=== PATIENT | male | born 1980 | race Caucasian/White ===

== ENCOUNTER 2017-02-10 10:48 | Outpatient (CLI) | payer OTHER ==
[~2017-02-10] VITALS: Ht 188 cm; Wt 107.2 kg
[~2017-02-10 10:48] MED LIST: ACHD5005 PO; ALPR1T PO; ALPR1TAB2 PO; AMIT100T2 PO; AMT50T PO; ATEN-158 PO; ATEN25TA PO; ATEN50TA PO; BP MED; CEPH500C PO; CRS350T PO; CYCL10TA9 PO; DIVA500T PO; HSCO125 PO; HYDR-1231 PO; HYDR-2890 PO; HYDR50CA3; KCL20TCR PO; LITH150C PO; LNS30CCR PO; LTH300TCR PO; LTH450TCR PO; METO-272 PO; METO-354 PO; METO50TA2 PO; NAPR-243 PO; NF-ESOM40C PO; OMEP20CA12 PO; ONDA-43 PO; ONDA4TAB8 SL; ONDA8TAB2 PO; ONDA8TAB9 PO; ONDN4T PO; OXC10TCR PO; PNT40TEC PO; POTA-51 PO; PREVACID; PRM25T PO; PROM25SU43 RC; PROM25SU44 RC; RANI75TA30 PO; RIZA10TA23 PO; SCR1T1 PO; SERT25TA PO; SMV20T PO; SULF1TAB38 PO; TRAM-21 PO; XANAX PO
[2017-02-10] MEDS ORDERED: FAMO20TA45 PO (11:01)
[2017-02-10 11:05] VITALS: BP 127/87
== END 2017-02-10 11:10 | disposition home or self-care (01) ==
LOC: PREOP 10:48
PROVIDERS: ATTEND Surgery
DX: Z01.818 Encounter for other preprocedural examination (principal); Z11.2 Encounter for screening for other bacterial diseases; K40.90 Unilateral inguinal hernia, without obstruction or gangrene, not specified as recurrent
CPT/HCPCS: 87081

== ENCOUNTER 2017-02-17 09:35 | Day surgery (SDC) | payer OTHER ==
[~2017-02-17] VITALS: Ht 188 cm; Wt 107.2 kg
[~2017-02-17 09:35] MED LIST changes: +FAMO20TA45 PO
[2017-02-17] MEDS ORDERED: ceFAZolin 2 GM/50 ML NS 50 ML ONE (09:54)
[2017-02-17] MEDS ORDERED: FAMOTIDINE 20MG/2ML IV (PEPCID) IV ONE (10:15)
[2017-02-17] MEDS ORDERED: MIDAZOLAM 2 MG/2 ML (VERSED) VIAL IV ONE (10:15)
[2017-02-17] MEDS ORDERED: ceFAZolin 2 GM/NS 50 ML IV ONE (10:15)
[2017-02-17] MEDS: LACTATED RINGERS 1,000 ML IV PRN ×3 (10:24→13:59)
[2017-02-17 11:07] VITALS: BP 139/95
[2017-02-17] MEDS ORDERED: DEXAMETHASONE PF 10 MG/ML (DECADRON) VIAL ONE (11:07)
[2017-02-17] MEDS ORDERED: ROCURONIUM 50 MG/5 ML (ZEMURON) VIAL IV ONE (11:07)
[2017-02-17] MEDS ORDERED: ONDANSETRON 4 MG/2 ML (SDV) Z0FRAN ONE (11:07)
[2017-02-17] MEDS ORDERED: LACTATED RINGERS 1,000 ML IV ONE ×3 (11:07→13:56)
[2017-02-17] MEDS ORDERED: MIDAZOLAM 2 MG/2 ML (VERSED) VIAL ONE (11:07)
[2017-02-17] MEDS ORDERED: proPOfol 200 MG/20 ML (DIPRIVAN) VIAL IV ONE (11:07)
[2017-02-17] MEDS ORDERED: SEVOFLURANE (ULTANE) 15 ML INHAL SOLN ONE ×3 (11:07→12:44)
[2017-02-17] MEDS ORDERED: LIDOCAINE PF 2% 10 ML (XYLOCAINE) AMP ONE (11:07)
[2017-02-17] MEDS ORDERED: fentaNYL INJECTION 250 MCG/5 ML AMP ONE (11:08)
[2017-02-17] MEDS ORDERED: LIDOCAINE 1% INJ 20 ML (XYLOCAINE) VIAL ONE (11:09)
[2017-02-17] MEDS ORDERED: BUPIVACAINE 0.5% 30 ML (SENSORCAINE) VIAL ONE (11:09)
--- NOTE | 2017-02-17 11:12 | Progress Note-Pre Operative ---
Pre-Operative Progress Note H&P Reviewed The H&P was reviewed, patient examined and no changes noted. Date H&P Reviewed: Feb 17, 2017 Time H&P Reviewed: 11:11 Pre-Operative Diagnosis: right inguinal hernia, incisional umbilical hernia JR ENRIQUE DO Feb 17, 2017 11:11 am
[2017-02-17] MEDS ORDERED: DOCU-143 PO (11:40)
[2017-02-17] MEDS ORDERED: HYDR-3812 PO (11:40)
--- NOTE | 2017-02-17 11:41 | Discharge Inst-Simple/Standard ---
Discharge Inst-Standard Patient Instructions/Follow Up Plan of Care/Instructions/FU: Follow up with Dr. Tripp in 2 weeks Activity as Tolerated: No Discharge Diet: No Restrictions Other Inst to Patient Follow up Appt: Make appointment for 2 weeks. Instructions: No lifting greater than 10 pounds. No strenuous activity. May shower in 24 hours, no tub bath or soaking. Use incentive spirometer at home as directed. No Smoking Skin/Wound Care: May remove bandages. You need to leave the white strips over incision on they will fall off on their own. Symptoms to Report: Appetite Changes, Extremity Discoloration, Numbness/Tingling, Swelling Increased , Bleeding Excessive, Eyesight Changes, Pain Increased, Urine Color Change, Constipation(Persistent), Fever over 101 degree F, Pain/Pressure in chest, Urinating Difficulty, Cough Up/Vomit Blood, Heart Beat Irreg/Pounding, Pain/ Pressure in jaw, Vaginal Bleeding Increase, Cramps in feet or legs, Lightheadedness, Pain/Pressure in shoulder, Diarrhea(Persistent), Memory Changes Suddenly, Questions/Concerns, Weight gain consecutive days, Dizziness/ Fainting, Nausea/Vomiting, Shortness of Breath, Weight gain over 2 pounds If questions or concerns contact your physician Or seek help at emergency department. VINNY WILL APRN Feb 17, 2017 11:41
[2017-02-17] MEDS ORDERED: NEOSTIGMINE (BLOXIVERZ ) 1 MG/1ML 10 ML VIAL ONE (12:42)
[2017-02-17] MEDS ORDERED: GLYCOPYRROLATE 0.2 MG/ML (ROBINUL) 2 ML VIAL ONE (12:42)
--- NOTE | 2017-02-17 12:42 | Progress Note-Post Operative ---
Post-Operative Progess Note Surgeon (s)/Correspondent (s) Surgeon JR ENRIQUE DO Correspondent: Dr. Hall Pre-Operative Diagnosis Right Inguinal Hernia, Incisional Umbilical Hernia Post-Operative Diagnosis same Post-Op Procedure Note Date of Procedure: Feb 17, 2017 Name of Procedure Performed: right inguinal hernia and incisional umbilical hernia repair Description of the Procedure: repair of hernias Findings of the Procedure direct defect rih, incisional hernia at umbilicus Anesthesia Type general Estimated blood loss (mL): minimal Specimen(s) collected/removed none JR ENRIQUE DO Feb 17, 2017 12:42 pm
[2017-02-17] MEDS: morphine INJ 10 MG/ML 1ML (SYR OR VIAL) IVP PRN ×2 (13:12→13:18)
[2017-02-17] MEDS ORDERED: ONDANSETRON 4 MG/2 ML (SDV) Z0FRAN IVP PRN (13:15)
[2017-02-17] MEDS ORDERED: MEPERIDINE (DEMEROL) INJ 50 MG/ML IVP PRN (13:15)
[2017-02-17] MEDS ORDERED: HYDROmorphone (DILAUDID) 2 MG/ML VIAL ONE (13:16)
[2017-02-17] MEDS: HYDROmorphone (DILAUDID) 2 MG/ML VIAL IVP PRN ×4 (13:20→13:40)
[2017-02-17] MEDS ORDERED: MEPERIDINE (DEMEROL) INJ 50 MG/ML ONE (13:51)
[2017-02-17 14:10] VITALS: BP 139/85
[2017-02-17 14:40] VITALS: BP 140/84
[2017-02-17] MEDS ORDERED: HYDROcodone/APAP 5 MG/325 MG (LORTAB) TAB PO ONE (14:45)
[2017-02-17 15:10] VITALS: BP 148/88
--- NOTE | 2017-02-18 04:32 | OPERATIVE REPORT ---
DATE OF SERVICE: 02/17/2017 PREOPERATIVE DIAGNOSES: 1. Right inguinal hernia. 2. Incisional umbilical hernia. POSTOPERATIVE DIAGNOSES: 1. Right direct inguinal hernia. 2. Umbilical incisional hernia. PROCEDURES: 1. Right inguinal hernia repair, direct defect. 2. Umbilical incisional hernia repair. SURGEON: Jr Tripp DO SHOP TAILOR: Vinicius Hall DO, to assist in retraction, dissection and closure. ANESTHESIA: General. ESTIMATED BLOOD LOSS: Minimal. COMPLICATIONS: None. INDICATIONS: The patient is a 36-year-old male with a right inguinal hernia and incisional umbilical hernia. These are getting larger and causing discomfort. He understands the risks and benefits of procedure and wished to proceed with the procedure. Consent was signed and in the chart. PROCEDURE: The patient was taken to the operating suite. He was prepped and draped in a sterile fashion. Surgical pause was performed. A right lower quadrant incision was made. Dissection was taken down to the external oblique. The external ring was identified and opened. A large direct defect was present. The hernia contents were able to be reduced. The spermatic cord was dissected around and a Rebeca drain was placed around it. The direct defect was reduced and the floor defect was closed using 2-0 Vicryl sutures in a [id number] fashion recreating the floor. The spermatic cord was then isolated. There was no indirect defect present. At this time a ProGrip mesh was cut to size and then secured at Blake's ligament and then placed in the usual fashion incorporating the fascia around the cord. The external oblique was then closed in a running fashion using 3-0 Vicryl. The wound was irrigated with copious amounts of irrigation before closing the external oblique. The subcutaneous tissues were then reapproximated using 2-0 Vicryl suture and then the skin was then closed using 4-0 Vicryl in a running subcuticular fashion. Local anesthetic was infiltrated into the right inguinal area prior to incision. Local anesthetic was infiltrated into the umbilical region. A #15 blade scalpel was used to make an incision just superior to the umbilicus incorporating the previous scar. Cautery dissection was used to dissect down to the fascia. There was a larger defect which was present which was superior to the umbilicus. There is a very tiny defect just superior to this and also a very small one just inferior to it. The fascia was elevated after the hernia constant had been reduced. Preperitoneal dissection was made to where a Ventralex 6.4 cm mesh was able to be placed within this area with adequate coverage of all the defects. The fascia was then closed using 0 Vicryl sutures and also securing in the mesh with this as well. The subcutaneous tissues were then reapproximated using 3-0 Vicryl. The skin was then closed using 4-0 Vicryl in a running subcuticular fashion. The incisions were then washed and dried and Mastisol and Steri-Strips were placed. Sterile bandages were applied. The patient tolerated the procedure well without any complications. He was taken to the recovery room in stable condition. Job ID: [id number] DocumentID: [id number] Dictated Date: 02/17/2017 14:50:57 Grocery Checker Date: 02/18/2017 04:32:01 Dictated By: JR TRIPP DO
== END 2017-02-17 15:35 | disposition home or self-care (01) ==
LOC: SDC 09:35
PROVIDERS: ATTEND Surgery
DX: K40.90 Unilateral inguinal hernia, without obstruction or gangrene, not specified as recurrent (principal); K43.2 Incisional hernia without obstruction or gangrene
CPT/HCPCS: 88302

== ENCOUNTER 2019-03-26 12:00 | Emergency (ER) | payer SELFPAY ==
[~2019-03-26] VITALS: Ht 185.4 cm; Wt 108.9 kg
[~2019-03-26 12:00] MED LIST changes: +DOCU-143 PO
--- OUTSIDE RECORDS SUMMARY | 2019-03-26 12:10 | XMS REPORT | Clinical Summary ---
Author Author [facility] Organization [facility] Address Unknown Phone Unavailable Care Team Providers Care Logistics Operations Manager Name Role Phone Sheree Wolfe MD Unavailable Unavailable Debra Keene Unavailable Unavailable Source Comments Some departments are not documenting in the electronic medical record. If you d o not see the information that you expected, contact Release of Information in [facility] Information Management department at [phone] for further assistan ce in locating additional records.[facility] Allergies No Known Allergies Medications End Date Status Medication Sig Dispensed Refills Start Date Active esomeprazole DR(+) Take 40 mg by 0 (NEXIUM) 40 mg capsule mouth every morning. Active atenolol (TENORMIN) 50 mg Take 50 mg by 0 tablet mouth daily. Active amitriptyline (ELAVIL) 50 Take 50 mg by 0 mg tablet mouth at bedtime daily. Active ALPRAZolam (XANAX) 1 mg Take 1 mg by 0 tablet mouth three times daily as needed. Active scopolamine Apply 1 Patch 10 Patch 1 (TRANSDERM-SCOP) 1.5 mg to top of 4 patch skin as directed every 72 hours. Active promethazine (PHENERGAN) Insert or 30 Each 2 25 mg rectal suppository Apply 1 4 Suppository to rectal area as directed every 6 hours as needed for Nausea. Active Problems Problem Noted Date History of traumatic injury of head 06/25/2014 Hepatitis B infection 06/25/2014 Abdominal pain, other specified site 06/25/2014 Nausea and vomiting 06/25/2014 Family History Medical History Relation Name Comments GI Problem Father Hernia Father GI Problem Other sibling Hernia Other sibling Relation Name Status Comments Father Other sibling Alive Social History Date Tobacco Use Types Packs/Day Years Used Never Smoker Alcohol Use Drinks/Week oz/Week Comments No Sex Assigned at Date Recorded Not on file Industry Job Start Date Occupation Not on file Not on file Not on file Travel End Travel History Travel Start No recent travel history available. Last Filed Vital Signs Time Taken Vital Sign Reading 06/25/2014 9:25 AM CDT Blood Pressure 147/93 06/25/2014 9:25 AM CDT Pulse 80 06/25/2014 9:25 AM CDT Temperature 37.1 C (98.7 F) 06/25/2014 9:25 AM CDT Respiratory Rate 16 - Oxygen Saturation - - Inhaled Oxygen - Concentration 06/25/2014 9:25 AM CDT Weight 111.2 kg (245 lb 3.2 oz) 06/25/2014 9:25 AM CDT Height 185.4 cm (6' 1") 06/25/2014 9:25 AM CDT Body Mass Index 32.35 Plan of Treatment Health Maintenance Due Date Last Done Comments PHYSICAL (COMPREHENSIVE) 1988 EXAM HIV SCREENING 1996 DTAP/TDAP VACCINES (1 - 1999 Tdap) INFLUENZA VACCINE 07/24/2019 Results Not on filefrom Last 3 Months Advance Directives Patient has advance care planning documents on file. For more information, willard baltazar contact: [facility] [address] [facility] [place] [address]
--- OUTSIDE RECORDS SUMMARY | 2019-03-26 12:11 | XMS REPORT ---
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 Role Phone Migration, Doctor Unavailable Unavailable PROBLEMS Type Condition ICD9-CM Code FMF68-LR Code Onset Dates Condition Status SNOMED Code Problem Generalized anxiety disorder F41.1 Active 85716516 Problem Essential hypertension I10 Active 89350533 Problem Gastroesophageal reflux disease without esophagitis K21.9 Active 990422326 Problem Cyclical vomiting with nausea, intractability of vomiting not specified G43.A0 Active 92367878 Problem Bipolar affective disorder F31.9 Active 04396847 Problem Posttraumatic stress disorder F43.10 Active 65511306 ALLERGIES No Information ENCOUNTERS Encounter Location Date Diagnosis [facility] [address] [address] Jan, Gastroesophageal reflux disease without esophagitis K21.9 ; Bipolar affective disorder F31.9 and Essential hypertension I10 [facility] [id number] [place] [address] Nov, [facility] [address] [address] Oct, [facility] [id number] [place] [address] Jul, [facility] [id number] [place] [address] May, Dental abscess K04.7 [facility] [address] [address] May, Toothache K08.89 [facility] [address] [address] February, Essential hypertension I10 [facility] [address] [address] Jan, Cyclical vomiting with nausea, intractability of vomiting not specified G43.A0 ; Gastroesophageal reflux disease without esophagitis K21.9 and Essential hypertension I10 [facility] [id number] [place] [address] Dec, [facility] [address] [id number] [id number] Jul, Dental caries on smooth surface penetrating into pulp K02.63 [facility] [address] [id number] [id number] Jul, Dental examination Z01.20 [facility] [address] [place] [address] A[address] [id number] [id number] Jul, [facility] [id number] [place] [id number] May, Dental examination Z01.20 and Periapical abscess K04.7 [facility] [id number] [place] [address] May, [facility] [id number] [place] [address] Dec, Essential hypertension I10 ; Cyclical vomiting with nausea, intractability of vomiting not specified G43.A0 ; Gastroesophageal reflux disease without esophagitis K21.9 and Right inguinal hernia K40.90 [facility] [id number] [place] [address] Nov, [facility] [id number] [place] [address] Nov, [facility] [id number] [place] [address] Aug, [facility] [id number] [place] [address] May, [facility] [id number] [place] [address] May, Generalized anxiety disorder F41.1 and Bipolar affective disorder F31.9 [facility] [id number] [place] [address] May, Generalized anxiety disorder F41.1 [facility] [id number] [place] [address] May, [facility] [id number] [place] [address] Apr, [facility] [id number] [place] [address] Apr, Bipolar affective disorder F31.9 ; Generalized anxiety disorder F41.1 ; Posttraumatic stress disorder F43.10 ; Benzodiazepine abuse F13.10 and Essential hypertension I10 [facility] [id number] [place] [address] Apr, [facility] [id number] [place] [address] Mar, [facility] [id number] [place] [address] February, [facility] [id number] [place] [address] Jan, [facility] [id number] [place] [address] Jan, [facility] [id number] [place] [address] Jan, Dental examination Z01.20 [facility] [id number] [place] [address] Jan, [facility] [id number] [place] [address] Dec, Bipolar affective disorder F31.9 ; Posttraumatic stress disorder F43.10 ; Generalized anxiety disorder F41.1 and Cannabis use disorder, mild, abuse F12.10 [facility] [id number] [place] [address] Dec, [facility] [address] [address] Nov, [facility] [id number] [place] [address] Nov, [facility] [id number] [place] [address] Nov, [facility] [id number] [place] [address] Nov, Dental examination Z01.20 [facility] [id number] [place] [id number] Nov, 2015 Dental examination Z01.20 [facility] [id number] [place] [address] Oct, [facility] [id number] [place] [address] Sep, [facility] [id number] [place] [address] Aug, [facility] [id number] [place] [address] Aug, Essential hypertension I10 ; Dyspepsia K30 and Cyclic vomiting syndrome G43.A0 [facility] [id number] [place] [address] Jul, [facility] [id number] [place] [address] Jul, [facility] [id number] [place] [address] Jul, Bipolar affective disorder F31.9 ; Generalized anxiety disorder F41.1 and Posttraumatic stress disorder F43.10 [facility] [id number] [place] [address] Jun, [facility] [id number] [place] [address] Jun, [facility] [address] [id number] [address] Jun, [facility] [address] [address] May, [facility] [address] [address] Apr, [facility] [id number] [place] [address] Apr, [facility] [address] [address] Apr, [facility] [id number] [place] [address] Apr, Bipolar mood disorder 296.80 ; Generalized anxiety disorder 300.02 and PTSD (post-traumatic stress disorder) 309.81 [facility] [address] [address] February, [facility] [address] [id number] February, Dental examination V72.2 [facility] [address] [address] Jan, [facility] [address], [place] [address] Jan, [facility] [address], [place] [address] Dec, [facility] [address], [place] [address] Dec, [facility] [address], [place] [address] Dec, [facility] [address], [place] [address] Dec, [facility] [id number] [place] [address] Dec, [facility] [place] [facility] [address] [id number] [place] [address] Dec, [facility] [place] [facility] [address] [id number] [place] [address] Dec, [facility] [place] [facility] [address] [id number] [place] [address] Dec, 2014 [facility] [place] [facility] [address] [id number] [place] [address] Dec, [facility] [place] [facility] [address] [id number] [place] [address] Dec, [facility] [place] [facility] [address] [facility] [id number] [place] [address] Nov, [facility] [place] [facility] [address] [facility] [id number] [place] [address] Nov, [facility] [place] [facility] [address] [facility] [id number] [place] [address] Nov, [facility] [place] [facility] [address] [facility] [id number] [place] [address] Nov, [facility] [place] [facility] [address] [facility] [id number] [place] [address] Nov, [facility] [place] [facility] [address] [facility] [id number] [place] [address] Nov, [facility] [place] [facility] [address] [id number] [address] Oct, [facility] [place] [facility] [address] [id number] [place] [address] Oct, [facility] [place] [facility] [address] [facility] [id number] [place] [address] Oct, [facility] [place] [facility] [address] [facility] [id number] [address] Oct, [facility] [address] [id number] [place] [address] Oct, [facility] [place] [facility] [address] [id number] [place] [address] Oct, [facility] [place] [facility] [address] [id number] [place] [address] Sep, [facility] [place] [facility] [address] [id number] [place] [address] Sep, [facility] [place] [facility] [address] [id number] [place] [address] Sep, [facility] [place] [facility] [address] [id number] [place] [address] Sep, [facility] [place] [facility] [address] [id number] [place] [address] Sep, [facility] [place] [facility] [address] [id number] [place] [address] Sep, [facility] [place] [facility] [address] [id number] [place] [address] Sep, [facility] [place] [facility] [address] [id number] [place] [address] Sep, [facility] [place] [facility] [address] [id number] [place] [address] Sep, [facility] [place] [facility] [address] [id number], [place] [address] Sep, [facility] [place] [facility] [address] [id number] [place] [address] Sep, [facility] [place] [facility] [address] [id number] [place] [address] Sep, [facility] [place] [facility] [address] [id number] [place] [address] Sep, [facility] [place] [facility] [address] [id number] [place] [address] 09 Sep, 2014 [facility] [place] [facility] [address] [id number] [place] [address] Sep, [facility] [place] [facility] [address] [id number] [place] [address] Sep, [facility] [place] [facility] [address] [id number] [place] [address] Sep, [facility] [place] [facility] [address] [id number] [place] [address] Sep, [facility] [place] [facility] [address] [id number] [place] [address] 05 Sep, 2014 [facility] [place] [facility] [address] [id number] [place] [address] Sep, [facility] [place] [facility] [address] [id number] [place] [address] Sep, [facility] [place] [facility] [address] [id number] [place] [address] Sep, [facility] [place] [facility] [address] [id number] [place] [address] Sep, [facility] [place] [facility] [address] [facility] [id number] [place] [address] Sep, [facility] [place] [facility] [address] [id number] [place] [address] Sep, [facility] [place] [facility] [address] [id number] [place] [address] Sep, [facility] [place] [facility] [address] [id number] [place] [address] Aug, [facility] [place] [facility] [address] [id number] [place] [address] Aug, [facility] [place] [facility] [address] [facility] [id number] [place] [address] Aug, [facility] [place] [facility] [address] [id number] [place] [address] 03 Aug, 2014 [facility] [place] [facility] [address] [id number] [place] [address] 30 Jul, 2013 [facility] [place] [facility] [address] [id number] [place] [address] 30 Jul, 2014 [facility] [place] [facility] [address] [id number] [place] [address] 24 Jul, 2014 [facility] [place] [facility] [address] [id number] [place] [address] 24 Jul, 2014 [facility] [place] [facility] [address] [id number] [place] [address] 18 Jul, 2014 [facility] [place] [facility] [address] [id number] [place] [address] 18 Jul, 2014 [facility] [place] [facility] [address] [id number] [place] [address] 17 Jul, 2014 [facility] [place] [facility] [address] [id number] [place] [address] 17 Jul, 2014 [facility] [place] [facility] [address] [id number] [place] [address] 14 Jul, 2014 [facility] [place] [facility] [address] [id number] [place] [address] 14 Jul, 2014 [facility] [place] [facility] [address] [id number] [place] [address] 14 Jul, 2014 [facility] [place] [facility] [address] [id number] [place] [address] 14 Jul, 2014 [facility] [place] [facility] [address] [id number] [place] [address] 10 Jul, 2014 [facility] [place] [facility] [address] [id number] [place] [address] 10 Jul, 2014 [facility] [place] [facility] [address] [id number] [place] [address] Jun, [facility] [place] [facility] [address] [id number] [place] [address] 11 Jun, 2014 [facility] [place] [facility] [address] [id number] [place] [address] Jun, [facility] [place] [facility] [address] [id number] [place] [address] Jun, [facility] [place] [facility] [address] [id number] [place] [address] Jun, [facility] [place] [facility] [address] [id number] [place] [address] Jun, [facility] [place] [facility] [address] [id number] [place] [address] May, [facility] [place] [facility] [address] [id number] [place] [address] May, [facility] [place] [facility] [address] [id number] [place] [address] May, [facility] [place] [facility] [address] [id number] [place] [address] May, [facility] [place] [facility] [address] [id number] [place] [address] May, [facility] [place] [facility] [address] [id number] [place] [address] May, [facility] [place] [facility] [address] [id number] [place] [address] Apr, [facility] [place] [facility] [address] [id number] [place] [address] Apr, [facility] [place] [facility] [address] [id number] [place] [address] Apr, [facility] [place] [facility] [address] [id number] [place] [address] Apr, [facility] [place] [facility] [address] [id number] [place] [address] Apr, [facility] [place] [facility] [address] [id number] [place] [address] Apr, [facility] [place] [facility] [address] [id number] [place] [address] Mar, [facility] [place] [facility] [address] [id number] [place] [address] Mar, [facility] [place] [facility] [address] [id number] [place] [address] Mar, [facility] [place] [facility] [address] [id number] [place] [address] Mar, [facility] [place] [facility] [address] [id number] [place] [address] Mar, [facility] [place] [facility] [address] [id number] [place] [address] Mar, [facility] [place] [facility] [address] [id number] [place] [address] Mar, [facility] [place] [facility] [address] [id number] [place] [address] Mar, [facility] [place] [facility] [address] [id number] [place] [address] Mar, [facility] [place] [facility] [address] [id number] [place] [address] Mar, [facility] [place] [facility] [address] [id number] [place] [address] Mar, [facility] [place] [facility] [address] [id number] [place] [address] Mar, [facility] [place] [facility] [address] [id number] [place] [address] February, [facility] [place] [facility] [address] [id number] [place] [address] February, [facility] [place] [facility] [address] [id number] [place] [address] February, [facility] [place] [facility] [address] [id number] [place] [address] Dec, [facility] [place] [facility] [address] [id number] [place] [address] Dec, [facility] [place] [facility] [address] [id number] [place] [address] Nov, [facility] [place] [facility] [address] [id number] [place] [address] Nov, [facility] [place] [facility] [address] [id number] [place] [address] Nov, [facility] [place] [facility] [address] [id number] [place] [address] Nov, [facility] [place] [facility] [address] [id number] [place] [address] Nov, [facility] [place] [facility] [address] [id number] [place] [address] Nov, [facility] [place] [facility] [address] [id number] [place] [address] Nov, [facility] [place] [facility] [address] [id number] [place] [address] Nov, [facility] [place] [facility] [address] [id number] [place] [address] Nov, [facility] [place] [facility] [address] [id number] [place] [address] Nov, [facility] [place] [facility] [address] [id number] [place] [address] Oct, [facility] [place] [facility] [address] [id number] [place] [address] Oct, [facility] [place] [facility] [address] [id number] [place] [address] Sep, [facility] [address] [id number] [place] [address] Sep, [facility] [address] [id number] [place] [address] 24 Jun, 2013 [facility] [address] [id number] [place] [address] Jun, [facility] [address] [id number] [place] [address] May, [facility] [address] [id number] [place] [address] May, [facility] [address] [id number] [place] [address] Mar, [facility] [address] [id number] [place] [address] Mar, [facility] [address] [id number] [place] [address] Mar, [facility] [address] [id number] [place] [address] Mar, [facility] [address] [id number] [place] [address] Mar, [facility] [address] [id number] [place] [address] Mar, [facility] [address] [id number] [place] [address] February, [facility] [address] [id number] [place] [address] February, [facility] [address] [id number] [place] [address] Jan, [facility] [address] [id number] [place] [address] Dec, [facility] [address] [id number] [place] [address] 13 Nov, 2012 [facility] [place] [facility] [address] [id number] [place] [address] 07 Nov, 2012 [facility] [address] [id number] [place] [address] 04 Nov, 2012 [facility] [place] [facility] [address] [id number] [place] [address] 17 Oct, 2012 [facility] [address] [id number] [place] [address] 15 Oct, 2012 [facility] [address] [id number] [place] [address] Oct, [facility] [address] [facility] [id number] [place] [address] Sep, [facility] [place] [facility] [address] [id number], [place] [address] Sep, [facility] [address] [id number] [place] [address] Sep, [facility] [address] [facility] [id number], [place] [address] Sep, [facility] [place] [facility] [address] [facility] [id number], [place] [address] Sep, [facility] [place] [facility] [address] [id number], [place] [address] Sep, [facility] [place] [facility] [address] [facility] [id number] [place] [address] Jul, [facility] [place] [facility] [address] [id number], [place] [address] 18 Jul, 2012 [facility] [place] [facility] [address] [facility] [id number] [place] [address] 28 Jun, 2012 [facility] [place] [facility] [address] [id number] [place] [address] 13 May, 2012 [facility] [place] [facility] [address] [id number] [place] [address] Apr, [facility] [place] [facility] [address] [id number] [place] [address] 17 Apr, 2012 [facility] [place] [facility] [address] [id number] [place] [address] Apr, [facility] [place] [facility] [address] [id number] [place] [address] Apr, [facility] [place] [facility] [address] [id number] [place] [address] Apr, [facility] [place] [facility] [address] [id number] [place] [address] Apr, [facility] [place] [facility] [address] [id number] [place] [address] Mar, [facility] [place] [facility] [address] [id number] [place] [address] Mar, [facility] [place] [facility] [address] [id number] [place] [address] Mar, [facility] [place] [facility] [address] [id number] [place] [address] February, [facility] [place] [facility] [address] [id number] [place] [address] 18 Jan, 2012 [facility] [place] [facility] [address] [id number] [place] [address] Jan, [facility] [place] [facility] [address] [id number] [place] [address] Jan, [facility] [place] [facility] [address] [id number] [place] [address] Jan, [facility] [place] [facility] [address] [id number] [place] [address] Dec, [facility] [id number] [address] 20 Dec, 2011 [facility] [id number], [place] [address] 16 Dec, 2011 [facility] [id number], [place] [address] 14 Dec, 2011 [facility] [id number] [place] [address] 16 Nov, 2011 [facility] [id number] [address] 07 Nov, 2011 [facility] [id number] [place] [address] 06 Nov, 2011 [facility] [id number] [address] Sep, [facility] [id number] [place] [address] [id number] Sep, [facility] [id number] [address] Aug, [facility] [id number] [address] Aug, [facility] [address] [id number] [address] Jul, IMMUNIZATIONS No Known Immunizations SOCIAL HISTORY Never Assessed REASON FOR VISIT [facility] PLAN OF CARE VITAL SIGNS MEDICATIONS No Known Medications RESULTS No Results PROCEDURES No Known procedures INSTRUCTIONS MEDICATIONS ADMINISTERED No Known Medications MEDICAL (GENERAL) HISTORY Type Description Date Medical History Hypertension Medical History PTSD Medical History Anxiety Medical History Esophageal reflux Medical History Hx Narc Alert for Illicit Drug Use Surgical History cholecystectomy Surgical History surgery for head trauma Hospitalization History Cyclic vomitting Hospitalization History [facility]- Gastritis 01/2018
--- OUTSIDE RECORDS SUMMARY | 2019-03-26 12:11 | XMS REPORT ---
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 Name Role Phone Migration, Doctor Unavailable Unavailable PROBLEMS Type Condition ICD9-CM Code EQS23-VB Code Onset Dates Condition Status SNOMED Code Problem Generalized anxiety disorder F41.1 Active 20201515 Problem Essential hypertension I10 Active 49450089 Problem Gastroesophageal reflux disease without esophagitis K21.9 Active 650201386 Problem Cyclical vomiting with nausea, intractability of vomiting not specified G43.A0 Active 48702725 Problem Bipolar affective disorder F31.9 Active 15410690 Problem Posttraumatic stress disorder F43.10 Active 45896532 ALLERGIES No Information ENCOUNTERS Encounter Location Date Diagnosis [facility] [address] [address] Jan, Gastroesophageal reflux disease without esophagitis K21.9 ; Bipolar affective disorder F31.9 and Essential hypertension I10 [facility] [id number] [place] [address] Nov, [facility] [address] [address] Oct, [facility] [id number] [place] [address] Jul, [facility] [id number] [place] [address] May, Dental abscess K04.7 [facility] [address] [address] May, Toothache K08.89 [facility] [address] [address] February, Essential hypertension I10 [facility] [address] [address] Jan, Cyclical vomiting with nausea, intractability of vomiting not specified G43.A0 ; Gastroesophageal reflux disease without esophagitis K21.9 and Essential hypertension I10 [facility] [id number] [place] [address] Dec, [facility] [address] [id number] [id number] Jul, Dental caries on smooth surface penetrating into pulp K02.63 [facility] [address] [id number] [id number] Jul, Dental examination Z01.20 [facility] [address] [place] [address] A[id number] [id number] Jul, [facility] [id number] [place] [id number] May, Dental examination Z01.20 and Periapical abscess K04.7 [facility] [id number] [place] [address] May, [facility] [id number] [place] [address] Dec, Essential hypertension I10 ; Cyclical vomiting with nausea, intractability of vomiting not specified G43.A0 ; Gastroesophageal reflux disease without esophagitis K21.9 and Right inguinal hernia K40.90 [facility] [id number] [place] [address] Nov, [facility] [id number] [place] [address] Nov, [facility] [id number] [place] [address] Aug, [facility] [id number] [place] [address] May, [facility] [id number] [place] [address] May, Generalized anxiety disorder F41.1 and Bipolar affective disorder F31.9 [facility] [id number] [place] [address] May, Generalized anxiety disorder F41.1 [facility] [id number] [place] [address] May, [facility] [id number] [place] [address] Apr, [facility] [id number] [place] [address] Apr, Bipolar affective disorder F31.9 ; Generalized anxiety disorder F41.1 ; Posttraumatic stress disorder F43.10 ; Benzodiazepine abuse F13.10 and Essential hypertension I10 [facility] [id number] [place] [address] Apr, [facility] [id number] [place] [address] Mar, [facility] [id number] [place] [address] February, [facility] [id number] [place] [address] Jan, [facility] [id number] [place] [address] Jan, [facility] [id number] [place] [address] Jan, Dental examination Z01.20 [facility] [id number] [place] [address] Jan, [facility] [id number] [place] [address] Dec, Bipolar affective disorder F31.9 ; Posttraumatic stress disorder F43.10 ; Generalized anxiety disorder F41.1 and Cannabis use disorder, mild, abuse F12.10 [facility] [id number] [place] [address] Dec, [facility] [address] [address] Nov, [facility] [id number] [place] [address] Nov, [facility] [id number] [place] [address] Nov, [facility] [id number] [place] [address] Nov, Dental examination Z01.20 [facility] [id number] [place] [id number] Nov, 2015 Dental examination Z01.20 [facility] [id number] [place] [address] Oct, [facility] [id number] [place] [address] Sep, [facility] [id number] [place] [address] Aug, [facility] [id number] [place] [address] Aug, Essential hypertension I10 ; Dyspepsia K30 and Cyclic vomiting syndrome G43.A0 [facility] [id number] [place] [address] Jul, [facility] [id number] [place] [address] Jul, [facility] [id number] [place] [address] Jul, Bipolar affective disorder F31.9 ; Generalized anxiety disorder F41.1 and Posttraumatic stress disorder F43.10 [facility] [id number] [place] [address] Jun, [facility] [id number] [place] [address] Jun, [facility] [address] [id number] [address] Jun, [facility] [address] [address] May, [facility] [address] [address] Apr, [facility] [id number] [place] [address] Apr, [facility] [address] [address] Apr, [facility] [id number] [place] [address] Apr, Bipolar mood disorder 296.80 ; Generalized anxiety disorder 300.02 and PTSD (post-traumatic stress disorder) 309.81 [facility] [address] [address] February, [facility] [address] [id number] February, Dental examination V72.2 [facility] [address] [address] Jan, [facility] [address] [address] Jan, [facility] [address], [place] [address] Dec, [facility] [address], [place] [address] Dec, [facility] [address], [place] [address] Dec, [facility] [address], [place] [address] Dec, [facility] [id number] [place] [address] Dec, [facility] [place] [facility] [address] [id number] [place] [address] Dec, [facility] [place] [facility] [address] [id number] [place] [address] Dec, [facility] [place] [facility] [address] [id number] [place] [address] Dec, 2014 [facility] [place] [facility] [address] [id number] [place] [address] Dec, [facility] [place] [facility] [address] [id number] [place] [address] Dec, [facility] [place] [facility] [address] [facility] [id number] [place] [address] Nov, [facility] [place] [facility] [address] [facility] [id number] [place] [address] Nov, [facility] [place] [facility] [address] [facility] [id number] [place] [address] Nov, [facility] [place] [facility] [address] [facility] [id number] [place] [address] Nov, [facility] [place] [facility] [address] [facility] [id number] [place] [address] Nov, [facility] [place] [facility] [address] [facility] [id number] [place] [address] Nov, [facility] [place] [facility] [address] [id number], [place] [address] Oct, [facility] [place] [facility] [address] [id number] [place] [address] Oct, [facility] [place] [facility] [address] [facility] [id number] [place] [address] Oct, [facility] [place] [facility] [address] [facility] [id number], [place] [address] Oct, [facility] [address] [id number] [place] [address] Oct, [facility] [place] [facility] [address] [id number] [place] [address] Oct, [facility] [place] [facility] [address] [id number] [place] [address] Sep, [facility] [place] [facility] [address] [id number] [place] [address] Sep, [facility] [place] [facility] [address] [id number] [place] [address] Sep, [facility] [place] [facility] [address] [id number] [place] [address] Sep, [facility] [place] [facility] [address] [id number] [place] [address] Sep, [facility] [place] [facility] [address] [id number] [place] [address] Sep, [facility] [place] [facility] [address] [id number] [place] [address] Sep, [facility] [place] [facility] [address] [id number] [place] [address] Sep, [facility] [place] [facility] [address] [id number] [place] [address] Sep, [facility] [place] [facility] [address] [id number] [address] Sep, [facility] [place] [facility] [address] [id number] [place] [address] Sep, [facility] [place] [facility] [address] [id number] [place] [address] Sep, [facility] [place] [facility] [address] [id number] [place] [address] Sep, [facility] [place] [facility] [address] [id number] [place] [address] 09 Sep, 2014 [facility] [place] [facility] [address] [id number] [place] [address] Sep, [facility] [place] [facility] [address] [id number] [place] [address] Sep, [facility] [place] [facility] [address] [id number] [place] [address] Sep, [facility] [place] [facility] [address] [id number] [place] [address] Sep, [facility] [place] [facility] [address] [id number] [place] [address] 05 Sep, 2014 [facility] [place] [facility] [address] [id number] [place] [address] Sep, [facility] [place] [facility] [address] [id number] [place] [address] Sep, [facility] [place] [facility] [address] [id number] [place] [address] Sep, [facility] [place] [facility] [address] [id number] [place] [address] Sep, [facility] [place] [facility] [address] [facility] [id number] [place] [address] Sep, [facility] [place] [facility] [address] [id number] [place] [address] Sep, [facility] [place] [facility] [address] [id number] [place] [address] Sep, [facility] [place] [facility] [address] [id number] [place] [address] Aug, [facility] [place] [facility] [address] [id number] [place] [address] Aug, [facility] [place] [facility] [address] [facility] [id number] [place] [address] Aug, [facility] [place] [facility] [address] [id number] [place] [address] 03 Aug, 2014 [facility] [place] [facility] [address] [id number] [place] [address] 30 Jul, 2013 [facility] [place] [facility] [address] [id number] [place] [address] 30 Jul, 2014 [facility] [place] [facility] [address] [id number] [place] [address] 24 Jul, 2014 [facility] [place] [facility] [address] [id number] [place] [address] 24 Jul, 2014 [facility] [place] [facility] [address] [id number] [place] [address] 18 Jul, 2014 [facility] [place] [facility] [address] [id number] [place] [address] 18 Jul, 2014 [facility] [place] [facility] [address] [id number] [place] [address] 17 Jul, 2014 [facility] [place] [facility] [address] [id number] [place] [address] 17 Jul, 2014 [facility] [place] [facility] [address] [id number] [place] [address] 14 Jul, 2014 [facility] [place] [facility] [address] [id number] [place] [address] 14 Jul, 2014 [facility] [place] [facility] [address] [id number] [place] [address] 14 Jul, 2014 [facility] [place] [facility] [address] [id number] [place] [address] 14 Jul, 2014 [facility] [place] [facility] [address] [id number] [place] [address] 10 Jul, 2014 [facility] [place] [facility] [address] [id number] [place] [address] 10 Jul, 2014 [facility] [place] [facility] [address] [id number] [place] [address] Jun, [facility] [place] [facility] [address] [id number] [place] [address] 11 Jun, 2014 [facility] [place] [facility] [address] [id number] [place] [address] Jun, [facility] [place] [facility] [address] [id number] [place] [address] Jun, [facility] [place] [facility] [address] [id number] [place] [address] Jun, [facility] [place] [facility] [address] [id number] [place] [address] Jun, [facility] [place] [facility] [address] [id number] [place] [address] May, [facility] [place] [facility] [address] [id number] [place] [address] May, [facility] [place] [facility] [address] [id number] [place] [address] May, [facility] [place] [facility] [address] [id number] [place] [address] May, [facility] [place] [facility] [address] [id number] [place] [address] May, [facility] [place] [facility] [address] [id number] [place] [address] May, [facility] [place] [facility] [address] [id number] [place] [address] Apr, [facility] [place] [facility] [address] [id number] [place] [address] Apr, [facility] [place] [facility] [address] [id number] [place] [address] Apr, [facility] [place] [facility] [address] [id number] [place] [address] Apr, [facility] [place] [facility] [address] [id number] [place] [address] Apr, [facility] [place] [facility] [address] [id number] [place] [address] Apr, [facility] [place] [facility] [address] [id number] [place] [address] Mar, [facility] [place] [facility] [address] [id number] [place] [address] Mar, [facility] [place] [facility] [address] [id number] [place] [address] Mar, [facility] [place] [facility] [address] [id number] [place] [address] Mar, [facility] [place] [facility] [address] [id number] [place] [address] Mar, [facility] [place] [facility] [address] [id number] [place] [address] Mar, [facility] [place] [facility] [address] [id number] [place] [address] Mar, [facility] [place] [facility] [address] [id number] [place] [address] Mar, [facility] [place] [facility] [address] [id number] [place] [address] Mar, [facility] [place] [facility] [address] [id number] [place] [address] Mar, [facility] [place] [facility] [address] [id number] [place] [address] Mar, [facility] [place] [facility] [address] [id number] [place] [address] Mar, [facility] [place] [facility] [address] [id number] [place] [address] February, [facility] [place] [facility] [address] [id number] [place] [address] February, [facility] [place] [facility] [address] [id number] [place] [address] February, [facility] [place] [facility] [address] [id number] [place] [address] Dec, [facility] [place] [facility] [address] [id number] [place] [address] Dec, [facility] [place] [facility] [address] [id number] [place] [address] Nov, [facility] [place] [facility] [address] [id number] [place] [address] Nov, [facility] [place] [facility] [address] [id number] [place] [address] Nov, [facility] [place] [facility] [address] [id number] [place] [address] Nov, [facility] [place] [facility] [address] [id number] [place] [address] Nov, [facility] [place] [facility] [address] [id number] [place] [address] Nov, [facility] [place] [facility] [address] [id number] [place] [address] Nov, [facility] [place] [facility] [address] [id number] [place] [address] Nov, [facility] [place] [facility] [address] [id number] [place] [address] Nov, [facility] [place] [facility] [address] [id number] [place] [address] Nov, [facility] [place] [facility] [address] [id number] [place] [address] Oct, [facility] [place] [facility] [address] [id number] [place] [address] Oct, [facility] [place] [facility] [address] [id number] [place] [address] Sep, [facility] [address] [id number] [place] [address] Sep, [facility] [address] [id number] [place] [address] 24 Jun, 2013 [facility] [address] [id number] [place] [address] Jun, [facility] [address] [id number] [place] [address] May, [facility] [address] [id number] [place] [address] May, [facility] [address] [id number] [place] [address] Mar, [facility] [address] [id number] [place] [address] Mar, [facility] [address] [id number] [place] [address] Mar, [facility] [address] [id number] [place] [address] Mar, [facility] [address] [id number] [place] [address] Mar, [facility] [address] [id number] [place] [address] Mar, [facility] [address] [id number] [place] [address] February, [facility] [address] [id number] [place] [address] February, [facility] [address] [id number] [place] [address] Jan, [facility] [address] [id number] [place] [address] Dec, [facility] [address] [id number] [place] [address] 13 Nov, 2012 [facility] [place] [facility] [address] [id number] [place] [address] 07 Nov, 2012 [facility] [address] [id number] [place] [address] 04 Nov, 2012 [facility] [place] [facility] [address] [id number] [place] [address] 17 Oct, 2012 [facility] [address] [id number] [place] [address] 15 Oct, 2012 [facility] [address] [id number] [place] [address] Oct, [facility] [address] [facility] [id number] [place] [address] Sep, [facility] [place] [facility] [address] [id number], [place] [address] Sep, [facility] [address] [id number] [place] [address] Sep, [facility] [address] [facility] [id number], [place] [address] Sep, [facility] [place] [facility] [address] [facility] [id number], [place] [address] Sep, [facility] [place] [facility] [address] [id number], [place] [address] Sep, [facility] [place] [facility] [address] [facility] [id number] [place] [address] Jul, [facility] [place] [facility] [address] [id number], [place] [address] 18 Jul, 2012 [facility] [place] [facility] [address] [facility] [id number] [place] [address] 28 Jun, 2012 [facility] [place] [facility] [address] [id number] [place] [address] 13 May, 2012 [facility] [place] [facility] [address] [id number] [place] [address] Apr, [facility] [place] [facility] [address] [id number] [place] [address] 17 Apr, 2012 [facility] [place] [facility] [address] [id number] [place] [address] Apr, [facility] [place] [facility] [address] [id number] [place] [address] Apr, [facility] [place] [facility] [address] [id number] [place] [address] Apr, [facility] [place] [facility] [address] [id number] [place] [address] Apr, [facility] [place] [facility] [address] [id number] [place] [address] Mar, [facility] [place] [facility] [address] [id number] [place] [address] Mar, [facility] [place] [facility] [address] [id number] [place] [address] Mar, [facility] [place] [facility] [address] [id number] [place] [address] February, [facility] [place] [facility] [address] [id number] [place] [address] 18 Jan, 2012 [facility] [place] [facility] [address] [id number] [place] [address] Jan, [facility] [place] [facility] [address] [id number] [place] [address] Jan, [facility] [place] [facility] [address] [id number] [place] [address] Jan, [facility] [place] [facility] [address] [id number] [place] [address] Dec, [facility] [id number], [place] [address] 20 Dec, 2011 [facility] [id number], [place] [address] 16 Dec, 2011 [facility] [id number], [place] [address] 14 Dec, 2011 [facility] [id number] [place] [address] 16 Nov, 2011 [facility] [id number], [place] [address] 07 Nov, 2011 [facility] [id number] [place] [address] 06 Nov, 2011 [facility] [id number], [place] [address] Sep, [facility] [id number] [place] [address] Sep, [facility] [id number], [place] [address] Aug, [facility] [id number] [id number] Aug, [facility] [address] [id number] [id number] Jul, IMMUNIZATIONS No Known Immunizations SOCIAL HISTORY Never Assessed REASON FOR VISIT [facility] PLAN OF CARE VITAL SIGNS MEDICATIONS No [...] trauma Hospitalization History Cyclic vomitting Hospitalization History [facility]- Gastritis 01/2018
--- OUTSIDE RECORDS SUMMARY | 2019-03-26 12:12 | XMS REPORT ---
Author Author Migration, Doctor Organization [facility] Address Unknown Phone Unavailable Care Team Providers Care Supervisor Safety Deposit Name Role Phone Migration, Doctor Unavailable Unavailable PROBLEMS Type Condition ICD9-CM Code QSX77-CD Code Onset Dates Condition Status SNOMED Code Problem Generalized anxiety disorder F41.1 Active 27619645 Problem Essential hypertension I10 Active 04730427 Problem Gastroesophageal reflux disease without esophagitis K21.9 Active 831728895 Problem Cyclical vomiting with nausea, intractability of vomiting not specified G43.A0 Active 41183898 Problem Bipolar affective disorder F31.9 Active 02617462 Problem Posttraumatic stress disorder F43.10 Active 75253070 ALLERGIES No Information ENCOUNTERS Encounter Location Date Diagnosis [facility] [address] [address] Jan, Gastroesophageal reflux disease without esophagitis K21.9 ; Bipolar affective disorder F31.9 and Essential hypertension I10 [facility] [id number] [place] [id number] Nov, [facility] [address] [address] Oct, [facility] [id number] [place] [id number] Jul, [facility] [id number] [place] [address] May, Dental abscess K04.7 [facility] [address] [address] May, Toothache K08.89 [facility] [address] [address] February, Essential hypertension I10 [facility] [address] [address] Jan, Cyclical vomiting with nausea, intractability of vomiting not specified G43.A0 ; Gastroesophageal reflux disease without esophagitis K21.9 and Essential hypertension I10 [facility] [id number] [place] [address] Dec, [facility] [place] [address] [id number] [id number] Jul, Dental caries on smooth surface penetrating into pulp K02.[address] [facility] [address] [id number] [id number] Jul, Dental examination Z01.[address] [facility] [address] [place] [address] [place] [id number] [id number] Jul, [facility] [id number] [place] [id number] May, Dental examination Z01.20 and Periapical abscess K04.7 [facility] [id number] [place] [address] May, [facility] [id number] [place] [address] Dec, Essential hypertension I10 ; Cyclical vomiting with nausea, intractability of vomiting not specified G43.A0 ; Gastroesophageal reflux disease without esophagitis K21.9 and Right inguinal hernia K40.90 [facility] [id number] [place] [address] Nov, [facility] [id number] [place] [address] Nov, [facility] [id number] [place] [id number] Aug, [facility] [id number] [place] [address] May, [facility] [id number] [place] [address] May, Generalized anxiety disorder F41.1 and Bipolar affective disorder F31.9 [facility] [id number] [place] [address] May, Generalized anxiety disorder F41.1 [facility] [id number] [place] [address] May, [facility] [id number] [place] [address] Apr, [facility] [id number] [place] [address] Apr, Bipolar affective disorder F31.9 ; Generalized anxiety disorder F41.1 ; Posttraumatic stress disorder F43.10 ; Benzodiazepine abuse F13.10 and Essential hypertension I10 [facility] [id number] [place] [address] Apr, [facility] [id number] [place] [address] Mar, [facility] [id number] [place] [address] February, [facility] [id number] [place] [address] Jan, [facility] [id number] [place] [address] Jan, [facility] [id number] [place] [address] Jan, Dental examination Z01.20 [facility] [id number] [place] [address] Jan, [facility] [id number] [place] [address] Dec, Bipolar affective disorder F31.9 ; Posttraumatic stress disorder F43.10 ; Generalized anxiety disorder F41.1 and Cannabis use disorder, mild, abuse F12.10 [facility] [id number] [place] [address] Dec, [facility] [address] [address] Nov, [facility] [id number] [place] [id number] Nov, [facility] [id number] [place] [id number] Nov, [facility] [id number] [place] [address] Nov, Dental examination Z01.20 [facility] [id number] [place] [id number] Nov, 2015 Dental examination Z01.20 [facility] [id number] [place] [id number] Oct, [facility] [id number] [place] [address] Sep, [facility] [id number] [place] [address] Aug, [facility] [id number] [place] [address] Aug, Essential hypertension I10 ; Dyspepsia K30 and Cyclic vomiting syndrome G43.A0 [facility] [id number] [place] [address] Jul, [facility] [id number] [place] [address] Jul, [facility] [id number] [place] [address] Jul, Bipolar affective disorder F31.9 ; Generalized anxiety disorder F41.1 and Posttraumatic stress disorder F43.10 [facility] [id number] [place] [id number] Jun, [facility] [id number] [place] [address] Jun, [facility] [address] [id number] [address] Jun, [facility] [address], [place] [address] May, [facility] [address], [place] [address] Apr, [facility] [id number] [place] [address] Apr, [facility] [address], [place] [address] Apr, [facility] [id number] [place] [address] Apr, Bipolar mood disorder 296.80 ; Generalized anxiety disorder 300.02 and PTSD (post-traumatic stress disorder) 309.81 [facility] [address] [address] February, [facility] [address] [id number] February, Dental examination V72.2 [facility] [address], [place] [address] Jan, [facility] [address] [address] Jan, [facility] [address], [place] [address] Dec, [facility] [address], [place] [address] Dec, [facility] [address], [place] [address] Dec, [facility] [address], [place] [address] Dec, [facility] [id number] [place] [address] Dec, [facility] [place] [facility] [address] [id number] [place] [address] Dec, [facility] [place] [facility] [address] [id number] [place] [address] Dec, [facility] [place] [facility] [address] [id number] [place] [address] Dec, 2014 [facility] [place] [facility] [address] [id number] [place] [address] Dec, [facility] [place] [facility] [address] [id number] [place] [address] Dec, [facility] [place] [facility] [address] [facility] [id number] [place] [address] Nov, [facility] [place] [facility] [address] [facility] [id number] [place] [address] Nov, [facility] [place] [facility] [address] [facility] [id number] [place] [address] Nov, [facility] [place] [facility] [address] [facility] [id number] [place] [address] Nov, [facility] [place] [facility] [address] [facility] [id number] [place] [address] Nov, [facility] [place] [facility] [address] [facility] [id number] [place] [address] Nov, [facility] [place] [facility] [address] [id number], [place] [address] Oct, [facility] [place] [facility] [address] [id number] [place] [address] Oct, [facility] [place] [facility] [address] [facility] [id number] [place] [address] Oct, [facility] [place] [facility] [address] [facility] [id number], [place] [address] Oct, [facility] [address] [id number] [place] [address] Oct, [facility] [place] [facility] [address] [id number] [place] [address] Oct, [facility] [place] [facility] [address] [id number] [place] [address] Sep, [facility] [place] [facility] [address] [id number] [place] [address] Sep, [facility] [place] [facility] [address] [id number] [place] [address] Sep, [facility] [place] [facility] [address] [id number] [place] [address] Sep, [facility] [place] [facility] [address] [id number] [place] [address] Sep, [facility] [place] [facility] [address] [id number] [place] [address] Sep, [facility] [place] [facility] [address] [id number] [place] [address] Sep, [facility] [place] [facility] [address] [id number] [place] [address] Sep, [facility] [place] [facility] [address] [id number] [place] [address] Sep, [facility] [place] [facility] [address] [id number], [place] [address] Sep, [facility] [place] [facility] [address] [id number] [place] [address] Sep, [facility] [place] [facility] [address] [id number] [place] [address] Sep, [facility] [place] [facility] [address] [id number] [place] [address] Sep, [facility] [place] [facility] [address] [id number] [place] [address] 09 Sep, 2014 [facility] [place] [facility] [address] [id number] [place] [address] Sep, [facility] [place] [facility] [address] [id number] [place] [address] Sep, [facility] [place] [facility] [address] [id number] [place] [address] Sep, [facility] [place] [facility] [address] [id number] [place] [address] Sep, [facility] [place] [facility] [address] [id number] [place] [address] 05 Sep, 2014 [facility] [place] [facility] [address] [id number] [place] [address] Sep, [facility] [place] [facility] [address] [id number] [place] [address] Sep, [facility] [place] [facility] [address] [id number] [place] [address] Sep, [facility] [place] [facility] [address] [id number] [place] [address] Sep, [facility] [place] [facility] [address] [facility] [id number] [place] [address] Sep, [facility] [place] [facility] [address] [id number] [place] [address] Sep, [facility] [place] [facility] [address] [id number] [place] [address] Sep, [facility] [place] [facility] [address] [id number] [place] [address] Aug, [facility] [place] [facility] [address] [id number] [place] [address] Aug, [facility] [place] [facility] [address] [facility] [id number] [place] [address] Aug, [facility] [place] [facility] [address] [id number] [place] [address] 03 Aug, 2014 [facility] [place] [facility] [address] [id number] [place] [address] 30 Jul, 2013 [facility] [place] [facility] [address] [id number] [place] [address] 30 Jul, 2014 [facility] [place] [facility] [address] [id number] [place] [address] 24 Jul, 2014 [facility] [place] [facility] [address] [id number] [place] [address] 24 Jul, 2014 [facility] [place] [facility] [address] [id number] [place] [address] 18 Jul, 2014 [facility] [place] [facility] [address] [id number] [place] [address] 18 Jul, 2014 [facility] [place] [facility] [address] [id number] [place] [address] 17 Jul, 2014 [facility] [place] [facility] [address] [id number] [place] [address] 17 Jul, 2014 [facility] [place] [facility] [address] [id number] [place] [address] 14 Jul, 2014 [facility] [place] [facility] [address] [id number] [place] [address] 14 Jul, 2014 [facility] [place] [facility] [address] [id number] [place] [address] 14 Jul, 2014 [facility] [place] [facility] [address] [id number] [place] [address] 14 Jul, 2014 [facility] [place] [facility] [address] [id number] [place] [address] 10 Jul, 2014 [facility] [place] [facility] [address] [id number] [place] [address] 10 Jul, 2014 [facility] [place] [facility] [address] [id number] [place] [address] Jun, [facility] [place] [facility] [address] [id number] [place] [address] 11 Jun, 2014 [facility] [place] [facility] [address] [id number] [place] [address] Jun, [facility] [place] [facility] [address] [id number] [place] [address] Jun, [facility] [place] [facility] [address] [id number] [place] [address] Jun, [facility] [place] [facility] [address] [id number] [place] [address] Jun, [facility] [place] [facility] [address] [id number] [place] [address] May, [facility] [place] [facility] [address] [id number] [place] [address] May, [facility] [place] [facility] [address] [id number] [place] [address] May, [facility] [place] [facility] [address] [id number] [place] [address] May, [facility] [place] [facility] [address] [id number] [place] [address] May, [facility] [place] [facility] [address] [id number] [place] [address] May, [facility] [place] [facility] [address] [id number] [place] [address] Apr, [facility] [place] [facility] [address] [id number] [place] [address] Apr, [facility] [place] [facility] [address] [id number] [place] [address] Apr, [facility] [place] [facility] [address] [id number] [place] [address] Apr, [facility] [place] [facility] [address] [id number] [place] [address] Apr, [facility] [place] [facility] [address] [id number] [place] [address] Apr, [facility] [place] [facility] [address] [id number] [place] [address] Mar, [facility] [place] [facility] [address] [id number] [place] [address] Mar, [facility] [place] [facility] [address] [id number] [place] [address] Mar, [facility] [place] [facility] [address] [id number] [place] [address] Mar, [facility] [place] [facility] [address] [id number] [place] [address] Mar, [facility] [place] [facility] [address] [id number] [place] [address] Mar, [facility] [place] [facility] [address] [id number] [place] [address] Mar, [facility] [place] [facility] [address] [id number] [place] [address] Mar, [facility] [place] [facility] [address] [id number] [place] [address] Mar, [facility] [place] [facility] [address] [id number] [place] [address] Mar, [facility] [place] [facility] [address] [id number] [place] [address] Mar, [facility] [place] [facility] [address] [id number] [place] [address] Mar, [facility] [place] [facility] [address] [id number] [place] [address] February, [facility] [place] [facility] [address] [id number] [place] [address] February, [facility] [place] [facility] [address] [id number] [place] [address] February, [facility] [place] [facility] [address] [id number] [place] [address] Dec, [facility] [place] [facility] [address] [id number] [place] [address] Dec, [facility] [place] [facility] [address] [id number] [place] [address] Nov, [facility] [place] [facility] [address] [id number] [place] [address] Nov, [facility] [place] [facility] [address] [id number] [place] [address] Nov, [facility] [place] [facility] [address] [id number] [place] [address] Nov, [facility] [place] [facility] [address] [id number] [place] [address] Nov, [facility] [place] [facility] [address] [id number] [place] [address] Nov, [facility] [place] [facility] [address] [id number] [place] [address] Nov, [facility] [place] [facility] [address] [id number] [place] [address] Nov, [facility] [place] [facility] [address] [id number] [place] [address] Nov, [facility] [place] [facility] [address] [id number] [place] [address] Nov, [facility] [place] [facility] [address] [id number] [place] [address] Oct, [facility] [place] [facility] [address] [id number] [place] [address] Oct, [facility] [place] [facility] [address] [id number] [place] [address] Sep, [facility] [address] [id number] [place] [address] Sep, [facility] [address] [id number] [place] [address] 24 Jun, 2013 [facility] [address] [id number] [place] [address] Jun, [facility] [address] [id number] [place] [address] May, [facility] [address] [id number] [place] [address] May, [facility] [address] [id number] [place] [address] Mar, [facility] [address] [id number] [place] [address] Mar, [facility] [address] [id number] [place] [address] Mar, [facility] [address] [id number] [place] [address] Mar, [facility] [address] [id number] [place] [address] Mar, [facility] [address] [id number] [place] [address] Mar, [facility] [address] [id number] [place] [address] February, [facility] [address] [id number] [place] [address] February, [facility] [address] [id number] [place] [address] Jan, [facility] [address] [id number] [place] [address] Dec, [facility] [address] [id number] [place] [address] 13 Nov, 2012 [facility] [place] [facility] [address] [id number] [place] [address] 07 Nov, 2012 [facility] [address] [id number] [place] [address] 04 Nov, 2012 [facility] [place] [facility] [address] [id number] [place] [address] 17 Oct, 2012 [facility] [address] [id number] [place] [address] 15 Oct, 2012 [facility] [address] [id number] [place] [address] Oct, [facility] [address] [facility] [id number] [place] [address] Sep, [facility] [place] [facility] [address] [id number], [place] [address] Sep, [facility] [address] [id number] [place] [address] Sep, [facility] [address] [facility] [id number], [place] [address] Sep, [facility] [place] [facility] [address] [facility] [id number], [place] [address] Sep, [facility] [place] [facility] [address] [id number], [place] [address] Sep, [facility] [place] [facility] [address] [facility] [id number] [place] [address] Jul, [facility] [place] [facility] [address] [id number], [place] [address] 18 Jul, 2012 [facility] [place] [facility] [address] [facility] [id number] [place] [address] 28 Jun, 2012 [facility] [place] [facility] [address] [id number] [place] [address] 13 May, 2012 [facility] [place] [facility] [address] [id number] [place] [address] Apr, [facility] [place] [facility] [address] [id number] [place] [address] 17 Apr, 2012 [facility] [place] [facility] [address] [id number] [place] [address] Apr, [facility] [place] [facility] [address] [id number] [place] [address] Apr, [facility] [place] [facility] [address] [id number] [place] [address] Apr, [facility] [place] [facility] [address] [id number] [place] [address] Apr, [facility] [place] [facility] [address] [id number] [place] [address] Mar, [facility] [place] [facility] [address] [id number] [place] [address] Mar, [facility] [place] [facility] [address] [id number] [place] [address] Mar, [facility] [place] [facility] [address] [id number] [place] [address] February, [facility] [place] [facility] [address] [id number] [place] [address] 18 Jan, 2012 [facility] [place] [facility] [address] [id number] [place] [address] Jan, [facility] [place] [facility] [address] [id number] [place] [address] Jan, [facility] [place] [facility] [address] [id number] [place] [address] Jan, [facility] [place] [facility] [address] [id number] [place] [address] Dec, [facility] [id number], [place] [address] 20 Dec, 2011 [facility] [id number], [place] [address] 16 Dec, 2011 [facility] [id number], [place] [address] 14 Dec, 2011 [facility] [facility] [id number] [place] [id number] 16 Nov, 2011 [facility] [address] [address] 07 Nov, 2011 [facility] [id number] [place] [id number] 06 Nov, 2011 [facility] [id number] [address] Sep, [facility] [id number] [place] [id number] Sep, [facility] [id number] [address] Aug, [facility] [address] [place] [address] Aug, [facility] [id number] [address] Jul, IMMUNIZATIONS No Known Immunizations SOCIAL HISTORY Never Assessed REASON FOR VISIT [facility] PLAN OF CARE VITAL SIGNS MEDICATIONS [...] trauma Hospitalization History Cyclic vomitting Hospitalization History [facility]- Gastritis 01/2018
--- OUTSIDE RECORDS SUMMARY | 2019-03-26 12:12 | XMS REPORT ---
Author Author Migration, Doctor Organization [facility] Address Unknown Phone Unavailable Care Team Providers Care Conditioner Tender Name Role Phone Migration, Doctor Unavailable Unavailable PROBLEMS Type Condition ICD9-CM Code OBI33-UT Code Onset Dates Condition Status SNOMED Code Problem Generalized anxiety disorder F41.1 Active 95608612 Problem Essential hypertension I10 Active 90398289 Problem Gastroesophageal reflux disease without esophagitis K21.9 Active 174665281 Problem Cyclical vomiting with nausea, intractability of vomiting not specified G43.A0 Active 35319021 Problem Bipolar affective disorder F31.9 Active 63786097 Problem Posttraumatic stress disorder F43.10 Active [id number] ALLERGIES No Information ENCOUNTERS Encounter Location Date Diagnosis [facility] [address] [address] Jan, Gastroesophageal reflux disease without esophagitis K21.9 ; Bipolar affective disorder F31.9 and Essential hypertension I10 [facility] [id number] [place] [address] Nov, [facility] [address] [address] Oct, [facility] [id number] [place] [address] Jul, [facility] [id number] [place] [address] May, Dental abscess K04.7 [facility] [address] [address] May, Toothache K08.89 [facility] [address] [address] February, Essential hypertension I10 [facility] [address] [address] Jan, Cyclical vomiting with nausea, intractability of vomiting not specified G43.A0 ; Gastroesophageal reflux disease without esophagitis K21.9 and Essential hypertension I10 [facility] [id number] [place] [address] Dec, [facility] [address] [id number] [id number] Jul, Dental caries on smooth surface penetrating into pulp K02.63 [facility] [address] [id number] [id number] Jul, Dental examination Z01.20 [facility] [address] [place] [address] A[id number] [id number] Jul, [facility] [id number] [place] [id number] May, Dental examination Z01.20 and Periapical abscess K04.7 [facility] [id number] [place] [address] May, [facility] [id number] [place] [address] Dec, Essential hypertension I10 ; Cyclical vomiting with nausea, intractability of vomiting not specified G43.A0 ; Gastroesophageal reflux disease without esophagitis K21.9 and Right inguinal hernia K40.90 [facility] [id number] [place] [address] Nov, [facility] [id number] [place] [address] Nov, [facility] [id number] [place] [address] Aug, [facility] [id number] [place] [address] May, [facility] [id number] [place] [address] May, Generalized anxiety disorder F41.1 and Bipolar affective disorder F31.9 [facility] [id number] [place] [address] May, Generalized anxiety disorder F41.1 [facility] [id number] [place] [address] May, [facility] [id number] [place] [address] Apr, [facility] [id number] [place] [address] Apr, Bipolar affective disorder F31.9 ; Generalized anxiety disorder F41.1 ; Posttraumatic stress disorder F43.10 ; Benzodiazepine abuse F13.10 and Essential hypertension I10 [facility] [id number] [place] [address] Apr, [facility] [id number] [place] [address] Mar, [facility] [id number] [place] [address] February, [facility] [id number] [place] [address] Jan, [facility] [id number] [place] [address] Jan, [facility] [id number] [place] [address] Jan, Dental examination Z01.20 [facility] [id number] [place] [address] Jan, [facility] [id number] [place] [address] Dec, Bipolar affective disorder F31.9 ; Posttraumatic stress disorder F43.10 ; Generalized anxiety disorder F41.1 and Cannabis use disorder, mild, abuse F12.10 [facility] [id number] [place] [address] Dec, [facility] [id number] [address] Nov, [facility] [id number] [place] [address] Nov, [facility] [id number] [place] [address] Nov, [facility] [id number] [place] [address] Nov, Dental examination Z01.20 [facility] [id number] [place] [id number] Nov, 2015 Dental examination Z01.20 [facility] [id number] [place] [address] Oct, [facility] [id number] [place] [address] Sep, [facility] [id number] [place] [address] Aug, [facility] [id number] [place] [address] Aug, Essential hypertension I10 ; Dyspepsia K30 and Cyclic vomiting syndrome G43.A0 [facility] [id number] [place] [address] Jul, [facility] [id number] [place] [address] Jul, [facility] [id number] [place] [address] Jul, Bipolar affective disorder F31.9 ; Generalized anxiety disorder F41.1 and Posttraumatic stress disorder F43.10 [facility] [id number] [place] [address] Jun, [facility] [id number] [place] [address] Jun, [facility] [id number] [address] Jun, [facility] [id number] [address] May, [facility] [id number] [address] Apr, [facility] [id number] [place] [address] Apr, [facility] [id number] [address] Apr, [facility] [id number] [place] [address] Apr, Bipolar mood disorder 296.80 ; Generalized anxiety disorder 300.02 and PTSD (post-traumatic stress disorder) 309.81 [facility] [id number] [address] February, [facility] [id number] [id number] February, Dental examination V72.2 [facility] [id number], [place] [address] Jan, [facility] [id number], [place] [address] Jan, [facility] [id number], [place] [address] Dec, [facility] [id number], [place] [address] Dec, [facility] [id number], [place] [address] Dec, [facility] [id number], [place] [address] Dec, [facility] [id number] [place] [address] Dec, [facility] [place] [facility] [address] [id number] [place] [address] Dec, [facility] [place] [facility] [address] [id number] [place] [address] Dec, [facility] [place] [facility] [address] [id number] [place] [address] Dec, 2014 [facility] [place] [facility] [address] [id number] [place] [address] Dec, [facility] [place] [facility] [address] [id number] [place] [address] Dec, [facility] [place] [facility] [address] [facility] [id number] [place] [address] Nov, [facility] [place] [facility] [address] [facility] [id number] [place] [address] Nov, [facility] [place] [facility] [address] [facility] [id number] [place] [address] Nov, [facility] [place] [facility] [address] [facility] [id number] [place] [address] Nov, [facility] [place] [facility] [address] [facility] [id number] [place] [address] Nov, [facility] [place] [facility] [address] [facility] [id number] [place] [address] Nov, [facility] [place] [facility] [address] [id number], [place] [address] Oct, [facility] [place] [facility] [address] [id number] [place] [address] Oct, [facility] [place] [facility] [address] [facility] [id number] [place] [address] Oct, [facility] [place] [facility] [address] [facility] [id number], [place] [address] Oct, [facility] [address] [id number] [place] [address] Oct, [facility] [place] [facility] [address] [id number] [place] [address] Oct, [facility] [place] [facility] [address] [id number] [place] [address] Sep, [facility] [place] [facility] [address] [id number] [place] [address] Sep, [facility] [place] [facility] [address] [id number] [place] [address] Sep, [facility] [place] [facility] [address] [id number] [place] [address] Sep, [facility] [place] [facility] [address] [id number] [place] [address] Sep, [facility] [place] [facility] [address] [id number] [place] [address] Sep, [facility] [place] [facility] [address] [id number] [place] [address] Sep, [facility] [place] [facility] [address] [id number] [place] [address] Sep, [facility] [place] [facility] [address] [id number] [place] [address] Sep, [facility] [place] [facility] [address] [id number], [place] [address] Sep, [facility] [place] [facility] [address] [id number] [place] [address] Sep, [facility] [place] [facility] [address] [id number] [place] [address] Sep, [facility] [place] [facility] [address] [id number] [place] [address] Sep, [facility] [place] [facility] [address] [id number] [place] [address] 09 Sep, 2014 [facility] [place] [facility] [address] [id number] [place] [address] Sep, [facility] [place] [facility] [address] [id number] [place] [address] Sep, [facility] [place] [facility] [address] [id number] [place] [address] Sep, [facility] [place] [facility] [address] [id number] [place] [address] Sep, [facility] [place] [facility] [address] [id number] [place] [address] 05 Sep, 2014 [facility] [place] [facility] [address] [id number] [place] [address] Sep, [facility] [place] [facility] [address] [id number] [place] [address] Sep, [facility] [place] [facility] [address] [id number] [place] [address] Sep, [facility] [place] [facility] [address] [id number] [place] [address] Sep, [facility] [place] [facility] [address] [facility] [id number] [place] [address] Sep, [facility] [place] [facility] [address] [id number] [place] [address] Sep, [facility] [place] [facility] [address] [id number] [place] [address] Sep, [facility] [place] [facility] [address] [id number] [place] [address] Aug, [facility] [place] [facility] [address] [id number] [place] [address] Aug, [facility] [place] [facility] [address] [facility] [id number] [place] [address] Aug, [facility] [place] [facility] [address] [id number] [place] [address] 03 Aug, 2014 [facility] [place] [facility] [address] [id number] [place] [address] 30 Jul, 2013 [facility] [place] [facility] [address] [id number] [place] [address] 30 Jul, 2014 [facility] [place] [facility] [address] [id number] [place] [address] 24 Jul, 2014 [facility] [place] [facility] [address] [id number] [place] [address] 24 Jul, 2014 [facility] [place] [facility] [address] [id number] [place] [address] 18 Jul, 2014 [facility] [place] [facility] [address] [id number] [place] [address] 18 Jul, 2014 [facility] [place] [facility] [address] [id number] [place] [address] 17 Jul, 2014 [facility] [place] [facility] [address] [id number] [place] [address] 17 Jul, 2014 [facility] [place] [facility] [address] [id number] [place] [address] 14 Jul, 2014 [facility] [place] [facility] [address] [id number] [place] [address] 14 Jul, 2014 [facility] [place] [facility] [address] [id number] [place] [address] 14 Jul, 2014 [facility] [place] [facility] [address] [id number] [place] [address] 14 Jul, 2014 [facility] [place] [facility] [address] [id number] [place] [address] 10 Jul, 2014 [facility] [place] [facility] [address] [id number] [place] [address] 10 Jul, 2014 [facility] [place] [facility] [address] [id number] [place] [address] Jun, [facility] [place] [facility] [address] [id number] [place] [address] 11 Jun, 2014 [facility] [place] [facility] [address] [id number] [place] [address] Jun, [facility] [place] [facility] [address] [id number] [place] [address] Jun, [facility] [place] [facility] [address] [id number] [place] [address] Jun, [facility] [place] [facility] [address] [id number] [place] [address] Jun, [facility] [place] [facility] [address] [id number] [place] [address] May, [facility] [place] [facility] [address] [id number] [place] [address] May, [facility] [place] [facility] [address] [id number] [place] [address] May, [facility] [place] [facility] [address] [id number] [place] [address] May, [facility] [place] [facility] [address] [id number] [place] [address] May, [facility] [place] [facility] [address] [id number] [place] [address] May, [facility] [place] [facility] [address] [id number] [place] [address] Apr, [facility] [place] [facility] [address] [id number] [place] [address] Apr, [facility] [place] [facility] [address] [id number] [place] [address] Apr, [facility] [place] [facility] [address] [id number] [place] [address] Apr, [facility] [place] [facility] [address] [id number] [place] [address] Apr, [facility] [place] [facility] [address] [id number] [place] [address] Apr, [facility] [place] [facility] [address] [id number] [place] [address] Mar, [facility] [place] [facility] [address] [id number] [place] [address] Mar, [facility] [place] [facility] [address] [id number] [place] [address] Mar, [facility] [place] [facility] [address] [id number] [place] [address] Mar, [facility] [place] [facility] [address] [id number] [place] [address] Mar, [facility] [place] [facility] [address] [id number] [place] [address] Mar, [facility] [place] [facility] [address] [id number] [place] [address] Mar, [facility] [place] [facility] [address] [id number] [place] [address] Mar, [facility] [place] [facility] [address] [id number] [place] [address] Mar, [facility] [place] [facility] [address] [id number] [place] [address] Mar, [facility] [place] [facility] [address] [id number] [place] [address] Mar, [facility] [place] [facility] [address] [id number] [place] [address] Mar, [facility] [place] [facility] [address] [id number] [place] [address] February, [facility] [place] [facility] [address] [id number] [place] [address] February, [facility] [place] [facility] [address] [id number] [place] [address] February, [facility] [place] [facility] [address] [id number] [place] [address] Dec, [facility] [place] [facility] [address] [id number] [place] [address] Dec, [facility] [place] [facility] [address] [id number] [place] [address] Nov, [facility] [place] [facility] [address] [id number] [place] [address] Nov, [facility] [place] [facility] [address] [id number] [place] [address] Nov, [facility] [place] [facility] [address] [id number] [place] [address] Nov, [facility] [place] [facility] [address] [id number] [place] [address] Nov, [facility] [place] [facility] [address] [id number] [place] [address] Nov, [facility] [place] [facility] [address] [id number] [place] [address] Nov, [facility] [place] [facility] [address] [id number] [place] [address] Nov, [facility] [place] [facility] [address] [id number] [place] [address] Nov, [facility] [place] [facility] [address] [id number] [place] [address] Nov, [facility] [place] [facility] [address] [id number] [place] [address] Oct, [facility] [place] [facility] [address] [id number] [place] [address] Oct, [facility] [place] [facility] [address] [id number] [place] [address] Sep, [facility] [address] [id number] [place] [address] Sep, [facility] [address] [id number] [place] [address] 24 Jun, 2013 [facility] [address] [id number] [place] [address] Jun, [facility] [address] [id number] [place] [address] May, [facility] [address] [id number] [place] [address] May, [facility] [address] [id number] [place] [address] Mar, [facility] [address] [id number] [place] [address] Mar, [facility] [address] [id number] [place] [address] Mar, [facility] [address] [id number] [place] [address] Mar, [facility] [address] [id number] [place] [address] Mar, [facility] [address] [id number] [place] [address] Mar, [facility] [address] [id number] [place] [address] February, [facility] [address] [id number] [place] [address] February, [facility] [address] [id number] [place] [address] Jan, [facility] [address] [id number] [place] [address] Dec, [facility] [address] [id number] [place] [address] 13 Nov, 2012 [facility] [place] [facility] [address] [id number] [place] [address] 07 Nov, 2012 [facility] [address] [id number] [place] [address] 04 Nov, 2012 [facility] [place] [facility] [address] [id number] [place] [address] 17 Oct, 2012 [facility] [address] [id number] [place] [address] 15 Oct, 2012 [facility] [address] [id number] [place] [address] Oct, [facility] [address] [facility] [id number] [place] [address] Sep, [facility] [place] [facility] [address] [id number], [place] [address] Sep, [facility] [address] [id number] [place] [address] Sep, [facility] [address] [facility] [id number], [place] [address] Sep, [facility] [place] [facility] [address] [facility] [id number], [place] [address] Sep, [facility] [place] [facility] [address] [id number], [place] [address] Sep, [facility] [place] [facility] [address] [facility] [id number] [place] [address] Jul, [facility] [place] [facility] [address] [id number], [place] [address] 18 Jul, 2012 [facility] [place] [facility] [address] [facility] [id number] [place] [address] 28 Jun, 2012 [facility] [place] [facility] [address] [id number] [place] [address] 13 May, 2012 [facility] [place] [facility] [address] [id number] [place] [address] Apr, [facility] [place] [facility] [address] [id number] [place] [address] 17 Apr, 2012 [facility] [place] [facility] [address] [id number] [place] [address] Apr, [facility] [place] [facility] [address] [id number] [place] [address] Apr, [facility] [place] [facility] [address] [id number] [place] [address] Apr, [facility] [place] [facility] [address] [id number] [place] [address] Apr, [facility] [place] [facility] [address] [id number] [place] [address] Mar, [facility] [place] [facility] [address] [id number] [place] [address] Mar, [facility] [place] [facility] [address] [id number] [place] [address] Mar, [facility] [place] [facility] [address] [id number] [place] [address] February, [facility] [place] [facility] [address] [id number] [place] [address] 18 Jan, 2012 [facility] [place] [facility] [address] [id number] [place] [address] Jan, [facility] [place] [facility] [address] [id number] [place] [address] Jan, [facility] [place] [facility] [address] [id number] [place] [address] Jan, [facility] [place] [facility] [address] [id number] [place] [address] Dec, [facility] [id number] [address] 20 Dec, 2011 [facility] [id number], [place] [address] 16 Dec, 2011 [facility] [id number], [place] [address] 14 Dec, 2011 [facility] [id number] [place] [address] 16 Nov, 2011 [facility] [id number], [place] [address] 07 Nov, 2011 [facility] [id number] [place] [address] 06 Nov, 2011 [facility] [id number], [place] [address] Sep, [facility] [id number] [place] [address] Sep, [facility] [id number], [place] [address] Aug, [facility] [id number] [place] [address] Aug, [facility] [id number] [address] Jul, IMMUNIZATIONS No Known Immunizations SOCIAL HISTORY Never Assessed REASON FOR VISIT [facility] PLAN OF CARE VITAL SIGNS MEDICATIONS [...] trauma Hospitalization History Cyclic vomitting Hospitalization History [facility]- Gastritis 01/2018
--- OUTSIDE RECORDS SUMMARY | 2019-03-26 12:13 | XMS REPORT ---
Author Author Migration, Doctor Organization [facility] Address Unknown Phone Unavailable Care Team Providers Care Cost Controller Name Role Phone Migration, Doctor Unavailable Unavailable PROBLEMS Type Condition ICD9-CM Code [id number] Code Onset Dates Condition Status SNOMED Code Problem Generalized anxiety disorder F41.1 Active 52153760 Problem Essential hypertension I10 Active 61427292 Problem Gastroesophageal reflux disease without esophagitis K21.9 Active 469750355 Problem Cyclical vomiting with nausea, intractability of vomiting not specified G43.A0 Active 87301133 Problem Bipolar affective disorder F31.9 Active 08364254 Problem Posttraumatic stress disorder F43.10 Active [id number] ALLERGIES No Information ENCOUNTERS Encounter Location Date Diagnosis [facility] [address] [address] Jan, Gastroesophageal reflux disease without esophagitis K21.9 ; Bipolar affective disorder F31.9 and Essential hypertension I10 [facility] [id number] [place] [address] Nov, [facility] [address] [address] Oct, [facility] [id number] [place] [address] Jul, [facility] [id number] [place] [address] May, Dental abscess K04.7 [facility] [address] [address] May, Toothache K08.89 [facility] [address] [address] February, Essential hypertension I10 [facility] [address] [address] Jan, Cyclical vomiting with nausea, intractability of vomiting not specified G43.A0 ; Gastroesophageal reflux disease without esophagitis K21.9 and Essential hypertension I10 [facility] [id number] [place] [address] Dec, [facility] [address] [id number] [id number] Jul, Dental caries on smooth surface penetrating into pulp K02.63 [facility] [address] [id number] [id number] Jul, Dental examination Z01.20 [facility] [address] [place] [address] A[id number] [id number] Jul, [facility] [id number] [place] [id number] May, Dental examination Z01.20 and Periapical abscess K04.7 [facility] [id number] [place] [address] May, [facility] [id number] [place] [address] Dec, Essential hypertension I10 ; Cyclical vomiting with nausea, intractability of vomiting not specified G43.A0 ; Gastroesophageal reflux disease without esophagitis K21.9 and Right inguinal hernia K40.90 [facility] [id number] [place] [address] Nov, [facility] [id number] [place] [address] Nov, [facility] [id number] [place] [address] Aug, [facility] [id number] [place] [address] May, [facility] [id number] [place] [address] May, Generalized anxiety disorder F41.1 and Bipolar affective disorder F31.9 [facility] [id number] [place] [address] May, Generalized anxiety disorder F41.1 [facility] [id number] [place] [address] May, [facility] [id number] [place] [address] Apr, [facility] [id number] [place] [address] Apr, Bipolar affective disorder F31.9 ; Generalized anxiety disorder F41.1 ; Posttraumatic stress disorder F43.10 ; Benzodiazepine abuse F13.10 and Essential hypertension I10 [facility] [id number] [place] [address] Apr, [facility] [id number] [place] [address] Mar, [facility] [id number] [place] [address] February, [facility] [id number] [place] [address] Jan, [facility] [id number] [place] [address] Jan, [facility] [id number] [place] [address] Jan, Dental examination Z01.20 [facility] [id number] [place] [address] Jan, [facility] [id number] [place] [address] Dec, Bipolar affective disorder F31.9 ; Posttraumatic stress disorder F43.10 ; Generalized anxiety disorder F41.1 and Cannabis use disorder, mild, abuse F12.10 [facility] [id number] [place] [address] Dec, [facility] [address] [address] Nov, [facility] [id number] [place] [address] Nov, [facility] [id number] [place] [address] Nov, [facility] [id number] [place] [address] Nov, Dental examination Z01.20 [facility] [id number] [place] [id number] 09 Nov, 2015 Dental examination Z01.20 [facility] [id number] [place] [address] Oct, [facility] [id number] [place] [address] Sep, [facility] [id number] [place] [address] Aug, [facility] [id number] [place] [address] Aug, Essential hypertension I10 ; Dyspepsia K30 and Cyclic vomiting syndrome G43.A0 [facility] [id number] [place] [address] Jul, [facility] [id number] [place] [address] Jul, [facility] [id number] [place] [address] Jul, Bipolar affective disorder F31.9 ; Generalized anxiety disorder F41.1 and Posttraumatic stress disorder F43.10 [facility] [id number] [place] [address] Jun, [facility] [id number] [place] [address] Jun, [facility] [id number] [address] Jun, [facility] [address] [address] May, [facility] [address] [address] Apr, [facility] [id number] [place] [address] Apr, [facility] [address] [address] Apr, [facility] [id number] [place] [address] Apr, Bipolar mood disorder 296.80 ; Generalized anxiety disorder 300.02 and PTSD (post-traumatic stress disorder) 309.81 [facility] [address] [address] February, [facility] [address] [id number] February, Dental examination V72.2 [facility] [address] [address] Jan, [facility] [address] [address] Jan, [facility] [address] [address] Dec, [facility] [address] [address] Dec, [facility] [address] [address] Dec, [facility] [address] [address] Dec, [facility] [id number] [place] [address] Dec, [facility] [place] [facility] [address] [id number] [place] [address] Dec, [facility] [place] [facility] [address] [id number] [place] [address] Dec, [facility] [place] [facility] [address] [id number] [place] [address] Dec, 2014 [facility] [place] [facility] [address] [id number] [place] [address] Dec, [facility] [place] [facility] [address] [id number] [place] [address] Dec, [facility] [place] [facility] [address] [facility] [id number] [place] [address] Nov, [facility] [place] [facility] [address] [facility] [id number] [place] [address] Nov, [facility] [place] [facility] [address] [facility] [id number] [place] [address] Nov, [facility] [place] [facility] [address] [facility] [id number] [place] [address] Nov, [facility] [place] [facility] [address] [facility] [id number] [place] [address] Nov, [facility] [place] [facility] [address] [facility] [id number] [place] [address] Nov, [facility] [place] [facility] [address] [id number] [address] Oct, [facility] [place] [facility] [address] [id number] [place] [address] Oct, [facility] [place] [facility] [address] [facility] [id number] [place] [address] Oct, [facility] [place] [facility] [address] [facility] [id number] [address] Oct, [facility] [address] [id number] [place] [address] Oct, [facility] [place] [facility] [address] [id number] [place] [address] Oct, [facility] [place] [facility] [address] [id number] [place] [address] Sep, [facility] [place] [facility] [address] [id number] [place] [address] Sep, [facility] [place] [facility] [address] [id number] [place] [address] Sep, [facility] [place] [facility] [address] [id number] [place] [address] Sep, [facility] [place] [facility] [address] [id number] [place] [address] Sep, [facility] [place] [facility] [address] [id number] [place] [address] Sep, [facility] [place] [facility] [address] [id number] [place] [address] Sep, [facility] [place] [facility] [address] [id number] [place] [address] Sep, [facility] [place] [facility] [address] [id number] [place] [address] Sep, [facility] [place] [facility] [address] [id number] [place] [address] Sep, [facility] [place] [facility] [address] [id number] [place] [address] Sep, [facility] [place] [facility] [address] [id number] [place] [address] Sep, [facility] [place] [facility] [address] [id number] [place] [address] Sep, [facility] [place] [facility] [address] [id number] [place] [address] 09 Sep, 2014 [facility] [place] [facility] [address] [id number] [place] [address] Sep, [facility] [place] [facility] [address] [id number] [place] [address] Sep, [facility] [place] [facility] [address] [id number] [place] [address] Sep, [facility] [place] [facility] [address] [id number] [place] [address] Sep, [facility] [place] [facility] [address] [id number] [place] [address] 05 Sep, 2014 [facility] [place] [facility] [address] [id number] [place] [address] Sep, [facility] [place] [facility] [address] [id number] [place] [address] Sep, [facility] [place] [facility] [address] [id number] [place] [address] Sep, [facility] [place] [facility] [address] [id number] [place] [address] Sep, [facility] [place] [facility] [address] [facility] [id number] [place] [address] Sep, [facility] [place] [facility] [address] [id number] [place] [address] Sep, [facility] [place] [facility] [address] [id number] [place] [address] Sep, [facility] [place] [facility] [address] [id number] [place] [address] Aug, [facility] [place] [facility] [address] [id number] [place] [address] Aug, [facility] [place] [facility] [address] [facility] [id number] [place] [address] Aug, [facility] [place] [facility] [address] [id number] [place] [address] 03 Aug, 2014 [facility] [place] [facility] [address] [id number] [place] [address] 30 Jul, 2013 [facility] [place] [facility] [address] [id number] [place] [address] 30 Jul, 2014 [facility] [place] [facility] [address] [id number] [place] [address] 24 Jul, 2014 [facility] [place] [facility] [address] [id number] [place] [address] 24 Jul, 2014 [facility] [place] [facility] [address] [id number] [place] [address] 18 Jul, 2014 [facility] [place] [facility] [address] [id number] [place] [address] 18 Jul, 2014 [facility] [place] [facility] [address] [id number] [place] [address] 17 Jul, 2014 [facility] [place] [facility] [address] [id number] [place] [address] 17 Jul, 2014 [facility] [place] [facility] [address] [id number] [place] [address] 14 Jul, 2014 [facility] [place] [facility] [address] [id number] [place] [address] 14 Jul, 2014 [facility] [place] [facility] [address] [id number] [place] [address] 14 Jul, 2014 [facility] [place] [facility] [address] [id number] [place] [address] 14 Jul, 2014 [facility] [place] [facility] [address] [id number] [place] [address] 10 Jul, 2014 [facility] [place] [facility] [address] [id number] [place] [address] 10 Jul, 2014 [facility] [place] [facility] [address] [id number] [place] [address] Jun, [facility] [place] [facility] [address] [id number] [place] [address] 11 Jun, 2014 [facility] [place] [facility] [address] [id number] [place] [address] Jun, [facility] [place] [facility] [address] [id number] [place] [address] Jun, [facility] [place] [facility] [address] [id number] [place] [address] Jun, [facility] [place] [facility] [address] [id number] [place] [address] Jun, [facility] [place] [facility] [address] [id number] [place] [address] May, [facility] [place] [facility] [address] [id number] [place] [address] May, [facility] [place] [facility] [address] [id number] [place] [address] May, [facility] [place] [facility] [address] [id number] [place] [address] May, [facility] [place] [facility] [address] [id number] [place] [address] May, [facility] [place] [facility] [address] [id number] [place] [address] May, [facility] [place] [facility] [address] [id number] [place] [address] Apr, [facility] [place] [facility] [address] [id number] [place] [address] Apr, [facility] [place] [facility] [address] [id number] [place] [address] Apr, [facility] [place] [facility] [address] [id number] [place] [address] Apr, [facility] [place] [facility] [address] [id number] [place] [address] Apr, [facility] [place] [facility] [address] [id number] [place] [address] Apr, [facility] [place] [facility] [address] [id number] [place] [address] Mar, [facility] [place] [facility] [address] [id number] [place] [address] Mar, [facility] [place] [facility] [address] [id number] [place] [address] Mar, [facility] [place] [facility] [address] [id number] [place] [address] Mar, [facility] [place] [facility] [address] [id number] [place] [address] Mar, [facility] [place] [facility] [address] [id number] [place] [address] Mar, [facility] [place] [facility] [address] [id number] [place] [address] Mar, [facility] [place] [facility] [address] [id number] [place] [address] Mar, [facility] [place] [facility] [address] [id number] [place] [address] Mar, [facility] [place] [facility] [address] [id number] [place] [address] Mar, [facility] [place] [facility] [address] [id number] [place] [address] Mar, [facility] [place] [facility] [address] [id number] [place] [address] Mar, [facility] [place] [facility] [address] [id number] [place] [address] February, [facility] [place] [facility] [address] [id number] [place] [address] February, [facility] [place] [facility] [address] [id number] [place] [address] February, [facility] [place] [facility] [address] [id number] [place] [address] Dec, [facility] [place] [facility] [address] [id number] [place] [address] Dec, [facility] [place] [facility] [address] [id number] [place] [address] Nov, [facility] [place] [facility] [address] [id number] [place] [address] Nov, [facility] [place] [facility] [address] [id number] [place] [address] Nov, [facility] [place] [facility] [address] [id number] [place] [address] Nov, [facility] [place] [facility] [address] [id number] [place] [address] Nov, [facility] [place] [facility] [address] [id number] [place] [address] Nov, [facility] [place] [facility] [address] [id number] [place] [address] Nov, [facility] [place] [facility] [address] [id number] [place] [address] Nov, [facility] [place] [facility] [address] [id number] [place] [address] Nov, [facility] [place] [facility] [address] [id number] [place] [address] Nov, [facility] [place] [facility] [address] [id number] [place] [address] Oct, [facility] [place] [facility] [address] [id number] [place] [address] Oct, [facility] [place] [facility] [address] [id number] [place] [address] Sep, [facility] [address] [id number] [place] [address] Sep, [facility] [address] [id number] [place] [address] 24 Jun, 2013 [facility] [address] [id number] [place] [address] Jun, [facility] [address] [id number] [place] [address] May, [facility] [address] [id number] [place] [address] May, [facility] [address] [id number] [place] [address] Mar, [facility] [address] [id number] [place] [address] Mar, [facility] [address] [id number] [place] [address] Mar, [facility] [address] [id number] [place] [address] Mar, [facility] [address] [id number] [place] [address] Mar, [facility] [address] [id number] [place] [address] Mar, [facility] [address] [id number] [place] [address] February, [facility] [address] [id number] [place] [address] February, [facility] [address] [id number] [place] [address] Jan, [facility] [address] [id number] [place] [address] Dec, [facility] [address] [id number] [place] [address] 13 Nov, 2012 [facility] [place] [facility] [address] [id number] [place] [address] 07 Nov, 2012 [facility] [address] [id number] [place] [address] 04 Nov, 2012 [facility] [place] [facility] [address] [id number] [place] [address] 17 Oct, 2012 [facility] [address] [id number] [place] [address] 15 Oct, 2012 [facility] [address] [id number] [place] [address] Oct, [facility] [address] [facility] [id number] [place] [address] Sep, [facility] [place] [facility] [address] [id number] [place] [address] Sep, [facility] [address] [id number] [place] [address] Sep, [facility] [address] [facility] [id number] [place] [address] Sep, [facility] [place] [facility] [address] [facility] [id number] [place] [address] Sep, [facility] [place] [facility] [address] [id number] [place] [address] Sep, [facility] [place] [facility] [address] [facility] [id number] [place] [address] Jul, [facility] [place] [facility] [address] [id number] [place] [address] 18 Jul, 2012 [facility] [place] [facility] [address] [facility] [id number] [place] [address] 28 Jun, 2012 [facility] [place] [facility] [address] [id number] [place] [address] 13 May, 2012 [facility] [place] [facility] [address] [id number] [place] [address] Apr, [facility] [place] [facility] [address] [id number] [place] [address] 17 Apr, 2012 [facility] [place] [facility] [address] [id number] [place] [address] Apr, [facility] [place] [facility] [address] [id number] [place] [address] Apr, [facility] [place] [facility] [address] [id number] [place] [address] Apr, [facility] [place] [facility] [address] [id number] [place] [address] Apr, [facility] [place] [facility] [address] [id number] [place] [address] Mar, [facility] [place] [facility] [address] [id number] [place] [address] Mar, [facility] [place] [facility] [address] [id number] [place] [address] Mar, [facility] [place] [facility] [address] [id number] [place] [address] February, [facility] [place] [facility] [address] [id number] [place] [address] 18 Jan, 2012 [facility] [place] [facility] [address] [id number] [place] [address] Jan, [facility] [place] [facility] [address] [id number] [place] [address] Jan, [facility] [place] [facility] [address] [id number] [place] [address] Jan, [facility] [place] [facility] [address] [id number] [place] [address] Dec, [facility] [id number] [place] [address] 20 Dec, 2011 [facility] [id number] [place] [address] 16 Dec, 2011 [facility] [id number] [place] [address] 14 Dec, 2011 [facility] [id number] [place] [address] 16 Nov, 2011 [facility] [id number] [place] [address] 07 Nov, 2011 [facility] [id number] [place] [address] 06 Nov, 2011 [facility] [id number] [place] [address] Sep, [facility] [id number] [place] [address] Sep, [facility] [id number] [place] [address] Aug, [facility] [id number] [place] [address] Aug, [facility] [id number] [address] Jul, IMMUNIZATIONS No Known Immunizations SOCIAL HISTORY Never Assessed REASON FOR VISIT [facility] PLAN OF CARE VITAL [id number] [id number] [...]
--- OUTSIDE RECORDS SUMMARY | 2019-03-26 12:13 | XMS REPORT ---
Author Author Migration, Doctor Organization [facility] Address Unknown Phone Unavailable Care Team Providers Care Examination Supervisor Name Role Phone Migration, Doctor Unavailable Unavailable PROBLEMS Type Condition ICD9-CM Code AHG26-JP Code Onset Dates Condition Status SNOMED Code Problem Generalized anxiety disorder F41.1 Active 00000453 Problem Essential hypertension I10 Active 68894142 Problem Gastroesophageal reflux disease without esophagitis K21.9 Active 523074592 Problem Cyclical vomiting with nausea, intractability of vomiting not specified G43.A0 Active 91400437 Problem Bipolar affective disorder F31.9 Active 57454810 Problem Posttraumatic stress disorder F43.10 Active 44917937 ALLERGIES No Information ENCOUNTERS Encounter Location Date Diagnosis [facility] [address] [address] Jan, Gastroesophageal reflux disease without esophagitis K21.9 ; Bipolar affective disorder F31.9 and Essential hypertension I10 [facility] [id number] [place] [address] Nov, [facility] [address] [address] Oct, [facility] [id number] [place] [address] Jul, [facility] [id number] [place] [address] May, Dental abscess K04.7 [facility] [id number] [place] [address] May, Toothache K08.89 [facility] [address] [address] February, Essential hypertension I10 [facility] [address] [address] Jan, Cyclical vomiting with nausea, intractability of vomiting not specified G43.A0 ; Gastroesophageal reflux disease without esophagitis K21.9 and Essential hypertension I10 [facility] [id number] [place] [address] Dec, [facility] [address] [id number] [id number] Jul, Dental caries on smooth surface penetrating into pulp K02.63 [facility] [address] [id number] [id number] Jul, Dental examination Z01.20 [facility] [address] [place] [address] AVE [id number] [id number] Jul, [facility] [id number] [place] [id number] May, Dental examination Z01.20 and Periapical abscess K04.7 [facility] [id number] [place] [address] May, [facility] [id number] [place] [address] Dec, Essential hypertension I10 ; Cyclical vomiting with nausea, intractability of vomiting not specified G43.A0 ; Gastroesophageal reflux disease without esophagitis K21.9 and Right inguinal hernia K40.90 [facility] [id number] [place] [address] Nov, [facility] [id number] [place] [address] Nov, [facility] [id number] [place] [address] Aug, [facility] [id number] [place] [address] May, [facility] [id number] [place] [address] May, Generalized anxiety disorder F41.1 and Bipolar affective disorder F31.9 [facility] [id number] [place] [address] May, Generalized anxiety disorder F41.1 [facility] [id number] [place] [address] May, [facility] [id number] [place] [address] Apr, [facility] [id number] [place] [address] Apr, Bipolar affective disorder F31.9 ; Generalized anxiety disorder F41.1 ; Posttraumatic stress disorder F43.10 ; Benzodiazepine abuse F13.10 and Essential hypertension I10 [facility] [id number] [place] [address] Apr, [facility] [id number] [place] [address] Mar, [facility] [id number] [place] [address] February, [facility] [id number] [place] [address] Jan, [facility] [id number] [place] [address] Jan, [facility] [id number] [place] [address] Jan, Dental examination Z01.20 [facility] [id number] [place] [address] Jan, [facility] [id number] [place] [address] Dec, Bipolar affective disorder F31.9 ; Posttraumatic stress disorder F43.10 ; Generalized anxiety disorder F41.1 and Cannabis use disorder, mild, abuse F12.10 [facility] [id number] [place] [address] Dec, [facility] [address] [address] Nov, [facility] [id number] [place] [address] Nov, [facility] [id number] [place] [address] Nov, [facility] [id number] [place] [address] Nov, Dental examination Z01.20 [facility] [id number] [place] [id number] Nov, 2015 Dental examination Z01.20 [facility] [id number] [place] [address] Oct, [facility] [id number] [place] [address] Sep, [facility] [id number] [place] [address] Aug, [facility] [id number] [place] [address] Aug, Essential hypertension I10 ; Dyspepsia K30 and Cyclic vomiting syndrome G43.A0 [facility] [id number] [place] [address] Jul, [facility] [id number] [place] [address] Jul, [facility] [id number] [place] [address] Jul, Bipolar affective disorder F31.9 ; Generalized anxiety disorder F41.1 and Posttraumatic stress disorder F43.10 [facility] [id number] [place] [address] Jun, [facility] [id number] [place] [address] Jun, [facility] [address] [id number] [address] Jun, [facility] [address] [address] May, [facility] [address], [place] [address] Apr, [facility] [place] [id number] [place] [address] Apr, [facility] [address], [place] [address] Apr, [facility] [id number] [place] [address] Apr, Bipolar mood disorder 296.80 ; Generalized anxiety disorder 300.02 and PTSD (post-traumatic stress disorder) 309.81 [facility] [address] [address] February, [facility] [address] [id number] February, Dental examination V72.2 [facility] [address], [place] [address] Jan, [facility] [address], [place] [address] Jan, [facility] [address], [place] [address] Dec, [facility] [address], [place] [address] Dec, [facility] [address], [place] [address] Dec, [facility] [address], [place] [address] Dec, [facility] [id number] [place] [address] Dec, [facility] [place] [facility] [address] [id number] [place] [address] Dec, [facility] [place] [facility] [address] [id number] [place] [address] Dec, [facility] [place] [facility] [address] [id number] [place] [address] Dec, 2014 [facility] [place] [facility] [address] [id number] [place] [address] Dec, [facility] [place] [facility] [address] [id number] [place] [address] Dec, [facility] [place] [facility] [address] [facility] [id number] [place] [address] Nov, [facility] [place] [facility] [address] [facility] [id number] [place] [address] Nov, [facility] [place] [facility] [address] [facility] [id number] [place] [address] Nov, [facility] [place] [facility] [address] [facility] [id number] [place] [address] Nov, [facility] [place] [facility] [address] [facility] [id number] [place] [address] Nov, [facility] [place] [facility] [address] [facility] [id number] [place] [address] Nov, [facility] [place] [facility] [address] [id number], [place] [address] Oct, [facility] [place] [facility] [address] [id number] [place] [address] Oct, [facility] [place] [facility] [address] [facility] [id number] [place] [address] Oct, [facility] [place] [facility] [address] [facility] [id number] [address] Oct, [facility] [address] [id number] [place] [address] Oct, [facility] [place] [facility] [address] [id number] [place] [address] Oct, [facility] [place] [facility] [address] [id number] [place] [address] Sep, [facility] [place] [facility] [address] [id number] [place] [address] Sep, [facility] [place] [facility] [address] [id number] [place] [address] Sep, [facility] [place] [facility] [address] [id number] [place] [address] Sep, [facility] [place] [facility] [address] [id number] [place] [address] Sep, [facility] [place] [facility] [address] [id number] [place] [address] Sep, [facility] [place] [facility] [address] [id number] [place] [address] Sep, [facility] [place] [facility] [address] [id number] [place] [address] Sep, [facility] [place] [facility] [address] [id number] [place] [address] Sep, [facility] [place] [facility] [address] [id number], [place] [address] Sep, [facility] [place] [facility] [address] [id number] [place] [address] Sep, [facility] [place] [facility] [address] [id number] [place] [address] Sep, [facility] [place] [facility] [address] [id number] [place] [address] Sep, [facility] [place] [facility] [address] [id number] [place] [address] 09 Sep, 2014 [facility] [place] [facility] [address] [id number] [place] [address] Sep, [facility] [place] [facility] [address] [id number] [place] [address] Sep, [facility] [place] [facility] [address] [id number] [place] [address] Sep, [facility] [place] [facility] [address] [id number] [place] [address] Sep, [facility] [place] [facility] [address] [id number] [place] [address] 05 Sep, 2014 [facility] [place] [facility] [address] [id number] [place] [address] Sep, [facility] [place] [facility] [address] [id number] [place] [address] Sep, [facility] [place] [facility] [address] [id number] [place] [address] Sep, [facility] [place] [facility] [address] [id number] [place] [address] Sep, [facility] [place] [facility] [address] [facility] [id number] [place] [address] Sep, [facility] [place] [facility] [address] [id number] [place] [address] Sep, [facility] [place] [facility] [address] [id number] [place] [address] Sep, [facility] [place] [facility] [address] [id number] [place] [address] Aug, [facility] [place] [facility] [address] [id number] [place] [address] Aug, [facility] [place] [facility] [address] [facility] [id number] [place] [address] Aug, [facility] [place] [facility] [address] [id number] [place] [address] 03 Aug, 2014 [facility] [place] [facility] [address] [id number] [place] [address] 30 Jul, 2013 [facility] [place] [facility] [address] [id number] [place] [address] 30 Jul, 2014 [facility] [place] [facility] [address] [id number] [place] [address] 24 Jul, 2014 [facility] [place] [facility] [address] [id number] [place] [address] 24 Jul, 2014 [facility] [place] [facility] [address] [id number] [place] [address] 18 Jul, 2014 [facility] [place] [facility] [address] [id number] [place] [address] 18 Jul, 2014 [facility] [place] [facility] [address] [id number] [place] [address] 17 Jul, 2014 [facility] [place] [facility] [address] [id number] [place] [address] 17 Jul, 2014 [facility] [place] [facility] [address] [id number] [place] [address] 14 Jul, 2014 [facility] [place] [facility] [address] [id number] [place] [address] 14 Jul, 2014 [facility] [place] [facility] [address] [id number] [place] [address] 14 Jul, 2014 [facility] [place] [facility] [address] [id number] [place] [address] 14 Jul, 2014 [facility] [place] [facility] [address] [id number] [place] [address] 10 Jul, 2014 [facility] [place] [facility] [address] [id number] [place] [address] 10 Jul, 2014 [facility] [place] [facility] [address] [id number] [place] [address] Jun, [facility] [place] [facility] [address] [id number] [place] [address] 11 Jun, 2014 [facility] [place] [facility] [address] [id number] [place] [address] Jun, [facility] [place] [facility] [address] [id number] [place] [address] Jun, [facility] [place] [facility] [address] [id number] [place] [address] Jun, [facility] [place] [facility] [address] [id number] [place] [address] Jun, [facility] [place] [facility] [address] [id number] [place] [address] May, [facility] [place] [facility] [address] [id number] [place] [address] May, [facility] [place] [facility] [address] [id number] [place] [address] May, [facility] [place] [facility] [address] [id number] [place] [address] May, [facility] [place] [facility] [address] [id number] [place] [address] May, [facility] [place] [facility] [address] [id number] [place] [address] May, [facility] [place] [facility] [address] [id number] [place] [address] Apr, [facility] [place] [facility] [address] [id number] [place] [address] Apr, [facility] [place] [facility] [address] [id number] [place] [address] Apr, [facility] [place] [facility] [address] [id number] [place] [address] Apr, [facility] [place] [facility] [address] [id number] [place] [address] Apr, [facility] [place] [facility] [address] [id number] [place] [address] Apr, [facility] [place] [facility] [address] [id number] [place] [address] Mar, [facility] [place] [facility] [address] [id number] [place] [address] Mar, [facility] [place] [facility] [address] [id number] [place] [address] Mar, [facility] [place] [facility] [address] [id number] [place] [address] Mar, [facility] [place] [facility] [address] [id number] [place] [address] Mar, [facility] [place] [facility] [address] [id number] [place] [address] Mar, [facility] [place] [facility] [address] [id number] [place] [address] Mar, [facility] [place] [facility] [address] [id number] [place] [address] Mar, [facility] [place] [facility] [address] [id number] [place] [address] Mar, [facility] [place] [facility] [address] [id number] [place] [address] Mar, [facility] [place] [facility] [address] [id number] [place] [address] Mar, [facility] [place] [facility] [address] [id number] [place] [address] Mar, [facility] [place] [facility] [address] [id number] [place] [address] February, [facility] [place] [facility] [address] [id number] [place] [address] February, [facility] [place] [facility] [address] [id number] [place] [address] February, [facility] [place] [facility] [address] [id number] [place] [address] Dec, [facility] [place] [facility] [address] [id number] [place] [address] Dec, [facility] [place] [facility] [address] [id number] [place] [address] Nov, [facility] [place] [facility] [address] [id number] [place] [address] Nov, [facility] [place] [facility] [address] [id number] [place] [address] Nov, [facility] [place] [facility] [address] [id number] [place] [address] Nov, [facility] [place] [facility] [address] [id number] [place] [address] Nov, [facility] [place] [facility] [address] [id number] [place] [address] Nov, [facility] [place] [facility] [address] [id number] [place] [address] Nov, [facility] [place] [facility] [address] [id number] [place] [address] Nov, [facility] [place] [facility] [address] [id number] [place] [address] Nov, [facility] [place] [facility] [address] [id number] [place] [address] Nov, [facility] [place] [facility] [address] [id number] [place] [address] Oct, [facility] [place] [facility] [address] [id number] [place] [address] Oct, [facility] [place] [facility] [address] [id number] [place] [address] Sep, [facility] [address] [id number] [place] [address] Sep, [facility] [address] [id number] [place] [address] 24 Jun, 2013 [facility] [address] [id number] [place] [address] Jun, [facility] [address] [id number] [place] [address] May, [facility] [address] [id number] [place] [address] May, [facility] [address] [id number] [place] [address] Mar, [facility] [address] [id number] [place] [address] Mar, [facility] [address] [id number] [place] [address] Mar, [facility] [address] [id number] [place] [address] Mar, [facility] [address] [id number] [place] [address] Mar, [facility] [address] [id number] [place] [address] Mar, [facility] [address] [id number] [place] [address] February, [facility] [address] [id number] [place] [address] February, [facility] [address] [id number] [place] [address] Jan, [facility] [address] [id number] [place] [address] Dec, [facility] [address] [id number] [place] [address] 13 Nov, 2012 [facility] [place] [facility] [address] [id number] [place] [address] 07 Nov, 2012 [facility] [address] [id number] [place] [address] 04 Nov, 2012 [facility] [place] [facility] [address] [id number] [place] [address] 17 Oct, 2012 [facility] [address] [id number] [place] [address] 15 Oct, 2012 [facility] [address] [id number] [place] [address] Oct, [facility] [address] [facility] [id number] [place] [address] Sep, [facility] [place] [facility] [address] [id number], [place] [address] Sep, [facility] [address] [id number] [place] [address] Sep, [facility] [address] [facility] [id number], [place] [address] Sep, [facility] [place] [facility] [address] [facility] [id number], [place] [address] Sep, [facility] [place] [facility] [address] [id number], [place] [address] Sep, [facility] [place] [facility] [address] [facility] [id number] [place] [address] Jul, [facility] [place] [facility] [address] [id number], [place] [address] 18 Jul, 2012 [facility] [place] [facility] [address] [facility] [id number] [place] [address] 28 Jun, 2012 [facility] [place] [facility] [address] [id number] [place] [address] 13 May, 2012 [facility] [place] [facility] [address] [id number] [place] [address] Apr, [facility] [place] [facility] [address] [id number] [place] [address] 17 Apr, 2012 [facility] [place] [facility] [address] [id number] [place] [address] Apr, [facility] [place] [facility] [address] [id number] [place] [address] Apr, [facility] [place] [facility] [address] [id number] [place] [address] Apr, [facility] [place] [facility] [address] [id number] [place] [address] Apr, [facility] [place] [facility] [address] [id number] [place] [address] Mar, [facility] [place] [facility] [address] [id number] [place] [address] Mar, [facility] [place] [facility] [address] [id number] [place] [address] Mar, [facility] [place] [facility] [address] [id number] [place] [address] February, [facility] [place] [facility] [address] [id number] [place] [address] 18 Jan, 2012 [facility] [place] [facility] [address] [id number] [place] [address] Jan, [facility] [place] [facility] [address] [id number] [place] [address] Jan, [facility] [place] [facility] [address] [id number] [place] [address] Jan, [facility] [place] [facility] [address] [id number] [place] [address] Dec, [facility] [id number], [place] [address] 20 Dec, 2011 [facility] [id number], [place] [address] 16 Dec, 2011 [facility] [id number], [place] [address] 14 Dec, 2011 [facility] [id number] [place] [address] 16 Nov, 2011 [facility] [id number], [place] [address] 07 Nov, 2011 [facility] [id number] [place] [address] 06 Nov, 2011 [facility] [id number], [place] [address] Sep, [facility] [id number] [place] [address] Sep, [facility] [id number], [place] [address] Aug, [facility] [id number], [place] [address] Aug, [facility] [address] [id number], [place] [address] Jul, IMMUNIZATIONS No Known Immunizations SOCIAL HISTORY [...]
--- OUTSIDE RECORDS SUMMARY | 2019-03-26 12:14 | XMS REPORT ---
Author Author Migration, Doctor Organization [facility] Address Unknown Phone Unavailable Care Team Providers Care Home Assessment Nurse Name Role Phone Migration, Doctor Unavailable Unavailable PROBLEMS Type Condition ICD9-CM Code JNB17-LA Code Onset Dates Condition Status SNOMED Code Problem Generalized anxiety disorder F41.1 Active 49658042 Problem Essential hypertension I10 Active 53422420 Problem Gastroesophageal reflux disease without esophagitis K21.9 Active 103556238 Problem Cyclical vomiting with nausea, intractability of vomiting not specified G43.A0 Active 56431943 Problem Bipolar affective disorder F31.9 Active 12346062 Problem Posttraumatic stress disorder F43.10 Active [id number] ALLERGIES No Information ENCOUNTERS Encounter Location Date Diagnosis [facility] [address] [address] Jan, Gastroesophageal reflux disease without esophagitis K21.9 ; Bipolar affective disorder F31.9 and Essential hypertension I10 [facility] [id number] [place] [address] Nov, [facility] [address] [address] Oct, [facility] [id number] [place] [address] Jul, [facility] [id number] [place] [address] May, Dental abscess K04.7 [facility] [address] [address] May, Toothache K08.89 [facility] [address] [address] February, Essential hypertension I10 [facility] [address] [address] Jan, Cyclical vomiting with nausea, intractability of vomiting not specified G43.A0 ; Gastroesophageal reflux disease without esophagitis K21.9 and Essential hypertension I10 [facility] [id number] [place] [address] Dec, [facility] [address] [facility] [address] [id number] [id number] Jul, Dental caries on smooth surface penetrating into pulp K02.63 [facility] [address] [facility] [facility] [facility] [address] [id number] [id number] Jul, Dental examination Z01.20 [facility] [address] [place] [address] A[id number] [id number] Jul, [facility] [id number] [place] [id number] May, Dental examination Z01.20 and Periapical abscess K04.7 [facility] [id number] [place] [address] May, [facility] [id number] [place] [address] Dec, Essential hypertension I10 ; Cyclical vomiting with nausea, intractability of vomiting not specified G43.A0 ; Gastroesophageal reflux disease without esophagitis K21.9 and Right inguinal hernia K40.90 [facility] [id number] [place] [address] Nov, [facility] [id number] [place] [address] Nov, [facility] [id number] [place] [address] Aug, [facility] [id number] [place] [address] May, [facility] [id number] [place] [address] May, Generalized anxiety disorder F41.1 and Bipolar affective disorder F31.9 [facility] [id number] [place] [address] May, Generalized anxiety disorder F41.1 [facility] [id number] [place] [address] May, [facility] [id number] [place] [address] Apr, [facility] [id number] [place] [address] Apr, Bipolar affective disorder F31.9 ; Generalized anxiety disorder F41.1 ; Posttraumatic stress disorder F43.10 ; Benzodiazepine abuse F13.10 and Essential hypertension I10 [facility] [id number] [place] [address] Apr, [facility] [id number] [place] [address] Mar, [facility] [id number] [place] [address] February, [facility] [id number] [place] [address] Jan, [facility] [id number] [place] [address] Jan, [facility] [id number] [place] [address] Jan, Dental examination Z01.20 [facility] [id number] [place] [address] Jan, [facility] [id number] [place] [address] Dec, Bipolar affective disorder F31.9 ; Posttraumatic stress disorder F43.10 ; Generalized anxiety disorder F41.1 and Cannabis use disorder, mild, abuse F12.10 [facility] [id number] [place] [address] Dec, [facility] [address] [address] Nov, [facility] [id number] [place] [address] Nov, [facility] [id number] [place] [address] Nov, [facility] [id number] [place] [address] Nov, Dental examination Z01.20 [facility] [id number] [place] [id number] Nov, 2015 Dental examination Z01.20 [facility] [id number] [place] [address] Oct, [facility] [id number] [place] [address] Sep, [facility] [id number] [place] [address] Aug, [facility] [id number] [place] [address] Aug, Essential hypertension I10 ; Dyspepsia K30 and Cyclic vomiting syndrome G43.A0 [facility] [id number] [place] [address] Jul, [facility] [id number] [place] [address] Jul, [facility] [id number] [place] [address] Jul, Bipolar affective disorder F31.9 ; Generalized anxiety disorder F41.1 and Posttraumatic stress disorder F43.10 [facility] [id number] [place] [address] Jun, [facility] [id number] [place] [address] Jun, [facility] [id number] [address] Jun, [facility] [address] [address] May, [facility] [address] [address] Apr, [facility] [id number] [place] [address] Apr, [facility] [address] [address] Apr, [facility] [id number] [place] [address] Apr, Bipolar mood disorder 296.80 ; Generalized anxiety disorder 300.02 and PTSD (post-traumatic stress disorder) 309.81 [facility] [address] [address] February, [facility] [address] [id number] February, Dental examination V72.2 [facility] [address] [address] Jan, [facility] [address] [address] Jan, [facility] [address] [address] Dec, [facility] [address] [address] Dec, [facility] [id number] [address] Dec, [facility] [id number] [address] Dec, [facility] [id number] [place] [address] Dec, [facility] [place] [facility] [address] [id number] [place] [address] Dec, [facility] [place] [facility] [address] [id number] [place] [address] Dec, [facility] [place] [facility] [address] [id number] [place] [address] Dec, 2014 [facility] [place] [facility] [address] [id number] [place] [address] Dec, [facility] [place] [facility] [address] [id number] [place] [address] Dec, [facility] [place] [facility] [address] [facility] [id number] [place] [address] Nov, [facility] [place] [facility] [address] [facility] [id number] [place] [address] Nov, [facility] [place] [facility] [address] [facility] [id number] [place] [address] Nov, [facility] [place] [facility] [address] [facility] [id number] [place] [address] Nov, [facility] [place] [facility] [address] [facility] [id number] [place] [address] Nov, [facility] [place] [facility] [address] [facility] [id number] [place] [address] Nov, [facility] [place] [facility] [address] [id number] [address] Oct, [facility] [place] [facility] [address] [id number] [place] [address] Oct, [facility] [place] [facility] [address] [facility] [id number] [place] [address] Oct, [facility] [place] [facility] [address] [facility] [id number] [address] Oct, [facility] [address] [id number] [place] [address] Oct, [facility] [place] [facility] [address] [id number] [place] [address] Oct, [facility] [place] [facility] [address] [id number] [place] [address] Sep, [facility] [place] [facility] [address] [id number] [place] [address] Sep, [facility] [place] [facility] [address] [id number] [place] [address] Sep, [facility] [place] [facility] [address] [id number] [place] [address] Sep, [facility] [place] [facility] [address] [id number] [place] [address] Sep, [facility] [place] [facility] [address] [id number] [place] [address] Sep, [facility] [place] [facility] [address] [id number] [place] [address] Sep, [facility] [place] [facility] [address] [id number] [place] [address] Sep, [facility] [place] [facility] [address] [id number] [place] [address] Sep, [facility] [place] [facility] [address] [id number] [address] Sep, [facility] [place] [facility] [address] [id number] [place] [address] Sep, [facility] [place] [facility] [address] [id number] [place] [address] Sep, [facility] [place] [facility] [address] [id number] [place] [address] Sep, [facility] [place] [facility] [address] [id number] [place] [address] 09 Sep, 2014 [facility] [place] [facility] [address] [id number] [place] [address] Sep, [facility] [place] [facility] [address] [id number] [place] [address] Sep, [facility] [place] [facility] [address] [id number] [place] [address] Sep, [facility] [place] [facility] [address] [id number] [place] [address] Sep, [facility] [place] [facility] [address] [id number] [place] [address] 05 Sep, 2014 [facility] [place] [facility] [address] [id number] [place] [address] Sep, [facility] [place] [facility] [address] [id number] [place] [address] Sep, [facility] [place] [facility] [address] [id number] [place] [address] Sep, [facility] [place] [facility] [address] [id number] [place] [address] Sep, [facility] [place] [facility] [address] [facility] [id number] [place] [address] Sep, [facility] [place] [facility] [address] [id number] [place] [address] Sep, [facility] [place] [facility] [address] [id number] [place] [address] Sep, [facility] [place] [facility] [address] [id number] [place] [address] Aug, [facility] [place] [facility] [address] [id number] [place] [address] Aug, [facility] [place] [facility] [address] [facility] [id number] [place] [address] Aug, [facility] [place] [facility] [address] [id number] [place] [address] 03 Aug, 2014 [facility] [place] [facility] [address] [id number] [place] [address] 30 Jul, 2013 [facility] [place] [facility] [address] [id number] [place] [address] 30 Jul, 2014 [facility] [place] [facility] [address] [id number] [place] [address] 24 Jul, 2014 [facility] [place] [facility] [address] [id number] [place] [address] 24 Jul, 2014 [facility] [place] [facility] [address] [id number] [place] [address] 18 Jul, 2014 [facility] [place] [facility] [address] [id number] [place] [address] 18 Jul, 2014 [facility] [place] [facility] [address] [id number] [place] [address] 17 Jul, 2014 [facility] [place] [facility] [address] [id number] [place] [address] 17 Jul, 2014 [facility] [place] [facility] [address] [id number] [place] [address] 14 Jul, 2014 [facility] [place] [facility] [address] [id number] [place] [address] 14 Jul, 2014 [facility] [place] [facility] [address] [id number] [place] [address] 14 Jul, 2014 [facility] [place] [facility] [address] [id number] [place] [address] 14 Jul, 2014 [facility] [place] [facility] [address] [id number] [place] [address] 10 Jul, 2014 [facility] [place] [facility] [address] [id number] [place] [address] 10 Jul, 2014 [facility] [place] [facility] [address] [id number] [place] [address] Jun, [facility] [place] [facility] [address] [id number] [place] [address] 11 Jun, 2014 [facility] [place] [facility] [address] [id number] [place] [address] Jun, [facility] [place] [facility] [address] [id number] [place] [address] Jun, [facility] [place] [facility] [address] [id number] [place] [address] Jun, [facility] [place] [facility] [address] [id number] [place] [address] Jun, [facility] [place] [facility] [address] [id number] [place] [address] May, [facility] [place] [facility] [address] [id number] [place] [address] May, [facility] [place] [facility] [address] [id number] [place] [address] May, [facility] [place] [facility] [address] [id number] [place] [address] May, [facility] [place] [facility] [address] [id number] [place] [address] May, [facility] [place] [facility] [address] [id number] [place] [address] May, [facility] [place] [facility] [address] [id number] [place] [address] Apr, [facility] [place] [facility] [address] [id number] [place] [address] Apr, [facility] [place] [facility] [address] [id number] [place] [address] Apr, [facility] [place] [facility] [address] [id number] [place] [address] Apr, [facility] [place] [facility] [address] [id number] [place] [address] Apr, [facility] [place] [facility] [address] [id number] [place] [address] Apr, [facility] [place] [facility] [address] [id number] [place] [address] Mar, [facility] [place] [facility] [address] [id number] [place] [address] Mar, [facility] [place] [facility] [address] [id number] [place] [address] Mar, [facility] [place] [facility] [address] [id number] [place] [address] Mar, [facility] [place] [facility] [address] [id number] [place] [address] Mar, [facility] [place] [facility] [address] [id number] [place] [address] Mar, [facility] [place] [facility] [address] [id number] [place] [address] Mar, [facility] [place] [facility] [address] [id number] [place] [address] Mar, [facility] [place] [facility] [address] [id number] [place] [address] Mar, [facility] [place] [facility] [address] [id number] [place] [address] Mar, [facility] [place] [facility] [address] [id number] [place] [address] Mar, [facility] [place] [facility] [address] [id number] [place] [address] Mar, [facility] [place] [facility] [address] [id number] [place] [address] February, [facility] [place] [facility] [address] [id number] [place] [address] February, [facility] [place] [facility] [address] [id number] [place] [address] February, [facility] [place] [facility] [address] [id number] [place] [address] Dec, [facility] [place] [facility] [address] [id number] [place] [address] Dec, [facility] [place] [facility] [address] [id number] [place] [address] Nov, [facility] [place] [facility] [address] [id number] [place] [address] Nov, [facility] [place] [facility] [address] [id number] [place] [address] Nov, [facility] [place] [facility] [address] [id number] [place] [address] Nov, [facility] [place] [facility] [address] [id number] [place] [address] Nov, [facility] [place] [facility] [address] [id number] [place] [address] Nov, [facility] [place] [facility] [address] [id number] [place] [address] Nov, [facility] [place] [facility] [address] [id number] [place] [address] Nov, [facility] [place] [facility] [address] [id number] [place] [address] Nov, [facility] [place] [facility] [address] [id number] [place] [address] Nov, [facility] [place] [facility] [address] [id number] [place] [address] Oct, [facility] [place] [facility] [address] [id number] [place] [address] Oct, [facility] [place] [facility] [address] [id number] [place] [address] Sep, [facility] [address] [id number] [place] [address] Sep, [facility] [address] [id number] [place] [address] 24 Jun, 2013 [facility] [address] [id number] [place] [address] Jun, [facility] [address] [id number] [place] [address] May, [facility] [address] [id number] [place] [address] May, [facility] [address] [id number] [place] [address] Mar, [facility] [address] [id number] [place] [address] Mar, [facility] [address] [id number] [place] [address] Mar, [facility] [address] [id number] [place] [address] Mar, [facility] [address] [id number] [place] [address] Mar, [facility] [address] [id number] [place] [address] Mar, [facility] [address] [id number] [place] [address] February, [facility] [address] [id number] [place] [address] February, [facility] [address] [id number] [place] [address] Jan, [facility] [address] [id number] [place] [address] Dec, [facility] [address] [id number] [place] [address] 13 Nov, 2012 [facility] [place] [facility] [address] [id number] [place] [address] 07 Nov, 2012 [facility] [address] [id number] [place] [address] 04 Nov, 2012 [facility] [place] [facility] [address] [id number] [place] [address] 17 Oct, 2012 [facility] [address] [id number] [place] [address] 15 Oct, 2012 [facility] [address] [id number] [place] [address] Oct, [facility] [address] [facility] [id number] [place] [address] Sep, [facility] [place] [facility] [address] [id number] [address] Sep, [facility] [address] [id number] [place] [address] Sep, [facility] [address] [facility] [id number] [place] [address] Sep, [facility] [place] [facility] [address] [facility] [id number] [place] [address] Sep, [facility] [place] [facility] [address] [id number] [place] [address] Sep, [facility] [place] [facility] [address] [facility] [id number] [place] [address] Jul, [facility] [place] [facility] [address] [id number] [place] [address] 18 Jul, 2012 [facility] [place] [facility] [address] [facility] [id number] [place] [address] 28 Jun, 2012 [facility] [place] [facility] [address] [id number] [place] [address] 13 May, 2012 [facility] [place] [facility] [address] [id number] [place] [address] Apr, [facility] [place] [facility] [address] [id number] [place] [address] 17 Apr, 2012 [facility] [place] [facility] [address] [id number] [place] [address] Apr, [facility] [place] [facility] [address] [id number] [place] [address] Apr, [facility] [place] [facility] [address] [id number] [place] [address] Apr, [facility] [place] [facility] [address] [id number] [place] [address] Apr, [facility] [place] [facility] [address] [id number] [place] [address] Mar, [facility] [place] [facility] [address] [id number] [place] [address] Mar, [facility] [place] [facility] [address] [id number] [place] [address] Mar, [facility] [place] [facility] [address] [id number] [place] [address] February, [facility] [place] [facility] [address] [id number] [place] [address] 18 Jan, 2012 [facility] [place] [facility] [address] [id number] [place] [address] Jan, [facility] [place] [facility] [address] [id number] [place] [address] Jan, [facility] [place] [facility] [address] [id number] [place] [address] Jan, [facility] [place] [facility] [address] [id number] [place] [address] Dec, [facility] [id number] [address] 20 Dec, 2011 [facility] [id number] [address] 16 Dec, 2011 [facility] [id number] [address] 14 Dec, 2011 [facility] [id number] [place] [address] 16 Nov, 2011 [facility] [id number] [address] 07 Nov, 2011 [facility] [id number] [place] [address] 06 Nov, 2011 [facility] [id number] [address] Sep, [facility] [id number] [place] [id number] Sep, [facility] [id number] [address] Aug, [facility] [id number] [address] Aug, [facility] [id number] [address] Jul, IMMUNIZATIONS No Known Immunizations SOCIAL HISTORY Never Assessed REASON FOR VISIT [facility] PLAN OF CARE VITAL SIGNS MEDICATIONS [...]
--- OUTSIDE RECORDS SUMMARY | 2019-03-26 12:14 | XMS REPORT ---
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 Name Role Phone Migration, Doctor Unavailable Unavailable PROBLEMS Type Condition ICD9-CM Code [id number] Code Onset Dates Condition Status SNOMED Code Problem Generalized anxiety disorder F41.1 Active 12110311 Problem Essential hypertension I10 Active 38141683 Problem Gastroesophageal reflux disease without esophagitis K21.9 Active 791942369 Problem Cyclical vomiting with nausea, intractability of vomiting not specified G43.A0 Active 10740197 Problem Bipolar affective disorder F31.9 Active 80375116 Problem Posttraumatic stress disorder F43.10 Active [id number] ALLERGIES No Information ENCOUNTERS Encounter Location Date Diagnosis [facility] [address] [address] Jan, Gastroesophageal reflux disease without esophagitis K21.9 ; Bipolar affective disorder F31.9 and Essential hypertension I10 [facility] [id number] [place] [address] Nov, [facility] [address] [address] Oct, [facility] [id number] [place] [address] Jul, [facility] [id number] [place] [address] May, Dental abscess K04.7 [facility] [address] [address] May, Toothache K08.89 [facility] [address] [address] February, Essential hypertension I10 [facility] [address] [address] Jan, Cyclical vomiting with nausea, intractability of vomiting not specified G43.A0 ; Gastroesophageal reflux disease without esophagitis K21.9 and Essential hypertension I10 [facility] [id number] [place] [address] Dec, [facility] [address] [id number] [id number] Jul, Dental caries on smooth surface penetrating into pulp K02.63 [facility] [address] [id number] [id number] Jul, Dental examination Z01.20 [facility] [address] [place] [address] AVE [id number] [id number] Jul, [facility] [address] [place] [id number] May, Dental examination Z01.20 and Periapical abscess K04.7 [facility] [id number] [place] [address] May, [facility] [id number] [place] [address] Dec, Essential hypertension I10 ; Cyclical vomiting with nausea, intractability of vomiting not specified G43.A0 ; Gastroesophageal reflux disease without esophagitis K21.9 and Right inguinal hernia K40.90 [facility] [address] [place] [address] Nov, [facility] [id number] [place] [address] Nov, [facility] [id number] [place] [address] Aug, [facility] [id number] [place] [address] May, [facility] [id number] [place] [address] May, Generalized anxiety disorder F41.1 and Bipolar affective disorder F31.9 [facility] [id number] [place] [address] May, Generalized anxiety disorder F41.1 [facility] [id number] [place] [address] May, [facility] [id number] [place] [address] Apr, [facility] [id number] [place] [address] Apr, Bipolar affective disorder F31.9 ; Generalized anxiety disorder F41.1 ; Posttraumatic stress disorder F43.10 ; Benzodiazepine abuse F13.10 and Essential hypertension I10 [facility] [id number] [place] [address] Apr, [facility] [id number] [place] [address] Mar, [facility] [id number] [place] [address] February, [facility] [id number] [place] [address] Jan, [facility] [id number] [place] [address] Jan, [facility] [id number] [place] [address] Jan, Dental examination Z01.20 [facility] [id number] [place] [address] Jan, [facility] [id number] [place] [address] Dec, Bipolar affective disorder F31.9 ; Posttraumatic stress disorder F43.10 ; Generalized anxiety disorder F41.1 and Cannabis use disorder, mild, abuse F12.10 [facility] [id number] [place] [address] Dec, [facility] [address] [address] Nov, [facility] [id number] [place] [address] Nov, [facility] [id number] [place] [address] Nov, [facility] [id number] [place] [address] Nov, Dental examination Z01.20 [facility] [id number] [place] [id number] 09 Nov, 2015 Dental examination Z01.20 [facility] [id number] [place] [address] Oct, [facility] [id number] [place] [address] Sep, [facility] [id number] [place] [address] Aug, [facility] [id number] [place] [address] Aug, Essential hypertension I10 ; Dyspepsia K30 and Cyclic vomiting syndrome G43.A0 [facility] [address] [place] [address] Jul, [facility] [id number] [place] [address] Jul, [facility] [id number] [place] [address] Jul, Bipolar affective disorder F31.9 ; Generalized anxiety disorder F41.1 and Posttraumatic stress disorder F43.10 [facility] [address] [place] [address] Jun, [facility] [id number] [place] [address] Jun, [facility] [address] [id number] [address] Jun, [facility] [address], [place] [address] May, [facility] [address], [place] [address] Apr, [facility] [id number] [place] [address] Apr, [facility] [address], [place] [address] Apr, [facility] [id number] [place] [address] Apr, Bipolar mood disorder 296.80 ; Generalized anxiety disorder 300.02 and PTSD (post-traumatic stress disorder) 309.81 [facility] [address] [address] February, [facility] [address] [id number] February, Dental examination V72.2 [facility] [address], [place] [address] Jan, [facility] [address], [place] [address] Jan, [facility] [address], [place] [address] Dec, [facility] [address], [place] [address] Dec, [facility] [address], [place] [address] Dec, [facility] [address], [place] [address] Dec, [facility] [id number] [place] [address] Dec, [facility] [place] [facility] [address] [id number] [place] [address] Dec, [facility] [place] [facility] [address] [id number] [place] [address] Dec, [facility] [place] [facility] [address] [id number] [place] [address] Dec, 2014 [facility] [place] [facility] [address] [id number] [place] [address] Dec, [facility] [place] [facility] [address] [id number] [place] [address] Dec, [facility] [place] [facility] [address] [facility] [id number] [place] [address] Nov, [facility] [place] [facility] [address] [facility] [id number] [place] [address] Nov, [facility] [place] [facility] [address] [facility] [id number] [place] [address] Nov, [facility] [place] [facility] [address] [facility] [id number] [place] [address] Nov, [facility] [place] [facility] [address] [facility] [id number] [place] [address] Nov, [facility] [place] [facility] [address] [facility] [id number] [place] [address] Nov, [facility] [place] [facility] [address] [id number], [place] [address] Oct, [facility] [place] [facility] [address] [id number] [place] [address] Oct, [facility] [place] [facility] [address] [facility] [id number] [place] [address] Oct, [facility] [place] [facility] [address] [facility] [id number], [place] [address] Oct, [facility] [address] [id number] [place] [address] Oct, [facility] [place] [facility] [address] [id number] [place] [address] Oct, [facility] [place] [facility] [address] [id number] [place] [address] Sep, [facility] [place] [facility] [address] [id number] [place] [address] Sep, [facility] [place] [facility] [address] [id number] [place] [address] Sep, [facility] [place] [facility] [address] [id number] [place] [address] Sep, [facility] [place] [facility] [address] [id number] [place] [address] Sep, [facility] [place] [facility] [address] [id number] [place] [address] Sep, [facility] [place] [facility] [address] [id number] [place] [address] Sep, [facility] [place] [facility] [address] [id number] [place] [address] Sep, [facility] [place] [facility] [address] [id number] [place] [address] Sep, [facility] [place] [facility] [address] [id number], [place] [address] Sep, [facility] [place] [facility] [address] [id number] [place] [address] Sep, [facility] [place] [facility] [address] [id number] [place] [address] Sep, [facility] [place] [facility] [address] [id number] [place] [address] Sep, [facility] [place] [facility] [address] [id number] [place] [address] 09 Sep, 2014 [facility] [place] [facility] [address] [id number] [place] [address] Sep, [facility] [place] [facility] [address] [id number] [place] [address] Sep, [facility] [place] [facility] [address] [id number] [place] [address] Sep, [facility] [place] [facility] [address] [id number] [place] [address] Sep, [facility] [place] [facility] [address] [id number] [place] [address] 05 Sep, 2014 [facility] [place] [facility] [address] [id number] [place] [address] Sep, [facility] [place] [facility] [address] [id number] [place] [address] Sep, [facility] [place] [facility] [address] [id number] [place] [address] Sep, [facility] [place] [facility] [address] [id number] [place] [address] Sep, [facility] [place] [facility] [address] [facility] [id number] [place] [address] Sep, [facility] [place] [facility] [address] [id number] [place] [address] Sep, [facility] [place] [facility] [address] [id number] [place] [address] Sep, [facility] [place] [facility] [address] [id number] [place] [address] Aug, [facility] [place] [facility] [address] [id number] [place] [address] Aug, [facility] [place] [facility] [address] [facility] [id number] [place] [address] Aug, [facility] [place] [facility] [address] [id number] [place] [address] 03 Aug, 2014 [facility] [place] [facility] [address] [id number] [place] [address] 30 Jul, 2013 [facility] [place] [facility] [address] [id number] [place] [address] 30 Jul, 2014 [facility] [place] [facility] [address] [id number] [place] [address] 24 Jul, 2014 [facility] [place] [facility] [address] [id number] [place] [address] 24 Jul, 2014 [facility] [place] [facility] [address] [id number] [place] [address] 18 Jul, 2014 [facility] [place] [facility] [address] [id number] [place] [address] 18 Jul, 2014 [facility] [place] [facility] [address] [id number] [place] [address] 17 Jul, 2014 [facility] [place] [facility] [address] [id number] [place] [address] 17 Jul, 2014 [facility] [place] [facility] [address] [id number] [place] [address] 14 Jul, 2014 [facility] [place] [facility] [address] [id number] [place] [address] 14 Jul, 2014 [facility] [place] [facility] [address] [id number] [place] [address] 14 Jul, 2014 [facility] [place] [facility] [address] [id number] [place] [address] 14 Jul, 2014 [facility] [place] [facility] [address] [id number] [place] [address] 10 Jul, 2014 [facility] [place] [facility] [address] [id number] [place] [address] 10 Jul, 2014 [facility] [place] [facility] [address] [id number] [place] [address] Jun, [facility] [place] [facility] [address] [id number] [place] [address] 11 Jun, 2014 [facility] [place] [facility] [address] [id number] [place] [address] Jun, [facility] [place] [facility] [address] [id number] [place] [address] Jun, [facility] [place] [facility] [address] [id number] [place] [address] Jun, [facility] [place] [facility] [address] [id number] [place] [address] Jun, [facility] [place] [facility] [address] [id number] [place] [address] May, [facility] [place] [facility] [address] [id number] [place] [address] May, [facility] [place] [facility] [address] [id number] [place] [address] May, [facility] [place] [facility] [address] [id number] [place] [address] May, [facility] [place] [facility] [address] [id number] [place] [address] May, [facility] [place] [facility] [address] [id number] [place] [address] May, [facility] [place] [facility] [address] [id number] [place] [address] Apr, [facility] [place] [facility] [address] [id number] [place] [address] Apr, [facility] [place] [facility] [address] [id number] [place] [address] Apr, [facility] [place] [facility] [address] [id number] [place] [address] Apr, [facility] [place] [facility] [address] [id number] [place] [address] Apr, [facility] [place] [facility] [address] [id number] [place] [address] Apr, [facility] [place] [facility] [address] [id number] [place] [address] Mar, [facility] [place] [facility] [address] [id number] [place] [address] Mar, [facility] [place] [facility] [address] [id number] [place] [address] Mar, [facility] [place] [facility] [address] [id number] [place] [address] Mar, [facility] [place] [facility] [address] [id number] [place] [address] Mar, [facility] [place] [facility] [address] [id number] [place] [address] Mar, [facility] [place] [facility] [address] [id number] [place] [address] Mar, [facility] [place] [facility] [address] [id number] [place] [address] Mar, [facility] [place] [facility] [address] [id number] [place] [address] Mar, [facility] [place] [facility] [address] [id number] [place] [address] Mar, [facility] [place] [facility] [address] [id number] [place] [address] Mar, [facility] [place] [facility] [address] [id number] [place] [address] Mar, [facility] [place] [facility] [address] [id number] [place] [address] February, [facility] [place] [facility] [address] [id number] [place] [address] February, [facility] [place] [facility] [address] [id number] [place] [address] February, [facility] [place] [facility] [address] [id number] [place] [address] Dec, [facility] [place] [facility] [address] [id number] [place] [address] Dec, [facility] [place] [facility] [address] [id number] [place] [address] Nov, [facility] [place] [facility] [address] [id number] [place] [address] Nov, [facility] [place] [facility] [address] [id number] [place] [address] Nov, [facility] [place] [facility] [address] [id number] [place] [address] Nov, [facility] [place] [facility] [address] [id number] [place] [address] Nov, [facility] [place] [facility] [address] [id number] [place] [address] Nov, [facility] [place] [facility] [address] [id number] [place] [address] Nov, [facility] [place] [facility] [address] [id number] [place] [address] Nov, [facility] [place] [facility] [address] [id number] [place] [address] Nov, [facility] [place] [facility] [address] [id number] [place] [address] Nov, [facility] [place] [facility] [address] [id number] [place] [address] Oct, [facility] [place] [facility] [address] [id number] [place] [address] Oct, [facility] [place] [facility] [address] [id number] [place] [address] Sep, [facility] [address] [id number] [place] [address] Sep, [facility] [address] [id number] [place] [address] 24 Jun, 2013 [facility] [address] [id number] [place] [address] Jun, [facility] [address] [id number] [place] [address] May, [facility] [address] [id number] [place] [address] May, [facility] [address] [id number] [place] [address] Mar, [facility] [address] [id number] [place] [address] Mar, [facility] [address] [id number] [place] [address] Mar, [facility] [address] [id number] [place] [address] Mar, [facility] [address] [id number] [place] [address] Mar, [facility] [address] [id number] [place] [address] Mar, [facility] [address] [id number] [place] [address] February, [facility] [address] [id number] [place] [address] February, [facility] [address] [id number] [place] [address] Jan, [facility] [address] [id number] [place] [address] Dec, [facility] [address] [id number] [place] [address] 13 Nov, 2012 [facility] [place] [facility] [address] [id number] [place] [address] 07 Nov, 2012 [facility] [address] [id number] [place] [address] 04 Nov, 2012 [facility] [place] [facility] [address] [id number] [place] [address] 17 Oct, 2012 [facility] [address] [id number] [place] [address] 15 Oct, 2012 [facility] [address] [id number] [place] [address] Oct, [facility] [address] [facility] [id number] [place] [address] Sep, [facility] [place] [facility] [address] [id number], [place] [address] Sep, [facility] [address] [id number] [place] [address] Sep, [facility] [address] [facility] [id number], [place] [address] Sep, [facility] [place] [facility] [address] [facility] [id number], [place] [address] Sep, [facility] [place] [facility] [address] [id number], [place] [address] Sep, [facility] [place] [facility] [address] [facility] [id number] [place] [address] Jul, [facility] [place] [facility] [address] [id number], [place] [address] 18 Jul, 2012 [facility] [place] [facility] [address] [facility] [id number] [place] [address] 28 Jun, 2012 [facility] [place] [facility] [address] [id number] [place] [address] 13 May, 2012 [facility] [place] [facility] [address] [id number] [place] [address] Apr, [facility] [place] [facility] [address] [id number] [place] [address] 17 Apr, 2012 [facility] [place] [facility] [address] [id number] [place] [address] Apr, [facility] [place] [facility] [address] [id number] [place] [address] Apr, [facility] [place] [facility] [address] [id number] [place] [address] Apr, [facility] [place] [facility] [address] [id number] [place] [address] Apr, [facility] [place] [facility] [address] [id number] [place] [address] Mar, [facility] [place] [facility] [address] [id number] [place] [address] Mar, [facility] [place] [facility] [address] [id number] [place] [address] Mar, [facility] [place] [facility] [address] [id number] [place] [address] February, [facility] [place] [facility] [address] [id number] [place] [address] 18 Jan, 2012 [facility] [place] [facility] [address] [id number] [place] [address] Jan, [facility] [place] [facility] [address] [id number] [place] [address] Jan, [facility] [place] [facility] [address] [id number] [place] [address] Jan, [facility] [place] [facility] [address] [id number] [place] [address] Dec, [facility] [id number], [place] [address] 20 Dec, 2011 [facility] [id number], [place] [address] 16 Dec, 2011 [facility] [id number], [place] [address] 14 Dec, 2011 [facility] [id number] [place] [address] 16 Nov, 2011 [facility] [id number], [place] [address] 07 Nov, 2011 [facility] [id number] [place] [id number] 06 Nov, 2011 [facility] [id number], [place] [address] Sep, [facility] [id number] [place] [id number] Sep, [facility] [id number] [address] Aug, [facility] [id number] [address] Aug, [facility] [address] [id number], [place] [address] Jul, IMMUNIZATIONS No Known Immunizations SOCIAL HISTORY Never Assessed REASON FOR VISIT [facility] PLAN OF CARE VITAL SIGNS MEDICATIONS [...] trauma Hospitalization History Cyclic vomitting Hospitalization History [facility]- Gastritis 01/2018
--- OUTSIDE RECORDS SUMMARY | 2019-03-26 12:15 | XMS REPORT ---
Author Author Migration, Doctor Organization [facility] Address Unknown Phone Unavailable Care Team Providers Care Dental Technician Apprentice Name Role Phone Migration, Doctor Unavailable Unavailable PROBLEMS Type Condition ICD9-CM Code [id number] Code Onset Dates Condition Status SNOMED Code Problem Generalized anxiety disorder F41.1 Active 30542131 Problem Essential hypertension I10 Active 05335007 Problem Gastroesophageal reflux disease without esophagitis K21.9 Active 639023656 Problem Cyclical vomiting with nausea, intractability of vomiting not specified G43.A0 Active 16902294 Problem Bipolar affective disorder F31.9 Active 26774722 Problem Posttraumatic stress disorder F43.10 Active [id number] ALLERGIES No Information ENCOUNTERS Encounter Location Date Diagnosis [facility] [address] [address] Nov, [facility] [id number] [place] [address] Oct, [facility] [address] [address] Jul, [facility] [id number] [place] [address] May, Dental abscess K04.7 [facility] [id number] [place] [address] May, Toothache K08.89 [facility] [id number] [place] [address] February, Essential hypertension I10 [facility] [address] [address] Jan, Cyclical vomiting with nausea, intractability of vomiting not specified G43.A0 ; Gastroesophageal reflux disease without esophagitis K21.9 and Essential hypertension I10 [facility] [id number] [place] [address] Dec, [facility] [address] [id number] [id number] Jul, Dental caries on smooth surface penetrating into pulp K02.63 [facility] [place] [address] [facility] [address] [id number] [id number] Jul, Dental examination Z01.20 [facility] [place] [address] [facility] [address] [id number] [id number] Jul, [facility] [id number] [place] [id number] May, Dental examination Z01.20 and Periapical abscess K04.7 [facility] [id number] [place] [address] May, [facility] [id number] [place] [address] Dec, Essential hypertension I10 ; Cyclical vomiting with nausea, intractability of vomiting not specified G43.A0 ; Gastroesophageal reflux disease without esophagitis K21.9 and Right inguinal hernia K40.90 [facility] [id number] [place] [address] Nov, [facility] [id number] [place] [address] Nov, [facility] [id number] [place] [address] Aug, [facility] [id number] [place] [address] May, [facility] [address] [address] May, Generalized anxiety disorder F41.1 and Bipolar affective disorder F31.9 [facility] [id number] [place] [address] May, Generalized anxiety disorder F41.1 [facility] [id number] [place] [address] May, [facility] [id number] [place] [address] Apr, [facility] [id number] [place] [address] Apr, Bipolar affective disorder F31.9 ; Generalized anxiety disorder F41.1 ; Posttraumatic stress disorder F43.10 ; Benzodiazepine abuse F13.10 and Essential hypertension I10 [facility] [id number] [place] [address] Apr, [facility] [id number] [place] [address] Mar, [facility] [id number] [place] [address] February, [facility] [id number] [place] [address] Jan, [facility] [id number] [place] [address] Jan, [facility] [id number] [place] [address] Jan, Dental examination Z01.20 [facility] [id number] [place] [address] Jan, [facility] [id number] [place] [address] Dec, Bipolar affective disorder F31.9 ; Posttraumatic stress disorder F43.10 ; Generalized anxiety disorder F41.1 and Cannabis use disorder, mild, abuse F12.10 [facility] [id number] [place] [address] Dec, [facility] [id number] [place] [address] Nov, [facility] [id number] [place] [address] Nov, [facility] [id number] [place] [address] Nov, [facility] [id number] [place] [address] 16 Nov, 2015 Dental examination Z01.20 [facility] [id number] [place] [id number] Nov, 2015 Dental examination Z01.20 [facility] [id number] [place] [address] Oct, [facility] [id number] [place] [address] Sep, [facility] [id number] [place] [address] Aug, [facility] [id number] [place] [address] Aug, Essential hypertension I10 ; Dyspepsia K30 and Cyclic vomiting syndrome G43.A0 [facility] [id number] [place] [address] Jul, [facility] [id number] [place] [address] Jul, [facility] [id number] [place] [address] Jul, Bipolar affective disorder F31.9 ; Generalized anxiety disorder F41.1 and Posttraumatic stress disorder F43.10 [facility] [id number] [place] [address] Jun, [facility] [id number] [place] [address] 14 Jun, 2015 [facility] [id number] [place] [address] Jun, [facility] [address] [place] [address] May, [facility] [address] [address] Apr, [facility] [address] [address] Apr, [facility] [address] [address] Apr, [facility] [address] [address] Apr, Bipolar mood disorder 296.80 ; Generalized anxiety disorder 300.02 and PTSD (post-traumatic stress disorder) 309.81 [facility] [address] [address] February, [facility] [address] [id number] February, Dental examination V72.2 [facility] [address] [address] Jan, [facility] [address] [address] Jan, [facility] [address] [address] Dec, [facility] [address] [address] Dec, [facility] [address] [address] Dec, [facility] [address] [address] Dec, [facility] [address] [address] Dec, [facility] [address] [address] Dec, [facility] [place] [facility] [address] [id number] [place] [address] Dec, [facility] [place] [facility] [address] [id number] [place] [address] Dec, [facility] [place] [facility] [address] [id number] [place] [address] Dec, [facility] [place] [facility] [address] [id number] [place] [address] Dec, [facility] [place] [facility] [address] [id number] [place] [address] Nov, [facility] [place] [facility] [address] [id number] [place] [address] Nov, [facility] [place] [facility] [address] [facility] [id number] [place] [address] Nov, [facility] [place] [facility] [address] [facility] [address] [id number] [place] [address] Nov, [facility] [place] [facility] [address] [facility] [address] [id number] [place] [address] Nov, [facility] [place] [facility] [address] [facility] [address] [id number] [place] [address] Nov, [facility] [place] [facility] [address] [facility] [address] [id number] [address] Oct, [facility] [place] [facility] [address] [id number] [place] [address] Oct, [facility] [place] [facility] [address] [id number] [place] [address] Oct, [facility] [place] [facility] [address] [id number] [place] [address] Oct, [facility] [place] [facility] [address] [facility] [address] [id number] [address] Oct, [facility] [place] [facility] [address] [id number] [place] [address] Oct, [facility] [address] [id number] [place] [address] Sep, [facility] [place] [facility] [address] [id number] [place] [address] Sep, [facility] [place] [facility] [address] [facility] [address] [id number] [place] [address] Sep, [facility] [place] [facility] [address] [id number] [place] [address] Sep, [facility] [place] [facility] [address] [id number] [place] [address] Sep, [facility] [place] [facility] [address] [id number] [place] [address] Sep, [facility] [place] [facility] [address] [facility] [id number] [place] [address] Sep, [facility] [place] [facility] [address] [id number] [place] [address] Sep, [facility] [place] [facility] [address] [id number] [place] [address] Sep, [facility] [place] [facility] [address] [facility] [address] [id number] [place] [address] Sep, [facility] [place] [facility] [address] [id number] [place] [address] Sep, [facility] [place] [facility] [address] [id number] [address] Sep, [facility] [place] [facility] [address] [id number] [place] [address] Sep, [facility] [place] [facility] [address] [id number] [place] [address] Sep, [facility] [place] [facility] [address] [facility] [id number] [place] [address] Sep, [facility] [place] [facility] [address] [id number] [place] [address] 08 Sep, 2014 [facility] [place] [facility] [address] [id number] [place] [address] Sep, [facility] [place] [facility] [address] [id number] [place] [address] Sep, [facility] [place] [facility] [address] [id number] [place] [address] 05 Sep, 2014 [facility] [place] [facility] [address] [id number] [place] [address] Sep, [facility] [place] [facility] [address] [id number] [place] [address] Sep, [facility] [place] [facility] [address] [id number] [place] [address] Sep, [facility] [place] [facility] [address] [id number] [place] [address] Sep, [facility] [place] [facility] [address] [id number] [place] [address] Sep, [facility] [place] [facility] [address] [id number] [place] [address] Sep, [facility] [place] [facility] [address] [id number] [place] [address] Sep, [facility] [place] [facility] [address] [id number] [place] [address] Aug, [facility] [place] [facility] [address] [id number] [place] [address] Aug, [facility] [place] [facility] [address] [id number] [place] [address] Aug, [facility] [place] [facility] [address] [id number] [place] [address] Aug, [facility] [place] [facility] [address] [id number] [place] [address] Jul, 2013 [facility] [place] [facility] [address] [id number] [place] [address] 30 Jul, 2013 [facility] [place] [facility] [address] [id number] [place] [address] 24 Jul, 2014 [facility] [place] [facility] [address] [id number] [place] [address] 24 Jul, 2014 [facility] [place] [facility] [address] [id number] [place] [address] 18 Jul, 2014 [facility] [place] [facility] [address] [id number] [place] [address] 18 Jul, 2014 [facility] [place] [facility] [address] [id number] [place] [address] 17 Jul, 2014 [facility] [place] [facility] [address] [id number] [place] [address] 17 Jul, 2014 [facility] [place] [facility] [address] [id number] [place] [address] 14 Jul, 2014 [facility] [place] [facility] [address] [id number] [place] [address] 14 Jul, 2014 [facility] [place] [facility] [address] [id number] [place] [address] 14 Jul, 2014 [facility] [place] [facility] [address] [id number] [place] [address] 14 Jul, 2014 [facility] [place] [facility] [address] [id number] [place] [address] 10 Jul, 2014 [facility] [place] [facility] [address] [id number] [place] [address] 10 Jul, 2014 [facility] [place] [facility] [address] [id number] [place] [address] 11 Jun, 2014 [facility] [place] [facility] [address] [id number] [place] [address] 11 Jun, 2014 [facility] [place] [facility] [address] [id number] [place] [address] 10 Jun, 2014 [facility] [place] [facility] [address] [id number] [place] [address] 10 Jun, 2014 [facility] [place] [facility] [address] [id number] [place] [address] Jun, [facility] [place] [facility] [address] [id number] [place] [address] Jun, [facility] [place] [facility] [address] [id number] [place] [address] May, [facility] [place] [facility] [address] [id number] [place] [address] May, [facility] [place] [facility] [address] [id number] [place] [address] May, [facility] [place] [facility] [address] [id number] [place] [address] May, [facility] [place] [facility] [address] [id number] [place] [address] May, [facility] [place] [facility] [address] [id number] [place] [address] May, [facility] [place] [facility] [address] [id number] [place] [address] Apr, [facility] [place] [facility] [address] [id number] [place] [address] Apr, [facility] [place] [facility] [address] [id number] [place] [address] Apr, [facility] [place] [facility] [address] [id number] [place] [address] Apr, [facility] [place] [facility] [address] [id number] [place] [address] Apr, [facility] [place] [facility] [address] [id number] [place] [address] Apr, [facility] [place] [facility] [address] [id number] [place] [address] Mar, [facility] [place] [facility] [address] [id number] [place] [address] Mar, [facility] [place] [facility] [address] [id number] [place] [address] Mar, [facility] [place] [facility] [address] [id number] [place] [address] Mar, [facility] [place] [facility] [address] [id number] [place] [address] Mar, [facility] [place] [facility] [address] [id number] [place] [address] Mar, [facility] [place] [facility] [address] [id number] [place] [address] Mar, [facility] [place] [facility] [address] [id number] [place] [address] Mar, [facility] [place] [facility] [address] [id number] [place] [address] Mar, [facility] [place] [facility] [address] [id number] [place] [address] Mar, [facility] [place] [facility] [address] [id number] [place] [address] Mar, [facility] [place] [facility] [address] [id number] [place] [address] Mar, [facility] [place] [facility] [address] [id number] [place] [address] February, [facility] [place] [facility] [address] [id number] [place] [address] February, [facility] [place] [facility] [address] [id number] [place] [address] February, [facility] [place] [facility] [address] [id number] [place] [address] Dec, [facility] [place] [facility] [address] [id number] [place] [address] Dec, [facility] [place] [facility] [address] [id number] [place] [address] Nov, [facility] [place] [facility] [address] [facility] [id number] [place] [address] Nov, [facility] [place] [facility] [address] [id number] [place] [address] Nov, [facility] [place] [facility] [address] [id number] [place] [address] Nov, [facility] [place] [facility] [address] [id number] [place] [address] Nov, [facility] [place] [facility] [address] [facility] [address] [id number] [place] [address] Nov, [facility] [place] [facility] [address] [id number] [place] [address] Nov, [facility] [place] [facility] [address] [id number] [place] [address] Nov, [facility] [place] [facility] [address] [facility] [address] [id number] [place] [address] Nov, [facility] [place] [facility] [address] [facility] [address] [id number] [place] [address] Nov, [facility] [place] [facility] [address] [facility] [address] [id number] [place] [address] Oct, [facility] [place] [facility] [address] [id number] [place] [address] Oct, [facility] [place] [facility] [address] [facility] [address] [id number] [place] [address] Sep, [facility] [place] [facility] [address] [facility] [address] [id number] [place] [address] Sep, [facility] [place] [facility] [address] [id number] [place] [address] 24 Jun, 2013 [facility] [address] [id number] [place] [address] Jun, [facility] [address] [id number] [place] [address] May, [facility] [address] [id number] [place] [address] May, [facility] [address] [id number] [place] [address] Mar, [facility] [address] [id number] [place] [address] Mar, [facility] [address] [id number] [place] [address] Mar, [facility] [address] [id number] [place] [address] Mar, [facility] [address] [id number] [place] [address] Mar, [facility] [address] [id number] [place] [address] Mar, [facility] [address] [id number] [place] [address] February, [facility] [address] [id number] [place] [address] February, [facility] [place] [facility] [address] [id number] [place] [address] Jan, [facility] [place] [facility] [address] [id number] [place] [address] Dec, [facility] [place] [facility] [address] [id number] [place] [address] Nov, [facility] [place] [facility] [address] [id number] [place] [address] 07 Nov, 2012 [facility] [address] [id number] [place] [address] 04 Nov, 2012 [facility] [place] [facility] [address] [id number] [place] [address] 17 Oct, 2012 [facility] [address] [facility] [id number] [place] [address] 15 Oct, 2012 [facility] [place] [facility] [address] [id number] [place] [address] Oct, [facility] [address] [id number] [place] [address], [place] [address] Sep, [facility] [place] [facility] [address] [id number] [place] [address] Sep, [facility] [id number] [place] [address] Sep, [facility] [place] [facility] [address] [facility] [id number] [place] [address] Sep, [facility] [address] [id number] [place] [address] Sep, [facility] [place] [facility] [address] [facility] [id number] [place] [address] Sep, [facility] [address] [facility] [id number] [place] [address] Jul, [facility] [place] [facility] [address] [id number] [place] [address] Jul, [facility] [place] [facility] [address] [id number] [place] [address] Jun, [facility] [place] [facility] [address] [facility] [address] [id number] [place] [address] May, [facility] [place] [facility] [address] [facility] [id number] [place] [address] Apr, [facility] [place] [facility] [address] [id number] [place] [address] 17 Apr, 2012 [facility] [place] [facility] [address] [id number] [place] [address] 12 Apr, 2012 [facility] [place] [facility] [address] [id number] [place] [address] Apr, [facility] [place] [facility] [address] [id number] [place] [address] 10 Apr, 2012 [facility] [place] [facility] [address] [id number] [place] [address] 09 Apr, 2012 [facility] [place] [facility] [address] [id number] [place] [address] 18 Mar, 2012 [facility] [place] [facility] [address] [id number] [place] [address] 14 Mar, 2012 [facility] [place] [facility] [address] [id number] [place] [address] Mar, [facility] [place] [facility] [address] [id number] [place] [address] February, [facility] [place] [facility] [address] [id number] [place] [address] 18 Jan, 2012 [facility] [place] [facility] [address] [id number] [place] [address] Jan, [facility] [place] [facility] [address] [id number] [place] [address] Jan, [facility] [place] [facility] [address] [id number] [place] [address] Jan, [facility] [place] [facility] [address] [id number] [place] [address] 20 Dec, 2011 [facility] [place] [facility] [address] [id number] [place] [address] 20 Dec, 2011 [facility] [place] [facility] [address] [id number] [place] [address] Dec, [facility] [address] [id number] [address] Dec, [facility] [id number] [address] 16 Nov, 2011 [facility] [id number] [address] Nov, [facility] [id number] [place] [address] Nov, [facility] [id number] [place] [address] Sep, [facility] [id number] [place] [address] Sep, [facility] [address] [id number] [place] [id number] Aug, [facility] [id number] [address] Aug, [facility] [id number] [address] Jul, IMMUNIZATIONS No Known Immunizations SOCIAL HISTORY Never Assessed REASON FOR VISIT [facility] PLAN OF CARE VITAL SIGNS MEDICATIONS Unknown Medications RESULTS No Results PROCEDURES No Known procedures INSTRUCTIONS MEDICATIONS ADMINISTERED No Known Medications MEDICAL (GENERAL) HISTORY Type Description Date Medical History Hypertension Medical History PTSD Medical History Anxiety Medical History Esophageal reflux Medical History Hx Narc Alert for Illicit Drug Use Surgical History cholecystectomy Surgical History surgery for head trauma Hospitalization History Cyclic vomitting Hospitalization History [facility] [place] 01/2018
--- OUTSIDE RECORDS SUMMARY | 2019-03-26 12:15 | XMS REPORT ---
Author Author Migration, Doctor Organization [facility] Address Unknown Phone Unavailable Care Team Providers Care Human Resources Team Member Name Role Phone Migration, Doctor Unavailable Unavailable PROBLEMS Type Condition ICD9-CM Code RES94-JY Code Onset Dates Condition Status SNOMED Code Problem Generalized anxiety disorder F41.1 Active 78489830 Problem Essential hypertension I10 Active 69033132 Problem Gastroesophageal reflux disease without esophagitis K21.9 Active 481276009 Problem Cyclical vomiting with nausea, intractability of vomiting not specified G43.A0 Active 38024196 Problem Bipolar affective disorder F31.9 Active 66417506 Problem Posttraumatic stress disorder F43.10 Active [id number] ALLERGIES No Information ENCOUNTERS Encounter Location Date Diagnosis [facility] [address] [address] Nov, [facility] [id number] [place] [address] Oct, [facility] [address] [address] Jul, [facility] [id number] [place] [address] May, Dental abscess K04.7 [facility] [id number] [place] [address] May, Toothache K08.89 [facility] [id number] [place] [address] February, Essential hypertension I10 [facility] [address] [address] Jan, Cyclical vomiting with nausea, intractability of vomiting not specified G43.A0 ; Gastroesophageal reflux disease without esophagitis K21.9 and Essential hypertension I10 [facility] [id number] [place] [address] Dec, [facility] [address] [id number] [id number] Jul, Dental caries on smooth surface penetrating into pulp K02.63 [facility] [place] [address] [id number] [id number] Jul, Dental examination Z01.20 [facility] [place] [address] [facility] [id number] [id number] Jul, [facility] [id number] [place] [id number] May, Dental examination Z01.20 and Periapical abscess K04.7 [facility] [id number] [place] [address] May, [facility] [id number] [place] [address] Dec, Essential hypertension I10 ; Cyclical vomiting with nausea, intractability of vomiting not specified G43.A0 ; Gastroesophageal reflux disease without esophagitis K21.9 and Right inguinal hernia K40.90 [facility] [id number] [place] [address] Nov, [facility] [id number] [place] [address] Nov, [facility] [id number] [place] [address] Aug, [facility] [id number] [place] [address] May, [facility] [address] [address] May, Generalized anxiety disorder F41.1 and Bipolar affective disorder F31.9 [facility] [id number] [place] [address] May, Generalized anxiety disorder F41.1 [facility] [id number] [place] [address] May, [facility] [id number] [place] [address] Apr, [facility] [id number] [place] [address] Apr, Bipolar affective disorder F31.9 ; Generalized anxiety disorder F41.1 ; Posttraumatic stress disorder F43.10 ; Benzodiazepine abuse F13.10 and Essential hypertension I10 [facility] [id number] [place] [address] Apr, [facility] [id number] [place] [address] Mar, [facility] [id number] [place] [address] February, [facility] [id number] [place] [address] Jan, [facility] [id number] [place] [address] Jan, [facility] [id number] [place] [address] Jan, Dental examination Z01.20 [facility] [id number] [place] [address] Jan, [facility] [id number] [place] [address] Dec, Bipolar affective disorder F31.9 ; Posttraumatic stress disorder F43.10 ; Generalized anxiety disorder F41.1 and Cannabis use disorder, mild, abuse F12.10 [facility] [id number] [place] [address] Dec, [facility] [id number] [place] [address] Nov, [facility] [id number] [place] [address] Nov, [facility] [id number] [place] [address] Nov, [facility] [id number] [place] [address] 16 Nov, 2015 Dental examination Z01.20 [facility] [id number] [place] [id number] Nov, 2015 Dental examination Z01.20 [facility] [id number] [place] [address] Oct, [facility] [id number] [place] [address] Sep, [facility] [id number] [place] [address] Aug, [facility] [id number] [place] [address] Aug, Essential hypertension I10 ; Dyspepsia K30 and Cyclic vomiting syndrome G43.A0 [facility] [id number] [place] [address] Jul, [facility] [id number] [place] [address] Jul, [facility] [id number] [place] [address] Jul, Bipolar affective disorder F31.9 ; Generalized anxiety disorder F41.1 and Posttraumatic stress disorder F43.10 [facility] [id number] [place] [address] Jun, [facility] [id number] [place] [address] 14 Jun, 2015 [facility] [id number] [place] [address] Jun, [facility] [address] [place] [address] May, [facility] [address] [address] Apr, [facility] [address] [address] Apr, [facility] [address], [place] [address] Apr, [facility] [address] [address] Apr, Bipolar mood disorder 296.80 ; Generalized anxiety disorder 300.02 and PTSD (post-traumatic stress disorder) 309.81 [facility] [address] [address] February, [facility] [address] [id number] February, Dental examination V72.2 [facility] [address], [place] [address] Jan, [facility] [address], [place] [address] Jan, [facility] [address], [place] [address] Dec, [facility] [address], [place] [address] Dec, [facility] [address], [place] [address] Dec, [facility] [address], [place] [address] Dec, [facility] [address], [place] [address] Dec, [facility] [address], [place] [address] Dec, [facility] [place] [facility] [address] [id number] [place] [address] Dec, [facility] [place] [facility] [address] [id number] [place] [address] Dec, [facility] [place] [facility] [address] [id number] [place] [address] Dec, [facility] [place] [facility] [address] [id number] [place] [address] Dec, [facility] [place] [facility] [address] [id number] [place] [address] Nov, [facility] [place] [facility] [address] [id number] [place] [address] Nov, [facility] [place] [facility] [address] [facility] [id number] [place] [address] Nov, [facility] [place] [facility] [address] [facility] [id number] [place] [address] Nov, [facility] [place] [facility] [address] [facility] [id number] [place] [address] Nov, [facility] [place] [facility] [address] [facility] [id number] [place] [address] Nov, [facility] [place] [facility] [address] [facility] [id number], [place] [address] Oct, [facility] [place] [facility] [address] [id number], [place] [address] Oct, [facility] [place] [facility] [address] [id number], [place] [address] Oct, [facility] [place] [facility] [address] [id number], [place] [address] Oct, [facility] [place] [facility] [address] [facility] [id number], [place] [address] Oct, [facility] [place] [facility] [address] [id number], [place] [address] Oct, [facility] [address] [id number] [place] [address] Sep, [facility] [place] [facility] [address] [id number] [place] [address] Sep, [facility] [place] [facility] [address] [facility] [id number] [place] [address] Sep, [facility] [place] [facility] [address] [id number] [place] [address] Sep, [facility] [place] [facility] [address] [id number] [place] [address] Sep, [facility] [place] [facility] [address] [id number] [place] [address] Sep, [facility] [place] [facility] [address] [facility] [id number] [place] [address] Sep, [facility] [place] [facility] [address] [id number] [place] [address] Sep, [facility] [place] [facility] [address] [id number] [place] [address] Sep, [facility] [place] [facility] [address] [facility] [id number] [place] [address] Sep, [facility] [place] [facility] [address] [id number] [place] [address] Sep, [facility] [place] [facility] [address] [id number], [place] [address] Sep, [facility] [place] [facility] [address] [id number] [place] [address] Sep, [facility] [place] [facility] [address] [id number] [place] [address] Sep, [facility] [place] [facility] [address] [facility] [id number] [place] [address] Sep, [facility] [place] [facility] [address] [id number] [place] [address] 08 Sep, 2014 [facility] [place] [facility] [address] [id number] [place] [address] Sep, [facility] [place] [facility] [address] [id number] [place] [address] Sep, [facility] [place] [facility] [address] [id number] [place] [address] 05 Sep, 2014 [facility] [place] [facility] [address] [id number] [place] [address] Sep, [facility] [place] [facility] [address] [id number] [place] [address] Sep, [facility] [place] [facility] [address] [id number] [place] [address] Sep, [facility] [place] [facility] [address] [id number] [place] [address] Sep, [facility] [place] [facility] [address] [id number] [place] [address] Sep, [facility] [place] [facility] [address] [id number] [place] [address] Sep, [facility] [place] [facility] [address] [id number] [place] [address] Sep, [facility] [place] [facility] [address] [id number] [place] [address] Aug, [facility] [place] [facility] [address] [id number] [place] [address] Aug, [facility] [place] [facility] [address] [id number] [place] [address] Aug, [facility] [place] [facility] [address] [id number] [place] [address] Aug, [facility] [place] [facility] [address] [id number] [place] [address] Jul, 2013 [facility] [place] [facility] [address] [id number] [place] [address] 30 Jul, 2013 [facility] [place] [facility] [address] [id number] [place] [address] 24 Jul, 2014 [facility] [place] [facility] [address] [id number] [place] [address] 24 Jul, 2014 [facility] [place] [facility] [address] [id number] [place] [address] 18 Jul, 2014 [facility] [place] [facility] [address] [id number] [place] [address] 18 Jul, 2014 [facility] [place] [facility] [address] [id number] [place] [address] 17 Jul, 2014 [facility] [place] [facility] [address] [id number] [place] [address] 17 Jul, 2014 [facility] [place] [facility] [address] [id number] [place] [address] 14 Jul, 2014 [facility] [place] [facility] [address] [id number] [place] [address] 14 Jul, 2014 [facility] [place] [facility] [address] [id number] [place] [address] 14 Jul, 2014 [facility] [place] [facility] [address] [id number], [place] [address] 14 Jul, 2014 [facility] [place] [facility] [address] [id number], [place] [address] 10 Jul, 2014 [facility] [place] [facility] [address] [id number] [place] [address] 10 Jul, 2014 [facility] [place] [facility] [address] [id number], [place] [address] 11 Jun, 2014 [facility] [place] [facility] [address] [id number] [place] [address] 11 Jun, 2014 [facility] [place] [facility] [address] [id number] [place] [address] 10 Jun, 2014 [facility] [place] [facility] [address] [id number] [place] [address] 10 Jun, 2014 [facility] [place] [facility] [address] [id number] [place] [address] Jun, [facility] [place] [facility] [address] [id number] [place] [address] Jun, [facility] [place] [facility] [address] [id number] [place] [address] May, [facility] [place] [facility] [address] [id number] [place] [address] May, [facility] [place] [facility] [address] [id number] [place] [address] May, [facility] [place] [facility] [address] [id number] [place] [address] May, [facility] [place] [facility] [address] [id number] [place] [address] May, [facility] [place] [facility] [address] [id number] [place] [address] May, [facility] [place] [facility] [address] [id number] [place] [address] Apr, [facility] [place] [facility] [address] [id number] [place] [address] Apr, [facility] [place] [facility] [address] [id number] [place] [address] Apr, [facility] [place] [facility] [address] [id number] [place] [address] Apr, [facility] [place] [facility] [address] [id number] [place] [address] Apr, [facility] [place] [facility] [address] [id number] [place] [address] Apr, [facility] [place] [facility] [address] [id number] [place] [address] Mar, [facility] [place] [facility] [address] [id number] [place] [address] Mar, [facility] [place] [facility] [address] [id number] [place] [address] Mar, [facility] [place] [facility] [address] [id number] [place] [address] Mar, [facility] [place] [facility] [address] [id number] [place] [address] Mar, [facility] [place] [facility] [address] [id number] [place] [address] Mar, [facility] [place] [facility] [address] [id number] [place] [address] Mar, [facility] [place] [facility] [address] [id number] [place] [address] Mar, [facility] [place] [facility] [address] [id number] [place] [address] Mar, [facility] [place] [facility] [address] [id number] [place] [address] Mar, [facility] [place] [facility] [address] [id number] [place] [address] Mar, [facility] [place] [facility] [address] [id number] [place] [address] Mar, [facility] [place] [facility] [address] [id number] [place] [address] February, [facility] [place] [facility] [address] [id number] [place] [address] February, [facility] [place] [facility] [address] [id number] [place] [address] February, [facility] [place] [facility] [address] [id number] [place] [address] Dec, [facility] [place] [facility] [address] [id number] [place] [address] Dec, [facility] [place] [facility] [address] [id number] [place] [address] Nov, [facility] [place] [facility] [address] [facility] [id number] [place] [address] Nov, [facility] [place] [facility] [address] [id number] [place] [address] Nov, [facility] [place] [facility] [address] [id number] [place] [address] Nov, [facility] [place] [facility] [address] [id number] [place] [address] Nov, [facility] [place] [facility] [address] [facility] [id number] [place] [address] Nov, [facility] [place] [facility] [address] [id number] [place] [address] Nov, [facility] [place] [facility] [address] [id number] [place] [address] Nov, [facility] [place] [facility] [address] [facility] [id number] [place] [address] Nov, [facility] [place] [facility] [address] [facility] [id number] [place] [address] Nov, [facility] [place] [facility] [address] [facility] [id number] [place] [address] Oct, [facility] [place] [facility] [address] [id number] [place] [address] Oct, [facility] [place] [facility] [address] [facility] [id number] [place] [address] Sep, [facility] [place] [facility] [address] [facility] [id number] [place] [address] Sep, [facility] [place] [facility] [address] [id number] [place] [address] 24 Jun, 2013 [facility] [address] [id number] [place] [address] Jun, [facility] [address] [id number] [place] [address] May, [facility] [address] [id number] [place] [address] May, [facility] [address] [id number] [place] [address] Mar, [facility] [address] [id number] [place] [address] Mar, [facility] [address] [id number] [place] [address] Mar, [facility] [address] [id number] [place] [address] Mar, [facility] [address] [id number] [place] [address] Mar, [facility] [address] [id number] [place] [address] Mar, [facility] [address] [id number] [place] [address] February, [facility] [address] [id number], [place] [address] February, [facility] [place] [facility] [address] [id number] [place] [address] Jan, [facility] [place] [facility] [address] [id number] [place] [address] Dec, [facility] [place] [facility] [address] [id number] [place] [address] Nov, [facility] [place] [facility] [address] [id number], [place] [address] 07 Nov, 2012 [facility] [address] [id number] [place] [address] 04 Nov, 2012 [facility] [place] [facility] [address] [id number] [place] [address] 17 Oct, 2012 [facility] [address] [facility] [id number] [place] [address] 15 Oct, 2012 [facility] [place] [facility] [address] [id number] [place] [address] Oct, [facility] [address] [id number] [place] [address], [place] [address] Sep, [facility] [place] [facility] [address] [id number] [place] [address] Sep, [facility] [id number] [place] [address] Sep, [facility] [place] [facility] [address] [facility] [id number] [place] [address] Sep, [facility] [address] [id number] [place] [address] Sep, [facility] [place] [facility] [address] [facility] [id number] [place] [address] Sep, [facility] [address] [facility] [id number] [place] [address] Jul, [facility] [place] [facility] [address] [id number], [place] [address] Jul, [facility] [place] [facility] [address] [id number] [place] [address] Jun, [facility] [place] [facility] [address] [facility] [id number], [place] [address] May, [facility] [place] [facility] [address] [facility] [id number] [place] [address] Apr, [facility] [place] [facility] [address] [id number] [place] [address] 17 Apr, 2012 [facility] [place] [facility] [address] [id number] [place] [address] 12 Apr, 2012 [facility] [place] [facility] [address] [id number] [place] [address] Apr, [facility] [place] [facility] [address] [id number] [place] [address] 10 Apr, 2012 [facility] [place] [facility] [address] [id number] [place] [address] 09 Apr, 2012 [facility] [place] [facility] [address] [id number] [place] [address] 18 Mar, 2012 [facility] [place] [facility] [address] [id number] [place] [address] 14 Mar, 2012 [facility] [place] [facility] [address] [id number] [place] [address] Mar, [facility] [place] [facility] [address] [id number] [place] [address] February, [facility] [place] [facility] [address] [id number] [place] [address] 18 Jan, 2012 [facility] [place] [facility] [address] [id number] [place] [address] Jan, [facility] [place] [facility] [address] [id number] [place] [address] Jan, [facility] [place] [facility] [address] [id number] [place] [address] Jan, [facility] [place] [facility] [address] [id number] [place] [address] 20 Dec, 2011 [facility] [place] [facility] [address] [id number] [place] [address] 20 Dec, 2011 [facility] [place] [facility] [address] [id number] [place] [address] Dec, [facility] [address] [id number] [address] Dec, [facility] [id number] [address] 16 Nov, 2011 [facility] [id number] [address] Nov, [facility] [id number] [place] [address] Nov, [facility] [id number] [place] [address] Sep, [facility] [id number] [place] [address] Sep, [facility] [id number] [place] [address] Aug, [facility] [address] [id number] [place] [address] Aug, [facility] [id number] [place] [address] Jul, IMMUNIZATIONS No Known Immunizations SOCIAL HISTORY Never Assessed REASON FOR VISIT [facility] [place] PLAN OF CARE VITAL SIGNS MEDICATIONS Unknown [...] trauma Hospitalization History Cyclic vomitting Hospitalization History [facility] [place] 01/2018
--- OUTSIDE RECORDS SUMMARY | 2019-03-26 12:16 | XMS REPORT ---
Author Author MEGHAN REBOLLEDO [facility] Address [address] [place] [address] Care Team Providers Care Ccna Name Role Phone REBOLLEDONELSONA Unavailable PROBLEMS Type Condition ICD9-CM Code [id number] Code Onset Dates Condition Status SNOMED Code Problem Essential hypertension I10 Active 44371925 Problem Generalized anxiety disorder F41.1 Active 50711230 Problem Cyclical vomiting with nausea, intractability of vomiting not specified G43.A0 Active 45689513 Problem Gastroesophageal reflux disease without esophagitis K21.9 Active 665087660 Problem Posttraumatic stress disorder F43.10 Active 49018940 Problem Bipolar affective disorder F31.9 Active 46239905 ALLERGIES No Information ENCOUNTERS Encounter Location Date Diagnosis [facility] [id number] [place] [address] May, Dental abscess K04.7 [facility] [id number] [place] [address] May, Toothache K08.89 [facility] [id number] [place] [address] February, Essential hypertension I10 [facility] [id number] [place] [address] Jan, Cyclical vomiting with nausea, intractability of vomiting not specified G43.A0 ; Gastroesophageal reflux disease without esophagitis K21.9 and Essential hypertension I10 [facility] [id number] [place] [address] Dec, [facility] [address] [id number] [id number] Jul, Dental caries on smooth surface penetrating into pulp K02.63 [facility] [address] [id number] [id number] Jul, Dental examination Z01.20 [facility] [address] [id number] [id number] Jul, [facility] [address] [id number] May, Dental examination Z01.20 and Periapical abscess K04.7 [facility] [id number] [place] [address] May, [facility] [id number] [place] [address] Dec, Essential hypertension I10 ; Cyclical vomiting with nausea, intractability of vomiting not specified G43.A0 ; Gastroesophageal reflux disease without esophagitis K21.9 and Right inguinal hernia K40.90 [facility] [id number] [place] [address] Nov, [facility] [id number] [place] [address] Nov, [facility] [id number] [place] [address] Aug, [facility] [id number] [place] [address] May, [facility] [id number] [place] [address] May, Generalized anxiety disorder F41.1 and Bipolar affective disorder F31.9 [facility] [id number] [place] [address] May, Generalized anxiety disorder F41.1 [facility] [id number] [place] [address] May, [facility] [id number] [place] [address] Apr, [facility] [id number] [place] [address] Apr, Bipolar affective disorder F31.9 ; Generalized anxiety disorder F41.1 ; Posttraumatic stress disorder F43.10 ; Benzodiazepine abuse F13.10 and Essential hypertension I10 [facility] [id number] [place] [address] Apr, [facility] [id number] [place] [address] Mar, [facility] [id number] [place] [address] February, [facility] [id number] [place] [address] Jan, [facility] [id number] [place] [address] Jan, [facility] [id number] [place] [address] Jan, Dental examination Z01.20 [facility] [id number] [place] [address] Jan, [facility] [id number] [place] [address] Dec, Bipolar affective disorder F31.9 ; Posttraumatic stress disorder F43.10 ; Generalized anxiety disorder F41.1 and Cannabis use disorder, mild, abuse F12.10 [facility] [id number] [place] [address] Dec, [facility] [id number] [place] [address] Nov, [facility] [id number] [place] [address] Nov, [facility] [id number] [place] [address] Nov, [facility] [id number] [place] [address] 16 Nov, 2015 Dental examination Z01.20 [facility] [id number] [place] [id number] Nov, 2015 Dental examination Z01.20 [facility] [id number] [place] [address] Oct, [facility] [id number] [place] [address] Sep, [facility] [id number] [place] [address] Aug, [facility] [address] [address] Aug, Essential hypertension I10 ; Dyspepsia K30 and Cyclic vomiting syndrome G43.A0 [facility] [id number] [place] [address] Jul, [facility] [id number] [place] [address] Jul, [facility] [id number] [place] [address] Jul, Bipolar affective disorder F31.9 ; Generalized anxiety disorder F41.1 and Posttraumatic stress disorder F43.10 [facility] [id number] [place] [address] Jun, [facility] [id number] [place] [address] 14 Jun, 2015 [facility] [id number] [place] [address] Jun, [facility] [id number] [place] [address] May, [facility] [id number] [place] [address] Apr, [facility] [address] [address] Apr, [facility] [id number] [address] Apr, [facility] [id number] [address] Apr, Bipolar mood disorder 296.80 ; Generalized anxiety disorder 300.02 and PTSD (post-traumatic stress disorder) 309.81 [facility] [address] [address] February, [facility] [address] [id number] February, Dental examination V72.2 [facility] [id number] [place] [address] Jan, [facility] [id number] [address] Jan, [facility] [address], [place] [address] Dec, [facility] [address], [place] [address] Dec, [facility] [address], [place] [address] Dec, [facility] [address], [place] [address] Dec, [facility] [id number], [place] [address] Dec, [facility] [id number] [address] Dec, [facility] [address], [place] [address] Dec, [facility] [address], [place] [address] Dec, [facility] [id number] [place] [address] Dec, [facility] [place] [facility] [address] [id number] [place] [address] Dec, [facility] [place] [facility] [address] [id number] [place] [address] Nov, 2014 [facility] [place] [facility] [address] [id number] [place] [address] Nov, 2014 [facility] [place] [facility] [address] [id number] [place] [address] Nov, 2014 [facility] [place] [facility] [address] [id number] [place] [address] Nov, 2014 [facility] [place] [facility] [address] [facility] [id number] [place] [address] Nov, 2014 [facility] [place] [facility] [address] [facility] [id number] [place] [address] Nov, [facility] [place] [facility] [address] [id number] [place] [address] Oct, [facility] [place] [facility] [address] [facility] [id number] [place] [address] Oct, [facility] [place] [facility] [address] [facility] [id number] [place] [address] Oct, [facility] [place] [facility] [address] [facility] [id number] [place] [address] Oct, [facility] [place] [facility] [address] [id number] [place] [address] Oct, [facility] [place] [facility] [address] [id number] [place] [address] Oct, [facility] [place] [facility] [address] [facility] [id number] [place] [address] Sep, [facility] [place] [facility] [address] [facility] [id number] [place] [address] Sep, [facility] [place] [facility] [address] [id number] [place] [address] Sep, [facility] [place] [facility] [address] [id number] [place] [address] Sep, [facility] [place] [facility] [address] [id number] [place] [address] Sep, [facility] [place] [facility] [address] [id number] [place] [address] Sep, [facility] [place] [facility] [address] [id number] [place] [address] Sep, [facility] [place] [facility] [address] [id number] [place] [address] Sep, [facility] [place] [facility] [address] [id number] [place] [address] Sep, [facility] [place] [facility] [address] [id number] [place] [address] Sep, [facility] [place] [facility] [address] [id number] [place] [address] Sep, [facility] [place] [facility] [address] [id number] [place] [address] Sep, [facility] [place] [facility] [address] [id number] [place] [address] Sep, [facility] [place] [facility] [address] [id number], [place] [address] Sep, [facility] [place] [facility] [address] [id number] [place] [address] Sep, [facility] [place] [facility] [address] [id number] [place] [address] Sep, [facility] [place] [facility] [address] [id number] [place] [address] Sep, [facility] [place] [facility] [address] [id number] [place] [address] 05 Sep, 2014 [facility] [place] [facility] [address] [id number] [place] [address] 05 Sep, 2014 [facility] [place] [facility] [address] [id number] [place] [address] Sep, [facility] [place] [facility] [address] [id number] [place] [address] Sep, [facility] [place] [facility] [address] [id number] [place] [address] Sep, [facility] [place] [facility] [address] [id number] [place] [address] Sep, [facility] [place] [facility] [address] [id number] [place] [address] Sep, [facility] [place] [facility] [address] [id number] [place] [address] Sep, [facility] [place] [facility] [address] [id number] [place] [address] Sep, [facility] [place] [facility] [address] [id number] [place] [address] Aug, [facility] [place] [facility] [address] [facility] [id number] [place] [address] Aug, [facility] [place] [facility] [address] [id number] [place] [address] Aug, [facility] [place] [facility] [address] [id number] [place] [address] Aug, [facility] [place] [facility] [address] [id number] [place] [address] Jul, [facility] [place] [facility] [address] [id number] [place] [address] Jul, [facility] [place] [facility] [address] [facility] [id number] [place] [address] Jul, [facility] [place] [facility] [address] [id number] [place] [address] 24 Jul, 2013 [facility] [place] [facility] [address] [id number] [place] [address] 18 Jul, 2014 [facility] [place] [facility] [address] [id number] [place] [address] 18 Jul, 2014 [facility] [place] [facility] [address] [id number] [place] [address] 17 Jul, 2014 [facility] [place] [facility] [address] [id number] [place] [address] 17 Jul, 2014 [facility] [place] [facility] [address] [id number] [place] [address] 14 Jul, 2014 [facility] [place] [facility] [address] [id number] [place] [address] 14 Jul, 2014 [facility] [place] [facility] [address] [id number] [place] [address] 14 Jul, 2014 [facility] [place] [facility] [address] [id number] [place] [address] 14 Jul, 2014 [facility] [place] [facility] [address] [id number] [place] [address] 10 Jul, 2014 [facility] [place] [facility] [address] [id number] [place] [address] 10 Jul, 2014 [facility] [place] [facility] [address] [id number] [place] [address] 11 Jun, 2014 [facility] [place] [facility] [address] [id number] [place] [address] 11 Jun, 2014 [facility] [place] [facility] [address] [id number] [place] [address] 10 Jun, 2013 [facility] [place] [facility] [address] [id number] [place] [address] 10 Jun, 2013 [facility] [place] [facility] [address] [id number] [place] [address] Jun, [facility] [place] [facility] [address] [id number] [place] [address] Jun, [facility] [place] [facility] [address] [id number] [place] [address] May, [facility] [place] [facility] [address] [id number] [place] [address] May, [facility] [place] [facility] [address] [id number] [place] [address] May, [facility] [place] [facility] [address] [id number] [place] [address] May, [facility] [place] [facility] [address] [id number] [place] [address] May, [facility] [place] [facility] [address] [id number] [place] [address] May, [facility] [place] [facility] [address] [id number] [place] [address] Apr, [facility] [place] [facility] [address] [id number] [place] [address] Apr, [facility] [place] [facility] [address] [id number] [place] [address] Apr, [facility] [place] [facility] [address] [id number] [place] [address] Apr, [facility] [place] [facility] [address] [id number] [place] [address] Apr, [facility] [place] [facility] [address] [id number] [place] [address] Apr, [facility] [place] [facility] [address] [id number] [place] [address] Mar, [facility] [place] [facility] [address] [id number] [place] [address] Mar, [facility] [place] [facility] [address] [id number] [place] [address] Mar, [facility] [place] [facility] [address] [id number] [place] [address] Mar, [facility] [place] [facility] [address] [id number] [place] [address] Mar, [facility] [place] [facility] [address] [id number] [place] [address] Mar, [facility] [place] [facility] [address] [id number] [place] [address] Mar, [facility] [place] [facility] [address] [id number] [place] [address] Mar, [facility] [place] [facility] [address] [id number] [place] [address] Mar, [facility] [place] [facility] [address] [id number] [place] [address] Mar, [facility] [place] [facility] [address] [id number] [place] [address] Mar, [facility] [place] [facility] [address] [id number] [place] [address] Mar, [facility] [place] [facility] [address] [id number] [place] [address] February, [facility] [place] [facility] [address] [id number] [place] [address] February, [facility] [place] [facility] [address] [id number] [place] [address] February, [facility] [place] [facility] [address] [id number] [place] [address] Dec, [facility] [place] [facility] [address] [id number] [place] [address] Dec, [facility] [place] [facility] [address] [id number] [place] [address] Nov, [facility] [place] [facility] [address] [id number] [place] [address] Nov, [facility] [place] [facility] [address] [id number] [place] [address] Nov, [facility] [place] [facility] [address] [id number] [place] [address] Nov, [facility] [place] [facility] [address] [id number] [place] [address] Nov, [facility] [place] [facility] [address] [id number] [place] [address] Nov, [facility] [place] [facility] [address] [id number] [place] [address] Nov, [facility] [place] [facility] [address] [id number] [place] [address] Nov, [facility] [place] [facility] [address] [id number] [place] [address] Nov, [facility] [place] [facility] [address] [id number] [place] [address] Nov, [facility] [place] [facility] [address] [id number] [place] [address] Oct, [facility] [place] [facility] [address] [id number] [place] [address] Oct, [facility] [place] [facility] [address] [id number] [place] [address] Sep, [facility] [place] [facility] [address] [id number] [place] [address] Sep, [facility] [place] [facility] [address] [id number] [place] [address] 24 Jun, 2013 [facility] [place] [facility] [address] [id number] [place] [address] 17 Jun, 2013 [facility] [place] [facility] [address] [id number] [place] [address] May, [facility] [address] [id number] [place] [address] May, [facility] [address] [id number] [place] [address] Mar, [facility] [address] [id number] [place] [address] Mar, [facility] [address] [id number] [place] [address] Mar, [facility] [address] [id number] [place] [address] Mar, [facility] [address] [id number] [place] [address] Mar, [facility] [address] [id number] [place] [address] Mar, [facility] [address] [id number] [place] [address] February, [facility] [address] [id number] [place] [address] February, [facility] [address] [id number] [place] [address] Jan, [facility] [address] [id number] [place] [address] Dec, [facility] [address] [id number] [place] [address] Nov, [facility] [place] [facility] [address] [id number] [place] [address] Nov, [facility] [place] [facility] [address] [id number] [place] [address] Nov, [facility] [place] [facility] [address] [id number] [place] [address] Oct, [facility] [place] [facility] [address] [id number] [place] [address] 15 Oct, 2012 [facility] [place] [facility] [address] [id number] [place] [address] Oct, [facility] [place] [facility] [address] [id number] [place] [address] Sep, [facility] [place] [facility] [address] [id number] [place] [address] Sep, [facility] [place] [facility] [address] [id number] [place] [address] Sep, [facility] [place] [facility] [address] [id number] [place] [address] Sep, [facility] [place] [facility] [address] [id number] [place] [address] Sep, [facility] [place] [facility] [address] [id number] [place] [address] Sep, [facility] [place] [facility] [address] [id number] [place] [address] Jul, [facility] [place] [facility] [address] [id number] [place] [address] Jul, [facility] [place] [facility] [address] [id number] [place] [address] Jun, [facility] [place] [facility] [address] [id number], [place] [address] May, [facility] [place] [facility] [address] [id number] [place] [address] Apr, [facility] [place] [facility] [address] [id number] [place] [address] Apr, [facility] [place] [facility] [address] [id number] [place] [address] Apr, [facility] [place] [facility] [address] [id number] [place] [address] 11 Apr, 2012 [facility] [place] [facility] [address] [id number] [place] [address] 10 Apr, 2012 [facility] [place] [facility] [address] [id number] [place] [address] 09 Apr, 2012 [facility] [place] [facility] [address] [id number] [place] [address] 18 Mar, 2012 [facility] [place] [facility] [address] [id number] [place] [address] 14 Mar, 2012 [facility] [place] [facility] [address] [id number] [place] [address] Mar, [facility] [place] [facility] [address] [id number] [place] [address] February, [facility] [place] [facility] [address] [id number] [place] [address] 18 Jan, 2012 [facility] [place] [facility] [address] [id number] [place] [address] 12 Jan, 2012 [facility] [place] [facility] [address] [id number] [place] [address] Jan, [facility] [place] [facility] [address] [id number] [place] [address] Jan, [facility] [place] [facility] [address] [id number] [place] [address] 20 Dec, 2011 [facility] [place] [facility] [address] [id number] [place] [address] 20 Dec, 2011 [facility] [place] [facility] [address] [id number] [place] [address] 16 Dec, 2011 [facility] [place] [facility] [address] [id number] [place] [address] 14 Dec, 2011 [facility] [place] [facility] [address] [id number] [place] [address] 16 Nov, 2011 [facility] [id number] [address] Nov, [facility] [id number], [place] [address] Nov, [facility] [id number], [place] [address] Sep, [facility] [id number], [place] [address] Sep, [facility] [id number], [place] [address] Aug, [facility] [id number], [place] [address] Aug, [facility] [address], [place] [address] Jul, IMMUNIZATIONS No Known Immunizations SOCIAL HISTORY Never Assessed REASON FOR VISIT Dental Assessment PLAN OF CARE Activity Details Follow Up dashawn Reason:dental exam/tx VITAL SIGNS MEDICATIONS Unknown Medications RESULTS No Results PROCEDURES Procedure Date Ordered Result Body Site SCREENING OF A PATIENT Jun 19, 2018 Billing Notes on claim Jun 19, 2018 INSTRUCTIONS MEDICATIONS ADMINISTERED No Known Medications MEDICAL (GENERAL) HISTORY Type Description Date Medical History Hypertension Medical History PTSD Medical History Anxiety Medical History Esophageal reflux Medical History Hx Narc Alert for Illicit Drug Use Surgical History cholecystectomy Surgical History surgery for head trauma Hospitalization History Cyclic vomitting Hospitalization History [facility] 01/2018
--- OUTSIDE RECORDS SUMMARY | 2019-03-26 12:16 | XMS REPORT ---
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 Role Phone VINNY WILL Unavailable Unavailable PROBLEMS Type Condition ICD9-CM Code ADP72-SW Code Onset Dates Condition Status SNOMED Code Problem Essential hypertension I10 Active 39247242 Problem Generalized anxiety disorder F41.1 Active 62297747 Problem Cyclical vomiting with nausea, intractability of vomiting not specified G43.A0 Active 77067964 Problem Gastroesophageal reflux disease without esophagitis K21.9 Active 091867549 Problem Posttraumatic stress disorder F43.10 Active 27892854 Problem Bipolar affective disorder F31.9 Active 98751980 ALLERGIES Substance Reaction Event Type Date Status Lamictal hives Drug Allergy May, Active ENCOUNTERS Encounter Location Date Diagnosis [facility] [id number] [place] [address] Jun, [facility] [id number] [place] [address] May, Dental abscess K04.7 [facility] [id number] [place] [address] May, Toothache K08.89 [facility] [id number] [place] [address] February, Essential hypertension I10 [facility] [id number] [place] [address] Jan, Cyclical vomiting with nausea, intractability of vomiting not specified G43.A0 ; Gastroesophageal reflux disease without esophagitis K21.9 and Essential hypertension I10 [facility] [address] [address] Dec, [facility] [address] [id number] [id number] Jul, Dental caries on smooth surface penetrating into pulp K02.63 [facility] [address] [id number] [id number] Jul, [facility] examination Z01.20 [facility] [address] [id number] [id number] Jul, [facility] [id number] [place] [id number] May, Dental examination Z01.20 and Periapical abscess K04.7 [facility] [id number] [place] [address] May, [facility] [id number] [place] [address] Dec, Essential hypertension I10 ; Cyclical vomiting with nausea, intractability of vomiting not specified G43.A0 ; Gastroesophageal reflux disease without esophagitis K21.9 and Right inguinal hernia K40.90 [facility] [id number] [place] [address] Nov, [facility] [id number] [place] [address] Nov, [facility] [id number] [place] [address] Aug, [facility] [id number] [place] [address] May, [facility] [id number] [place] [address] May, Generalized anxiety disorder F41.1 and Bipolar affective disorder F31.9 [facility] [id number] [place] [address] May, Generalized anxiety disorder F41.1 [facility] [id number] [place] [address] May, [facility] [id number] [place] [address] Apr, [facility] [id number] [place] [address] Apr, Bipolar affective disorder F31.9 ; Generalized anxiety disorder F41.1 ; Posttraumatic stress disorder F43.10 ; Benzodiazepine abuse F13.10 and Essential hypertension I10 [facility] [id number] [place] [address] Apr, [facility] [id number] [place] [address] Mar, [facility] [id number] [place] [address] February, [facility] [id number] [place] [address] Jan, [facility] [id number] [place] [address] Jan, [facility] [id number] [place] [address] Jan, Dental examination Z01.20 [facility] [id number] [place] [address] Jan, [facility] [id number] [place] [address] Dec, Bipolar affective disorder F31.9 ; Posttraumatic stress disorder F43.10 ; Generalized anxiety disorder F41.1 and Cannabis use disorder, mild, abuse F12.10 [facility] [id number] [place] [address] Dec, [facility] [id number] [place] [address] Nov, [facility] [id number] [place] [address] Nov, [facility] [address] [id number] [address] 17 Nov, 2015 [facility] [id number] [place] [address] 16 Nov, 2015 Dental examination Z01.20 [facility] [address] [id number] 09 Nov, 2015 Dental examination Z01.20 [facility] [id number] [place] [address] 20 Oct, 2015 [facility] [id number] [place] [address] Sep, [facility] [id number] [place] [address] Aug, [facility] [id number] [place] [address] Aug, Essential hypertension I10 ; Dyspepsia K30 and Cyclic vomiting syndrome G43.A0 [facility] [address] [address] Jul, [facility] [id number] [place] [address] Jul, [facility] [id number] [place] [address] Jul, Bipolar affective disorder F31.9 ; Generalized anxiety disorder F41.1 and Posttraumatic stress disorder F43.10 [facility] [address] [address] 22 Jun, 2015 [facility] [id number] [place] [address] 14 Jun, 2015 [facility] [id number] [place] [address] Jun, [facility] [address] [address] May, [facility] [address] [address] Apr, [facility] [address] [address] Apr, [facility] [address] [address] Apr, [facility] [address] [address] Apr, Bipolar mood disorder 296.80 ; Generalized anxiety disorder 300.02 and PTSD (post-traumatic stress disorder) 309.81 [facility] [address] [address] February, [facility] [address] [id number] February, Dental examination V72.2 [facility] [address] [address] Jan, [facility] [address] [address] Jan, [facility] [address] [address] Dec, [facility] [address] [address] Dec, [facility] [address] [address] Dec, [facility] [address] [address] Dec, [facility] [address] [address] Dec, [facility] [address] [address] Dec, [facility] [address] [address] Dec, [facility] [place] [facility] [address] [id number] [place] [address] Dec, [facility] [place] [facility] [address] [id number] [place] [address] Dec, [facility] [place] [facility] [address] [id number] [place] [address] Dec, [facility] [place] [facility] [address] [id number] [place] [address] Nov, [facility] [place] [facility] [address] [id number] [place] [address] Nov, 2014 [facility] [place] [facility] [address] [id number] [place] [address] Nov, 2014 [facility] [place] [facility] [address] [id number] [place] [address] Nov, [facility] [place] [facility] [address] [id number] [address] Nov, [facility] [place] [facility] [address] [id number] [place] [address] Nov, [facility] [place] [facility] [address] [id number] [place] [address] Oct, [facility] [place] [facility] [address] [id number] [address] Oct, [facility] [place] [facility] [address] [id number] [place] [address] Oct, [facility] [place] [facility] [address] [id number] [place] [address] Oct, [facility] [place] [facility] [address] [id number] [address] Oct, [facility] [place] [facility] [address] [id number] [place] [address] Oct, [facility] [place] [facility] [address] [id number] [place] [address] Sep, [facility] [address] [id number] [place] [address] Sep, [facility] [place] [facility] [address] [id number] [place] [address] Sep, [facility] [place] [facility] [address] [id number] [place] [address] Sep, [facility] [place] [facility] [address] [id number] [place] [address] Sep, [facility] [place] [facility] [address] [id number] [place] [address] Sep, [facility] [place] [facility] [address] [id number] [place] [address] Sep, [facility] [address] [id number] [place] [address] Sep, [facility] [place] [facility] [address] [id number] [place] [address] Sep, [facility] [place] [facility] [address] [id number] [place] [address] Sep, [facility] [place] [facility] [address] [id number] [place] [address] Sep, [facility] [place] [facility] [address] [id number] [place] [address] Sep, [facility] [place] [facility] [address] [id number] [place] [address] Sep, [facility] [place] [facility] [address] [id number] [place] [address] Sep, [facility] [place] [facility] [address] [id number] [place] [address] Sep, [facility] [place] [facility] [address] [id number] [place] [address] Sep, [facility] [place] [facility] [address] [id number] [place] [address] Sep, [facility] [place] [facility] [address] [id number] [place] [address] Sep, [facility] [place] [facility] [address] [id number] [place] [address] Sep, [facility] [place] [facility] [address] [id number] [place] [address] Sep, [facility] [place] [facility] [address] [id number] [place] [address] Sep, [facility] [place] [facility] [address] [id number] [place] [address] Sep, [facility] [place] [facility] [address] [id number] [place] [address] Sep, [facility] [place] [facility] [address] [id number] [place] [address] Sep, [facility] [place] [facility] [address] [id number] [place] [address] Sep, [facility] [place] [facility] [address] [id number] [place] [address] Sep, [facility] [place] [facility] [address] [id number] [place] [address] Aug, [facility] [place] [facility] [address] [id number] [place] [address] Aug, [facility] [place] [facility] [address] [id number] [place] [address] Aug, [facility] [place] [facility] [address] [id number] [place] [address] Aug, [facility] [place] [facility] [address] [id number] [place] [address] Jul, [facility] [place] [facility] [address] [id number] [address] 30 Jul, 2014 [facility] [place] [facility] [address] [id number] [place] [address] 24 Jul, 2014 [facility] [place] [facility] [address] [id number] [place] [address] 24 Jul, 2014 [facility] [place] [facility] [address] [id number] [place] [address] 18 Jul, 2014 [facility] [place] [facility] [address] [id number] [place] [address] 18 Jul, 2014 [facility] [place] [facility] [address] [id number] [place] [address] 17 Jul, 2014 [facility] [place] [facility] [address] [id number] [place] [address] 17 Jul, 2014 [facility] [place] [facility] [address] [id number] [place] [address] 14 Jul, 2014 [facility] [place] [facility] [address] [id number] [place] [address] 14 Jul, 2014 [facility] [place] [facility] [address] [id number] [place] [address] 14 Jul, 2014 [facility] [place] [facility] [address] [id number] [place] [address] 14 Jul, 2014 [facility] [place] [facility] [address] [id number] [address] 10 Jul, 2014 [facility] [place] [facility] [address] [id number] [address] 10 Jul, 2014 [facility] [place] [facility] [address] [id number] [place] [address] 11 Jun, 2014 [facility] [place] [facility] [address] [id number] [place] [address] 11 Jun, 2014 [facility] [place] [facility] [address] [id number] [place] [address] 10 Jun, 2014 [facility] [place] [facility] [address] [id number] [place] [address] 10 Jun, 2014 [facility] [place] [facility] [address] [id number] [place] [address] Jun, [facility] [place] [facility] [address] [id number] [place] [address] Jun, [facility] [place] [facility] [address] [id number] [place] [address] May, [facility] [place] [facility] [address] [id number] [place] [address] May, [facility] [place] [facility] [address] [id number] [place] [address] May, [facility] [place] [facility] [address] [id number] [place] [address] May, [facility] [place] [facility] [address] [id number] [place] [address] May, [facility] [place] [facility] [address] [id number] [place] [address] May, [facility] [place] [facility] [address] [id number] [place] [address] Apr, [facility] [place] [facility] [address] [id number] [place] [address] Apr, [facility] [place] [facility] [address] [id number] [place] [address] Apr, [facility] [place] [facility] [address] [id number] [place] [address] Apr, [facility] [place] [facility] [address] [id number] [place] [address] Apr, [facility] [place] [facility] [address] [id number] [place] [address] Apr, [facility] [place] [facility] [address] [id number] [place] [address] Mar, [facility] [place] [facility] [address] [id number] [place] [address] Mar, [facility] [place] [facility] [address] [id number] [place] [address] Mar, [facility] [place] [facility] [address] [id number] [place] [address] Mar, [facility] [place] [facility] [address] [id number] [place] [address] Mar, [facility] [place] [facility] [address] [id number] [place] [address] Mar, [facility] [place] [facility] [address] [id number] [place] [address] Mar, [facility] [place] [facility] [address] [id number] [place] [address] Mar, [facility] [place] [facility] [address] [id number] [place] [address] Mar, [facility] [place] [facility] [address] [id number] [place] [address] Mar, [facility] [place] [facility] [address] [id number] [place] [address] Mar, [facility] [place] [facility] [address] [id number] [place] [address] Mar, [facility] [place] [facility] [address] [id number] [address] February, [facility] [place] [facility] [address] [id number] [place] [address] February, [facility] [place] [facility] [address] [id number] [place] [address] February, [facility] [place] [facility] [address] [id number] [place] [address] Dec, [facility] [place] [facility] [address] [id number] [place] [address] Dec, [facility] [address] [id number] [place] [address] Nov, [facility] [place] [facility] [address] [id number] [place] [address] Nov, [facility] [place] [facility] [address] [id number] [place] [address] Nov, [facility] [place] [facility] [address] [id number] [place] [address] Nov, [facility] [place] [facility] [address] [id number] [place] [address] Nov, [facility] [place] [facility] [address] [id number] [place] [address] Nov, [facility] [place] [facility] [address] [facility] [id number] [place] [address] Nov, [facility] [place] [facility] [address] [id number] [place] [address] Nov, [facility] [place] [facility] [address] [facility] [id number] [place] [address] Nov, [facility] [place] [facility] [address] [facility] [id number] [place] [address] Nov, [facility] [place] [facility] [address] [id number] [place] [address] Oct, [facility] [place] [facility] [address] [id number] [place] [address] Oct, [facility] [place] [facility] [address] [id number] [place] [address] Sep, [facility] [place] [facility] [address] [id number] [place] [address] Sep, [facility] [place] [facility] [address] [facility] [id number] [place] [address] Jun, [facility] [address] [id number] [place] [address] Jun, [facility] [place] [facility] [address] [id number] [place] [address] May, [facility] [place] [facility] [address] [id number] [place] [address] May, [facility] [place] [facility] [address] [id number] [place] [address] Mar, [facility] [place] [facility] [address] [id number] [place] [address] Mar, [facility] [place] [facility] [address] [id number] [place] [address] Mar, [facility] [place] [facility] [address] [id number] [place] [address] Mar, [facility] [place] [facility] [address] [id number] [place] [address] Mar, [facility] [place] [facility] [address] [id number] [place] [address] Mar, [facility] [place] [facility] [address] [id number] [place] [address] February, [facility] [place] [facility] [address] [id number] [place] [address] February, [facility] [place] [facility] [address] [id number] [address] Jan, [facility] [place] [facility] [address] [id number] [place] [address] Dec, [facility] [place] [facility] [address] [id number] [place] [address] Nov, [facility] [place] [facility] [address] [id number] [place] [address] Nov, [facility] [place] [facility] [address] [id number] [place] [address] 04 Nov, 2012 [facility] [address] [id number] [place] [address] 17 Oct, 2012 [facility] [place] [facility] [address] [id number] [place] [address] Oct, [facility] [address] [id number] [place] [address] Oct, [facility] [place] [facility] [address] [id number] [place] [address] Sep, [facility] [place] [facility] [address] [id number] [place] [address] Sep, [facility] [place] [facility] [address] [id number] [place] [address] Sep, [facility] [address] [id number] [place] [address] Sep, [facility] [place] [facility] [address] [id number] [place] [address] Sep, [facility] [place] [facility] [address] [id number] [place] [address] Sep, [facility] [place] [facility] [address] [facility] [id number] [place] [address] Jul, [facility] [place] [facility] [address] [id number] [place] [address] Jul, [facility] [place] [facility] [address] [id number] [place] [address] Jun, [facility] [place] [facility] [address] [id number] [place] [address] May, [facility] [place] [facility] [address] [id number] [place] [address] Apr, [facility] [place] [facility] [address] [id number] [place] [address] Apr, [facility] [place] [facility] [address] [id number] [place] [address] 12 Apr, 2012 [facility] [place] [facility] [address] [id number] [place] [address] Apr, [facility] [place] [facility] [address] [id number] [place] [address] 10 Apr, 2012 [facility] [place] [facility] [address] [id number] [place] [address] Apr, [facility] [address] [id number] [place] [address] 18 Mar, 2012 [facility] [place] [facility] [address] [id number] [place] [address] Mar, [facility] [place] [facility] [address] [id number] [place] [address] Mar, [facility] [place] [facility] [address] [id number] [place] [address] February, [facility] [place] [facility] [address] [id number] [place] [address] 18 Jan, 2012 [facility] [place] [facility] [address] [id number] [place] [address] Jan, [facility] [place] [facility] [address] [id number] [place] [address] Jan, [facility] [place] [facility] [address] [id number] [place] [address] Jan, [facility] [place] [facility] [address] [id number] [place] [address] Dec, [facility] [place] [facility] [address] [id number] [place] [address] 20 Dec, 2011 [facility] [place] [facility] [address] [id number] [place] [address] 16 Dec, 2011 [facility] [place] [facility] [address] [id number] [address] Dec, [facility] [address] [id number] [address] Nov, [facility] [id number] [address] Nov, [facility] [id number] [address] Nov, [facility] [id number] [address] Sep, [facility] [id number] [address] Sep, [facility] [id number] [address] Aug, [facility] [id number] [address] Aug, [facility] [id number] [address] Jul, IMMUNIZATIONS No Known Immunizations SOCIAL HISTORY Never Assessed REASON FOR VISIT facial swelling started yesterday morning- tooth pain JStrasserRN, Took some rocael xicillin left over from last tooth infection PLAN OF CARE Activity Details Follow Up prn Reason: VITAL SIGNS Height 71 in 2018-06-19 Weight 222.0 lbs 2018-06-19 Temperature 97.3 degrees Fahrenheit 2018-06-19 Heart Rate 88 bpm 2018-06-19 Respiratory Rate 20 2018-06-19 BMI 30.96 kg/m2 2018-06-19 Blood pressure systolic 120 mmHg 2018-06-19 Blood pressure diastolic 80 mmHg 2018-06-19 MEDICATIONS Medication Instructions Dosage Frequency Start Date End Date Duration Status Metoprolol Succinate ER 50 mg Orally Once a day 1 tablet 24h 30 Active Amoxicillin 875 MG Orally every 12 hrs 1 tablet 12h May, Jun, 10 day(s) Active Pantoprazole Sodium 40 mg Orally Once a day 1 tablet 24h 30 days Active RESULTS No Results PROCEDURES No Known procedures [...]
--- OUTSIDE RECORDS SUMMARY | 2019-03-26 12:17 | XMS REPORT ---
Author Author OG CERVANTES Organization [facility] Address [address] [place] [address] Care Team Providers Care Claim Taker Name Role Phone OG CERVANTES Unavailable PROBLEMS Type Condition ICD9-CM Code [id number] Code Onset Dates Condition Status SNOMED Code Problem Essential hypertension I10 Active 22586007 Problem Generalized anxiety disorder F41.1 Active 97309396 Problem Cyclical vomiting with nausea, intractability of vomiting not specified G43.A0 Active 85033440 Problem Gastroesophageal reflux disease without esophagitis K21.9 Active 536390895 Problem Posttraumatic stress disorder F43.10 Active 91560068 Problem Bipolar affective disorder F31.9 Active 66192823 ALLERGIES Substance Reaction Event Type Date Status Lamictal hives Drug Allergy Jan, Active ENCOUNTERS Encounter Location Date Diagnosis [facility] [id number] [place] [address] February, Essential hypertension I10 [facility] [id number] [place] [address] Jan, Cyclical vomiting with nausea, intractability of vomiting not specified G43.A0 ; Gastroesophageal reflux disease without esophagitis K21.9 and Essential hypertension I10 [facility] [address], [place] [address] Dec, [facility] [address] [id number] [id number] Jul, Dental caries on smooth surface penetrating into pulp K02.63 [facility] [address] [id number] [id number] Jul, Dental examination Z01.20 [facility] [address] [id number] [id number] Jul, [facility] [address] [id number] May, Dental examination Z01.20 and Periapical abscess K04.7 [facility] [id number] [place] [address] May, [facility] [id number] [place] [address] Dec, Essential hypertension I10 ; Cyclical vomiting with nausea, intractability of vomiting not specified G43.A0 ; Gastroesophageal reflux disease without esophagitis K21.9 and Right inguinal hernia K40.90 [facility] [id number] [place] [address] Nov, [facility] [id number] [place] [address] Nov, [facility] [id number] [place] [address] Aug, [facility] [id number] [place] [address] May, [facility] [id number] [place] [address] May, Generalized anxiety disorder F41.1 and Bipolar affective disorder F31.9 [facility] [id number] [place] [address] May, Generalized anxiety disorder F41.1 [facility] [id number] [place] [address] May, [facility] [id number] [place] [address] Apr, [facility] [id number] [place] [address] Apr, Bipolar affective disorder F31.9 ; Generalized anxiety disorder F41.1 ; Posttraumatic stress disorder F43.10 ; Benzodiazepine abuse F13.10 and Essential hypertension I10 [facility] [address], [place] [address] Apr, [facility] [address] [place] [address] Mar, [facility] [address], [place] [address] February, [facility] [id number] [place] [address] Jan, [facility] [address] [place] [address] Jan, [facility] [id number] [place] [address] Jan, Dental examination Z01.20 [facility] [address], [place] [address] Jan, [facility] [address] [place] [address] Dec, Bipolar affective disorder F31.9 ; Posttraumatic stress disorder F43.10 ; Generalized anxiety disorder F41.1 and Cannabis use disorder, mild, abuse F12.10 [facility] [address], [place] [address] Dec, [facility] [address], [place] [address] Nov, [facility] [address], [place] [address] Nov, [facility] [address], [place] [address] Nov, [facility] [address], [place] [address] 16 Nov, 2015 Dental examination Z01.20 [facility] [address] [id number] 09 Nov, 2015 Dental examination Z01.20 [facility] [id number], [place] [address] Oct, [facility] [id number] [place] [address] Sep, [facility] [id number] [place] [address] Aug, [facility] [id number] [place] [address] Aug, Essential hypertension I10 ; Dyspepsia K30 and Cyclic vomiting syndrome G43.A0 [facility] [id number] [place] [address] Jul, [facility] [id number] [place] [address] Jul, [facility] [id number] [place] [address] Jul, Bipolar affective disorder F31.9 ; Generalized anxiety disorder F41.1 and Posttraumatic stress disorder F43.10 [facility] [address] [place] [address] Jun, [facility] [id number] [place] [address] Jun, [facility] [address], [place] [address] Jun, [facility] [address] [place] [address] May, [facility] [address], [place] [address] Apr, [facility] [id number] [place] [address] Apr, [facility] [address], [place] [address] Apr, [facility] [id number] [address] Apr, Bipolar mood disorder 296.80 ; Generalized anxiety disorder 300.02 and PTSD (post-traumatic stress disorder) 309.81 [facility] [address], [place] [address] February, [facility] [address] [id number] February, Dental examination V72.2 [facility] [id number], [place] [address] Jan, [facility] [id number] [place] [address] Jan, [facility] [id number], [place] [address] Dec, [facility] [id number], [place] [address] Dec, [facility] [address], [place] [address] Dec, [facility] [id number], [place] [address] Dec, [facility] [address], [place] [address] Dec, [facility] [address], [place] [address] Dec, [facility] [address], [place] [address] Dec, [facility] [address], [place] [address] Dec, [facility] [address], [place] [address] Dec, [facility] [address], [place] [address] Dec, [facility] [place] [facility] [address] [id number] [place] [address] Nov, 2014 [facility] [place] [facility] [address] [id number] [place] [address] Nov, 2014 [facility] [place] [facility] [address] [id number] [place] [address] Nov, 2014 [facility] [place] [facility] [address] [id number] [place] [address] Nov, 2014 [facility] [place] [facility] [address] [id number] [place] [address] Nov, [facility] [place] [facility] [address] [id number] [place] [address] Nov, [facility] [place] [facility] [address] [facility] [id number] [place] [address] Oct, [facility] [place] [facility] [address] [facility] [id number] [place] [address] Oct, [facility] [place] [facility] [address] [facility] [id number] [place] [address] Oct, [facility] [place] [facility] [address] [facility] [id number] [place] [address] Oct, [facility] [place] [facility] [address] [facility] [id number] [place] [address] Oct, [facility] [place] [facility] [address] [id number] [address] Oct, [facility] [place] [facility] [address] [id number] [place] [address] Sep, [facility] [place] [facility] [address] [id number] [place] [address] Sep, [facility] [place] [facility] [address] [id number] [place] [address] Sep, [facility] [place] [facility] [address] [id number] [address] Sep, [facility] [place] [facility] [address] [id number] [place] [address] Sep, [facility] [place] [facility] [address] [id number] [place] [address] Sep, [facility] [place] [facility] [address] [id number] [place] [address] Sep, [facility] [place] [facility] [address] [id number] [place] [address] Sep, [facility] [place] [facility] [address] [id number] [place] [address] Sep, [facility] [place] [facility] [address] [id number] [place] [address] Sep, [facility] [place] [facility] [address] [id number] [place] [address] Sep, [facility] [place] [facility] [address] [id number] [place] [address] Sep, [facility] [place] [facility] [address] [id number] [place] [address] Sep, [facility] [place] [facility] [address] [id number] [place] [address] Sep, [facility] [place] [facility] [address] [id number], [place] [address] Sep, [facility] [place] [facility] [address] [id number], [place] [address] Sep, [facility] [place] [facility] [address] [id number] [place] [address] Sep, [facility] [place] [facility] [address] [id number] [place] [address] Sep, [facility] [place] [facility] [address] [id number] [place] [address] Sep, [facility] [place] [facility] [address] [id number] [place] [address] 04 Sep, 2014 [facility] [place] [facility] [address] [id number] [place] [address] Sep, [facility] [place] [facility] [address] [id number] [place] [address] Sep, [facility] [place] [facility] [address] [id number] [place] [address] Sep, [facility] [place] [facility] [address] [id number] [place] [address] Sep, [facility] [place] [facility] [address] [id number] [place] [address] Sep, [facility] [place] [facility] [address] [id number] [place] [address] Sep, [facility] [place] [facility] [address] [id number] [place] [address] Aug, [facility] [place] [facility] [address] [id number] [place] [address] Aug, [facility] [place] [facility] [address] [id number] [place] [address] Aug, [facility] [place] [facility] [address] [id number] [place] [address] Aug, [facility] [place] [facility] [address] [id number] [place] [address] Jul, [facility] [place] [facility] [address] [id number] [place] [address] Jul, [facility] [place] [facility] [address] [id number] [place] [address] Jul, [facility] [place] [facility] [address] [id number] [place] [address] Jul, [facility] [place] [facility] [address] [id number] [place] [address] Jul, [facility] [place] [facility] [address] [id number] [place] [address] 18 Jul, 2013 [facility] [place] [facility] [address] [id number] [place] [address] 17 Jul, 2013 [facility] [place] [facility] [address] [id number] [place] [address] 17 Jul, 2013 [facility] [place] [facility] [address] [id number] [place] [address] 14 Jul, 2013 [facility] [place] [facility] [address] [id number] [place] [address] 14 Jul, 2014 [facility] [place] [facility] [address] [id number] [place] [address] 14 Jul, 2014 [facility] [place] [facility] [address] [id number] [place] [address] 14 Jul, 2014 [facility] [place] [facility] [address] [id number] [place] [address] 10 Jul, 2014 [facility] [place] [facility] [address] [id number] [place] [address] 10 Jul, 2014 [facility] [place] [facility] [address] [id number] [place] [address] 11 Jun, 2013 [facility] [place] [facility] [address] [id number] [place] [address] 11 Jun, 2013 [facility] [place] [facility] [address] [id number] [place] [address] 10 Jun, 2013 [facility] [place] [facility] [address] [id number] [place] [address] 10 Jun, 2013 [facility] [place] [facility] [address] [id number] [place] [address] 08 Jun, 2013 [facility] [place] [facility] [address] [id number] [place] [address] 08 Jun, 2013 [facility] [place] [facility] [address] [id number] [place] [address] May, [facility] [place] [facility] [address] [id number] [place] [address] May, [facility] [place] [facility] [address] [id number] [place] [address] May, [facility] [place] [facility] [address] [id number] [place] [address] May, [facility] [place] [facility] [address] [id number] [place] [address] May, [facility] [place] [facility] [address] [id number] [place] [address] May, [facility] [place] [facility] [address] [id number] [place] [address] Apr, [facility] [place] [facility] [address] [id number] [place] [address] Apr, [facility] [place] [facility] [address] [id number] [place] [address] Apr, [facility] [place] [facility] [address] [id number] [place] [address] Apr, [facility] [place] [facility] [address] [id number] [place] [address] Apr, [facility] [place] [facility] [address] [id number] [place] [address] Apr, [facility] [place] [facility] [address] [id number] [place] [address] Mar, [facility] [place] [facility] [address] [id number] [place] [address] Mar, [facility] [place] [facility] [address] [id number] [place] [address] Mar, [facility] [place] [facility] [address] [id number] [place] [address] Mar, [facility] [place] [facility] [address] [id number] [place] [address] Mar, [facility] [place] [facility] [address] [id number] [place] [address] Mar, [facility] [place] [facility] [address] [id number] [place] [address] Mar, [facility] [place] [facility] [address] [id number] [place] [address] Mar, [facility] [place] [facility] [address] [id number] [place] [address] Mar, [facility] [place] [facility] [address] [id number] [place] [address] Mar, [facility] [place] [facility] [address] [id number] [place] [address] Mar, [facility] [place] [facility] [address] [id number] [place] [address] Mar, [facility] [place] [facility] [address] [id number] [place] [address] February, [facility] [place] [facility] [address] [id number] [place] [address] February, [facility] [place] [facility] [address] [id number] [place] [address] February, [facility] [place] [facility] [address] [id number] [place] [address] Dec, [facility] [place] [facility] [address] [id number] [place] [address] Dec, [facility] [place] [facility] [address] [id number] [place] [address] Nov, [facility] [place] [facility] [address] [id number] [place] [address] Nov, [facility] [place] [facility] [address] [id number] [place] [address] Nov, [facility] [address] [id number] [place] [address] Nov, [facility] [place] [facility] [address] [id number] [place] [address] Nov, [facility] [place] [facility] [address] [id number] [place] [address] Nov, [facility] [place] [facility] [address] [id number] [place] [address] Nov, [facility] [place] [facility] [address] [id number] [place] [address] Nov, [facility] [place] [facility] [address] [id number] [place] [address] Nov, [facility] [address] [id number] [place] [address] Nov, [facility] [place] [facility] [address] [id number] [place] [address] Oct, [facility] [address] [id number] [place] [address] Oct, [facility] [address] [facility] [id number] [place] [address] Sep, [facility] [place] [facility] [address] [id number] [place] [address] Sep, [facility] [place] [facility] [address] [id number], [place] [address] Jun, [facility] [place] [facility] [address] [id number] [place] [address] Jun, [facility] [place] [facility] [address] [id number] [place] [address] May, [facility] [place] [facility] [address] [id number], [place] [address] May, [facility] [place] [facility] [address] [id number] [place] [address] Mar, [facility] [place] [facility] [address] [id number] [place] [address] Mar, [facility] [place] [facility] [address] [id number] [place] [address] Mar, [facility] [place] [facility] [address] [id number] [place] [address] Mar, [facility] [address] [id number] [place] [address] Mar, [facility] [place] [facility] [address] [id number] [place] [address] Mar, [facility] [place] [facility] [address] [id number] [place] [address] February, [facility] [address] [id number] [place] [address] February, [facility] [place] [facility] [address] [id number] [place] [address] Jan, [facility] [place] [facility] [address] [id number] [place] [address] Dec, [facility] [place] [facility] [address] [id number] [place] [address] Nov, [facility] [place] [facility] [address] [id number], [place] [address] Nov, [facility] [place] [facility] [address] [id number] [place] [address] Nov, [facility] [place] [facility] [address] [id number] [place] [address] Oct, [facility] [place] [facility] [address] [id number] [place] [address] Oct, [facility] [place] [facility] [address] [id number], [place] [address] Oct, [facility] [place] [facility] [address] [id number] [place] [address] Sep, [facility] [place] [facility] [address] [id number] [place] [address] Sep, [facility] [place] [facility] [address] [id number] [place] [address] Sep, [facility] [place] [facility] [address] [id number] [place] [address] Sep, [facility] [place] [facility] [address] [id number] [place] [address] Sep, [facility] [place] [facility] [address] [id number] [place] [address] Sep, [facility] [place] [facility] [address] [id number] [place] [address] Jul, [facility] [place] [facility] [address] [id number] [place] [address] Jul, [facility] [place] [facility] [address] [id number] [place] [address] Jun, [facility] [place] [facility] [address] [id number] [place] [address] May, [facility] [place] [facility] [address] [id number] [place] [address] Apr, [facility] [place] [facility] [address] [id number] [place] [address] Apr, [facility] [place] [facility] [address] [id number] [place] [address] Apr, [facility] [place] [facility] [address] [id number] [place] [address] Apr, [facility] [place] [facility] [address] [id number] [place] [address] Apr, [facility] [place] [facility] [address] [id number] [place] [address] 09 Apr, 2012 [facility] [place] [facility] [address] [id number] [place] [address] 18 Mar, 2012 [facility] [place] [facility] [address] [id number] [place] [address] 14 Mar, 2012 [facility] [place] [facility] [address] [id number] [place] [address] Mar, [facility] [place] [facility] [address] [id number] [place] [address] February, [facility] [place] [facility] [address] [id number] [place] [address] 18 Jan, 2012 [facility] [place] [facility] [address] [id number] [place] [address] Jan, [facility] [place] [facility] [address] [id number] [place] [address] Jan, [facility] [place] [facility] [address] [id number] [place] [address] Jan, [facility] [place] [facility] [address] [id number] [place] [address] Dec, [facility] [place] [facility] [address] [id number] [place] [address] 20 Dec, 2011 [facility] [place] [facility] [address] [id number] [place] [address] 16 Dec, 2011 [facility] [place] [facility] [address] [id number] [place] [address] 14 Dec, 2011 [facility] [place] [facility] [address] [id number] [place] [address] 16 Nov, 2011 [facility] [place] [facility] [address] [id number] [place] [address] 07 Nov, 2011 [facility] [place] [facility] [address] [id number] [place] [address] Nov, [facility] [address] [facility] [id number], [place] [address] Sep, [facility] [address] [facility] [id number], [place] [address] Sep, [facility] [address] [facility] [id number], [place] [address] Aug, [facility] [address] [facility] [id number], [place] [address] Aug, [facility] [address] [facility] [id number], [place] [address] Jul, IMMUNIZATIONS Vaccine Route Administration Date Status PHENERGAN (IM) 25 MG (25 MG/ML) IM Intramuscular February 08, 2018 Administered SOCIAL HISTORY Never Assessed REASON FOR VISIT Hospital f/u--tcuppettRN, Went to [place] [facility] on Tuesday for vomiting. Was admitt ed with gastritis and released on Tuesday. Continues with vomiting. PLAN OF CARE Activity Details Follow Up 4 Weeks, prn Reason:abdominal pain VITAL SIGNS Height 71 in 2018-02-08 Weight 229.9 lbs 2018-02-08 Temperature 98.2 degrees Fahrenheit 2018-02-08 Heart Rate 96 bpm 2018-02-08 Respiratory Rate 20 2018-02-08 BMI 32.06 kg/m2 2018-02-08 Blood pressure systolic 172 mmHg 2018-02-08 Blood pressure diastolic 110 mmHg 2018-02-08 MEDICATIONS Medication Instructions Dosage Frequency Start Date End Date Duration Status Clindamycin HCl 150 MG Orally with food every 8 hrs 2 capsules 8h 7 days Not-Taking Metoprolol Succinate ER 50 MG Orally Once a day 1 tablet 24h 30 Active Motrin IB 800 Orally every 6 hrs 1 tablet as needed 6h 5 days Not-Taking [place] 7.5-325 MG Orally with food every 6 hrs 1 tablet as needed for pain 6h 3 days Not-Taking Clindamycin HCl 150 MG Orally every 8 hrs 2 capsules 8h 5 day(s) Not-Taking Pantoprazole Sodium 40 MG Orally Once a day 1 tablet 24h Active Amitriptyline HCl 100 mg Orally at bedtime 1 tablet 30 Active Promethazine HCl 25 MG Orally every 12 hrs 1 tablet as needed 12h 18 Jan, 2018 May, 2018 30 day(s) Active Pepcid 40 mg Orally Once a day 1 tablet 24h Dec, 30 day(s) Not-Taking Motrin IB 800 Orally every 6 hrs 1 tablet as needed 6h 5 days Not-Taking Sucralfate 1 GM Orally 4 times a day 1 tablet at bedtime on an empty stomach before meals 6h Jan, February, 30 day(s) Active HydrOXYzine Pamoate 50 mg Orally in the AM and 5pm for anxiety 1 capsule Apr, Not-Taking Ondansetron HCl 8 MG Orally every 4-6 hours 1 tablet as needed Active Ondansetron 8 MG Orally every [address] one tab under tongue Jan, 30 days Active RESULTS No Results PROCEDURES Procedure Date Ordered Result Body Site PHENERGAN (IM) 25 MG (25 MG/ML) February 08, 2018 THER/PROPH/DIAG INJ, SC/IM February 08, 2018 INSTRUCTIONS MEDICATIONS ADMINISTERED No Known Medications MEDICAL (GENERAL) HISTORY Type Description Date Medical History Hypertension Medical History PTSD Medical History Anxiety Medical History Esophageal reflux Medical History Hx Narc Alert for Illicit Drug Use Surgical History cholecystectomy Surgical History surgery for head trauma Hospitalization History Cyclic vomitting Hospitalization History [facility]- Gastritis 01/2018
--- OUTSIDE RECORDS SUMMARY | 2019-03-26 12:17 | XMS REPORT ---
Author Author OG CERVANTES Organization [facility] Address [address] [place] [address] Care Team Providers Care Tax Examiner Name Role Phone OG CERVANTES Unavailable PROBLEMS Type Condition ICD9-CM Code QLP34-SE Code Onset Dates Condition Status SNOMED Code Problem Essential hypertension I10 Active 56481069 Problem Generalized anxiety disorder F41.1 Active 11126805 Problem Cyclical vomiting with nausea, intractability of vomiting not specified G43.A0 Active 44420188 Problem Gastroesophageal reflux disease without esophagitis K21.9 Active 736532856 Problem Posttraumatic stress disorder F43.10 Active 65660898 Problem Bipolar affective disorder F31.9 Active 59524835 ALLERGIES No Information ENCOUNTERS Encounter Location Date Diagnosis [facility], [place] [id number] [place] [address] February, Essential hypertension I10 [facility], [place] [id number] [place] [id number] Jan, Cyclical vomiting with nausea, intractability of vomiting not specified G43.A0 ; Gastroesophageal reflux disease without esophagitis K21.9 and Essential hypertension I10 [facility], [place] [address] [address] Dec, [facility] [id number] [id number] [id number] Jul, Dental caries on smooth surface penetrating into pulp K02.63 [facility] [address] [employer] [id number] [id number] Jul, Dental examination Z01.20 [facility] [address] [id number] [id number] Jul, [facility] [id number] [place] [id number] May, Dental examination Z01.20 and Periapical abscess K04.7 [facility], [place] [id number] [place] [address] May, [facility] [place] [id number] [place] [address] Dec, Essential hypertension I10 ; Cyclical vomiting with nausea, intractability of vomiting not specified G43.A0 ; Gastroesophageal reflux disease without esophagitis K21.9 and Right inguinal hernia K40.90 [facility] [id number] [place] [address] Nov, [facility], [place] [id number] [place] [address] Nov, [facility], [place] [id number] [place] [address] Aug, [facility] [place] [id number] [place] [address] May, [facility], [place] [id number] [place] [address] May, Generalized anxiety disorder F41.1 and Bipolar affective disorder F31.9 [facility], [place] [id number] [place] [address] May, Generalized anxiety disorder F41.1 [facility], [place] [id number] [place] [address] May, [facility], [place] [id number] [place] [address] Apr, [facility], [place] [id number] [place] [address] Apr, Bipolar affective disorder F31.9 ; Generalized anxiety disorder F41.1 ; Posttraumatic stress disorder F43.10 ; Benzodiazepine abuse F13.10 and Essential hypertension I10 [facility], [place] [id number] [place] [address] Apr, [facility], [place] [address], [place] [address] Mar, [facility], [place] [id number] [place] [address] February, [facility], [place] [address], [place] [address] Jan, [facility], [place] [id number] [place] [address] Jan, [facility], [place] [id number] [place] [address] Jan, Dental examination Z01.20 [facility], [place] [id number] [place] [address] Jan, [facility], [place] [id number] [place] [address] Dec, Bipolar affective disorder F31.9 ; Posttraumatic stress disorder F43.10 ; Generalized anxiety disorder F41.1 and Cannabis use disorder, mild, abuse F12.10 [facility], [place] [address], [place] [address] Dec, [facility], [place] [address], [place] [address] Nov, [facility], [place] [address], [place] [address] Nov, [facility], [place] [address], [place] [address] Nov, [facility], [place] [id number] [place] [address] 16 Nov, 2015 Dental examination Z01.20 [facility] [address] [id number] [id number] 09 Nov, 2015 Dental examination Z01.20 [facility], [place] [id number] [place] [address] Oct, [facility], [place] [address], [place] [address] Sep, [facility], [place] [id number] [place] [address] Aug, [facility], [place] [id number] [place] [address] Aug, Essential hypertension I10 ; Dyspepsia K30 and Cyclic vomiting syndrome G43.A0 [facility], [place] [id number] [place] [address] Jul, [facility], [place] [id number] [place] [address] Jul, [facility], [place] [id number] [place] [address] Jul, Bipolar affective disorder F31.9 ; Generalized anxiety disorder F41.1 and Posttraumatic stress disorder F43.10 [facility], [place] [id number] [place] [address] Jun, [facility], [place] [id number] [place] [address] Jun, [facility], [place] [id number] [place] [address] Jun, [facility], [place] [id number] [place] [address] May, [facility], [place] [address], [place] [address] Apr, [facility] [id number] [place] [address] Apr, [facility] [address], [place] [address] Apr, [facility], [place] [address] [place] [address] Apr, Bipolar mood disorder 296.80 ; Generalized anxiety disorder 300.02 and PTSD (post-traumatic stress disorder) 309.81 [facility] [address], [place] [address] February, [facility] [id number] [id number] February, Dental examination V72.2 [facility] [id number] [place] [address] Jan, [facility] [address], [place] [address] Jan, [facility] [id number] [place] [address] Dec, [facility] [id number] [address] Dec, [facility] [id number] [address] Dec, [facility] [address], [place] [address] Dec, [facility] [address], [place] [address] Dec, [facility] [address], [place] [address] Dec, [facility] [address], [place] [address] Dec, [facility] [id number] [address] Dec, [facility] [id number] [address] Dec, [facility] [id number] [address] Dec, [facility] [address], [place] [address] Nov, 2014 [facility] [place] [facility] [address] [id number] [place] [address] Nov, 2014 [facility] [place] [facility] [address] [id number] [place] [address] Nov, 2014 [facility] [place] [facility] [address] [id number] [place] [address] Nov, 2014 [facility] [place] [facility] [address] [id number] [place] [address] Nov, 2014 [facility] [place] [facility] [address] [id number] [place] [address] Nov, [facility] [place] [facility] [address] [id number] [place] [address] Oct, [facility] [place] [facility] [address] [facility] [id number] [place] [address] Oct, [facility] [place] [facility] [address] [facility] [id number] [place] [address] Oct, [facility] [place] [facility] [address] [facility] [id number] [place] [address] Oct, [facility] [place] [facility] [address] [facility] [id number] [place] [address] Oct, [facility] [place] [facility] [address] [facility] [id number] [place] [address] Oct, [facility] [place] [facility] [address] [id number], [place] [address] Sep, [facility] [place] [facility] [address] [id number] [place] [address] Sep, [facility] [place] [facility] [address] [id number] [place] [address] Sep, [facility] [place] [facility] [address] [facility] [id number] [place] [address] Sep, [facility] [place] [facility] [address] [id number] [place] [address] Sep, [facility] [place] [facility] [address] [id number] [place] [address] Sep, [facility] [place] [facility] [address] [id number] [place] [address] Sep, [facility] [place] [facility] [address] [id number] [place] [address] Sep, [facility] [place] [facility] [address] [id number] [place] [address] Sep, [facility] [place] [facility] [address] [id number] [place] [address] Sep, [facility] [place] [facility] [address] [id number] [place] [address] Sep, [facility] [place] [facility] [address] [id number] [place] [address] Sep, [facility] [place] [facility] [address] [id number] [place] [address] Sep, [facility] [place] [facility] [address] [id number] [place] [address] Sep, [facility] [place] [facility] [address] [id number] [place] [address] Sep, [facility] [place] [facility] [address] [id number] [place] [address] Sep, [facility] [place] [facility] [address] [id number] [place] [address] Sep, [facility] [place] [facility] [address] [id number] [place] [address] Sep, [facility] [place] [facility] [address] [id number] [place] [address] Sep, [facility] [place] [facility] [address] [id number] [place] [address] Sep, [facility] [place] [facility] [address] [id number] [place] [address] Sep, [facility] [place] [facility] [address] [id number] [place] [address] Sep, [facility] [place] [facility] [address] [id number] [place] [address] Sep, [facility] [place] [facility] [address] [id number] [place] [address] Sep, [facility] [place] [facility] [address] [id number] [place] [address] Sep, [facility] [place] [facility] [address] [id number] [place] [address] Sep, [facility] [place] [facility] [address] [id number] [place] [address] Aug, [facility] [place] [facility] [address] [id number], [place] [address] Aug, [facility] [place] [facility] [address] [id number] [place] [address] Aug, [facility] [place] [facility] [address] [id number], [place] [address] Aug, [facility] [place] [facility] [address] [id number], [place] [address] Jul, [facility] [place] [facility] [address] [id number], [place] [address] Jul, [facility] [place] [facility] [address] [id number], [place] [address] Jul, [facility] [place] [facility] [address] [id number], [place] [address] Jul, [facility] [place] [facility] [address] [id number], [place] [address] Jul, [facility] [place] [facility] [address] [id number] [place] [address] 18 Jul, 2013 [facility] [place] [facility] [address] [id number] [place] [address] 17 Jul, 2013 [facility] [place] [facility] [address] [id number] [place] [address] 17 Jul, 2013 [facility] [place] [facility] [address] [id number] [place] [address] 14 Jul, 2014 [facility] [place] [facility] [address] [id number] [place] [address] 14 Jul, 2013 [facility] [place] [facility] [address] [id number] [place] [address] 14 Jul, 2014 [facility] [place] [facility] [address] [id number] [place] [address] 14 Jul, 2014 [facility] [place] [facility] [address] [id number] [place] [address] 10 Jul, 2014 [facility] [place] [facility] [address] [id number] [place] [address] 10 Jul, 2014 [facility] [place] [facility] [address] [id number] [place] [address] 11 Jun, 2013 [facility] [place] [facility] [address] [id number] [place] [address] 11 Jun, 2013 [facility] [place] [facility] [address] [id number] [place] [address] 10 Jun, 2013 [facility] [place] [facility] [address] [id number] [place] [address] 10 Jun, 2013 [facility] [place] [facility] [address] [id number] [place] [address] 08 Jun, 2014 [facility] [place] [facility] [address] [id number] [place] [address] 08 Jun, 2013 [facility] [place] [facility] [address] [id number] [place] [address] May, [facility] [place] [facility] [address] [id number] [place] [address] May, [facility] [place] [facility] [address] [id number] [place] [address] May, [facility] [place] [facility] [address] [id number] [place] [address] May, [facility] [place] [facility] [address] [id number] [place] [address] May, [facility] [place] [facility] [address] [id number] [place] [address] May, [facility] [place] [facility] [address] [id number] [place] [address] Apr, [facility] [place] [facility] [address] [id number] [place] [address] Apr, [facility] [place] [facility] [address] [id number] [place] [address] Apr, [facility] [place] [facility] [address] [id number] [place] [address] Apr, [facility] [place] [facility] [address] [id number] [place] [address] Apr, [facility] [place] [facility] [address] [id number] [place] [address] Apr, [facility] [place] [facility] [address] [id number] [place] [address] Mar, [facility] [place] [facility] [address] [id number] [place] [address] Mar, [facility] [place] [facility] [address] [id number] [place] [address] Mar, [facility] [place] [facility] [address] [id number] [place] [address] Mar, [facility] [place] [facility] [address] [id number] [place] [address] Mar, [facility] [place] [facility] [address] [id number] [place] [address] Mar, [facility] [place] [facility] [address] [id number] [place] [address] Mar, [facility] [place] [facility] [address] [id number] [place] [address] Mar, [facility] [place] [facility] [address] [id number] [place] [address] Mar, [facility] [place] [facility] [address] [id number] [place] [address] Mar, [facility] [place] [facility] [address] [id number] [place] [address] Mar, [facility] [place] [facility] [address] [facility] [id number] [place] [address] Mar, [facility] [place] [facility] [address] [id number] [place] [address] February, [facility] [place] [facility] [address] [id number] [place] [address] February, [facility] [place] [facility] [address] [facility] [id number] [place] [address] February, [facility] [place] [facility] [address] [id number] [place] [address] Dec, [facility] [place] [facility] [address] [id number] [place] [address] Dec, [facility] [place] [facility] [address] [id number] [place] [address] Nov, [facility] [place] [facility] [address] [id number] [place] [address] Nov, [facility] [place] [facility] [address] [id number] [place] [address] Nov, [facility] [place] [facility] [address] [id number] [place] [address] Nov, [facility] [place] [facility] [address] [id number] [place] [address] Nov, [facility] [place] [facility] [address] [id number] [place] [address] Nov, [facility] [place] [facility] [address] [id number] [place] [address] Nov, [facility] [place] [facility] [address] [id number] [place] [address] Nov, [facility] [place] [facility] [address] [id number] [place] [address] Nov, [facility] [place] [facility] [address] [id number] [place] [address] Nov, [facility] [place] [facility] [address] [id number] [place] [address] Oct, [facility] [place] [facility] [address] [id number] [place] [address] Oct, [facility] [place] [facility] [address] [id number] [place] [address] Sep, [facility] [place] [facility] [address] [id number], [place] [address] Sep, [facility] [place] [facility] [address] [id number], [place] [address] 24 Jun, 2013 [facility] [place] [facility] [address] [id number] [place] [address] 17 Jun, 2013 [facility] [place] [facility] [address] [id number] [place] [address] 29 May, 2013 [facility] [place] [facility] [address] [id number], [place] [address] 14 May, 2013 [facility] [place] [facility] [address] [id number], [place] [address] Mar, [facility] [address] [id number] [place] [address] Mar, [facility] [place] [facility] [address] [id number] [place] [address] Mar, [facility] [address] [id number] [place] [address] Mar, [facility] [address] [id number] [place] [address] Mar, [facility] [address] [id number] [place] [address] Mar, [facility] [address] [id number] [place] [address] February, [facility] [address] [id number] [place] [address] February, [facility] [address] [id number] [place] [address] Jan, [facility] [address] [id number] [place] [address] Dec, [facility] [address] [id number] [place] [address] Nov, [facility] [address] [id number] [place] [address] Nov, [facility] [place] [facility] [address] [id number] [place] [address] Nov, [facility] [place] [facility] [address] [id number] [place] [address] Oct, [facility] [place] [facility] [address] [id number] [place] [address] 15 Oct, 2012 [facility] [place] [facility] [address] [id number], [place] [address] Oct, [facility] [place] [facility] [address] [id number] [place] [address] Sep, [facility] [place] [facility] [address] [id number] [place] [address] Sep, [facility] [place] [facility] [address] [id number] [place] [address] Sep, [facility] [place] [facility] [address] [id number] [place] [address] Sep, [facility] [place] [facility] [address] [id number] [place] [address] Sep, [facility] [place] [facility] [address] [id number] [place] [address] Sep, [facility] [place] [facility] [address] [id number] [place] [address] Jul, [facility] [place] [facility] [address] [id number] [place] [address] Jul, [facility] [place] [facility] [address] [id number] [place] [address] Jun, [facility] [place] [facility] [address] [id number] [place] [address] May, [facility] [place] [facility] [address] [id number] [place] [address] Apr, [facility] [place] [facility] [address] [id number] [place] [address] Apr, [facility] [place] [facility] [address] [id number] [place] [address] Apr, [facility] [place] [facility] [address] [id number] [place] [address] Apr, [facility] [place] [facility] [address] [id number] [place] [address] Apr, [facility] [place] [facility] [address] [id number] [place] [address] Apr, [facility] [place] [facility] [address] [id number] [place] [address] 18 Mar, 2012 [facility] [place] [facility] [address] [id number] [place] [address] 14 Mar, 2012 [facility] [place] [facility] [address] [id number] [place] [address] Mar, [facility] [place] [facility] [address] [id number] [place] [address] February, [facility] [place] [facility] [address] [id number] [place] [address] Jan, [facility] [place] [facility] [address] [id number] [place] [address] Jan, [facility] [place] [facility] [address] [id number] [place] [address] Jan, [facility] [place] [facility] [address] [id number] [place] [address] Jan, [facility] [place] [facility] [address] [id number] [place] [address] Dec, [facility] [place] [facility] [address] [id number] [place] [address] 20 Dec, 2011 [facility] [place] [facility] [address] [id number] [place] [address] 16 Dec, 2011 [facility] [place] [facility] [address] [id number] [place] [address] 14 Dec, 2011 [facility] [place] [facility] [address] [id number] [place] [address] 16 Nov, 2011 [facility] [place] [facility] [address] [id number] [place] [address] 07 Nov, 2011 [facility] [place] [facility] [address] [id number] [place] [address] 06 Nov, 2011 [facility] [place] [facility] [address] [facility] [id number] [place] [address] Sep, [facility] [place] [address] [facility] [id number], [place] [address] Sep, [facility] [place] [address] [id number], [place] [address] Aug, [facility] [place] [address] [facility] [id number], [place] [address] Aug, [facility] [place] [address] [facility] [id number] [place] [address] Jul, IMMUNIZATIONS No Known Immunizations SOCIAL HISTORY Never Assessed REASON FOR VISIT Medication refill request PLAN OF CARE VITAL SIGNS MEDICATIONS Medication Instructions Dosage Frequency Start Date End Date Duration Status Metoprolol Succinate ER 50 mg Orally Once a day 1 tablet 24h 30 Active Amitriptyline HCl 100 mg Orally at bedtime 1 tablet 30 Active Pantoprazole Sodium 40 mg Orally Once [...]
--- OUTSIDE RECORDS SUMMARY | 2019-03-26 12:18 | XMS REPORT ---
Author Author KEVIN LEVY Organization [facility] Address [address] [place] [address] Care Team Providers Care Relationship Management Lead Name Role Phone KEVIN LEVY Unavailable PROBLEMS Type Condition ICD9-CM Code DCR57-CL Code Onset Dates Condition Status SNOMED Code Problem Essential hypertension I10 Active 90906317 Problem Generalized anxiety disorder F41.1 Active 23194877 Problem Cyclical vomiting with nausea, intractability of vomiting not specified G43.A0 Active 06874260 Problem Gastroesophageal reflux disease without esophagitis K21.9 Active 763059779 Problem Posttraumatic stress disorder F43.10 Active 57598539 Problem Bipolar affective disorder F31.9 Active 83442349 ALLERGIES Substance Reaction Event Type Date Status Lamictal hives Drug Allergy May, Active ENCOUNTERS Encounter Location Date Diagnosis [facility] [address] [address] Jan, Cyclical vomiting with nausea, intractability of vomiting not specified G43.A0 ; Gastroesophageal reflux disease without esophagitis K21.9 and Essential hypertension I10 [facility] [address] [address] Dec, [facility] [address] [id number] [id number] Jul, Dental caries on smooth surface penetrating into pulp K02.63 [facility] [address] [id number] [id number] Jul, Dental examination Z01.20 [facility] [address] [id number] [id number] Jul, [facility] [address] [facility] [id number] [id number] May, Dental examination Z01.20 and Periapical abscess K04.7 [facility] [id number] [place] [address] May, [facility] [id number] [place] [address] Dec, Essential hypertension I10 ; Cyclical vomiting with nausea, intractability of vomiting not specified G43.A0 ; Gastroesophageal reflux disease without esophagitis K21.9 and Right inguinal hernia K40.90 [facility] [id number] [place] [address] Nov, [facility] [id number] [place] [address] Nov, [facility] [id number] [place] [address] Aug, [facility] [id number] [place] [address] May, [facility] [id number] [place] [address] May, Generalized anxiety disorder F41.1 and Bipolar affective disorder F31.9 [facility] [id number] [place] [address] May, Generalized anxiety disorder F41.1 [facility] [id number] [place] [address] May, [facility] [id number] [place] [address] Apr, [facility] [id number] [place] [address] Apr, Bipolar affective disorder F31.9 ; Generalized anxiety disorder F41.1 ; Posttraumatic stress disorder F43.10 ; Benzodiazepine abuse F13.10 and Essential hypertension I10 [facility] [id number] [place] [address] Apr, [facility] [address] [place] [address] 08 Mar, 2016 [facility] [address] [facility] [id number] [address] February, [facility] [address] [facility] [id number] [address] Jan, [facility] [id number] [place] [address] Jan, [facility] [id number] [address] Jan, Dental examination Z01.20 [facility] [id number] [place] [address] Jan, [facility] [address] [address] Dec, Bipolar affective disorder F31.9 ; Posttraumatic stress disorder F43.10 ; Generalized anxiety disorder F41.1 and Cannabis use disorder, mild, abuse F12.10 [facility] [address] [address] Dec, [facility] [address] [address] Nov, [facility] [address] [address] Nov, [facility] [address] [address] Nov, [facility] [address] [address] 16 Nov, 2015 Dental examination Z01.20 [facility] [address] [id number] [id number] 09 Nov, 2015 Dental examination Z01.20 [facility] [address] [address] Oct, [facility] [id number] [address] Sep, [facility] [id number] [place] [address] Aug, [facility] [id number] [place] [address] Aug, Essential hypertension I10 ; Dyspepsia K30 and Cyclic vomiting syndrome G43.A0 [facility] [id number] [place] [address] Jul, [facility] [id number] [place] [address] Jul, [facility] [id number] [place] [address] Jul, Bipolar affective disorder F31.9 ; Generalized anxiety disorder F41.1 and Posttraumatic stress disorder F43.10 [facility] [id number] [place] [address] Jun, [facility] [id number] [place] [address] Jun, [facility] [id number] [place] [address] Jun, [facility] [id number] [place] [address] May, [facility] [id number] [place] [address] Apr, [facility] [address] [place] [address] Apr, [facility] [id number] [place] [address] Apr, [facility] [address] [place] [address] Apr, Bipolar mood disorder 296.80 ; Generalized anxiety disorder 300.02 and PTSD (post-traumatic stress disorder) 309.81 [facility] [place] [facility] [address] [facility] [id number] [address] February, [facility] [place] [facility] [address] [id number] [id number] February, Dental examination V72.2 [facility] [place] [facility] [id number] [address] Jan, [facility] [place] [facility] [address] [facility] [id number][place] [address] Jan, [facility] [place] [facility] [address] [facility] [id number] [address] Dec, [facility] [place] [facility] [address] [facility] [id number] [address] Dec, [facility] [place] [facility] [id number] [address] Dec, [facility] [place] [facility] [address] [facility] [id number] [address] Dec, [facility] [place] [facility] [id number] [address] Dec, [facility] [place] [facility] [id number] [address] Dec, [facility] [place] [facility] [id number] [address] Dec, [facility] [place] [facility] [address] [facility] [id number] [address] Dec, [facility] [place] [facility] [address] [facility] [id number] [address] Dec, [facility] [place] [facility] [address] [facility] [id number] [address] Dec, [facility] [place] [facility] [id number] [address] Nov, [facility] [place] [facility] [address] [facility] [id number] [place] [address] 18 Nov, 2014 [facility] [place] [facility] [address] [id number] [place] [address] Nov, 2014 [facility] [place] [facility] [address] [id number] [place] [address] Nov, 2014 [facility] [place] [facility] [address] [id number] [place] [address] Nov, 2014 [facility] [place] [facility] [address] [id number] [place] [address] Nov, [facility] [place] [facility] [address] [id number] [place] [address] Oct, [facility] [place] [facility] [address] [id number] [place] [address] Oct, [facility] [place] [facility] [address] [facility] [id number] [place] [address] Oct, [facility] [place] [facility] [address] [id number] [place] [address] Oct, [facility] [place] [facility] [address] [facility] [id number] [place] [address] Oct, [facility] [place] [facility] [address] [facility] [id number] [place] [address] Oct, [facility] [place] [facility] [address] [id number] [place] [address] Sep, [facility] [place] [facility] [address] [id number] [place] [address] Sep, [facility] [place] [facility] [address] [id number] [place] [address] Sep, [facility] [place] [facility] [address] [id number] [place] [address] Sep, [facility] [place] [facility] [address] [id number] [place] [address] Sep, [facility] [place] [facility] [address] [id number] [place] [address] Sep, [facility] [place] [facility] [address] [id number] [place] [address] Sep, [facility] [place] [facility] [address] [facility] [id number] [place] [address] Sep, [facility] [place] [facility] [address] [id number] [place] [address] Sep, [facility] [place] [facility] [address] [id number] [place] [address] Sep, [facility] [place] [facility] [address] [id number] [place] [address] Sep, [facility] [place] [facility] [address] [id number] [place] [address] Sep, [facility] [place] [facility] [address] [id number] [place] [address] Sep, [facility] [place] [facility] [address] [id number] [place] [address] Sep, [facility] [place] [facility] [address] [id number] [place] [address] Sep, [facility] [place] [facility] [address] [id number] [address] Sep, [facility] [place] [facility] [address] [id number] [address] Sep, [facility] [place] [facility] [address] [id number] [place] [address] Sep, [facility] [place] [facility] [address] [id number] [place] [address] Sep, [facility] [place] [facility] [address] [facility] [id number] [address] Sep, [facility] [place] [facility] [address] [id number] [place] [address] 04 Sep, 2014 [facility] [place] [facility] [address] [id number] [place] [address] Sep, [facility] [place] [facility] [address] [id number] [place] [address] Sep, [facility] [place] [facility] [address] [id number] [place] [address] Sep, [facility] [place] [facility] [address] [id number] [place] [address] Sep, [facility] [place] [facility] [address] [id number] [place] [address] Sep, [facility] [place] [facility] [address] [id number] [place] [address] Aug, [facility] [place] [facility] [address] [id number] [place] [address] Aug, [facility] [place] [facility] [address] [id number] [place] [address] Aug, [facility] [place] [facility] [address] [id number] [place] [address] Aug, [facility] [place] [facility] [address] [facility] [id number] [place] [address] Jul, [facility] [place] [facility] [address] [id number] [place] [address] Jul, [facility] [place] [facility] [address] [id number] [place] [address] Jul, [facility] [place] [facility] [address] [id number] [place] [address] Jul, [facility] [place] [facility] [address] [facility] [id number] [place] [address] Jul, [facility] [place] [facility] [address] [id number] [place] [address] Jul, [facility] [place] [facility] [address] [id number] [place] [address] 17 Jul, 2014 [facility] [place] [facility] [address] [id number] [place] [address] 17 Jul, 2014 [facility] [place] [facility] [address] [id number] [place] [address] 14 Jul, 2014 [facility] [place] [facility] [address] [id number] [place] [address] 14 Jul, 2014 [facility] [place] [facility] [address] [id number] [place] [address] 14 Jul, 2014 [facility] [place] [facility] [address] [id number] [place] [address] 14 Jul, 2014 [facility] [place] [facility] [address] [id number] [place] [address] 10 Jul, 2014 [facility] [place] [facility] [address] [id number] [place] [address] 10 Jul, 2014 [facility] [place] [facility] [address] [id number] [place] [address] 11 Jun, 2014 [facility] [place] [facility] [address] [id number] [place] [address] 11 Jun, 2014 [facility] [place] [facility] [address] [id number] [place] [address] 10 Jun, 2014 [facility] [place] [facility] [address] [id number] [place] [address] 10 Jun, 2013 [facility] [place] [facility] [address] [id number] [place] [address] 08 Jun, 2014 [facility] [place] [facility] [address] [id number] [place] [address] 08 Jun, 2014 [facility] [place] [facility] [address] [id number] [place] [address] 15 May, 2014 [facility] [place] [facility] [address] [id number] [place] [address] May, [facility] [place] [facility] [address] [id number] [place] [address] May, [facility] [place] [facility] [address] [id number] [place] [address] May, [facility] [place] [facility] [address] [id number] [place] [address] May, [facility] [place] [facility] [address] [id number] [place] [address] May, [facility] [place] [facility] [address] [id number] [place] [address] Apr, [facility] [place] [facility] [address] [id number] [place] [address] Apr, [facility] [place] [facility] [address] [id number] [place] [address] Apr, [facility] [place] [facility] [address] [id number] [place] [address] Apr, [facility] [place] [facility] [address] [id number] [place] [address] Apr, [facility] [place] [facility] [address] [id number] [place] [address] Apr, [facility] [place] [facility] [address] [id number] [place] [address] Mar, [facility] [place] [facility] [address] [id number] [place] [address] Mar, [facility] [place] [facility] [address] [id number] [place] [address] Mar, [facility] [place] [facility] [address] [id number] [place] [address] Mar, [facility] [place] [facility] [address] [id number] [place] [address] Mar, [facility] [place] [facility] [address] [id number] [place] [address] Mar, [facility] [place] [facility] [address] [id number] [place] [address] Mar, [facility] [place] [facility] [address] [id number] [place] [address] Mar, [facility] [place] [facility] [address] [id number] [place] [address] Mar, [facility] [place] [facility] [address] [id number] [place] [address] Mar, [facility] [place] [facility] [address] [id number] [place] [address] Mar, [facility] [place] [facility] [address] [id number] [place] [address] Mar, [facility] [place] [facility] [address] [id number] [place] [address] February, [facility] [place] [facility] [address] [id number] [place] [address] February, [facility] [place] [facility] [address] [id number] [place] [address] February, [facility] [place] [facility] [address] [id number] [place] [address] Dec, [facility] [place] [facility] [address] [id number] [place] [address] Dec, [facility] [place] [facility] [address] [id number] [place] [address] Nov, [facility] [place] [facility] [address] [id number] [place] [address] Nov, [facility] [place] [facility] [address] [id number] [place] [address] Nov, [facility] [place] [facility] [address] [id number] [place] [address] Nov, [facility] [place] [facility] [address] [id number] [place] [address] Nov, [facility] [place] [facility] [address] [id number] [place] [address] Nov, [facility] [place] [facility] [address] [id number] [place] [address] Nov, [facility] [place] [facility] [address] [id number] [place] [address] Nov, [facility] [place] [facility] [address] [id number] [place] [address] Nov, [facility] [place] [facility] [address] [id number] [place] [address] Nov, [facility] [place] [facility] [address] [id number] [place] [address] Oct, [facility] [place] [facility] [address] [id number] [place] [address] Oct, [facility] [place] [facility] [address] [id number] [place] [address] Sep, [facility] [place] [facility] [address] [id number] [place] [address] Sep, [facility] [place] [facility] [address] [id number] [place] [address] Jun, [facility] [place] [facility] [address] [id number] [place] [address] Jun, [facility] [place] [facility] [address] [id number] [place] [address] May, [facility] [place] [facility] [address] [id number] [place] [address] May, [facility] [place] [facility] [address] [id number] [place] [address] Mar, [facility] [place] [facility] [address] [id number] [place] [address] Mar, [facility] [address] [id number] [place] [address] Mar, [facility] [place] [facility] [address] [id number] [place] [address] Mar, [facility] [address] [id number] [place] [address] Mar, [facility] [place] [facility] [address] [id number] [place] [address] Mar, [facility] [address] [id number] [place] [address] February, [facility] [address] [id number] [place] [address] February, [facility] [address] [id number] [place] [address] Jan, [facility] [address] [id number] [place] [address] Dec, [facility] [address] [id number] [place] [address] Nov, [facility] [address] [id number] [place] [address] Nov, [facility] [address] [id number] [place] [address] Nov, [facility] [place] [facility] [address] [id number] [place] [address] 17 Oct, 2012 [facility] [place] [facility] [address] [id number] [place] [address] 15 Oct, 2012 [facility] [place] [facility] [address] [id number] [place] [address] Oct, [facility] [place] [facility] [address] [id number] [place] [address] Sep, [facility] [place] [facility] [address] [id number] [place] [address] Sep, [facility] [place] [facility] [address] [id number] [place] [address] Sep, [facility] [place] [facility] [address] [id number] [place] [address] Sep, [facility] [place] [facility] [address] [id number] [place] [address] Sep, [facility] [place] [facility] [address] [id number] [place] [address] Sep, [facility] [place] [facility] [address] [id number] [place] [address] Jul, [facility] [place] [facility] [address] [id number] [place] [address] Jul, [facility] [place] [facility] [address] [id number] [place] [address] Jun, [facility] [place] [facility] [address] [id number] [place] [address] May, [facility] [place] [facility] [address] [id number] [place] [address] Apr, [facility] [place] [facility] [address] [id number] [address] Apr, [facility] [place] [facility] [address] [id number] [address] Apr, [facility] [place] [facility] [address] [id number] [place] [address] Apr, [facility] [place] [facility] [address] [id number] [place] [address] Apr, [facility] [place] [facility] [address] [id number] [place] [address] Apr, [facility] [place] [facility] [address] [id number] [place] [address] 18 Mar, 2012 [facility] [place] [facility] [address] [id number] [place] [address] 14 Mar, 2012 [facility] [place] [facility] [address] [id number] [place] [address] 11 Mar, 2012 [facility] [place] [facility] [address] [id number] [place] [address] February, [facility] [place] [facility] [address] [id number] [place] [address] 18 Jan, 2012 [facility] [place] [facility] [address] [id number] [place] [address] Jan, [facility] [place] [facility] [address] [id number] [place] [address] Jan, [facility] [place] [facility] [address] [facility] [id number] [place] [address] Jan, [facility] [place] [facility] [address] [id number] [place] [address] 20 Dec, 2011 [facility] [place] [facility] [address] [id number] [place] [address] 20 Dec, 2011 [facility] [place] [facility] [address] [facility] [id number] [place] [address] 16 Dec, 2011 [facility] [place] [facility] [address] [id number] [place] [address] 14 Dec, 2011 [facility] [place] [facility] [address] [facility] [id number] [place] [address] 16 Nov, 2011 [facility] [place] [facility] [address] [address] [id number] [place] [address] 07 Nov, 2011 [facility] [place] [facility] [address] [facility] [id number] [place] [address] 06 Nov, 2011 [facility] [place] [facility] [address] [facility] [id number] [place] [address] Sep, [facility] [address] [facility] [id number] [address] Sep, [facility] [address] [facility] [id number][place] [address] Aug, [facility] [address] [facility] [id number] [address] Aug, [facility] [address] [facility] [id number][place] [address] Jul, IMMUNIZATIONS No Known Immunizations SOCIAL HISTORY Never Assessed REASON FOR VISIT mekhi PLAN OF CARE Activity Details Follow Up TE #31 Reason: VITAL SIGNS Heart Rate 90 bpm 2017-06-16 Blood pressure systolic 135 mmHg 2017-06-16 Blood pressure diastolic 93 mmHg 2017-06-16 MEDICATIONS Medication Instructions Dosage Frequency Start Date End Date Duration Status Metoprolol Succinate ER 50 MG Orally Once a day 1 tablet 24h 30 Active Pepcid 40 mg Orally Once a day 1 tablet 24h 30 Dec, 2016 30 day(s) Active Amitriptyline HCl 100 mg Orally at bedtime 1 tablet Active [place] 7.5-325 MG Orally every 6 hrs 1 tablet as needed 6h May, May, 4 days Active Pickering 7.5-325 MG Orally every 6 hrs 1 tablet as needed 6h May, May, 4 days Active Pickering 7.5-325 MG Orally with food every 6 hrs 1 tablet as needed for pain 6h 3 days Active [place]ering 7.5-325 MG Orally every 6 hrs 1 tablet as needed 6h May, May, 2 days Active Clindamycin HCl 150 MG Orally every 8 hrs 2 capsules 8h May, May, 7 days Active Clindamycin HCl 150 MG Orally with food every 8 hrs 2 capsules 8h 7 days Active RESULTS No Results PROCEDURES Procedure Date Ordered Result Body Site LTD ORAL EVALUATION - PROBLEM FOCUS Jun 16, 2017 PANORAMIC FILM SEE ALSO CODE [id number] Jun 16, 2017 Billing Notes on claim Jun 16, 2017 INTRAORL-PERIAPICAL EA ADD FILM Jun 16, 2017 INTRAORL-PERIAPICAL 1 FILM [id number] Jun 16, 2017 EXTRAC ERUPTED TOOTH/EXPOSED ROOT Jun 16, 2017 EXTRAC ERUPTED TOOTH/EXPOSED ROOT Jun 16, 2017 INSTRUCTIONS MEDICATIONS ADMINISTERED No Known Medications MEDICAL (GENERAL) HISTORY Type Description Date Medical History Hypertension Medical History PTSD Medical History Anxiety Medical History Esophageal reflux Medical History Hx Narc Alert for Illicit Drug Use Surgical History cholecystectomy Surgical History surgery for head trauma Hospitalization History Cyclic vomitting Hospitalization History [facility]- Gastritis 01/2018
--- OUTSIDE RECORDS SUMMARY | 2019-03-26 12:18 | XMS REPORT ---
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 Pilot Chief Name Role Phone YVROSE WEST Unavailable PROBLEMS Type Condition ICD9-CM Code PNL20-FX Code Onset Dates Condition Status SNOMED Code Problem Essential hypertension I10 Active 32917015 Problem Generalized anxiety disorder F41.1 Active 04268907 Problem Cyclical vomiting with nausea, intractability of vomiting not specified G43.A0 Active 60869051 Problem Gastroesophageal reflux disease without esophagitis K21.9 Active 464492573 Problem Posttraumatic stress disorder F43.10 Active 20666757 Problem Bipolar affective disorder F31.9 Active 42147210 ALLERGIES No Information ENCOUNTERS Encounter Location Date Diagnosis [facility] [id number] [place] [address] February, Essential hypertension I10 [facility] [id number] [place] [address] Jan, Cyclical vomiting with nausea, intractability of vomiting not specified G43.A0 ; Gastroesophageal reflux disease without esophagitis K21.9 and Essential hypertension I10 [facility] [address] [address] Dec, [address] [id number] [id number] Jul, Dental caries on smooth surface penetrating into pulp K02.[address] [id number] [place] [id number] Jul, Dental examination Z01.[address] [facility] [address] [id number] [place] [id number] Jul, [facility] [address] [id number] May, Dental examination Z01.20 and Periapical abscess K04.7 [facility] [id number] [place] [address] May, [facility] [id number] [place] [address] Dec, Essential hypertension I10 ; Cyclical vomiting with nausea, intractability of vomiting not specified G43.A0 ; Gastroesophageal reflux disease without esophagitis K21.9 and Right inguinal hernia K40.90 [facility] [id number] [place] [address] Nov, [facility] [id number] [place] [address] Nov, [facility] [id number] [place] [address] Aug, [facility] [id number] [place] [address] May, [facility] [id number] [place] [address] May, Generalized anxiety disorder F41.1 and Bipolar affective disorder F31.9 [facility] [id number] [place] [address] May, Generalized anxiety disorder F41.1 [facility] [id number] [place] [address] May, [facility] [id number] [place] [address] Apr, [facility] [id number] [place] [address] Apr, Bipolar affective disorder F31.9 ; Generalized anxiety disorder F41.1 ; Posttraumatic stress disorder F43.10 ; Benzodiazepine abuse F13.10 and Essential hypertension I10 [facility] [id number] [place] [address] Apr, [facility] [address] [address] Mar, [facility] [id number] [address] February, [facility] [address] [address] Jan, [facility] [id number] [place] [address] Jan, [facility] [id number] [place] [address] Jan, Dental examination Z01.20 [facility] [address] [place] [address] Jan, [facility] [address] [place] [address] Dec, Bipolar affective disorder F31.9 ; Posttraumatic stress disorder F43.10 ; Generalized anxiety disorder F41.1 and Cannabis use disorder, mild, abuse F12.10 [facility] [address] [place] [address] Dec, [facility] [address] [address] Nov, [facility] [address] [address] Nov, [facility] [address] [address] Nov, [facility] [address] [place] [address] 16 Nov, 2015 Dental examination Z01.20 [facility] [address] [id number] [id number] 09 Nov, 2015 Dental examination Z01.20 [facility] [address] [place] [address] Oct, [facility] [address] [place] [address] Sep, [facility] [id number] [place] [address] Aug, [facility] [id number] [place] [address] Aug, Essential hypertension I10 ; Dyspepsia K30 and Cyclic vomiting syndrome G43.A0 [facility] [id number] [place] [address] Jul, [facility] [id number] [place] [address] Jul, [facility] [id number] [place] [address] Jul, Bipolar affective disorder F31.9 ; Generalized anxiety disorder F41.1 and Posttraumatic stress disorder F43.10 [facility] [id number] [place] [address] Jun, [facility] [id number] [place] [address] Jun, [facility] [id number] [place] [address] Jun, [facility] [id number] [place] [address] May, [facility] [id number] [place] [address] Apr, [facility] [id number] [place] [address] Apr, [facility] [address] [address] Apr, [facility] [id number] [place] [address] Apr, Bipolar mood disorder 296.80 ; Generalized anxiety disorder 300.02 and PTSD (post-traumatic stress disorder) 309.81 [facility] [address] [address] February, [facility] [id number] [address] February, Dental examination V72.2 [facility] [address] [address] Jan, [facility] [id number] [address] Jan, [facility] [address] [address] Dec, [facility] [address] [address] Dec, [facility] [address] [address] Dec, [facility] [address] [address] Dec, [facility] [address] [address] Dec, [facility] [address] [address] Dec, [facility] [address] [address] Dec, [facility] [id number] [address] Dec, [facility] [address] [address] Dec, [facility] [id number] [address] Dec, [facility] [address] [address] Nov, 2014 [facility] [place] [facility] [address] [id number] [place] [address] Nov, 2014 [facility] [place] [facility] [address] [id number] [place] [address] Nov, 2014 [facility] [place] [facility] [address] [id number] [place] [address] Nov, 2014 [facility] [place] [facility] [address] [id number] [place] [address] Nov, [facility] [place] [facility] [address] [id number] [place] [address] Nov, [facility] [place] [facility] [address] [id number] [place] [address] Oct, [facility] [place] [facility] [address] [id number] [place] [address] Oct, [facility] [place] [facility] [address] [id number] [place] [address] Oct, [facility] [place] [facility] [address] [id number] [place] [address] Oct, [facility] [place] [facility] [address] [facility] [id number] [place] [address] Oct, [facility] [place] [facility] [address] [id number] [place] [address] Oct, [facility] [place] [facility] [address] [id number] [address] Sep, [facility] [place] [facility] [address] [id number] [place] [address] Sep, [facility] [place] [facility] [address] [id number] [place] [address] Sep, [facility] [place] [facility] [address] [id number] [place] [address] Sep, [facility] [place] [facility] [address] [id number] [place] [address] Sep, [facility] [place] [facility] [address] [id number] [place] [address] Sep, [facility] [place] [facility] [address] [id number] [place] [address] Sep, [facility] [place] [facility] [address] [id number] [place] [address] Sep, [facility] [place] [facility] [address] [id number] [place] [address] Sep, [facility] [place] [facility] [address] [id number] [place] [address] Sep, [facility] [place] [facility] [address] [id number] [place] [address] Sep, [facility] [place] [facility] [address] [id number] [place] [address] Sep, [facility] [place] [facility] [address] [id number] [place] [address] Sep, [facility] [place] [facility] [address] [id number] [place] [address] Sep, [facility] [place] [facility] [address] [id number] [place] [address] Sep, [facility] [place] [facility] [address] [id number] [place] [address] Sep, [facility] [place] [facility] [address] [id number] [place] [address] Sep, [facility] [place] [facility] [address] [id number] [place] [address] Sep, [facility] [place] [facility] [address] [id number] [place] [address] Sep, [facility] [place] [facility] [address] [id number] [address] Sep, [facility] [place] [facility] [address] [id number] [place] [address] Sep, [facility] [place] [facility] [address] [id number] [place] [address] Sep, [facility] [place] [facility] [address] [id number] [place] [address] Sep, [facility] [place] [facility] [address] [id number] [place] [address] Sep, [facility] [place] [facility] [address] [id number] [place] [address] Sep, [facility] [place] [facility] [address] [id number] [place] [address] Sep, [facility] [place] [facility] [address] [id number] [place] [address] Aug, [facility] [place] [facility] [address] [id number] [place] [address] Aug, [facility] [place] [facility] [address] [id number] [place] [address] Aug, [facility] [place] [facility] [address] [id number] [place] [address] Aug, [facility] [place] [facility] [address] [id number] [address] Jul, [facility] [place] [facility] [address] [id number] [address] Jul, [facility] [place] [facility] [address] [id number] [place] [address] Jul, [facility] [place] [facility] [address] [id number] [place] [address] Jul, [facility] [place] [facility] [address] [id number] [address] Jul, [facility] [place] [facility] [address] [id number] [place] [address] 18 Jul, 2013 [facility] [place] [facility] [address] [id number] [place] [address] 17 Jul, 2014 [facility] [place] [facility] [address] [id number] [place] [address] 17 Jul, 2014 [facility] [place] [facility] [address] [id number] [place] [address] 14 Jul, 2014 [facility] [place] [facility] [address] [id number] [place] [address] 14 Jul, 2014 [facility] [place] [facility] [address] [id number] [place] [address] 14 Jul, 2014 [facility] [place] [facility] [address] [id number] [place] [address] 14 Jul, 2014 [facility] [place] [facility] [address] [id number] [place] [address] 10 Jul, 2014 [facility] [place] [facility] [address] [id number] [place] [address] 10 Jul, 2014 [facility] [place] [facility] [address] [id number] [place] [address] 11 Jun, 2014 [facility] [place] [facility] [address] [id number] [place] [address] 11 Jun, 2014 [facility] [place] [facility] [address] [id number] [place] [address] 10 Jun, 2013 [facility] [place] [facility] [address] [id number] [place] [address] 10 Jun, 2014 [facility] [place] [facility] [address] [id number] [place] [address] 08 Jun, 2014 [facility] [place] [facility] [address] [id number] [place] [address] 08 Jun, 2013 [facility] [place] [facility] [address] [id number] [place] [address] May, [facility] [place] [facility] [address] [id number] [place] [address] May, [facility] [place] [facility] [address] [id number] [place] [address] May, [facility] [place] [facility] [address] [id number] [place] [address] May, [facility] [place] [facility] [address] [id number] [place] [address] May, [facility] [place] [facility] [address] [id number] [place] [address] May, [facility] [place] [facility] [address] [id number] [place] [address] Apr, [facility] [place] [facility] [address] [id number] [place] [address] Apr, [facility] [place] [facility] [address] [id number] [place] [address] Apr, [facility] [place] [facility] [address] [id number] [place] [address] Apr, [facility] [place] [facility] [address] [id number] [place] [address] Apr, [facility] [place] [facility] [address] [id number] [place] [address] Apr, [facility] [place] [facility] [address] [id number] [place] [address] Mar, [facility] [place] [facility] [address] [id number] [place] [address] Mar, [facility] [place] [facility] [address] [id number] [place] [address] Mar, [facility] [place] [facility] [address] [id number] [place] [address] Mar, [facility] [place] [facility] [address] [id number] [address] Mar, [facility] [place] [facility] [address] [id number] [place] [address] Mar, [facility] [place] [facility] [address] [id number] [place] [address] Mar, [facility] [place] [facility] [address] [id number] [place] [address] Mar, [facility] [place] [facility] [address] [id number] [place] [address] Mar, [facility] [place] [facility] [address] [id number] [place] [address] Mar, [facility] [place] [facility] [address] [id number] [place] [address] Mar, [facility] [place] [facility] [address] [facility] [id number] [place] [address] Mar, [facility] [place] [facility] [address] [facility] [id number] [place] [address] February, [facility] [place] [facility] [address] [facility] [id number] [place] [address] February, [facility] [place] [facility] [address] [facility] [id number] [place] [address] February, [facility] [place] [facility] [address] [id number] [place] [address] Dec, [facility] [place] [facility] [address] [facility] [id number] [place] [address] Dec, [facility] [place] [facility] [address] [id number] [place] [address] Nov, [facility] [place] [facility] [address] [id number] [place] [address] Nov, [facility] [place] [facility] [address] [facility] [id number] [address] Nov, [facility] [place] [facility] [address] [id number] [place] [address] Nov, [facility] [place] [facility] [address] [id number] [place] [address] Nov, [facility] [place] [facility] [address] [id number] [place] [address] Nov, [facility] [place] [facility] [address] [id number] [place] [address] Nov, [facility] [place] [facility] [address] [id number] [place] [address] Nov, [facility] [place] [facility] [address] [id number] [place] [address] Nov, [facility] [place] [facility] [address] [id number] [place] [address] Nov, [facility] [place] [facility] [address] [id number] [place] [address] Oct, [facility] [place] [facility] [address] [id number] [place] [address] Oct, [facility] [place] [facility] [address] [id number] [place] [address] Sep, [facility] [place] [facility] [address] [id number] [place] [address] Sep, [facility] [place] [facility] [address] [id number] [place] [address] 24 Jun, 2013 [facility] [place] [facility] [address] [id number] [place] [address] 17 Jun, 2013 [facility] [place] [facility] [address] [id number] [place] [address] 29 May, 2013 [facility] [place] [facility] [address] [id number] [place] [address] 14 May, 2013 [facility] [place] [facility] [address] [id number] [place] [address] Mar, [facility] [address] [id number] [place] [address] Mar, [facility] [place] [facility] [address] [id number] [place] [address] Mar, [facility] [address] [id number] [place] [address] Mar, [facility] [place] [facility] [address] [id number] [place] [address] Mar, [facility] [address] [id number] [place] [address] Mar, [facility] [place] [facility] [address] [id number] [place] [address] February, [facility] [address] [id number] [place] [address] February, [facility] [address] [id number] [place] [address] Jan, [facility] [address] [id number] [place] [address] Dec, [facility] [place] [facility] [address] [id number] [place] [address] Nov, [facility] [place] [facility] [address] [id number] [place] [address] Nov, [facility] [place] [facility] [address] [id number] [address] Nov, [facility] [place] [facility] [address] [id number] [place] [address] Oct, [facility] [place] [facility] [address] [id number] [place] [address] 15 Oct, 2012 [facility] [address] [id number] [address] Oct, [facility] [place] [address] [id number] [place] [address] Sep, [facility] [place] [facility] [address] [id number] [place] [address] Sep, [facility] [place] [facility] [address] [id number] [place] [address] Sep, [facility] [place] [facility] [address] [id number] [place] [address] Sep, [facility] [place] [facility] [address] [id number] [place] [address] Sep, [facility] [place] [facility] [address] [id number] [place] [address] Sep, [facility] [place] [facility] [address] [id number] [place] [address] Jul, [facility] [place] [facility] [address] [id number] [place] [address] Jul, [facility] [place] [facility] [address] [id number] [place] [address] Jun, [facility] [place] [facility] [address] [id number] [place] [address] May, [facility] [place] [facility] [address] [id number] [place] [address] Apr, [facility] [place] [facility] [address] [id number] [place] [address] Apr, [facility] [address] [id number] [place] [address] Apr, [facility] [place] [facility] [address] [id number] [place] [address] Apr, [facility] [place] [address] [id number] [place] [address] Apr, [facility] [place] [address] [id number] [place] [address] Apr, [facility] [place] [facility] [address] [id number] [place] [address] 18 Mar, 2012 [facility] [place] [facility] [address] [id number] [place] [address] 14 Mar, 2012 [facility] [place] [facility] [address] [id number] [place] [address] Mar, [facility] [place] [facility] [address] [id number] [place] [address] February, [facility] [place] [facility] [address] [id number] [place] [address] Jan, [facility] [place] [facility] [address] [id number] [place] [address] Jan, [facility] [place] [address] [id number] [place] [address] Jan, [facility] [place] [address] [id number] [place] [address] Jan, [facility] [place] [facility] [address] [id number] [place] [address] Dec, [facility] [place] [address] [id number] [place] [address] Dec, [facility] [address] [id number] [place] [address] 16 Dec, 2011 [facility] [address] [id number] [place] [address] 14 Dec, 2011 [facility] [place] [facility] [address] [id number] [place] [address] 16 Nov, 2011 [facility] [place] [address] [id number] [place] [address] 07 Nov, 2011 [facility] [address] [id number] [place] [address] 06 Nov, 2011 [facility] [address] [facility] [id number] [place] [address] Sep, [facility] [address] [facility] [id number] [address] Sep, [facility] [address] [facility] [id number] [place] [address] Aug, [facility] [address] [facility] [id number] [place] [address] Aug, [facility] [address] [facility] [id number] [place] [address] Jul, IMMUNIZATIONS No Known Immunizations SOCIAL HISTORY Never Assessed REASON FOR VISIT Requests return call PLAN OF CARE VITAL SIGNS MEDICATIONS Unknown [...]
--- OUTSIDE RECORDS SUMMARY | 2019-03-26 12:19 | XMS REPORT ---
Author Author 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 Phone [facility] Unavailable PROBLEMS Type Condition ICD9-CM Code [id number] Code Onset Dates Condition Status SNOMED Code Problem Essential hypertension I10 Active 20742138 Problem Generalized anxiety disorder F41.1 Active 41875016 Problem Cyclical vomiting with nausea, intractability of vomiting not specified G43.A0 Active 86234431 Problem Gastroesophageal reflux disease without esophagitis K21.9 Active 823949773 Problem Posttraumatic stress disorder F43.10 Active 69653128 Problem Bipolar affective disorder F31.9 Active [id number] ALLERGIES No Information SOCIAL HISTORY Never Assessed PLAN OF CARE VITAL SIGNS MEDICATIONS Unknown Medications RESULTS No Results PROCEDURES No Known procedures IMMUNIZATIONS No Known Immunizations MEDICAL (GENERAL) HISTORY Type Description Date Medical History Hypertension Medical History PTSD Medical History Anxiety Medical History Esophageal reflux Medical History Hx Narc Alert for Illicit Drug Use Surgical History cholecystectomy Surgical History surgery for head trauma Hospitalization History [place] vomitting
--- OUTSIDE RECORDS SUMMARY | 2019-03-26 12:20 | XMS REPORT ---
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 Name Role Phone [facility] Unavailable PROBLEMS Type Condition ICD9-CM Code [id number] Code Onset Dates Condition Status SNOMED Code Problem Essential hypertension I10 Active 89360310 Problem Generalized anxiety disorder F41.1 Active 13705175 Problem Cyclical vomiting with nausea, intractability of vomiting not specified G43.A0 Active 98177036 Problem Gastroesophageal reflux disease without esophagitis K21.9 Active 540368132 Problem Posttraumatic stress disorder F43.10 Active 89767638 Problem Bipolar affective disorder F31.9 Active [id number] ALLERGIES No Information SOCIAL HISTORY Never Assessed PLAN OF CARE VITAL SIGNS MEDICATIONS Medication Instructions Dosage Frequency Start Date End Date Duration Status Permethrin 5 % Externally Once a day, then again in 7 days 1 application head to toe before bed then wash off thoroughly in the am Nov, Dec, 7 day(s) Active RESULTS No Results PROCEDURES No Known procedures IMMUNIZATIONS No Known Immunizations MEDICAL (GENERAL) HISTORY Type Description Date Medical History Hypertension Medical History PTSD Medical History Anxiety Medical History Esophageal reflux Medical History Hx Narc Alert for Illicit Drug Use Surgical History cholecystectomy Surgical History surgery for head trauma Hospitalization History [place] vomitting
--- OUTSIDE RECORDS SUMMARY | 2019-03-26 12:20 | XMS REPORT ---
Author Author OLGA NIEVES [facility] Address [address] [place] [address] Care Team Providers Care Service Writer Advisor Name Role Phone OLGA NIEVES Unavailable PROBLEMS Type Condition ICD9-CM Code GKK11-ZT Code Onset Dates Condition Status SNOMED Code Problem Essential hypertension I10 Active 63230967 Problem Generalized anxiety disorder F41.1 Active 65650666 Problem Cyclical vomiting with nausea, intractability of vomiting not specified G43.A0 Active 98458042 Problem Gastroesophageal reflux disease without esophagitis K21.9 Active 496570487 Problem Posttraumatic stress disorder F43.10 Active 80387455 Problem Bipolar affective disorder F31.9 Active 02634688 ALLERGIES Substance Reaction Event Type Date Status Lamictal hives Drug Allergy Jul, Active ENCOUNTERS Encounter Location Date Diagnosis [facility] [id number] [place] [address] Jan, Cyclical vomiting with nausea, intractability of vomiting not specified G43.A0 ; Gastroesophageal reflux disease without esophagitis K21.9 and Essential hypertension I10 [facility] [address] [id number] [address] Dec, [address] [id number] [id number] Jul, Dental caries on smooth surface penetrating into pulp K02.[address] [id number] [id number] Jul, Dental examination Z01.[address] [id number][place] [id number] Jul, [facility] [address] [facility] [id number] [id number] May, Dental examination Z01.20 and Periapical abscess K04.7 [facility] [id number] [place] [address] May, [facility] [id number] [place] [address] Dec, Essential hypertension I10 ; Cyclical vomiting with nausea, intractability of vomiting not specified G43.A0 ; Gastroesophageal reflux disease without esophagitis K21.9 and Right inguinal hernia K40.90 [facility] [id number] [place] [address] Nov, [facility] [id number] [place] [address] Nov, [facility] [id number] [place] [address] Aug, [facility] [id number] [place] [address] May, [facility] [id number] [place] [address] May, Generalized anxiety disorder F41.1 and Bipolar affective disorder F31.9 [facility] [id number] [place] [address] May, Generalized anxiety disorder F41.1 [facility] [id number] [place] [address] May, [facility] [id number] [place] [address] Apr, [facility] [id number] [place] [address] Apr, Bipolar affective disorder F31.9 ; Generalized anxiety disorder F41.1 ; Posttraumatic stress disorder F43.10 ; Benzodiazepine abuse F13.10 and Essential hypertension I10 [facility] [id number] [place] [address] Apr, [facility] [address] [id number] [address] 08 Mar, 2016 [facility] [id number] [place] [address] February, [facility] [address] [id number] [address] Jan, [facility] [id number] [place] [address] Jan, [facility] [id number] [place] [address] Jan, Dental examination Z01.20 [facility] [id number] [place] [address] Jan, [facility] [id number] [place] [address] Dec, Bipolar affective disorder F31.9 ; Posttraumatic stress disorder F43.10 ; Generalized anxiety disorder F41.1 and Cannabis use disorder, mild, abuse F12.10 [facility] [address], [place] [address] Dec, [facility] [id number] [place] [address] Nov, [facility] [id number], [place] [address] Nov, [facility] [address], [place] [address] Nov, [facility] [address], [place] [address] 16 Nov, 2015 Dental examination Z01.20 [facility] [address] [id number] 09 Nov, 2015 Dental examination Z01.20 [facility] [address], [place] [address] Oct, [facility] [address], [place] [address] Sep, [facility] [id number] [place] [address] Aug, [facility] [id number] [place] [address] Aug, Essential hypertension I10 ; Dyspepsia K30 and Cyclic vomiting syndrome G43.A0 [facility] [id number] [place] [address] Jul, [facility] [id number] [place] [address] Jul, [facility] [id number] [place] [address] Jul, Bipolar affective disorder F31.9 ; Generalized anxiety disorder F41.1 and Posttraumatic stress disorder F43.10 [facility] [id number] [place] [address] Jun, [facility] [id number] [place] [address] Jun, [facility] [id number] [place] [address] Jun, [facility] [address] [id number] [address] May, [facility] [id number] [place] [address] Apr, [facility] [address], [place] [address] Apr, [facility] [id number] [place] [address] Apr, [facility] [address], [place] [address] Apr, Bipolar mood disorder 296.80 ; Generalized anxiety disorder 300.02 and PTSD (post-traumatic stress disorder) 309.81 [facility] [address] [facility] [id number] [place] [address] February, [facility] [address] [id number] [id number] February, Dental examination V72.2 [facility] [id number], [place] [address] Jan, [facility] [address] [facility] [id number], [place] [address] Jan, [facility] [address] [id number] [place] [address] Dec, [facility] [address] [facility] [id number], [place] [address] Dec, [facility] [address], [place] [address] Dec, [facility] [id number], [place] [address] Dec, [facility] [id number], [place] [address] Dec, [facility] [id number], [place] [address] Dec, [facility] [id number], [place] [address] Dec, [facility] [place] [facility] [address] [facility] [id number], [place] [address] Dec, [facility] [place] [facility] [address] [facility] [id number], [place] [address] Dec, [facility] [place] [facility] [address] [facility] [id number], [place] [address] Dec, [facility] [place] [facility] [address] [id number], [place] [address] Nov, [facility] [place] [facility] [address] [id number] [place] [address] 18 Nov, 2014 [facility] [place] [facility] [address] [id number] [place] [address] Nov, 2014 [facility] [place] [facility] [address] [id number] [place] [address] Nov, 2014 [facility] [place] [facility] [address] [id number] [place] [address] Nov, 2014 [facility] [place] [facility] [address] [id number] [place] [address] Nov, [facility] [place] [facility] [address] [id number] [place] [address] Oct, [facility] [place] [facility] [address] [id number] [place] [address] Oct, [facility] [place] [facility] [address] [id number] [place] [address] Oct, [facility] [place] [facility] [address] [id number] [place] [address] Oct, [facility] [place] [facility] [address] [facility] [id number] [place] [address] Oct, [facility] [place] [facility] [address] [id number] [place] [address] Oct, [facility] [place] [facility] [address] [id number] [place] [address] Sep, [facility] [place] [facility] [address] [id number] [place] [address] Sep, [facility] [place] [facility] [address] [id number] [place] [address] Sep, [facility] [place] [facility] [address] [id number] [place] [address] Sep, [facility] [place] [facility] [address] [id number] [place] [address] Sep, [facility] [place] [facility] [address] [id number] [place] [address] Sep, [facility] [place] [facility] [address] [id number] [place] [address] Sep, [facility] [place] [facility] [address] [facility] [id number] [place] [address] Sep, [facility] [place] [facility] [address] [id number] [place] [address] Sep, [facility] [place] [facility] [address] [id number] [place] [address] Sep, [facility] [place] [facility] [address] [id number] [place] [address] Sep, [facility] [place] [facility] [address] [id number] [place] [address] Sep, [facility] [place] [facility] [address] [id number] [place] [address] Sep, [facility] [place] [facility] [address] [id number] [place] [address] Sep, [facility] [place] [facility] [address] [id number] [place] [address] Sep, [facility] [place] [facility] [address] [id number], [place] [address] Sep, [facility] [place] [facility] [address] [id number], [place] [address] Sep, [facility] [place] [facility] [address] [id number] [place] [address] Sep, [facility] [place] [facility] [address] [id number] [place] [address] Sep, [facility] [place] [facility] [address] [id number], [place] [address] Sep, [facility] [place] [facility] [address] [id number] [place] [address] Sep, [facility] [place] [facility] [address] [id number] [place] [address] Sep, [facility] [place] [facility] [address] [id number] [place] [address] Sep, [facility] [place] [facility] [address] [id number] [place] [address] Sep, [facility] [place] [facility] [address] [id number] [place] [address] Sep, [facility] [place] [facility] [address] [id number] [place] [address] Sep, [facility] [place] [facility] [address] [id number] [place] [address] Aug, [facility] [place] [facility] [address] [id number] [place] [address] Aug, [facility] [place] [facility] [address] [id number] [place] [address] Aug, [facility] [place] [facility] [address] [id number] [place] [address] Aug, [facility] [place] [facility] [address] [facility] [id number] [place] [address] Jul, [facility] [place] [facility] [address] [id number] [place] [address] Jul, [facility] [place] [facility] [address] [id number] [place] [address] Jul, [facility] [place] [facility] [address] [id number] [place] [address] Jul, [facility] [place] [facility] [address] [id number] [place] [address] Jul, [facility] [place] [facility] [address] [id number] [place] [address] Jul, [facility] [place] [facility] [address] [id number] [place] [address] 17 Jul, 2014 [facility] [place] [facility] [address] [id number] [place] [address] 17 Jul, 2014 [facility] [place] [facility] [address] [id number] [place] [address] 14 Jul, 2014 [facility] [place] [facility] [address] [id number] [place] [address] 14 Jul, 2014 [facility] [place] [facility] [address] [id number] [place] [address] 14 Jul, 2014 [facility] [place] [facility] [address] [id number] [place] [address] 14 Jul, 2014 [facility] [place] [facility] [address] [id number] [place] [address] 10 Jul, 2014 [facility] [place] [facility] [address] [id number] [place] [address] 10 Jul, 2014 [facility] [place] [facility] [address] [id number] [place] [address] 11 Jun, 2014 [facility] [place] [facility] [address] [id number] [place] [address] 11 Jun, 2014 [facility] [place] [facility] [address] [id number] [place] [address] 10 Jun, 2013 [facility] [place] [facility] [address] [id number] [place] [address] 10 Jun, 2013 [facility] [place] [facility] [address] [id number] [place] [address] 08 Jun, 2014 [facility] [place] [facility] [address] [id number] [place] [address] 08 Jun, 2013 [facility] [place] [facility] [address] [id number] [place] [address] 15 May, 2014 [facility] [place] [facility] [address] [id number] [place] [address] May, [facility] [place] [facility] [address] [id number] [place] [address] May, [facility] [place] [facility] [address] [id number] [place] [address] May, [facility] [place] [facility] [address] [id number] [place] [address] May, [facility] [place] [facility] [address] [id number] [place] [address] May, [facility] [place] [facility] [address] [id number] [place] [address] Apr, [facility] [place] [facility] [address] [id number] [place] [address] Apr, [facility] [place] [facility] [address] [id number] [place] [address] Apr, [facility] [place] [facility] [address] [id number] [place] [address] Apr, [facility] [place] [facility] [address] [id number] [place] [address] Apr, [facility] [place] [facility] [address] [id number] [place] [address] Apr, [facility] [place] [facility] [address] [id number] [place] [address] Mar, [facility] [place] [facility] [address] [id number] [place] [address] Mar, [facility] [place] [facility] [address] [id number] [place] [address] Mar, [facility] [place] [facility] [address] [id number] [place] [address] Mar, [facility] [place] [facility] [address] [id number] [place] [address] Mar, [facility] [place] [facility] [address] [id number] [place] [address] Mar, [facility] [place] [facility] [address] [id number] [place] [address] Mar, [facility] [place] [facility] [address] [id number] [place] [address] Mar, [facility] [place] [facility] [address] [id number] [place] [address] Mar, [facility] [place] [facility] [address] [id number] [place] [address] Mar, [facility] [place] [facility] [address] [id number] [place] [address] Mar, [facility] [place] [facility] [address] [id number] [place] [address] Mar, [facility] [place] [facility] [address] [id number] [place] [address] February, [facility] [place] [facility] [address] [id number] [place] [address] February, [facility] [place] [facility] [address] [id number] [place] [address] February, [facility] [place] [facility] [address] [id number] [place] [address] Dec, [facility] [place] [facility] [address] [id number] [place] [address] Dec, [facility] [place] [facility] [address] [id number] [place] [address] Nov, [facility] [place] [facility] [address] [id number] [place] [address] Nov, [facility] [place] [facility] [address] [id number] [place] [address] Nov, [facility] [place] [facility] [address] [id number] [place] [address] Nov, [facility] [address] [id number] [place] [address] Nov, [facility] [place] [facility] [address] [id number] [place] [address] Nov, [facility] [place] [facility] [address] [facility] [id number] [place] [address] Nov, [facility] [place] [facility] [address] [id number] [place] [address] Nov, [facility] [place] [facility] [address] [id number] [place] [address] Nov, [facility] [place] [facility] [address] [facility] [id number] [place] [address] Nov, [facility] [id number] [place] [address] Oct, [facility] [place] [facility] [address] [facility] [id number] [place] [address] Oct, [facility] [place] [facility] [id number] [place] [address] Sep, [facility] [place] [facility] [address] [facility] [id number] [place] [address] Sep, [facility] [place] [facility] [address] [facility] [id number] [place] [address] Jun, [facility] [place] [facility] [address] [id number], [place] [address] Jun, [facility] [place] [facility] [address] [id number] [place] [address] May, [facility] [place] [facility] [address] [facility] [id number] [place] [address] May, [facility] [place] [facility] [address] [facility] [id number] [place] [address] Mar, [facility] [place] [facility] [address] [id number] [place] [address] Mar, [facility] [place] [facility] [address] [id number] [place] [address] Mar, [facility] [place] [facility] [address] [id number] [place] [address] Mar, [facility] [place] [facility] [address] [id number] [place] [address] Mar, [facility] [place] [facility] [address] [id number] [place] [address] Mar, [facility] [place] [facility] [address] [id number] [place] [address] February, [facility] [place] [facility] [address] [id number] [place] [address] February, [facility] [place] [facility] [address] [id number] [place] [address] Jan, [facility] [place] [facility] [address] [id number] [place] [address] Dec, [facility] [place] [facility] [address] [id number] [place] [address] Nov, [facility] [place] [facility] [address] [id number] [place] [address] Nov, [facility] [place] [facility] [address] [id number] [place] [address] Nov, [facility] [place] [facility] [address] [id number] [place] [address] Oct, [facility] [place] [facility] [address] [id number] [place] [address] 15 Oct, 2012 [facility] [place] [facility] [address] [id number] [place] [address] Oct, [facility] [place] [facility] [address] [id number] [place] [address] Sep, [facility] [place] [facility] [address] [id number] [place] [address] Sep, [facility] [place] [facility] [address] [id number] [place] [address] Sep, [facility] [place] [facility] [address] [id number] [place] [address] Sep, [facility] [place] [facility] [address] [id number] [place] [address] Sep, [facility] [place] [facility] [address] [id number] [place] [address] Sep, [facility] [place] [facility] [address] [id number] [place] [address] Jul, [facility] [place] [facility] [address] [id number] [place] [address] Jul, [facility] [place] [facility] [address] [id number] [place] [address] Jun, [facility] [place] [facility] [address] [id number] [place] [address] May, [facility] [place] [facility] [address] [id number] [place] [address] Apr, [facility] [place] [facility] [address] [id number] [place] [address] Apr, [facility] [place] [facility] [address] [id number] [place] [address] Apr, [facility] [place] [facility] [address] [id number] [place] [address] Apr, [facility] [place] [facility] [address] [id number] [place] [address] Apr, [facility] [place] [facility] [address] [id number] [place] [address] Apr, [facility] [place] [facility] [address] [id number] [place] [address] 18 Mar, 2012 [facility] [address] [id number] [place] [address] 14 Mar, 2012 [facility] [address] [id number] [place] [address] 11 Mar, 2012 [facility] [address] [id number] [place] [address] February, [facility] [address] [id number] [place] [address] 18 Jan, 2012 [facility] [address] [id number] [place] [address] Jan, [facility] [address] [id number] [place] [address] Jan, [facility] [address] [id number] [place] [address] Jan, [facility] [address] [id number] [place] [address] 20 Dec, 2011 [facility] [address] [id number] [place] [address] 20 Dec, 2011 [facility] [address] [id number] [place] [address] 16 Dec, 2011 [facility] [place] [facility] [address] [id number] [place] [address] 14 Dec, 2011 [facility] [address] [id number] [place] [address] 16 Nov, 2011 [facility] [place] [facility] [address] [id number] [place] [address] 07 Nov, 2011 [facility] [address] [id number] [place] [address] 06 Nov, 2011 [facility] [address] [id number] [place] [address] Sep, [facility] [address] [facility] [id number], [place] [address] Sep, [facility] [address] [facility] [id number], [place] [address] Aug, [facility] [address] [facility] [id number], [place] [address] Aug, [facility] [address] [facility] [id number], [place] [address] Jul, IMMUNIZATIONS No Known Immunizations SOCIAL HISTORY Never Assessed REASON FOR VISIT TE PLAN OF CARE Activity Details Follow Up BELIA/Prophy Reason: VITAL SIGNS Height 71 in 2017-08-23 Heart Rate 81 bpm 2017-08-23 Blood pressure systolic 146 mmHg 2017-08-23 Blood pressure diastolic 102 mmHg 2017-08-23 MEDICATIONS Medication Instructions Dosage Frequency Start Date End Date Duration Status Amitriptyline HCl 100 mg Orally at bedtime 1 tablet Active Pepcid 40 mg Orally Once a day 1 tablet 24h 30 Dec, 2016 30 day(s) Active Motrin IB 800 Orally every 6 hrs 1 tablet as needed 6h 5 days Active Metoprolol Succinate ER 50 MG Orally Once a day 1 tablet 24h 30 Active RESULTS No Results PROCEDURES Procedure Date Ordered Result Body Site SURG REMOVAL ERUPTED TOOTH Aug 23, 2017 INSTRUCTIONS MEDICATIONS ADMINISTERED No Known Medications MEDICAL (GENERAL) HISTORY Type Description Date Medical History Hypertension Medical History PTSD Medical History Anxiety Medical History Esophageal reflux Medical History Hx Narc Alert for Illicit Drug Use Surgical History cholecystectomy Surgical History surgery for head trauma Hospitalization History Cyclic vomitting Hospitalization History [facility]- Gastritis 01/2018
--- OUTSIDE RECORDS SUMMARY | 2019-03-26 12:20 | XMS REPORT ---
Author Author YVROSE WEST [facility] Address [address] [place] [address] Care Team Providers Care Sheet Rock Nailer Name Role Phone YVROSE WEST Unavailable PROBLEMS Type Condition ICD9-CM Code KAW20-QM Code Onset Dates Condition Status SNOMED Code Problem Essential hypertension I10 Active 26159516 Problem Generalized anxiety disorder F41.1 Active 28472448 Problem Cyclical vomiting with nausea, intractability of vomiting not specified G43.A0 Active 93483299 Problem Gastroesophageal reflux disease without esophagitis K21.9 Active 224106706 Problem Posttraumatic stress disorder F43.10 Active 31958880 Problem Bipolar affective disorder F31.9 Active 48660896 ALLERGIES No Information ENCOUNTERS Encounter Location Date Diagnosis [facility] [id number] [place] [address] Jan, [facility] [id number] [place] [address] Dec, [address] [id number] [id number] Jul, Dental caries on smooth surface penetrating into pulp K02.[address] [id number] [id number] Jul, Dental examination Z01.20 [address] [facility] [address] [id number] [id number] Jul, [facility] [address] [place] [id number] May, Dental examination Z01.20 and Periapical abscess K04.7 [facility] [address] [address] May, [facility] [id number] [place] [address] Dec, Essential hypertension I10 ; Cyclical vomiting with nausea, intractability of vomiting not specified G43.A0 ; Gastroesophageal reflux disease without esophagitis K21.9 and Right inguinal hernia K40.90 [facility] [address] [place] [address] Nov, [facility] [address] [address] Nov, [facility] [id number] [place] [address] Aug, [facility] [id number] [place] [address] May, [facility] [id number] [place] [address] May, Generalized anxiety disorder F41.1 and Bipolar affective disorder F31.9 [facility] [id number] [place] [address] May, Generalized anxiety disorder F41.1 [facility] [id number] [place] [address] May, [facility] [id number] [place] [address] Apr, [facility] [id number] [place] [address] Apr, Bipolar affective disorder F31.9 ; Generalized anxiety disorder F41.1 ; Posttraumatic stress disorder F43.10 ; Benzodiazepine abuse F13.10 and Essential hypertension I10 [facility] [id number] [place] [address] Apr, [facility] [id number] [place] [address] Mar, [facility] [id number] [place] [address] February, [facility] [address] [address] Jan, [facility] [id number] [place] [address] Jan, [facility] [id number] [place] [address] Jan, Dental examination Z01.20 [facility] [id number] [place] [address] Jan, [facility] [id number] [place] [address] Dec, Bipolar affective disorder F31.9 ; Posttraumatic stress disorder F43.10 ; Generalized anxiety disorder F41.1 and Cannabis use disorder, mild, abuse F12.10 [facility] [id number] [place] [address] Dec, [facility] [id number] [place] [address] Nov, [facility] [id number] [place] [address] Nov, [facility] [address] [address] Nov, [facility] [address] [address] 16 Nov, 2015 Dental examination Z01.20 [facility] [address] [id number] 09 Nov, 2015 Dental examination Z01.20 [facility] [id number] [place] [address] Oct, [facility] [address] [place] [address] Sep, [facility] [address] [place] [address] Aug, [facility] [address] [address] Aug, Essential hypertension I10 ; Dyspepsia K30 and Cyclic vomiting syndrome G43.A0 [facility] [address] [address] Jul, [facility] [id number] [place] [address] Jul, [facility] [id number] [place] [address] Jul, Bipolar affective disorder F31.9 ; Generalized anxiety disorder F41.1 and Posttraumatic stress disorder F43.10 [facility] [address] [address] Jun, [facility] [address] [place] [address] Jun, [facility] [address], [place] [address] Jun, [facility] [address] [place] [address] May, [facility] [address], [place] [address] Apr, [facility] [address], [place] [address] Apr, [facility] [address], [place] [address] Apr, [facility] [address], [place] [address] Apr, Bipolar mood disorder 296.80 ; Generalized anxiety disorder 300.02 and PTSD (post-traumatic stress disorder) 309.81 [facility] [address], [place] [address] February, [facility] [address] [id number] February, Dental examination V72.2 [facility] [place] [facility] [address] [facility] [id number] [place] [address] 14 Jan, 2015 [facility] [place] [facility] [address] [facility] [id number] [place] [address] Jan, [facility] [place] [facility] [address] [facility] [id number] [place] [address] Dec, [facility] [place] [facility] [address] [facility] [id number] [place] [address] Dec, [facility] [place] [facility] [address] [facility] [id number] [place] [address] Dec, [facility] [place] [facility] [address] [facility] [id number] [place] [address] Dec, [facility] [place] [facility] [id number] [place] [place] [address] Dec, [facility] [place] [facility] [address] [facility] [id number] [place] [address] Dec, [facility] [place] [facility] [id number] [place] [address] Dec, [facility] [place] [facility] [id number] [address] Dec, [facility] [place] [facility] [address] [facility] [id number], [place] [address] Dec, [facility] [place] [facility] [address] [facility] [id number], [place] [address] Dec, [facility] [place] [facility] [address] [facility] [id number], [place] [address] Nov, [facility] [place] [facility] [address] [facility] [id number], [place] [address] Nov, [facility] [place] [facility] [address] [facility] [id number], [place] [address] Nov, 2014 [facility] [place] [facility] [address] [id number] [place] [address] Nov, [facility] [place] [facility] [address] [id number] [place] [address] Nov, [facility] [place] [facility] [address] [id number] [place] [address] Nov, [facility] [place] [facility] [address] [id number], [place] [address] Oct, [facility] [place] [facility] [address] [id number] [place] [address] Oct, [facility] [place] [facility] [address] [id number] [place] [address] Oct, [facility] [place] [facility] [address] [id number] [place] [address] Oct, [facility] [place] [facility] [address] [id number], [place] [address] Oct, [facility] [place] [facility] [address] [id number], [place] [address] Oct, [facility] [place] [facility] [address] [facility] [id number] [place] [address] Sep, [facility] [place] [facility] [address] [id number], [place] [address] Sep, [facility] [place] [facility] [address] [id number], [place] [address] Sep, [facility] [place] [facility] [address] [id number] [place] [address] Sep, [facility] [place] [facility] [address] [id number] [place] [address] Sep, [facility] [place] [facility] [address] [id number] [place] [address] Sep, [facility] [place] [facility] [address] [id number] [place] [address] Sep, 2013 [facility] [address] [id number] [place] [address] Sep, [facility] [place] [facility] [address] [id number] [place] [address] Sep, [facility] [address] [id number] [place] [address] Sep, [facility] [place] [facility] [address] [id number] [place] [address] Sep, [facility] [address] [id number] [place] [address] Sep, [facility] [address] [id number] [place] [address] Sep, [facility] [address] [id number] [place] [address] Sep, [facility] [address] [id number] [place] [address] Sep, [facility] [place] [facility] [address] [id number] [place] [address] Sep, [facility] [address] [id number] [place] [address] Sep, [facility] [place] [facility] [address] [id number] [place] [address] Sep, [facility] [place] [facility] [address] [id number] [place] [address] Sep, [facility] [place] [facility] [address] [id number] [place] [address] Sep, [facility] [place] [facility] [address] [id number] [place] [address] Sep, [facility] [place] [facility] [address] [id number] [place] [address] Sep, [facility] [place] [facility] [address] [id number] [place] [address] Sep, [facility] [place] [facility] [address] [id number] [place] [address] Sep, [facility] [place] [facility] [address] [id number] [place] [address] Sep, [facility] [place] [facility] [address] [id number] [place] [address] Sep, [facility] [place] [facility] [address] [id number] [place] [address] Aug, [facility] [place] [facility] [address] [id number] [place] [address] Aug, [facility] [place] [facility] [address] [id number] [place] [address] Aug, [facility] [place] [facility] [address] [id number] [place] [address] Aug, [facility] [place] [facility] [address] [id number] [place] [address] Jul, [facility] [place] [facility] [address] [id number] [place] [address] Jul, [facility] [place] [facility] [address] [id number] [place] [address] Jul, [facility] [place] [facility] [address] [id number] [place] [address] Jul, [facility] [place] [facility] [address] [id number] [place] [address] Jul, [facility] [place] [facility] [address] [id number] [place] [address] Jul, [facility] [place] [facility] [address] [id number] [place] [address] Jul, [facility] [place] [facility] [address] [id number] [place] [address] 17 Jul, 2014 [facility] [place] [facility] [address] [id number] [place] [address] 14 Jul, 2014 [facility] [place] [facility] [address] [id number] [place] [address] 14 Jul, 2014 [facility] [place] [facility] [address] [id number] [place] [address] 14 Jul, 2014 [facility] [place] [facility] [address] [id number] [place] [address] 14 Jul, 2014 [facility] [place] [facility] [address] [id number] [place] [address] 10 Jul, 2014 [facility] [place] [facility] [address] [id number] [place] [address] 10 Jul, 2014 [facility] [place] [facility] [address] [id number] [place] [address] 11 Jun, 2014 [facility] [place] [facility] [address] [id number] [place] [address] 11 Jun, 2013 [facility] [place] [facility] [address] [id number] [place] [address] 10 Jun, 2014 [facility] [place] [facility] [address] [id number] [place] [address] 10 Jun, 2014 [facility] [place] [facility] [address] [id number] [place] [address] 08 Jun, 2013 [facility] [place] [facility] [address] [id number] [place] [address] 08 Jun, 2013 [facility] [place] [facility] [address] [id number] [place] [address] 15 May, 2014 [facility] [place] [facility] [address] [id number] [place] [address] 15 May, 2014 [facility] [place] [facility] [address] [id number] [place] [address] May, [facility] [place] [facility] [address] [id number] [place] [address] May, [facility] [place] [facility] [address] [id number] [place] [address] May, [facility] [place] [facility] [address] [id number] [place] [address] May, [facility] [place] [facility] [address] [id number] [place] [address] Apr, [facility] [place] [facility] [address] [id number] [place] [address] Apr, [facility] [place] [facility] [address] [id number] [place] [address] Apr, [facility] [place] [facility] [address] [id number] [place] [address] Apr, [facility] [place] [facility] [address] [id number] [place] [address] Apr, [facility] [place] [facility] [address] [id number] [place] [address] Apr, [facility] [place] [facility] [address] [id number] [place] [address] Mar, [facility] [place] [facility] [address] [id number] [place] [address] Mar, [facility] [place] [facility] [address] [id number] [place] [address] Mar, [facility] [place] [facility] [address] [id number] [place] [address] Mar, [facility] [place] [facility] [address] [id number] [place] [address] Mar, [facility] [place] [facility] [address] [id number] [place] [address] Mar, [facility] [place] [facility] [address] [id number] [place] [address] Mar, [facility] [place] [facility] [address] [id number] [place] [address] Mar, [facility] [place] [facility] [address] [id number] [place] [address] Mar, [facility] [place] [facility] [address] [id number] [place] [address] Mar, [facility] [place] [facility] [address] [id number] [place] [address] Mar, [facility] [place] [facility] [address] [id number] [place] [address] Mar, [facility] [place] [facility] [address] [id number] [place] [address] February, [facility] [place] [facility] [address] [id number] [place] [address] February, [facility] [place] [facility] [address] [id number] [place] [address] February, [facility] [place] [facility] [address] [id number] [place] [address] Dec, [facility] [place] [facility] [address] [id number] [place] [address] Dec, [facility] [place] [facility] [address] [id number] [place] [address] Nov, [facility] [place] [facility] [address] [id number] [place] [address] Nov, [facility] [place] [facility] [address] [id number] [place] [address] Nov, [facility] [place] [facility] [address] [id number] [place] [address] Nov, [facility] [place] [facility] [address] [id number] [place] [address] Nov, [facility] [place] [facility] [address] [id number] [place] [address] Nov, [facility] [place] [facility] [address] [id number] [place] [address] Nov, [facility] [place] [facility] [address] [id number] [place] [address] Nov, [facility] [place] [facility] [address] [id number] [place] [address] Nov, [facility] [place] [facility] [address] [id number] [place] [address] Nov, [facility] [place] [facility] [address] [id number] [place] [address] Oct, [facility] [place] [facility] [address] [id number] [place] [address] Oct, [facility] [place] [facility] [address] [id number] [place] [address] Sep, [facility] [place] [facility] [address] [id number] [place] [address] Sep, [facility] [place] [facility] [address] [id number] [place] [address] Jun, [facility] [place] [facility] [address] [id number] [place] [address] Jun, [facility] [place] [facility] [address] [id number] [place] [address] May, [facility] [place] [facility] [address] [id number] [place] [address] May, [facility] [place] [facility] [address] [id number] [place] [address] Mar, [facility] [place] [facility] [address] [id number] [place] [address] Mar, [facility] [place] [facility] [address] [id number] [place] [address] Mar, [facility] [address] [id number] [place] [address] Mar, [facility] [place] [facility] [address] [id number] [place] [address] Mar, [facility] [place] [facility] [address] [id number] [place] [address] Mar, [facility] [place] [facility] [address] [id number] [place] [address] February, [facility] [address] [id number] [place] [address] February, [facility] [address] [id number] [place] [address] Jan, [facility] [place] [facility] [address] [id number] [place] [address] Dec, [facility] [place] [facility] [address] [id number] [place] [address] Nov, [facility] [address] [id number] [place] [address] Nov, [facility] [place] [facility] [address] [id number] [place] [address] Nov, [facility] [address] [id number] [place] [address] Oct, [facility] [place] [facility] [address] [id number] [place] [address] Oct, [facility] [place] [facility] [address] [id number] [place] [address] Oct, [facility] [place] [facility] [address] [id number] [place] [address] Sep, [facility] [place] [facility] [address] [id number] [place] [address] Sep, [facility] [place] [facility] [address] [id number] [place] [address] Sep, [facility] [place] [facility] [address] [id number] [place] [address] Sep, [facility] [place] [facility] [address] [id number] [place] [address] Sep, [facility] [place] [facility] [address] [id number] [place] [address] Sep, [facility] [place] [facility] [address] [id number] [place] [address] Jul, [facility] [place] [facility] [address] [id number] [place] [address] Jul, [facility] [place] [facility] [address] [id number] [place] [address] Jun, [facility] [place] [facility] [address] [id number] [place] [address] May, [facility] [place] [facility] [address] [id number] [place] [address] Apr, [facility] [place] [facility] [address] [id number] [place] [address] Apr, [facility] [place] [facility] [address] [id number] [place] [address] Apr, [facility] [place] [facility] [address] [id number] [place] [address] Apr, [facility] [place] [facility] [address] [id number] [place] [address] Apr, [facility] [place] [facility] [address] [id number] [place] [address] Apr, [facility] [place] [facility] [address] [id number] [place] [address] Mar, [facility] [place] [facility] [address] [id number] [place] [address] Mar, [facility] [place] [facility] [address] [id number] [place] [address] Mar, [facility] [place] [facility] [address] [id number] [place] [address] February, [facility] [place] [facility] [address] [id number] [place] [address] 18 Jan, 2012 [facility] [place] [facility] [address] [id number] [place] [address] Jan, [facility] [place] [facility] [address] [id number] [place] [address] Jan, [facility] [place] [facility] [address] [id number] [place] [address] Jan, [facility] [place] [facility] [address] [id number] [place] [address] Dec, [facility] [place] [facility] [address] [id number] [place] [address] 20 Dec, 2011 [facility] [place] [facility] [address] [id number] [place] [address] 16 Dec, 2011 [facility] [place] [facility] [address] [id number] [place] [address] 14 Dec, 2011 [facility] [place] [facility] [address] [id number] [place] [address] 16 Nov, 2011 [facility] [place] [facility] [address] [id number] [place] [address] 07 Nov, 2011 [facility] [place] [facility] [address] [id number] [place] [address] Nov, [facility] [place] [facility] [address] [id number] [place] [address] Sep, [facility] [place] [facility] [address] [id number] [place] [address] Sep, [facility] [place] [facility] [address] [facility] [id number] [place] [address] Aug, [facility] [address] [facility] [id number] [place] [address] Aug, [facility] [address] [facility] [id number] [place] [address] Jul, IMMUNIZATIONS No Known Immunizations SOCIAL HISTORY [...]
--- OUTSIDE RECORDS SUMMARY | 2019-03-26 12:26 | XMS REPORT | Continuity of Care Document ---
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 10/29/2017 Velasco, Citlaly-Pao W 288.69 OTHER ELEVATED WHITE BLOOD CELL COUNT 10/29/2017, [facility] W 401.9 10/29/2017, [facility] W 535.0 10/29/2017, [facility] W 535.00 10/29/2017 Velasco, [facility] W 791.6 10/29/2017 Velasco, [facility] A A08.4 VIRAL INTESTINAL INFECTION, UNSPECIFIED 10/29/2017 Velasco, [facility] W A09 INFECTIOUS GASTROENTERITIS AND COLITIS, UNSPECIFIED 10/29/2017 Velasco, [facility] W B96.81 HELICOBACTER PYLORI THE CAUSE OF DISEASES CLASSD ELSWHR 10/29/2017, [facility] W D72.828 OTHER ELEVATED WHITE BLOOD CELL COUNT 10/29/2017 Velasco, [facility] W E87.6 HYPOKALEMIA 10/29/2017 Velasco, [facility] W I10 ESSENTIAL (PRIMARY) HYPERTENSION 10/29/2017 Velasco, [facility] W K29.00 ACUTE GASTRITIS WITHOUT BLEEDING 10/29/2017 Velasco, [facility] W R82.4 ACETONURIA 10/30/2017 VILMA MARIN A 535.00 ACUTE GASTRITIS, WITHOUT MENTION OF HEMORRHAGE 10/30/2017 BATTAGLVILMA ARAIZA A K29.00 ACUTE GASTRITIS WITHOUT BLEEDING 02/05/2018 LOOMARKUS PEÑALOZAHEL W 276.8 HYPOPOTASSEMIA 02/05/2018 LOO, SHERON W 535.00 ACUTE GASTRITIS, WITHOUT MENTION OF HEMORRHAGE 02/05/2018 MARKUS LOOHEL W 787.01 NAUSEA WITH VOMITING 02/05/2018 MARKUS LOOHEL W E87.6 HYPOKALEMIA 02/05/2018 LOO, SHERON W K29.00 ACUTE GASTRITIS WITHOUT BLEEDING 02/05/2018 LOO, SHERON W R11.2 NAUSEA WITH VOMITING, UNSPECIFIED 02/07/2018 LOOMARKUS PEÑALOZAHEL W 276.8 HYPOPOTASSEMIA 02/07/2018 MARKUS LOOHEL W 535.00 ACUTE GASTRITIS, WITHOUT MENTION OF HEMORRHAGE 02/07/2018 MARKUS LOOHEL W 787.01 NAUSEA WITH VOMITING 02/07/2018 MARKUS LOOHEL W E87.6 HYPOKALEMIA 02/07/2018 LOOMARKUS PEÑALOZAHEL W K29.00 ACUTE GASTRITIS WITHOUT BLEEDING 02/07/2018 LOO, SHERON W R11.2 NAUSEA WITH VOMITING, UNSPECIFIED 02/07/2018 LOOMARKUS PEÑALOZAHEL W 276.8 HYPOPOTASSEMIA 02/07/2018 LOOMARKUS PEÑALOZAHEL W 535.00 ACUTE GASTRITIS, WITHOUT MENTION OF HEMORRHAGE 02/07/2018 CINDA SHERON W 787.01 NAUSEA WITH VOMITING 02/07/2018 MARKUS LOOHEL W E87.6 HYPOKALEMIA 02/07/2018 LOOMARKUS PEÑALOZAHEL W K29.00 ACUTE GASTRITIS WITHOUT BLEEDING 02/07/2018 LOO, SHERON W R11.2 NAUSEA WITH VOMITING, UNSPECIFIED 02/08/2018 Galen Dawn A 530.81 ESOPHAGEAL REFLUX 02/08/2018 Galen Dawn W 535.00 ACUTE GASTRITIS, WITHOUT MENTION OF HEMORRHAGE 02/08/2018 Galen Dwan W 787.01 NAUSEA WITH VOMITING 02/08/2018 Galen Dawn A K21.9 GASTRO-ESOPHAGEAL REFLUX DISEASE WITHOUT ESOPHAGITIS 02/08/2018 Galen Dawn W K29.00 ACUTE GASTRITIS WITHOUT BLEEDING 02/08/2018 Galen Dawn W R11.2 NAUSEA WITH VOMITING, UNSPECIFIED 04/02/2018 Rico Escobar W 292.89 OTHER SPECIFIED DRUG-INDUCED MENTAL DISORDERS 04/02/2018 Rico Escobar W 787.01 NAUSEA WITH VOMITING 04/02/2018 Rico Escobar W F12.188 CANNABIS ABUSE WITH OTHER CANNABIS-INDUCED DISORDER 04/02/2018 Rico Escobar W R11.2 NAUSEA WITH VOMITING, UNSPECIFIED 04/05/2018 Rico Escobar W 292.89 OTHER SPECIFIED DRUG-INDUCED MENTAL DISORDERS 04/05/2018 Rico Escobar A 787.01 NAUSEA WITH VOMITING 04/05/2018 Rico Escobar W 789.04 ABDOMINAL PAIN, LEFT LOWER QUADRANT 04/05/2018 Rico Escobar W F12.188 CANNABIS ABUSE WITH OTHER CANNABIS-INDUCED DISORDER 04/05/2018 Rico Escobar W R10.32 LEFT LOWER QUADRANT PAIN 04/05/2018 Rico Escobar A R11.2 NAUSEA WITH VOMITING, UNSPECIFIED 04/06/2018 BrorobinbCoco A 558.9 OTHER AND UNSPECIFIED NONINFECTIOUS GASTROENTERITIS AND COLITIS 04/06/2018 Shahzad Fernándezya W 789.02 ABDOMINAL PAIN, LEFT UPPER QUADRANT 04/06/2018 NathanrobinbShahzadya A K52.9 NONINFECTIVE GASTROENTERITIS AND COLITIS, UNSPECIFIED 04/06/2018 Nathanrobinb Coco W R10.12 LEFT UPPER QUADRANT PAIN 02/23/2019 Reina García W 535.00 ACUTE GASTRITIS, WITHOUT MENTION OF HEMORRHAGE 02/23/2019 Hansa Garcíaissa Whitney W K29.00 ACUTE GASTRITIS WITHOUT BLEEDING Procedures Code [place] [address] INDIV PSYTX 45/50 MIN 10/04/2012 90355 PSYCH PHARM MGMT 10/18/2012 89180 UA LONG DIP 11/03/2012 90072 THERAPUTIC INJ SQ/IM 03/12/2013 J1885 TORADOL INJ 03/12/2013 J2550 PHENERGAN INJECTION UP TO 50 MG 03/12/2013 04897 ROUTINE VENIPUNCTURE 04/18/2013 75603 LITHIUM 04/18/2013 78960 TSH 04/18/2013 59894 URINE DRUG SCREEN (IN-HOUSE) 04/01/2014 66008 ROUTINE VENIPUNCTURE 05/23/2014 59765 THERAPUTIC INJ SQ/IM 05/23/2014 J2550 PHENERGAN INJECTION UP TO 50 MG 05/23/2014 69813 CBC 05/23/2014 8332926 GFR CALC (RESULT ONLY) 05/23/2014 13355 CMP 05/23/2014 16553 ROUTINE VENIPUNCTURE 09/26/2014 J2550 PHENERGAN INJECTION UP TO 50 MG 09/26/2014 69695 THERAPUTIC INJ SQ/IM 09/26/2014 88955 HEMOCCULT 09/26/2014 99906 XRAY ABDOMEN 2 VIEWS 09/27/2014 50846 CMP 09/27/2014 67953 AMYLASE 09/27/2014 89895 LIPASE 09/27/2014 52218 PROTEIN E-PHORESIS, SERUM 09/27/2014 86924 CBC 09/27/2014 06599 THERAPUTIC INJ SQ/IM 10/01/2014 J2550 PHENERGAN INJECTION UP TO 50 MG 10/01/2014 96901 UA W/ CULTURE IF INDICATED 10/01/2014 49765 URINE DRUG SCREEN (IN-HOUSE) 10/01/2014 88300 XRAY ANKLE R COMP MIN, 3 VIEWS 12/06/2014 Results Test Result Range Comprehensive metabolic panel - 05/29/16 10:41 Serum or plasma sodium measurement (moles/volume) 139 mmol/L 135-145 Serum or plasma potassium measurement (moles/volume) 4.3 mmol/L 3.6-5.0 Serum or plasma chloride measurement (moles/volume) 101 mmol/L 98-107 Carbon dioxide 23 mmol/L 21-32 Serum or plasma anion gap determination (moles/volume) 15 mmol/L 5-14 Serum or plasma urea nitrogen measurement (mass/volume) 18 mg/dL 7-18 Serum or plasma creatinine measurement (mass/volume) 1.34 mg/dL 0.60-1.30 Serum or plasma urea nitrogen/creatinine mass ratio 13 NRG Serum or plasma creatinine measurement with calculation of estimated glomerular filtration rate > NRG Serum or plasma glucose measurement (mass/volume) 156 mg/dL 70-105 Serum or plasma calcium measurement (mass/volume) 10.4 mg/dL 8.5-10.1 Serum or plasma total bilirubin measurement (mass/volume) 0.7 mg/dL 0.1-1.0 Serum or plasma alkaline phosphatase measurement (enzymatic activity/volume) 84 U/L 40-136 Serum or plasma aspartate aminotransferase measurement (enzymatic activity/volume) 25 U/L 5-34 Serum or plasma alanine aminotransferase measurement (enzymatic activity/volume) 82 U/L 0-55 Serum or plasma protein measurement (mass/volume) 8.7 g/dL 6.4-8.2 Serum or plasma albumin measurement (mass/volume) 5.4 g/dL 3.2-4.5 Lipase - 05/29/16 10:41 Lipase 24 U/L 8-78 Complete blood count (CBC) with automated white blood cell (WBC) differential - 05/29/16 10:41 Blood leukocytes automated count (number/volume) 17.6 10*3/uL 4.3-11.0 Blood erythrocytes automated count (number/volume) 5.52 10*6/uL 4.35-5.85 Venous blood hemoglobin measurement (mass/volume) 16.8 g/dL 13.3-17.7 Blood hematocrit (volume fraction) 47 % 40-54 Automated erythrocyte mean corpuscular volume 86 [foz_us] 80-99 Automated erythrocyte mean corpuscular hemoglobin (mass per erythrocyte) 30 pg 25-34 Automated erythrocyte mean corpuscular hemoglobin concentration measurement (mass/volume) 36 g/dL 32-36 Automated erythrocyte distribution width ratio 12.6 % 10.0- 14.5 Automated blood platelet count (count/volume) 314 10*3/uL 130-400 Automated blood platelet mean volume measurement 11.7 [foz_us] 7.4-10.4 Automated blood neutrophils/100 leukocytes 91 % 42-75 Automated blood lymphocytes/100 leukocytes 6 % 12-44 Blood monocytes/100 leukocytes 3 % 0-12 Automated blood eosinophils/100 leukocytes 0 % 0-10 Automated blood basophils/100 leukocytes 0 % 0-10 Blood neutrophils automated count (number/volume) 15.9 10*3 1.8-7.8 Blood lymphocytes automated count (number/volume) 1.1 10*3 1.0-4.0 Blood monocytes automated count (number/volume) 0.5 10*3 0.0- 1.0 Automated eosinophil count 0.0 10*3/uL 0.0-0.3 Automated blood basophil count (count/volume) 0.0 10*3/uL 0.0-0.1 Blood manual differential performed detection - 05/29/16 10:41 Blood monocytes/100 leukocytes 2 % NRG Manual blood segmented neutrophils/100 leukocytes 93 % NRG Blood band neutrophils/100 leukocytes 0 % NRG Manual blood lymphocytes/100 leukocytes 5 % NRG Manual eosinophils/100 leukocytes in nose 0 % NRG Manual blood basophils/100 leukocytes 0 % NRG Blood erythrocyte morphology finding identification NORMAL NRG Complete urinalysis with reflex to culture - 05/29/16 12:37 Urine color determination YELLOW NRG Urine clarity determination CLEAR NRG Urine pH measurement by test strip 7 5-9 Specific gravity of urine by test strip 1.010 1.016-1.022 Urine protein assay by test strip, semi-quantitative 4+ NEGATIVE Urine glucose detection by automated test strip NEGATIVE NEGATIVE Erythrocytes detection in urine sediment by light microscopy 2+ NEGATIVE Urine ketones detection by automated test strip 3+ NEGATIVE Urine nitrite detection by test strip NEGATIVE NEGATIVE Urine total bilirubin detection by test strip NEGATIVE NEGATIVE Urine urobilinogen measurement by automated test strip (mass/volume) NORMAL NORMAL Urine leukocyte esterase detection by dipstick NEGATIVE NEGATIVE Automated urine sediment erythrocyte count by microscopy (number/high power field) [HPF] NRG Automated urine sediment leukocyte count by microscopy (number/high power field) NONE NRG Bacteria detection in urine sediment by light microscopy NEGATIVE NRG Squamous epithelial cells detection in urine sediment by light microscopy NONE NRG Crystals detection in urine sediment by light microscopy NONE NRG Casts detection in urine sediment by light microscopy NONE NRG Mucus detection in urine sediment by light microscopy SMALL NRG Complete urinalysis with reflex to culture NO NRG Urine drug screening test - 05/29/16 12:37 Urine acetaminophen detection by screening method NEGATIVE NEGATIVE Urine phencyclidine detection by screening method NEGATIVE NEGATIVE Urine benzodiazepines detection by screening method POSITIVE NEGATIVE Urine cocaine detection NEGATIVE NEGATIVE Urine amphetamines detection by screening method NEGATIVE NEGATIVE Urine methamphetamine detection by screening method NEGATIVE NEGATIVE Urine cannabinoids detection by screening method POSITIVE NEGATIVE Urine opiates detection by screening method NEGATIVE NEGATIVE Urine barbiturates detection NEGATIVE NEGATIVE Screening urine tricyclic antidepressants detection POSITIVE NEGATIVE Urine methadone detection by screening method NEGATIVE NEGATIVE Methicillin resistant Staphylococcus aureus (MRSA) screening culture - 02/10/17 11:07 Methicillin resistant Staphylococcus aureus (MRSA) screening culture NEG NRG Urinalysis - 06/19/17 14:10 Icotest N/A Negative Urine-Appearance Clear Clear Urine-Bacteria 1+ Urine-Bilirubin 1+ Negative Urine-Blood 1+ Negative Urine-Color Yellow Colorless-Lt. Yellow Urine-Epithelial Cells 0-5/HPF Urine-Glucose Negative Negative Urine-Ketones 4+ Negative Urine-Leukocytes Negative Negative Urine-Nitrite Negative Negative Urine-pH 6.0 5-8.5 Urine-Protein 3+ Negative Urine-RBC 0-2/HPF Urine-Specific [place] 1.015 1.000-1.030 Urine-WBC Negative Urobilinogen 0.2 E.U./dL 0.2-1.0 Comprehensive Metabolic Panel - 06/20/17 04:13 Albumin 4.5 g/dL 3.6-5.1 ALP 63 U/L 35-130 ALT 42 U/L 6-45 Anion Gap 18 6-14 AST 28 U/L 2-40 BUN 15 mg/dL 5-25 Calcium 9.5 mg/dL 8.3-10.4 Chloride 96 mmol/L 95-114 CO2 23 mEq/L 22-33 Creat 1.01 mg/dL 0.50-1.50 eGFR 84 mL/min/1.73m2 >59 Globulin 2.9 g/dL 2.3-3.5 Glucose 114 mg/dL 70-110 Osmo 279 280-295 Potassium 3.1 mmol/L 3.5-5.3 Sodium 134 mmol/L 134-148 TBil 0.9 mg/dL 0.2-1.2 TP 7.4 g/dL 6.0-8.3 Magnesium - 10/28/17 08:57 Mg++ 2.0 mg/dL 1.6-2.6 Rapid Drug Screen,Medical - 10/28/17 08:57 Amphetamine NEGATIVE NEGATIVE Barbiturates NEGATIVE NEGATIVE Benzodiazepines POSITIVE NEGATIVE Cocaine NEGATIVE NEGATIVE Marijuana POSITIVE NEGATIVE Methylenedioxymethamphetamine NEGATIVE NEGATIVE Opiates NEGATIVE NEGATIVE Oxycodone NEGATIVE NEGATIVE Phencyclidine NEGATIVE NEGATIVE Propoxyphene NEGATIVE NEGATIVE Tricyclic Antidepressant POSITIVE NEGATIVE Lipase - 10/28/17 08:57 Lipase 25 U/L 7-59 Lactic Acid - 10/28/17 12:07 Lactic Acid 11.7 mg/dL 4.5-19.8 Blood Culture - 10/28/17 12:07 PRELIM CULTURE RESULTS Blood Culture Negative, No Growth Day 1 FINAL CULTURE RESULTS Blood Culture Negative, No Growth Day 5 MEDIA PLATED Setup at 12:47 on 10/28/2017 Blood Culture Media Position B25 CULTURE SOURCE left hand Blood Culture - 10/28/17 12:07 PRELIM CULTURE RESULTS Blood Culture Negative, No Growth Day 1 FINAL CULTURE RESULTS Blood Culture Negative, No Growth Day 5 MEDIA PLATED Setup at 12:47 on 10/28/2017 Blood Culture Media Position C45 CULTURE SOURCE r wrist Comprehensive Metabolic Panel - 10/29/17 06:26 Albumin 4.5 g/dL 3.6-5.1 ALP 62 U/L 35-130 ALT 36 U/L 6-45 Anion Gap 16 6-14 AST 25 U/L 2-40 BUN 12 mg/dL 5-25 Calcium 9.3 mg/dL 8.3-10.4 Chloride 102 mmol/L 95-114 CO2 25 mEq/L 22-33 Creat 0.83 mg/dL 0.50-1.50 eGFR 105 mL/min/1.73m2 >59 Globulin 2.6 g/dL 2.3-3.5 Glucose 125 mg/dL 70-110 Osmo 290 280-295 Potassium 3.4 mmol/L 3.5-5.3 Sodium 140 mmol/L 134-148 TBil 0.7 mg/dL 0.2-1.2 TP 7.1 g/dL 6.0-8.3 Comprehensive Metabolic Panel - 10/30/17 14:51 Albumin 4.6 g/dL 3.6-5.1 ALP 64 U/L 35-130 ALT 67 U/L 6-45 Anion Gap 18 6-14 AST 26 U/L 2-40 BUN 14 mg/dL 5-25 Calcium 9.5 mg/dL 8.3-10.4 Chloride 100 mmol/L 95-114 CO2 22 mEq/L 22-33 Creat 1.01 mg/dL 0.50-1.50 eGFR 83 mL/min/1.73m2 >59 Globulin 3.0 g/dL 2.3-3.5 Glucose 107 mg/dL 70-110 Osmo 284 280-295 Potassium 3.3 mmol/L 3.5-5.3 Sodium 137 mmol/L 134-148 TBil 0.7 mg/dL 0.2-1.2 TP 7.6 g/dL 6.0-8.3 Urinalysis - 02/05/18 19:35 Icotest Negative Negative Urine Casts Coarsely granular: 0-2/HPF Urine Crystals Amorphous materials: abundant/HPF Urine Volume Urine Volume Sufficient (10mL) Urine-Appearance Slightly Cloudy Clear Urine-Bacteria Trace Urine-Bilirubin 2+ Negative Urine-Blood 2+ Negative Urine-Color Yellow Colorless-Lt. Yellow Urine-Epithelial Cells 0-5/HPF Urine-Glucose Negative Negative Urine-Ketones Trace Negative Urine-Leukocytes Negative Negative Urine-Mucus 4+ Urine-Nitrite Negative Negative Urine-Other Urine Saved if Culture Needed (48hrs from time of collection) Urine-pH 5.5 5-8.5 Urine-Protein 3+ Negative Urine-RBC 0-3/HPF Urine-Specific [place] >=1.030 1.000-1.030 Urine-WBC 2-5/HPF Urobilinogen 0.2 0.2-1.0 Comprehensive Metabolic Panel - 02/05/18 19:35 Albumin 5.2 g/dL 3.6-5.1 ALP 70 U/L 35-130 ALT 40 U/L 6-45 Anion Gap 22 6-14 AST 20 U/L 2-40 BUN 20 mg/dL 5-25 Calcium 10.3 mg/dL 8.3-10.4 Chloride 96 mmol/L 95-114 CO2 21 mEq/L 22-33 Creat 1.06 mg/dL 0.50-1.50 eGFR 79 mL/min/1.73m2 >59 Globulin 3.1 g/dL 2.3-3.5 Glucose 144 mg/dL 70-110 Osmo 286 280-295 Potassium 3.2 mmol/L 3.5-5.3 Sodium 136 mmol/L 134-148 TBil 1.2 mg/dL 0.2-1.2 TP 8.3 g/dL 6.0-8.3 Lipase - 02/05/18 19:35 Lipase 20 U/L 7-59 BMP - 02/06/18 05:50 Anion Gap 17 6-14 BUN 15 mg/dL 5-25 Calcium 9.1 mg/dL 8.3-10.4 Chloride 102 mmol/L 95-114 CO2 24 mEq/L 22-33 Creat 0.91 mg/dL 0.50-1.50 eGFR 94 mL/min/1.73m2 >59 Glucose 121 mg/dL 70-110 Osmo 291 280-295 Potassium 3.2 mmol/L 3.5-5.3 Sodium 140 mmol/L 134-148 Comprehensive Metabolic Panel - 02/07/18 04:58 Albumin 4.4 g/dL 3.6-5.1 ALP 61 U/L 35-130 ALT 38 U/L 6-45 Anion Gap 18 6-14 AST 19 U/L 2-40 BUN 12 mg/dL 5-25 Calcium 9.3 mg/dL 8.3-10.4 Chloride 102 mmol/L 95-114 CO2 24 mEq/L 22-33 Creat 0.88 mg/dL 0.50-1.50 eGFR 98 mL/min/1.73m2 >59 Globulin 2.4 g/dL 2.3-3.5 Glucose 103 mg/dL 70-110 Osmo 289 280-295 Potassium 3.7 mmol/L 3.5-5.3 Sodium 140 mmol/L 134-148 TBil 1.3 mg/dL 0.2-1.2 TP 6.8 g/dL 6.0-8.3 EKG - 02/08/18 06:28 EKG Complete Comprehensive Metabolic Panel - 04/02/18 06:48 Albumin 4.9 g/dL 3.6-5.1 ALP 65 U/L 35-130 ALT 45 U/L 6-45 Anion Gap 19 6-14 AST 23 U/L 2-40 BUN 15 mg/dL 5-25 Calcium 10.2 mg/dL 8.3-10.4 Chloride 98 mmol/L 95-114 CO2 24 mEq/L 22-33 Creat 1.08 mg/dL 0.50-1.50 eGFR 77 mL/min/1.73m2 >59 Globulin 3.0 g/dL 2.3-3.5 Glucose 138 mg/dL 70-110 Osmo 288 280-295 Potassium 3.3 mmol/L 3.5-5.3 Sodium 138 mmol/L 134-148 TBil 1.1 mg/dL 0.2-1.2 TP 7.9 g/dL 6.0-8.3 Lipase - 04/02/18 06:48 Lipase 34 U/L 7-59 Urinalysis - 04/02/18 08:50 Icotest Negative Negative Urine Volume Urine Volume Sufficient (10mL) Urine Yeast No Yeast present Urine-Appearance Clear Clear Urine-Bacteria Negative Urine-Bilirubin 1+ Negative Urine-Blood Trace-intact Negative Urine-Color Yellow Colorless-Lt. Yellow Urine-Epithelial Cells Rare/HPF Urine-Glucose Negative Negative Urine-Ketones 2+ Negative Urine-Leukocytes Negative Negative Urine-Mucus 1+ Urine-Nitrite Negative Negative Urine-Other Urine Saved if Culture Needed (48hrs from time of collection) Urine-pH 7.0 5-8.5 Urine-Protein 3+ Negative Urine-RBC Rare/HPF Urine-Specific [place] 1.025 1.000-1.030 Urine-WBC Negative Urobilinogen 1.0 E.U./dL 0.2-1.0 Urinalysis - 04/06/18 11:14 Icotest N/A Negative Urine Volume Urine Volume Sufficient (10mL) Urine Yeast No Yeast present Urine-Appearance Clear Clear Urine-Bacteria Negative Urine-Bilirubin Negative Negative Urine-Blood Negative Negative Urine-Color Yellow Colorless-Lt. Yellow Urine-Glucose Negative Negative Urine-Ketones 1+ Negative Urine-Leukocytes Negative Negative Urine-Mucus 1+ Urine-Nitrite Negative Negative Urine-Other Urine Saved if Culture Needed (48hrs from time of collection) Urine-pH 8.5 5-8.5 Urine-Protein 2+ Negative Urine-RBC Negative Urine-Specific [place] 1.015 1.000-1.030 Urine-WBC Rare/HPF Urobilinogen 0.2 E.U./dL 0.2-1.0 Draw Fee[i] - 02/23/19 21:45 Urinalysis - 02/23/19 21:45 Icotest N/A Negative Urine Volume Urine Volume Sufficient (10mL) Urine Yeast No Yeast present Urine-Appearance Clear Clear Urine-Bacteria Negative Urine-Bilirubin Negative Negative Urine-Blood 1+ Negative Urine-Color Yellow Colorless-Lt. Yellow Urine-Glucose Negative Negative Urine-Ketones Negative Negative Urine-Leukocytes Negative Negative Urine-Nitrite Negative Negative Urine-Other Urine Saved if Culture Needed (48hrs from time of collection) Urine-pH 6.0 5-8.5 Urine-Protein 3+ Negative Urine-RBC 2-5/HPF Urine-Specific [place] 1.015 1.000-1.030 Urine-WBC Negative Urobilinogen 0.2 E.U./dL 0.2-1.0 CBC with Auto Diff - 02/23/19 21:45 Baso% 0.20 % 0.00-2.50 Eos 0.0 K/uL 0.0-0.7 Eos% 0.1 % 0.0-7.0 Hct 49.9 % 42.0-52.0 Hgb 17.9 g/dL 14.0-17.0 Lym 2.07 K/uL 0.60-3.40 Lym% 15.0 % 10.0-50.0 MCH 31.0 pg 27.0-31.2 MCHC 35.9 g/dL 32.0-36.0 MCV 86.5 fL 80.0-97.0 [place]% 8.3 % 0.0-12.0 MPV 11.8 fL 7.4-10.0 Mark% 76.4 % 37.0-80.0 Plt 229 K/uL 150-400 RBC 5.77 M/uL 4.20-5.40 RDW 12.9 % 11.6-14.8 WBC 13.81 K/uL 5.00-10.00 Mark 10.55 K/uL 2.00-6.90 [place] 1.1 K/uL 0.0-0.9 Baso 0.0 K/uL 0.0-0.2 Encounters ACCT No. Visit Date/Time Discharge Status Pt. Type Provider Facility Loc./Unit Complaint [id number] 02/06/2015 09:37:00 02/06/2015 23:59:59 CLS Outpatient NATACHA HARRIS DDS [id number] 01/28/2015 09:06:00 01/28/2015 23:59:59 CLS Outpatient CHAPINCITO ANDREA APRN [id number] 12/06/2014 13:16:00 12/06/2014 23:59:59 CLS Outpatient CEASAR BABCOCK DO [id number] 10/31/2014 10:44:00 10/31/2014 23:59:59 CLS Outpatient CHAPINCITO ANDREA APRN [id number] 10/01/2014 11:54:00 10/01/2014 23:59:59 CLS Outpatient CEASAR BABCOCK DO [id number] 10/01/2014 10:57:00 10/01/2014 23:59:59 CLS Outpatient YVROSE WEST APRN [id number] 09/26/2014 15:23:00 09/26/2014 23:59:59 CLS Outpatient CEASAR BABCOCK DO [id number] 09/06/2014 09:39:00 09/06/2014 23:59:59 CLS Outpatient NATACHA HARRIS DDS [id number] 08/10/2014 09:53:00 08/10/2014 23:59:59 CLS Outpatient JONATHAN PACK APRN [id number] 05/23/2014 14:09:00 05/23/2014 23:59:59 CLS Outpatient YVROSE WEST APRN [id number] 04/10/2014 13:48:00 04/10/2014 23:59:59 CLS Outpatient GOETZ RESCUE INSTRUCTORNAIN [id number] 04/01/2014 15:10:00 04/01/2014 23:59:59 CLS Outpatient GOETZ RESCUE INSTRUCTORNAIN [id number] 01/03/2014 09:33:00 01/03/2014 23:59:59 CLS Outpatient GOETZ RESCUE INSTRUCTORNAIN [id number] 10/05/2013 09:50:00 10/05/2013 23:59:59 CLS Outpatient GOETZ [employer]CUE INSTRUCTORNAIN [id number] 07/17/2013 09:40:00 07/17/2013 23:59:59 CLS Outpatient GOETZ RESCUE INSTRUCTORNANI [id number] 01/16/2013 09:49:00 01/16/2013 23:59:59 CLS Outpatient GOETZ RESCUE INSTRUCTORNAIN [id number] 11/21/2012 11:06:00 11/21/2012 23:59:59 CLS Outpatient CEASAR BABCOCK DO [id number] 11/03/2012 10:09:00 11/03/2012 23:59:59 CLS Outpatient TEETEE DECKER MD [id number] 10/18/2012 11:27:00 10/18/2012 23:59:59 CLS Outpatient GOETZ RESCUE INSTRUCTORNAIN Bhagat [id number] 10/04/2012 08:34:00 10/04/2012 23:59:59 CLS Outpatient [id number] 05/10/2013 08:59:00 Document Registration [id number] 04/18/2013 09:23:00 Document Registration [id number] 03/12/2013 16:36:00 Document Registration [id number] 02/23/2019 21:31:00 02/23/2019 23:50:00 DIS Outpatient Reina García [facility] ER [id number] 04/06/2018 10:47:00 04/06/2018 14:45:00 DIS Outpatient Coco Fernández [facility] ER [id number] 04/02/2018 05:59:00 04/05/2018 11:30:00 DIS Outpatient Rico Escobar [facility] MED-SURG [id number] 02/08/2018 06:10:00 02/08/2018 07:00:00 DIS Outpatient Galen Dawn [facility] ER [id number] 02/05/2018 19:04:00 02/07/2018 09:35:00 DIS Outpatient [facility] MED-SURG [id number] 10/30/2017 13:47:00 10/30/2017 17:15:00 DIS Outpatient VILMA MARIN [id number] 10/28/2017 08:23:00 10/29/2017 15:20:00 DIS Outpatient James Velasco [facility] MED-SURG [id number] 06/20/2017 04:00:00 06/21/2017 11:55:00 DIS Outpatient [facility] MED-SURG [id number] 06/19/2017 10:46:00 06/19/2017 15:50:00 [id number]/18[facility]2017 21:55:00 06/18/2017 22:46:00 DIS Outpatient Coco Fernández [id number] 04/23/2017 11:10:00 04/23/2017 12:10:00 [id number] 06/19/2017 00:36:54 Document Registration [id number] 09/05/2016 19:10:00 Document Registration [id number] 02/17/2017 09:35:00 02/17/2017 15:35:00 DIS Outpatient JR ENRIQUE DO [facility] RT. INGUINAL HERNIA, UMBILICAL HERNIA [id number] 02/10/2017 10:48:00 02/10/2017 11:10:00 DIS Outpatient JR ENRIQUE DO [facility] PREOP RIGHT INGUINAL HERNIA, UMBILICAL HERNIA [id number] 05/29/2016 10:35:00 05/29/2016 12:41:00 DIS Emergency NICKO CAMPBELL APRN [facility] ER VOMITING [id number] 12/18/2015 12:51:00 12/18/2015 16:00:00 DIS Emergency NAT JOSEPH MD [facility] ER VOMITING [id number] 12/15/2015 10:36:00 12/15/2015 12:52:00 DIS Emergency NICKO CAMPBELL RESCUE INSTRUCTOR [facility] ER VOMITING [id number] 06/26/2015 09:37:00 06/26/2015 12:32:00 DIS Emergency NICKO CAMPBELL RESCUE INSTRUCTOR [facility] ER VOMITING/ABD PAIN [id number] 06/03/2015 07:13:00 06/04/2015 17:15:00 DIS Inpatient KRISTINA SANTOS MD [facility] 4TH HYPOKALEMIA N/V/D ABD PAIN HYPERTENSIVE URGENCY [id number] 06/02/2015 12:51:00 06/02/2015 15:54:00 DIS Emergency STEPHENIE ANDERSON, MACARENA Ramirez [facility] ER VOMITING [id number] 05/15/2015 17:12:00 05/16/2015 12:30:00 DIS Inpatient CEASAR BABCOCK DO [facility] 4TH [id number] 12/04/2014 05:45:00 12/04/2014 07:11:00 DIS Emergency TREVORMEGHAN Durán DO [facility] ER RT ANKLE PAIN [id number] 03/14/2014 13:10:00 03/15/2014 20:00:00 DIS Inpatient JERONIMO ANDERSON, TEETEE Gipson 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 ER VOMITING [id number] 12/13/2013 09:07:00 12/13/2013 18:00:00 DIS Inpatient TEETEE DECKER MD [facility] 4TH UNCONTROLLED VOMITTING [id number] 06/21/2013 11:32:00 06/27/2013 11:25:00 DIS Inpatient CEASAR BABCOCK DO [facility] 4TH INTRACTABLE VOMITING [id number] 03/18/2013 13:45:00 03/20/2013 12:00:00 DIS Inpatient CEASAR BABCOCK DO [facility] 4TH INTRACTABLE N/V [id number] 03/13/2013 21:20:00 03/14/2013 18:50:00 DIS Inpatient JERONIMO ANDERSON, TEETEE Gipson [facility] 4TH DEHYDRATION,PERSISTANT VOMITING [id number] 02/27/2013 23:50:00 02/28/2013 01:06:00 DIS Emergency MEGHAN MURRAY DO [facility] ER RT HAND LAC [id number] 05/16/2015 12:18:00 Document Registration [id number] 05/16/2015 12:18:00 Document Registration [id number] 05/16/2015 12:17:00 Document Registration [id number] 11/30/2012 16:55:00 Document Registration [id number] 11/03/2012 12:13:00 Document Registration [id number] 10/19/2012 15:11:00 Document Registration [id number] 03/05/2012 18:18:00 Document Registration [id number] 01/30/2012 09:31:00 Document Registration [id number] 04/01/2011 13:29:00 Document Registration [id number] 02/23/2019 21:31:00 Document Registration
[2019-03-26] MEDS ORDERED: ONDANSETRON 4 MG/2 ML (SDV) Z0FRAN IVP ONE (12:30)
[2019-03-26] MEDS ORDERED: KETOROLAC 30 MG/ML VIAL IVP ONE (12:30)
[2019-03-26] MEDS ORDERED: NS IV 1000 ML 1,000 ML IV SCH ×2 (12:30→14:00)
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
[2019-03-26 13:07] LABS: BASOPHILS % (AUTO) 0 % (0-10); EOSINOPHILS % (AUTO) 0 % (0-10); HEMATOCRIT 47 % (40-54); HEMOGLOBIN 16.4 G/DL (13.3-17.7); LYMPHOCYTES # (AUTO) 0.7 X 10^3 (1.0-4.0); LYMPHOCYTES % (AUTO) 7 % (12-44); MEAN CORPUSCULAR HEMOGLOBIN 30 PG (25-34); MEAN CORPUSCULAR HGB CONC 35 G/DL (32-36); MEAN CORPUSCULAR VOLUME 86 FL (80-99); MEAN PLATELET VOLUME 12.1 FL (7.4-10.4); MONOCYTES # (AUTO) 0.3 X 10^3 (0.0-1.0); MONOCYTES % (AUTO) 3 % (0-12); NEUTROPHILS # (AUTO) 8.8 X 10^3 (1.8-7.8); NEUTROPHILS % (AUTO) 90 % (42-75); PLATELET COUNT 171 10^3/uL (130-400); WHITE BLOOD COUNT 9.8 10^3/uL (4.3-11.0)
[2019-03-26 13:30] LABS: ALANINE AMINOTRANSFERASE 18 U/L (0-55); ALBUMIN 5.1 GM/DL (3.2-4.5); ALKALINE PHOSPHATASE 60 U/L (40-136); AMYLASE 48 U/L (25-125); BILIRUBIN,TOTAL 0.5 MG/DL (0.1-1.0); BUN/CREATININE RATIO 16; CALCIUM 10.1 MG/DL (8.5-10.1); CARBON DIOXIDE 22 MMOL/L (21-32); CHLORIDE 106 MMOL/L (98-107); CREATININE SERUM 0.97 MG/DL (0.60-1.30); GFR ESTIMATED > 60; GLUCOSE 144 MG/DL (70-105); LIPASE 16 U/L (8-78); POTASSIUM 3.7 MMOL/L (3.6-5.0); SODIUM 139 MMOL/L (135-145); TOTAL PROTEIN 7.9 GM/DL (6.4-8.2)
[2019-03-26 13:37] LABS: BAND NEUTROPHILS 0 %; LYMPHOCYTES % (MANUAL) 12 %; MONOCYTES % (MANUAL) 0 %; NEUTROPHILS % (MANUAL) 88 %; RBC MORPH NORMAL
[2019-03-26] MEDS ORDERED: PROMETHAZINE INJ 25 MG/ML (PHENERGAN) AMP IVP ONE (14:00)
[2019-03-26] MEDS ORDERED: HOLD METFORMIN - RECEIVED CONTRAST 20 ML VIAL IV SCH (14:00)
[2019-03-26] MEDS ORDERED: IOHEXOL 350 MG/ML 100 ML (OMNIPAQUE 350) VIAL IV ONE (14:00)
[2019-03-26] MEDS ORDERED: LORazepam INJ 2 MG/ML (ATIVAN) VIAL ONE (14:25)
[2019-03-26] MEDS ORDERED: LORazepam INJ 2 MG/ML (ATIVAN) VIAL IVP ONE (14:30)
--- NOTE | 2019-03-26 15:11 | Diagnostic Imaging Report ---
PROCEDURE: CT abdomen and pelvis with contrast. TECHNIQUE: Multiple contiguous axial images were obtained through the abdomen and pelvis after administration of intravenous contrast. Auto Exposure Controls were utilized during the CT exam to meet ALARA standards for radiation dose reduction. INDICATION: Nausea and vomiting as well as abdominal pain. COMPARISON: Correlation is made with prior CT from 06/26/2015. FINDINGS: The lung bases are clear. The liver demonstrates generalized low density consistent with hepatic steatosis. No discrete liver mass is identified. The gallbladder is surgically absent. No biliary duct dilatation is seen. The pancreas and spleen are unremarkable. No adrenal mass is identified. There may be a tiny nonobstructing calculus in the left mid kidney. No hydronephrosis is seen. Aorta is non-aneurysmal. The small and large bowel loops are normal in caliber. Appendix is unremarkable. No inflammatory changes are seen. There is no ascites. The bladder is unremarkable. IMPRESSION: 1. Unremarkable CT of the abdomen and pelvis with contrast apart from hepatic steatosis. No acute feature is detected. Dictated by: Dictated on workstation # [id number]
[2019-03-26 15:44] LABS: BILIRUBIN,URINE NEGATIVE (NEGATIVE); CLARITY,URINE CLEAR; COLOR,URINE YELLOW; GLUCOSE, URINE (UA) NEGATIVE (NEGATIVE); KETONES,URINE 3+ (NEGATIVE); LEUKOCYTE ESTERASE ,URINE NEGATIVE (NEGATIVE); NITRITE,URINE NEGATIVE (NEGATIVE); PH,URINE 8 (5-9); PROTEIN,URINE 4+ (NEGATIVE); UROBILINOGEN,URINE NORMAL (NORMAL)
[2019-03-26] MEDS ORDERED: SCOPOLAMINE 1.5 MG (TRANSDERM-SCOP) PATCH TD ONE (15:45)
[2019-03-26 16:00] LABS: BACTERIA,URINE TRACE /HPF
[2019-03-26] MEDS ORDERED: METOCLOPRAMIDE INJ 10 MG/2 ML (REGLAN) IVP ONE (16:00)
[2019-03-26 16:08] LABS: CANNABINOID SCREEN, URINE POSITIVE (NEGATIVE); COCAINE SCREEN URINE NEGATIVE (NEGATIVE); METHAMPHETAMINE SCREEN URINE S NEGATIVE (NEGATIVE)
[2019-03-26 16:09] LABS: AMPHETAMINE SCREEN, URINE NEGATIVE (NEGATIVE); BARBITURATE SCREEN URINE NEGATIVE (NEGATIVE); BENZODIAZEPINES SCREEN URINE POSITIVE (NEGATIVE); METHADONE STAT NEGATIVE (NEGATIVE); OPIATE SCREEN URINE POSITIVE (NEGATIVE); OXYCODONE STAT NEGATIVE (NEGATIVE); PROPOXYPHENE STAT NEGATIVE (NEGATIVE); TRICYCLIC ANTIDEPRESSANTS SCRE NEGATIVE (NEGATIVE)
[2019-03-26] MEDS ORDERED: PROM25TA14 PO (16:20)
[2019-03-26] MEDS ORDERED: ONDA4TAB11 PO (16:20)
[2019-03-26 16:45] VITALS: BP 170/87
== END 2019-03-26 16:45 | disposition home or self-care (01) ==
LOC: EDUNIT# 12:00 → ER 12:01
DX: R11.2 Nausea with vomiting, unspecified (principal); F12.188 Cannabis abuse with other cannabis-induced disorder; F19.10 Other psychoactive substance abuse, uncomplicated; E78.00 Pure hypercholesterolemia, unspecified; I10 Essential (primary) hypertension; G43.909 Migraine, unspecified, not intractable, without status migrainosus; G40.909 Epilepsy, unspecified, not intractable, without status epilepticus; F41.9 Anxiety disorder, unspecified; F43.10 Post-traumatic stress disorder, unspecified; F31.9 Bipolar disorder, unspecified; F60.9 Personality disorder, unspecified; K21.9 Gastro-esophageal reflux disease without esophagitis; B19.20 Unspecified viral hepatitis C without hepatic coma; F12.10 Cannabis abuse, uncomplicated; Z87.820 Personal history of traumatic brain injury; Z82.49 Family history of ischemic heart disease and other diseases of the circulatory system
CPT/HCPCS: 36415; 74177; 80053; 80306; 81000; 82150; 83690; 85007; 85027; 96361; 96374; 96375

== ENCOUNTER → 2020-08-29 | Outpatient (CLI) | payer SELFPAY ==
[~2020-08-29] MED LIST changes: +HOLD METFORMIN - RECEIVED CONTRAST 20 ML VIAL IV SCH; +IOHEXOL 350 MG/ML 100 ML (OMNIPAQUE 350) VIAL IV ONE; +NS 100 ML (IVPB) BAG IV ONE; +ONDA4TAB11 PO; +PROM25TA14 PO
--- NOTE | 2020-08-29 13:54 | Diagnostic Imaging Report ---
PROCEDURE: CT neck soft tissue with contrast. TECHNIQUE: Multiple contiguous axial images were obtained through the neck after the administration of contrast. Auto Exposure Controls were utilized during the CT exam to meet ALARA standards for radiation dose reduction. INDICATION: Right-sided anterior neck pain and difficulty swallowing. COMPARISON: No prior CT neck studies are available for comparison. FINDINGS: Visualized intracranial structures are unremarkable. Posterior nasopharynx is unremarkable. Oropharynx is unremarkable. Parapharyngeal fat planes are unremarkable. The epiglottis and larynx are unremarkable. No thyroid masses are seen. Submandibular and parotid glands appear to be symmetric bilaterally. Normal-sized lymph nodes in the jugulodigastric spaces are noted. No cervical lymphadenopathy is seen. No fluid collection is detected. IMPRESSION: Unremarkable CT soft tissue neck with contrast. No neck mass or lymphadenopathy is identified. Dictated by: Dictated on workstation # [id number]
== END ==
LOC: RAD 12:44
PROVIDERS: ATTEND Nurse Practitioner Family
DX: M54.2 Cervicalgia (principal); K22.9 Disease of esophagus, unspecified; R49.9 Unspecified voice and resonance disorder
CPT/HCPCS: 70491

== ENCOUNTER 2021-02-15 12:32 | Emergency (ER) | payer SELFPAY ==
[~2021-02-15] VITALS: Ht 180.3 cm; Wt 189.5 kg
[~2021-02-15 12:32] MED LIST changes: -HOLD METFORMIN - RECEIVED CONTRAST 20 ML VIAL IV SCH; -IOHEXOL 350 MG/ML 100 ML (OMNIPAQUE 350) VIAL IV ONE; -NS 100 ML (IVPB) BAG IV ONE
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
[2021-02-15] MEDS ORDERED: HYDROmorphone 2 MG/ML VIAL (DILAUDID) IV ONE (13:15)
[2021-02-15] MEDS ORDERED: ONDANSETRON 4 MG/2 ML (SDV) Z0FRAN IVP ONE (13:15)
[2021-02-15] MEDS ORDERED: HALOPERIDOL 5 MG/ML (HALDOL) VIAL IM ONE (13:15)
[2021-02-15 13:28] LABS: BASOPHILS # (AUTO) 0.1 10^3/uL (0.0-0.1); BASOPHILS % (AUTO) 0 % (0-10); EOSINOPHILS % (AUTO) 0 % (0-10); HEMATOCRIT 49 % (40-54); HEMOGLOBIN 16.7 g/dL (13.3-17.7); LYMPHOCYTES # (AUTO) 1.9 10^3/uL (1.0-4.0); LYMPHOCYTES % (AUTO) 13 % (12-44); MEAN CORPUSCULAR HEMOGLOBIN 31 pg (25-34); MEAN CORPUSCULAR HGB CONC 34 g/dL (32-36); MEAN CORPUSCULAR VOLUME 89 fL (80-99); MEAN PLATELET VOLUME 11.7 fL (9.0-12.2); MONOCYTES % (AUTO) 7 % (0-12); NEUTROPHILS # (AUTO) 11.4 10^3/uL (1.8-7.8); NEUTROPHILS % (AUTO) 79 % (42-75); PLATELET COUNT 255 10^3/uL (130-400); WHITE BLOOD COUNT 14.3 10^3/uL (4.3-11.0)
[2021-02-15 13:31] LABS: ALANINE AMINOTRANSFERASE 100 U/L (0-55); ALBUMIN 4.5 GM/DL (3.2-4.5); ALKALINE PHOSPHATASE 64 U/L (40-136); BILIRUBIN,TOTAL 0.8 MG/DL (0.1-1.0); BUN/CREATININE RATIO 10; CALCIUM 9.2 MG/DL (8.5-10.1); CARBON DIOXIDE 23 MMOL/L (21-32); CHLORIDE 100 MMOL/L (98-107); CREATININE SERUM 1.05 MG/DL (0.60-1.30); GFR ESTIMATED > 60; GLUCOSE 123 MG/DL (70-105); LIPASE 30 U/L (8-78); POTASSIUM 3.4 MMOL/L (3.6-5.0); SODIUM 137 MMOL/L (135-145); TOTAL PROTEIN 7.6 GM/DL (6.4-8.2)
[2021-02-15 13:40] LABS: BAND NEUTROPHILS 1 %; LYMPHOCYTES % (MANUAL) 13 %; MONOCYTES % (MANUAL) 8 %; NEUTROPHILS % (MANUAL) 78 %
[2021-02-15 13:41] LABS: RBC MORPH NORMAL
[2021-02-15] MEDS ORDERED: NS IV 1000 ML 1,000 ML IV SCH (14:00)
[2021-02-15] MEDS ORDERED: LORazepam INJ 2 MG/ML (ATIVAN) VIAL IVP ONE (14:00)
[2021-02-15] MEDS ORDERED: PROM25TA14 PO (15:05)
[2021-02-15] MEDS ORDERED: CYCL10TA9 PO (15:05)
[2021-02-15 15:19] VITALS: BP 146/96
== END 2021-02-15 15:19 | disposition home or self-care (01) ==
LOC: EDUNIT# 12:32 → ER 12:33
DX: R11.2 Nausea with vomiting, unspecified (principal); I10 Essential (primary) hypertension; Z87.820 Personal history of traumatic brain injury
CPT/HCPCS: 36415; 80053; 83690; 85007; 85027; 93005

== ENCOUNTER 2021-02-19 11:32 | Emergency (ER) | payer SELFPAY ==
[~2021-02-19] VITALS: Ht 187 cm; Wt 116.0 kg
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
[2021-02-19] MEDS ORDERED: HALOPERIDOL 5 MG/ML (HALDOL) VIAL IV ONE (11:45)
[2021-02-19] MEDS ORDERED: diphenhydrAMINE 50 MG/ML INJ (BENADRYL) IVP PRN (11:45)
[2021-02-19] MEDS ORDERED: NS IV 1000 ML 1,000 ML IV SCH (11:45)
[2021-02-19 12:00] LABS: BASOPHILS # (AUTO) 0.1 10^3/uL (0.0-0.1); BASOPHILS % (AUTO) 1 % (0-10); EOSINOPHILS # (AUTO) 0.1 10^3/uL (0.0-0.3); EOSINOPHILS % (AUTO) 0 % (0-10); HEMATOCRIT 47 % (40-54); HEMOGLOBIN 16.1 g/dL (13.3-17.7); LYMPHOCYTES # (AUTO) 1.1 10^3/uL (1.0-4.0); LYMPHOCYTES % (AUTO) 10 % (12-44); MEAN CORPUSCULAR HEMOGLOBIN 30 pg (25-34); MEAN CORPUSCULAR HGB CONC 34 g/dL (32-36); MEAN CORPUSCULAR VOLUME 89 fL (80-99); MEAN PLATELET VOLUME 11.8 fL (9.0-12.2); MONOCYTES # (AUTO) 0.7 10^3/uL (0.0-1.0); MONOCYTES % (AUTO) 6 % (0-12); NEUTROPHILS # (AUTO) 9.8 10^3/uL (1.8-7.8); NEUTROPHILS % (AUTO) 83 % (42-75); PLATELET COUNT 220 10^3/uL (130-400); WHITE BLOOD COUNT 11.9 10^3/uL (4.3-11.0)
[2021-02-19 12:16] LABS: ALANINE AMINOTRANSFERASE 82 U/L (0-55); ALBUMIN 4.7 GM/DL (3.2-4.5); ALKALINE PHOSPHATASE 61 U/L (40-136); BILIRUBIN,TOTAL 0.7 MG/DL (0.1-1.0); BUN/CREATININE RATIO 11; CALCIUM 9.2 MG/DL (8.5-10.1); CARBON DIOXIDE 26 MMOL/L (21-32); CHLORIDE 103 MMOL/L (98-107); CREATININE SERUM 0.92 MG/DL (0.60-1.30); GFR ESTIMATED > 60; GLUCOSE 112 MG/DL (70-105); LIPASE 39 U/L (8-78); POTASSIUM 3.9 MMOL/L (3.6-5.0); SODIUM 139 MMOL/L (135-145); TOTAL PROTEIN 7.5 GM/DL (6.4-8.2)
[2021-02-19 12:20] LABS: BILIRUBIN,URINE NEGATIVE (NEGATIVE); CLARITY,URINE CLEAR; COLOR,URINE YELLOW; GLUCOSE, URINE (UA) NEGATIVE (NEGATIVE); KETONES,URINE 1+ (NEGATIVE); LEUKOCYTE ESTERASE ,URINE NEGATIVE (NEGATIVE); NITRITE,URINE NEGATIVE (NEGATIVE); PH,URINE 8.5 (5-9); PROTEIN,URINE 2+ (NEGATIVE)
[2021-02-19] MEDS ORDERED: PROC25SU27 RC (12:23)
[2021-02-19 12:28] LABS: AMORPHOUS SEDIMENT,UR MOD AMOR PHOSPHATE /LPF; BACTERIA,URINE NEGATIVE /HPF
[2021-02-19] MEDS ORDERED: NS 100 ML (IVPB) BAG IV ONE (12:30)
[2021-02-19] MEDS ORDERED: IOHEXOL 350 MG/ML 100 ML (OMNIPAQUE 350) VIAL IV ONE (12:30)
[2021-02-19] MEDS ORDERED: HOLD METFORMIN - RECEIVED CONTRAST 20 ML VIAL IV SCH (12:30)
[2021-02-19 12:36] LABS: AMPHETAMINE SCREEN, URINE NEGATIVE (NEGATIVE); BARBITURATE SCREEN URINE POSITIVE (NEGATIVE); BENZODIAZEPINES SCREEN URINE POSITIVE (NEGATIVE); CANNABINOID SCREEN, URINE POSITIVE (NEGATIVE); COCAINE SCREEN URINE NEGATIVE (NEGATIVE); METHADONE STAT NEGATIVE (NEGATIVE); METHAMPHETAMINE SCREEN URINE S NEGATIVE (NEGATIVE); OPIATE SCREEN URINE NEGATIVE (NEGATIVE); OXYCODONE STAT NEGATIVE (NEGATIVE); PROPOXYPHENE STAT NEGATIVE (NEGATIVE); TRICYCLIC ANTIDEPRESSANTS SCRE NEGATIVE (NEGATIVE)
[2021-02-19] MEDS ORDERED: hydrALAZINE (APESOLINE) 20 MG/ML VIAL IV ONE (13:00)
[2021-02-19 13:49] VITALS: BP 148/85
--- NOTE | 2021-02-19 14:08 | Diagnostic Imaging Report ---
PROCEDURE: CT abdomen and pelvis with contrast. TECHNIQUE: Multiple contiguous axial images were obtained through the abdomen and pelvis after administration of intravenous contrast. Auto Exposure Controls were utilized during the CT exam to meet ALARA standards for radiation dose reduction. All CT scans use one or more of the following dose optimizing techniques: automated exposure control, MA and/or KvP adjustment based on patient size and exam type or iterative reconstruction. INDICATION: Vomiting. FINDINGS: The previous CT abdomen/pelvis exam performed on 03/26/2019 failed to show any sign of an acute abnormality. On this exam, the liver is borderline enlarged measuring 19.4 cm in length. The liver is of lower density than usually seen and this does suggest hepatic steatosis. The liver does seem stable when compared to the prior exam. There is still no solid mass identified. As noted on the previous study, the gallbladder is surgically absent. The common bile duct is not dilated. The spleen, pancreas, adrenals, kidneys, aorta and inferior vena cava, and portal vein are unremarkable for an acute abnormality. The stomach is partially filled with fluid and consequently difficult to assess. The colon is not well distended and difficult to evaluate. The colon does not appear to have changed significantly since the prior study. The appendix was visualized and is not abnormally thickened. There is no pelvic mass or free fluid collection evident. The urinary bladder and prostate gland are grossly unremarkable. The bone windows show no sign of a fracture or of a destructive lesion. The lung bases are clear. IMPRESSION: 1. There is still no evidence for an acute abnormality in the abdomen or pelvis. 2. The gallbladder is surgically absent. 3. There is borderline hepatomegaly with hepatic steatosis. 4. These results were discussed with Deric Squires APRN. Dictated by: Dictated on workstation # [id number]
== END 2021-02-19 13:49 | disposition home or self-care (01) ==
LOC: EDUNIT# 11:32 → ER 11:33
DX: R11.2 Nausea with vomiting, unspecified (principal); I10 Essential (primary) hypertension; G43.909 Migraine, unspecified, not intractable, without status migrainosus; F41.9 Anxiety disorder, unspecified; Z87.820 Personal history of traumatic brain injury; Z79.899 Other long term (current) drug therapy
CPT/HCPCS: 36415; 74177; 80053; 80306; 81000; 83690; 85025

== ENCOUNTER 2023-06-07 11:48 | Observation (INO) | payer SELFPAY ==
[~2023-06-07] VITALS: Ht 185.4 cm; Wt 90.7 kg
[~2023-06-07 11:48] MED LIST changes: +CYCL10TA25 PO; +POTA-330 PO; -POTA-51 PO; +PROC25SU27 RC
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
[2023-06-07] MEDS ORDERED: DroPERidol INJECTION 5 MG/2 ML (ED ONLY!) IV ONE (12:30)
[2023-06-07] MEDS ORDERED: diphenhydrAMINE INJ 50 MG/ML VIAL IVP ONE (12:30)
[2023-06-07] MEDS ORDERED: HOLD METFORMIN - RECEIVED CONTRAST 20 ML VIAL IV SCH (12:30)
[2023-06-07] MEDS ORDERED: NS IV 1000 ML 1,000 ML IV SCH (12:30)
[2023-06-07] MEDS ORDERED: PANTOPRAZOLE INJECTION 40 MG VIAL IV ONE (12:30)
[2023-06-07] MEDS ORDERED: IOHEXOL 350 MG/ML 100 ML (OMNIPAQUE 350) VIAL IV ONE (12:30)
[2023-06-07] MEDS ORDERED: NS 100 ML (IVPB) BAG IV ONE (12:30)
[2023-06-07] MEDS ORDERED: fentaNYL INJECTION 100 MCG/2 ML VIAL IVP ONE ×2 (12:30→14:30)
[2023-06-07 12:45] LABS: BASOPHILS % (AUTO) 0 % (0-10); EOSINOPHILS % (AUTO) 0 % (0-10); HEMATOCRIT 49 % (40-54); HEMOGLOBIN 17.2 g/dL (13.3-17.7); LYMPHOCYTES # (AUTO) 1.9 10^3/uL (1.0-4.0); LYMPHOCYTES % (AUTO) 14 % (12-44); MEAN CORPUSCULAR HEMOGLOBIN 31 pg (25-34); MEAN CORPUSCULAR HGB CONC 35 g/dL (32-36); MEAN CORPUSCULAR VOLUME 87 fL (80-99); MEAN PLATELET VOLUME 11.6 fL (9.0-12.2); MONOCYTES # (AUTO) 1.1 10^3/uL (0.0-1.0); MONOCYTES % (AUTO) 9 % (0-12); NEUTROPHILS # (AUTO) 10.1 10^3/uL (1.8-7.8); NEUTROPHILS % (AUTO) 77 % (42-75); PLATELET COUNT 193 10^3/uL (130-400); WHITE BLOOD COUNT 13.1 10^3/uL (4.3-11.0)
[2023-06-07 12:52] LABS: CHLORIDE 102 MMOL/L (98-107); POTASSIUM 2.9 MMOL/L (3.6-5.0); SODIUM 138 MMOL/L (135-145)
[2023-06-07 12:53] LABS: CALCIUM 9.5 MG/DL (8.5-10.1)
[2023-06-07 12:54] LABS: GLUCOSE 114 MG/DL (70-105)
[2023-06-07 12:55] LABS: TOTAL PROTEIN 7.7 GM/DL (6.4-8.2)
[2023-06-07 12:56] LABS: BILIRUBIN,TOTAL 1.3 MG/DL (0.1-1.0); CARBON DIOXIDE 24 MMOL/L (21-32)
[2023-06-07 12:58] LABS: ALKALINE PHOSPHATASE 62 U/L (40-136); CREATININE SERUM 0.99 MG/DL (0.60-1.30); GFR ESTIMATED 98
[2023-06-07 12:59] LABS: BUN/CREATININE RATIO 14
[2023-06-07 13:01] LABS: ALANINE AMINOTRANSFERASE 14 U/L (0-55); LIPASE 20 U/L (8-78)
[2023-06-07 13:08] LABS: BILIRUBIN,URINE NEGATIVE (NEGATIVE); CLARITY,URINE CLEAR; COLOR,URINE YELLOW; GLUCOSE, URINE (UA) NEGATIVE (NEGATIVE); KETONES,URINE NEGATIVE (NEGATIVE); NITRITE,URINE NEGATIVE (NEGATIVE); PH,URINE 5.5 (5-9); PROTEIN,URINE NEGATIVE (NEGATIVE)
[2023-06-07 13:09] LABS: BACTERIA,URINE NEGATIVE /HPF; LEUKOCYTE ESTERASE ,URINE NEGATIVE (NEGATIVE); RBC,URINE RARE /HPF; SQUAMOUS EPITHELIAL CELL,UR RARE /HPF
[2023-06-07] MEDS ORDERED: POTASSIUM CHLORIDE 20 MEQ TABLET PO ONE (13:30)
--- NOTE | 2023-06-07 13:37 | Diagnostic Imaging Report ---
CT ABDOMEN/PELVIS W TECHNIQUE: Multiple contiguous axial images were obtained through the abdomen and pelvis after administration of intravenous contrast. All CT scans use one or more of the following dose optimizing techniques: automated exposure control, MA and/or KvP adjustment based on patient size and exam type or iterative reconstruction. INDICATION: Left upper quadrant pain. COMPARISON: 02/19/2021. FINDINGS: Lower chest: The lung bases are clear. No pericardial or pleural effusion. Peritoneum: No free intraperitoneal air or fluid. Liver and biliary system: The liver is normal. Cholecystectomy. Spleen and Pancreas: Spleen is normal. The pancreas enhances normally without mass lesion or peripancreatic inflammatory changes. Adrenals: Stable low-attenuation left adrenal nodule, indicative of benign adenoma. Right adrenal gland is normal. tract: No solid renal mass or obstructive uropathy. There are bilateral punctate nonobstructing renal stones measuring up to 3 mm. No ureteral stones or dilated ureters. Urinary bladder is normal. Prostate is not enlarged. GI tract: Stomach is filled with fluid and air and there is no wall thickening. No bowel obstruction. Fatty proliferation throughout the submucosa of the colon is stable in appearance. No active inflammation around the colon. Appendix is normal. Vasculature and Lymph nodes: Normal caliber aorta. No abdominal or pelvic lymphadenopathy. Musculoskeletal: No concerning osseous lesion. IMPRESSION: 1. Sequela of chronic inflammation throughout the colon is stable in appearance since 2020. No superimposed acute inflammation is present at this time. Given the contiguous and extensive involvement of the colon, this raises the possibility of longstanding inflammatory bowel disease, such as ulcerative colitis. 2. Bilateral nonobstructing renal stones. Dictated by: Dictated on workstation # [id number]
[2023-06-07] MEDS ORDERED: ONDANSETRON INJECTION 4 MG/2 ML (SDV) IVP ONE (13:45)
[2023-06-07] MEDS ORDERED: POTASSIUM CHLORIDE 10 MEQ TABLET PO ONE (14:00)
[2023-06-07] MEDS ORDERED: POTASSIUM CL 10MEQ/50ML IVPB 50 ML IV ONE (14:00)
[2023-06-07] MEDS ORDERED: metroNIDAZOLE 500MG/100ML IVPB 100 ML IV ONE (15:00)
[2023-06-07] MEDS ORDERED: CIPROFLOXACIN IV 400MG/200ML 200 ML IV ONE (15:00)
[2023-06-07] MEDS ORDERED: PROMETHAZINE INJ 25 MG/ML VIAL IVP ONE (15:45)
[2023-06-07] MEDS ORDERED: PATIENT MAY USE OWN MEDS, ALL PO SCH (16:30)
[2023-06-07] MEDS ORDERED: cefTRIAXone IV/IM 1,000 MG in NS (IVPB) 50 ML 50 ML IV SCH (16:30)
[2023-06-07] MEDS: ENOXAPARIN 40 MG/0.4 ML SYRINGE SC SCH (17:11)
[2023-06-07] MEDS ORDERED: ACETAMINOPHEN 500 MG TABLET PO PRN (18:15)
[2023-06-07 19:06] VITALS: BP 128/71
[2023-06-07] MEDS ORDERED: ONDANSETRON INJECTION 4 MG/2 ML (SDV) ONE (20:18)
[2023-06-07] MEDS: fentaNYL INJECTION 100 MCG/2 ML VIAL IVP PRN ×2 (20:20→23:30)
[2023-06-07] MEDS: ONDANSETRON INJECTION 4 MG/2 ML (SDV) IVP PRN (20:20)
[2023-06-07] MEDS: HYDROcodone/ACETAMINOPHEN 5 MG/325 MG TABLET PO PRN (20:20)
[2023-06-07 21:50] LABS: CALCIUM 8.7 MG/DL (8.5-10.1); CREATININE SERUM 1.16 MG/DL (0.60-1.30)
[2023-06-07 23:30] VITALS: BP 105/59
[2023-06-07] MEDS: CIPROFLOXACIN IV 400MG/200ML 200 ML IV SCH (23:30)
[2023-06-08] MEDS: HYDROcodone/ACETAMINOPHEN 5 MG/325 MG TABLET PO PRN ×6 (00:32→23:13)
[2023-06-08 03:24] VITALS: BP 110/57
[2023-06-08 05:29] LABS: HEMATOCRIT 45 % (40-54); HEMOGLOBIN 15.8 g/dL (13.3-17.7); MEAN CORPUSCULAR HEMOGLOBIN 31 pg (25-34); MEAN CORPUSCULAR HGB CONC 35 g/dL (32-36); MEAN CORPUSCULAR VOLUME 88 fL (80-99); MEAN PLATELET VOLUME 11.5 fL (9.0-12.2); PLATELET COUNT 158 10^3/uL (130-400); WHITE BLOOD COUNT 6.8 10^3/uL (4.3-11.0)
[2023-06-08] MEDS: fentaNYL INJECTION 100 MCG/2 ML VIAL IVP PRN ×7 (05:33→23:13)
[2023-06-08] MEDS: ONDANSETRON INJECTION 4 MG/2 ML (SDV) IVP PRN ×3 (05:37→16:04)
[2023-06-08 05:44] LABS: ALBUMIN 4.2 GM/DL (3.2-4.5); POTASSIUM 3.8 MMOL/L (3.6-5.0)
[2023-06-08 05:46] LABS: TOTAL PROTEIN 6.5 GM/DL (6.4-8.2)
[2023-06-08 05:48] LABS: BILIRUBIN,TOTAL 1.2 MG/DL (0.1-1.0)
[2023-06-08 05:50] LABS: CREATININE SERUM 1.16 MG/DL (0.60-1.30)
[2023-06-08 07:53] VITALS: BP 138/84
--- NOTE | 2023-06-08 08:45 | Progress Note - Surgery ---
COLLIN WELCH 06/08/23 0845: Subjective Date Seen by a Provider: Jun 08, 2023 Time Seen by a Provider: 08:39 Subjective/Events-last exam 42-year-old male presented to the ER on Tuesday with left upper quadrant pain that radiates into left mid back/flank area- this started on Tuesday. Patient has had significant bouts of vomitting that he describes as clear. The patient reports that they have been to [facility] on Tuesday with the pain but they were discharged. Patient also has a hiatal hernia which is causing signficicant distress- patient says they have lost over 70 pounds over the last year unintentionally- due to epigastric abdominal discomfort everytime they eat. The pain says the pain is still radiating to their back- and is a 10/10. The patient says that they are supposed to get a scope, but they do not have insurance. Patient says that they are currently working on obtaining insurance to get this scope scheduled. INDICATION: Left upper quadrant pain. COMPARISON: 02/19/2021. FINDINGS: Lower chest: The lung bases are clear. No pericardial or pleural effusion. Peritoneum: No free intraperitoneal air or fluid. Liver and biliary system: The liver is normal. Cholecystectomy. Spleen and Pancreas: Spleen is normal. The pancreas enhances normally without mass lesion or peripancreatic inflammatory changes. Adrenals: Stable low-attenuation left adrenal nodule, indicative of benign adenoma. Right adrenal gland is normal. tract: No solid renal mass or obstructive uropathy. There are bilateral punctate nonobstructing renal stones measuring up to 3 mm. No ureteral stones or dilated ureters. Urinary bladder is normal. Prostate is not enlarged. GI tract: Stomach is filled with fluid and air and there is no wall thickening. No bowel obstruction. Fatty proliferation throughout the submucosa of the colon is stable in appearance. No active inflammation around the colon. Appendix is normal. Vasculature and Lymph nodes: Normal caliber aorta. No abdominal or pelvic lymphadenopathy. Musculoskeletal: No concerning osseous lesion. Focused Exam Sepsis Stage: Ruled Out Respiratory: Normal Breath Sounds, No Accessory Muscle Use, No Respiratory Distress; No Accessory Muscle Use, No Crackles Cardiovascular: No Edema, No Murmur; No Bradycardia, No Tachycardia Peripheral Pulses: 2+ Radial Pulses (R), 2+ Radial Pulses (L) Skin: normal color, warm/dry; No ecchymosis, No jaundice Objective Exam Vital Signs Date Time Temp Pulse Resp B/P (MAP) Pulse Ox O2 Delivery O2 Flow Rate FiO2 06/08/23 07:53 36.7 58 16 138/84 (102) 100 Room Air 06/08/23 03:24 37.1 57 16 110/57 (74) 99 Room Air 06/07/23 23:30 36.6 46 12 105/59 (74) 97 06/07/23 19:34 Room Air 06/07/23 19:06 36.5 53 17 128/71 (90) 99 Room Air 06/07/23 16:38 Room Air 06/07/23 15:56 90 18 154/92 98 Room Air 06/07/23 12:12 90 18 178/96 (123) 98 Room Air I & O 06/08/23 07:00 Intake Total 2720 ml Output Total 600 ml Balance 2120 ml Capillary Refill : Less Than 3 Seconds General Appearance: No Apparent Distress, WD/WN; No Anxious, No Chronically ill HEENT: PERRL/EOMI, Normal ENT Inspection, Pharynx Normal; No Pale Conjunctivae (L), No Pale Conjunctivae (R) Neck: Full Range of Motion, Normal Inspection; No Limited Range of Motion, No Lymphadenopathy (L) Respiratory: Chest Non Tender, No Accessory Muscle Use, No Respiratory Distress; No Accessory Muscle Use, No Crackles Cardiovascular: No Edema, Normal Peripheral Pulses; No Bradycardia, No Tachycardia Peripheral Pulses: 2+ Radial Pulses (R), 2+ Radial Pulses (L) Gastrointestinal: normal bowel sounds, soft, tenderness (epigastric ) Extremity: Normal Capillary Refill, Normal Inspection Neurologic/Psychiatric: Alert, Oriented x3, No Motor/Sensory Deficits; No Abnormal viscosity inspector II-XII, No Disoriented Skin: Normal Color, Warm/Dry; No Ecchymosis, No Erythema Lymphatic: No Adenopathy; No Axilla Node Tender (L), No Axilla Node Tender (R) Results Lab Laboratory Tests 06/07/23 12:36: White Blood Count 13.1H, Red Blood Count 5.64H, Hemoglobin 17.2, Hematocrit 49, Mean Corpuscular Volume 87, Mean Corpuscular Hemoglobin 31, Mean Corpuscular Hemoglobin Concent 35, Red Cell Distribution Width 12.3, Platelet Count 193, Mean Platelet Volume 11.6, Immature Granulocyte % (Auto) 0, Neutrophils (%) (Auto) 77H, Lymphocytes (%) (Auto) 14, Monocytes (%) (Auto) 9, Eosinophils (%) (Auto) 0, Basophils (%) (Auto) 0, Neutrophils # (Auto) 10.1H, Lymphocytes # (Auto) 1.9, Monocytes # (Auto) 1.1H, Eosinophils # (Auto) 0.0, Basophils # (Auto) 0.0, Immature Granulocyte # (Auto) 0.1, Sodium Level 138, Potassium Level 2.9L, Chloride Level 102, Carbon Dioxide Level 24, Anion Gap 12, Blood Urea N itrogen 14, Creatinine 0.99, Estimat Glomerular Filtration Rate 98, BUN/Creatinine Ratio 14, Glucose Level 114H, Calcium Level 9.5, Corrected Calcium , Total Bilirubin 1.3H, Aspartate Amino Transf (AST/SGOT) 10, Alanine Aminotransferase (ALT/SGPT) 14, Alkaline Phosphatase 62, Total Protein 7.7, Albumin 5.0H, Lipase 20 06/07/23 12:50: Urine Color YELLOW, Urine Clarity CLEAR, Urine pH 5.5, Urine Specific [place] 1.010L, Urine Protein NEGATIVE, Urine Glucose (UA) NEGATIVE, Urine Ketones NEGATIVE, Urine Nitrite NEGATIVE, Urine Bilirubin NEGATIVE, Urine Urobilinogen 0.2, Urine Leukocyte Esterase NEGATIVE, Urine RBC (Auto) 1+H, Urine RBC RARE, Urine WBC NONE, Urine Squamous Epithelial Cells RARE, Urine Crystals NONE, Urine Bacteria NEGATIVE, Urine Casts NONE, Urine Mucus NEGATIVE, Urine Culture Indicated NO 06/07/23 21:30: Sodium Level 138, Potassium Level 3.0L, Chloride Level 108H, Carbon Dioxide Level 20L, Anion Gap 10, Blood Urea Nitrogen 12, Creatinine 1.16, Estimat Glomerular Filtration Rate 81, BUN/Creatinine Ratio 10, Glucose Level 154H, Calcium Level 8.7 06/08/23 05:17: White Blood Count 6.8, Red Blood Count 5.14, Hemoglobin 15.8, Hematocrit 45, Mean Corpuscular Volume 88, Mean Corpuscular Hemoglobin 31, Mean Corpuscular Hemoglobin Concent 35, Red Cell Distribution Width 12.3, Platelet Count 158, Mean Platelet Volume 11.5, Sodium Level 142, Potassium Level 3.8, Chloride Level 107, Carbon Dioxide Level 27, Anion Gap 8, Blood Urea Nitrogen 12, Creatinine 1.16, Estimat Glomerular Filtration Rate 81, BUN/Creatinine Ratio 10, Glucose Level 92, Calcium Level 9.0, Corrected Calcium 8.8, Total Bilirubin 1.2H, Aspartate Amino Transf (AST/SGOT) 9, Alanine Aminotransferase (ALT/SGPT) 12, Alkaline Phosphatase 52, Total Protein 6.5, Albumin 4.2, C-Reactive Protein High Sensitivity 0.08 Assessment/Plan Assessment/Plan Assessment/Plan Colitis Gastritis Bilateral nonobstructing renal stones Hiatal Hernia Hx of hypertension NPO IV Fluids IV Antibiotics Follow up with patient on insurance 06/20/23 1422: COLLIN WELCH Jun 08, 2023 08:45 Jun 20, 2023 14:22
[2023-06-08] MEDS: CIPROFLOXACIN IV 400MG/200ML 200 ML IV SCH ×2 (08:51→19:57)
[2023-06-08] MEDS: metroNIDAZOLE 500 MG/100 ML IVPB (PRE-MIX) IV SCH ×2 (09:54→19:57)
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
[2023-06-08 11:22] VITALS: BP 135/82
[2023-06-08] MEDS: ENOXAPARIN 40 MG/0.4 ML SYRINGE SC SCH (16:04)
[2023-06-08 16:16] VITALS: BP 168/96
[2023-06-08 19:11] VITALS: BP 141/89
[2023-06-08] MEDS: PANTOPRAZOLE 40 MG TABLET PO SCH (19:57)
[2023-06-08 23:06] VITALS: BP 127/82
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
[2023-06-09 03:43] VITALS: BP 151/84
[2023-06-09] MEDS: fentaNYL INJECTION 100 MCG/2 ML VIAL IVP PRN ×3 (03:43→08:26)
[2023-06-09] MEDS: HYDROcodone/ACETAMINOPHEN 5 MG/325 MG TABLET PO PRN ×3 (03:43→13:02)
[2023-06-09 05:40] LABS: HEMATOCRIT 46 % (40-54); MEAN CORPUSCULAR HEMOGLOBIN 30 pg (25-34); MEAN CORPUSCULAR HGB CONC 35 g/dL (32-36); MEAN CORPUSCULAR VOLUME 88 fL (80-99); PLATELET COUNT 155 10^3/uL (130-400); WHITE BLOOD COUNT 5.8 10^3/uL (4.3-11.0)
[2023-06-09 05:46] LABS: ALBUMIN 4.2 GM/DL (3.2-4.5)
[2023-06-09 05:47] LABS: POTASSIUM 3.2 MMOL/L (3.6-5.0)
[2023-06-09 05:49] LABS: TOTAL PROTEIN 6.5 GM/DL (6.4-8.2)
[2023-06-09 05:53] LABS: CREATININE SERUM 1.09 MG/DL (0.60-1.30)
[2023-06-09 05:56] LABS: MAGNESIUM 2.1 MG/DL (1.6-2.4)
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
[2023-06-09 07:36] VITALS: BP 138/85
[2023-06-09 07:42] VITALS: BP 138/63
[2023-06-09] MEDS: metroNIDAZOLE 500 MG/100 ML IVPB (PRE-MIX) IV SCH (08:27)
[2023-06-09] MEDS: POTASSIUM CL 10MEQ/50ML IVPB 50 ML IV SCH ×4 (08:27→10:51)
[2023-06-09] MEDS: CIPROFLOXACIN IV 400MG/200ML 200 ML IV SCH (08:27)
[2023-06-09] MEDS: PANTOPRAZOLE 40 MG TABLET PO SCH (08:27)
[2023-06-09] MEDS ORDERED: PANT40TA52 PO ×2 (09:28→09:33)
[2023-06-09] MEDS ORDERED: ACHD5005 PO (09:28)
[2023-06-09] MEDS ORDERED: PROM25TA14 PO ×2 (09:28→09:33)
[2023-06-09] MEDS ORDERED: CIPR-225 PO (09:28)
[2023-06-09] MEDS ORDERED: CIPR500T5 PO (09:33)
[2023-06-09] MEDS ORDERED: METR-143 PO (10:01)
[2023-06-09 11:19] VITALS: BP 153/91
--- NOTE | 2023-06-09 11:32 | Discharge Summary ---
Discharge Summary Hospital Course Problems/Diagnosis: (1) Nausea and vomiting Status: Acute Assessment & Plan: Possibly related to colitis, although imaging reports findings of chronic. Supportive care with anti-emetics and IVF, patient tolerating liquids and requesting solid food on day of d/c. (2) Abdominal pain Status: Acute Assessment & Plan: CT abdomen with findings of chronic inflammation, however given acute onset, treating for acute colitis with Cipro and Flagyl, Surgery consulted, appreciate recommendations. Given persistent symptoms over years and chronic findings as well as reported marked weight loss, concern for underlying inflammatory bowel disease, checked CRP which was normal. Will need outpatient scopes. 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 Qualifiers: Qualified Codes: R10.12 - Left upper quadrant pain (3) Hypokalemia Status: Resolved Assessment & Plan: Replaced and resolved, monitor. (4) Cyclic vomiting syndrome Status: Chronic Assessment & Plan: Possible, also possible cannabinoid hyperemesis, recommend GI evaluation, but has proved challenging due to insurance issues. Hospital Course Date of Admission: Jun 07, 2023 at 15:52 Admission Diagnosis : Family Physician/Provider: [place] Date of Discharge: 06/09/23 Discharge Diagnosis: See problem list Hospital Course: See problem list Labs and Pending Lab Test: Laboratory Tests 06/09/23 05:17: White Blood Count 5.8, Red Blood Count 5.27, Hemoglobin 16.0, Hematocrit 46, Mean Corpuscular Volume 88, Mean Corpuscular Hemoglobin 30, Mean Corpuscular Hemoglobin Concent 35, Red Cell Distribution Width 12.2, Platelet Count 155, Mean Platelet Volume 12.0, Sodium Level 141, Potassium Level 3.2L, Chloride Level 106, Carbon Dioxide Level 25, Anion Gap 10, Blood Urea Nitrogen 10, Creatinine 1.09, Estimat Glomerular Filtration Rate 87, BUN/Creatinine Ratio 9, Glucose Level 94, Calcium Level 9.0, Corrected Calcium 8.8, Magnesium Level 2.1, Total Bilirubin 1.0, Aspartate Amino Transf (AST/SGOT) 11, Alanine Aminotransferase (ALT/SGPT) 15, Alkaline Phosphatase 52, Total Protein 6.5, Albumin 4.2 Home Meds Active Metronidazole 250 Mg Tablet 2 Tab PO BID Pantoprazole Sodium 40 Mg Tablet.dr 40 Mg PO DAILY Promethazine Tablet (Promethazine HCl) 25 Mg Tablet 25 Mg PO Q6H PRN Ciprofloxacin HCl 500 Mg Tablet 500 Mg PO BID Hydrocodone-Acetamin 5-325 mg (Hydrocodone/Acetaminophen) 5 Mg-325 Mg Tablet 1 Tab PO Q4H PRN Assessment/Pt DC Instructions Follow up with primary provider within a week of discharge. Discharge Diet: Avoid Fatty Foods Activity as Tolerated: Yes Discharge Physical Examination Allergies: Coded Allergies: lithium (Verified Allergy, Unknown, 06/07/23) General Appearance: No Apparent Distress, WD/WN Respiratory: Lungs Clear, Normal Breath Sounds Cardiovascular: Regular Rate, Rhythm, No Murmur Gastrointestinal: Normal Bowel Sounds, Soft; No Distended; Other (mild diffuse ttp) Skin: Warm/Dry Neurologic/Psychiatric: Alert, Normal Mood/Affect KRISTINA SANTOS MD Jun 09, 2023 11:31
== END 2023-06-09 14:10 | disposition home or self-care (01) ==
LOC: EDUNIT# 11:48 → ER 11:50 → UNDOADMOB 15:52 → 4TH 15:52 → UNDODISOB 06-09 14:10
PROVIDERS: ADMIT Family Medicine; ATTEND Family Medicine
DX: K52.9 Noninfective gastroenteritis and colitis, unspecified (principal); R11.15 Cyclical vomiting syndrome unrelated to migraine; R10.12 Left upper quadrant pain; E87.6 Hypokalemia; K44.9 Diaphragmatic hernia without obstruction or gangrene; K29.70 Gastritis, unspecified, without bleeding; N20.0 Calculus of kidney; M54.2 Cervicalgia; F12.90 Cannabis use, unspecified, uncomplicated
CPT/HCPCS: 74177; 80048; 80053 ×3; 81000; 83690; 83735; 85025; 85027 ×2; 86141; 96361; 96365; 96366 ×2; 96372 ×2; 96375; 96376 ×4; 99284; G0378; 36415

== ENCOUNTER 2023-06-10 10:25 | Observation (INO) | payer SELFPAY ==
[~2023-06-10] VITALS: Ht 185.5 cm; Wt 91.6 kg
[~2023-06-10 10:25] MED LIST changes: +CIPR-225 PO; +CIPR500T5 PO; +METR-143 PO; +PANT40TA52 PO
[2023-06-10] MEDS ORDERED: LACTATED RINGERS 1,000 ML IV STA ×2 (11:11→12:38)
[2023-06-10] MEDS ORDERED: ONDANSETRON INJECTION 4 MG/2 ML (SDV) IVP ONE (11:15)
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
[2023-06-10] MEDS ORDERED: DroPERidol INJECTION 5 MG/2 ML (ED ONLY!) IM ONE (11:30)
[2023-06-10 11:55] LABS: BASOPHILS % (AUTO) 0 % (0-10); EOSINOPHILS % (AUTO) 0 % (0-10); HEMATOCRIT 46 % (40-54); HEMOGLOBIN 16.1 g/dL (13.3-17.7); LYMPHOCYTES # (AUTO) 0.9 10^3/uL (1.0-4.0); LYMPHOCYTES % (AUTO) 7 % (12-44); MEAN CORPUSCULAR HEMOGLOBIN 31 pg (25-34); MEAN CORPUSCULAR HGB CONC 35 g/dL (32-36); MEAN CORPUSCULAR VOLUME 87 fL (80-99); MEAN PLATELET VOLUME 11.3 fL (9.0-12.2); MONOCYTES # (AUTO) 0.5 10^3/uL (0.0-1.0); MONOCYTES % (AUTO) 4 % (0-12); NEUTROPHILS % (AUTO) 88 % (42-75); PLATELET COUNT 192 10^3/uL (130-400); WHITE BLOOD COUNT 12.4 10^3/uL (4.3-11.0)
[2023-06-10 12:01] LABS: ALBUMIN 4.8 GM/DL (3.2-4.5)
[2023-06-10 12:02] LABS: CHLORIDE 106 MMOL/L (98-107); POTASSIUM 3.3 MMOL/L (3.6-5.0); SODIUM 141 MMOL/L (135-145)
[2023-06-10 12:03] LABS: CALCIUM 9.3 MG/DL (8.5-10.1)
[2023-06-10 12:04] LABS: GLUCOSE 114 MG/DL (70-105); TOTAL PROTEIN 7.3 GM/DL (6.4-8.2)
[2023-06-10 12:05] LABS: CARBON DIOXIDE 23 MMOL/L (21-32)
[2023-06-10 12:06] LABS: BILIRUBIN,TOTAL 0.9 MG/DL (0.1-1.0)
[2023-06-10 12:07] LABS: ALKALINE PHOSPHATASE 59 U/L (40-136)
[2023-06-10 12:08] LABS: CREATININE SERUM 1.01 MG/DL (0.60-1.30); GFR ESTIMATED 96
[2023-06-10 12:09] LABS: BUN/CREATININE RATIO 9
[2023-06-10 12:10] LABS: MAGNESIUM 1.9 MG/DL (1.6-2.4)
[2023-06-10 12:11] LABS: ALANINE AMINOTRANSFERASE 23 U/L (0-55); LIPASE 29 U/L (8-78)
[2023-06-10] MEDS ORDERED: fentaNYL INJECTION 100 MCG/2 ML VIAL IVP STA (12:16)
[2023-06-10 12:23] LABS: AMPHETAMINE SCREEN, URINE NEGATIVE (NEGATIVE); BENZODIAZEPINES SCREEN URINE NEGATIVE (NEGATIVE); COCAINE SCREEN URINE NEGATIVE (NEGATIVE)
[2023-06-10 12:24] LABS: BARBITURATE SCREEN URINE NEGATIVE (NEGATIVE); CANNABINOID SCREEN, URINE POSITIVE (NEGATIVE); METHADONE STAT NEGATIVE (NEGATIVE); OPIATE SCREEN URINE POSITIVE (NEGATIVE); OXYCODONE STAT NEGATIVE (NEGATIVE); PROPOXYPHENE STAT NEGATIVE (NEGATIVE); TRICYCLIC ANTIDEPRESSANTS SCRE NEGATIVE (NEGATIVE)
[2023-06-10 12:28] LABS: CLARITY,URINE CLEAR; COLOR,URINE YELLOW; GLUCOSE, URINE (UA) NEGATIVE (NEGATIVE); KETONES,URINE 3+ (NEGATIVE); PROTEIN,URINE 3+ (NEGATIVE)
[2023-06-10 12:29] LABS: BACTERIA,URINE NEGATIVE /HPF; BILIRUBIN,URINE 1+ (NEGATIVE); LEUKOCYTE ESTERASE ,URINE NEGATIVE (NEGATIVE); NITRITE,URINE NEGATIVE (NEGATIVE)
[2023-06-10] MEDS ORDERED: PROMETHAZINE INJ 25 MG/ML (PHENERGAN) AMP IVP ONE (12:30)
[2023-06-10 12:33] LABS: BAND NEUTROPHILS 0 %; BASOPHILS % (MANUAL) 0 %; EOSINOPHILS % (MANUAL) 0 %; LYMPHOCYTES % (MANUAL) 8 %; MONOCYTES % (MANUAL) 4 %; NEUTROPHILS % (MANUAL) 88 %
[2023-06-10 12:34] LABS: RBC MORPH NORMAL
--- NOTE | 2023-06-10 14:12 | Diagnostic Imaging Report ---
INDICATION: Upper abdominal pain and vomiting x6 days. Vomiting 10 times today.. TECHNIQUE: 2 supine radiograph of the abdomen 2:00 PM CORRELATION STUDY: 05/29/2016 FINDINGS: Gastrointestinal tract appears decompressed. No significant stool retention. No obstructive feature. Question a few small punctate calcifications of the renal silhouettes. Gallbladder absent. Osseous structures unremarkable. IMPRESSION: 1. Non-obstructed appearing bowel gas pattern. Question a few potential faint calcifications bilateral renal silhouettes. Dictated by: Dictated on workstation # [id number]
[2023-06-10] MEDS ORDERED: PROMETHAZINE INJ 25 MG/ML (PHENERGAN) AMP IVP PRN (15:15)
[2023-06-10] MEDS ORDERED: CATHETER FLUSH 10 ML SYR IV PRN (15:15)
[2023-06-10] MEDS: LACTATED RINGERS 1,000 ML IV SCH (15:25)
[2023-06-10] MEDS: ONDANSETRON INJECTION 4 MG/2 ML (SDV) IVP PRN ×2 (15:25→23:23)
[2023-06-10 15:40] VITALS: BP 172/97
[2023-06-10] MEDS: fentaNYL INJECTION 100 MCG/2 ML VIAL IVP PRN ×2 (16:27→21:58)
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
[2023-06-10] MEDS: CIPROFLOXACIN 400 MG/D5W 200 ML (PRE-MIX) IV SCH (20:18)
[2023-06-10 20:22] VITALS: BP 131/82
[2023-06-10] MEDS: metroNIDAZOLE 500 MG/100 ML IVPB (PRE-MIX) IV SCH (21:22)
[2023-06-10] MEDS: CATHETER FLUSH 10 ML SYR IV SCH (21:24)
[2023-06-10 23:25] VITALS: BP 172/95
[2023-06-11] MEDS: LACTATED RINGERS 1,000 ML IV SCH ×4 (00:13→23:00)
[2023-06-11] MEDS: fentaNYL INJECTION 100 MCG/2 ML VIAL IVP PRN ×7 (01:40→21:34)
[2023-06-11] MEDS: CATHETER FLUSH 10 ML SYR IV SCH ×3 (03:54→21:35)
[2023-06-11 04:06] VITALS: BP 146/89
[2023-06-11 04:24] LABS: BASOPHILS % (AUTO) 0 % (0-10); EOSINOPHILS % (AUTO) 0 % (0-10); HEMATOCRIT 44 % (40-54); HEMOGLOBIN 15.6 g/dL (13.3-17.7); LYMPHOCYTES # (AUTO) 1.3 10^3/uL (1.0-4.0); LYMPHOCYTES % (AUTO) 11 % (12-44); MEAN CORPUSCULAR HEMOGLOBIN 30 pg (25-34); MEAN CORPUSCULAR HGB CONC 36 g/dL (32-36); MEAN CORPUSCULAR VOLUME 85 fL (80-99); MEAN PLATELET VOLUME 12.4 fL (9.0-12.2); MONOCYTES # (AUTO) 0.9 10^3/uL (0.0-1.0); MONOCYTES % (AUTO) 7 % (0-12); NEUTROPHILS # (AUTO) 9.7 10^3/uL (1.8-7.8); NEUTROPHILS % (AUTO) 81 % (42-75); PLATELET COUNT 194 10^3/uL (130-400)
[2023-06-11 04:25] LABS: CREATININE SERUM 0.89 MG/DL (0.60-1.30); POTASSIUM 3.4 MMOL/L (3.6-5.0)
[2023-06-11 07:31] VITALS: BP 140/85
--- NOTE | 2023-06-11 07:38 | Progress Note - Surgery ---
DEXTER KAUFMAN 06/11/23 0738: Subjective Date Seen by a Provider: Jun 11, 2023 Time Seen by a Provider: 07:00 Subjective/Events-last exam Tomás threw up clear liquids 3-4x this morning. He asked for more pain medication and states his current pain is a 6/10. He has the worst pain at his i ncisional hernia in RUQ which he describes as constant and sharp and radiates to his back. The rest of his abdomen is diffusely tender. Right now, pain is treated with fentanyl . He has had 1 BM that was liquid. He is able to get up and go to the bathroom on his own. Yesterday at 3pm and again yesterday at 11pm he had hypertensive episodes during which his BP was ~170s/90s. He described feeling like he was having a panic attack, of which he has a history. He states that his lips felt numb and he had slight chest pain during these episodes. He relays that bouts of vomitting has been plaguing him for the last 10 years with at most 6 months of relief at any given time. This problem was worked up at with GI physician at but results were never released according to the patient, because he "does not have insurance." He relays that this episode began after having a beer on Tuesday but states that this was his first beer in 3 years and he has not had hx of alcohol abuse. He denies SOB, changes in vision, headache Review of Systems General: No Chills, No Night Sweats, No Appetite; Other (weight loss - 80lbs due to current condition) HEENT: No Head Aches, No Visual Changes, No Eye Pain Pulmonary: No Dyspnea, No Cough Cardiovascular: Chest Pain (during hypertensive episodes); No: Palpitations Gastrointestinal: Nausea, Vomiting (clear liquids), Abdominal Pain (RUQ sharp pain, diffusely tender throughout abdomen), Diarrhea Genitourinary: Dysuria Musculoskeletal: No: neck pain, shoulder pain Neurological: Numbness (of lips during hypertensive episodes); No: Weakness, Change in speech, Confusion Focused Exam Respiratory: Lungs Clear, Normal Breath Sounds, No Accessory Muscle Use Cardiovascular: Regular Rate, Rhythm, No JVD Peripheral Pulses: 2+ Radial Pulses (R), 2+ Radial Pulses (L) Skin: normal color, warm/dry Objective Exam Vital Signs Date Time Temp Pulse Resp B/P (MAP) Pulse Ox O2 Delivery O2 Flow Rate FiO2 06/11/23 07:31 36.5 61 17 140/85 (103) 97 Room Air 06/11/23 04:06 36.8 66 20 146/89 (108) 97 Room Air 06/10/23 23:25 37.3 67 20 172/95 (120) 100 Room Air 06/10/23 20:30 Room Air 06/10/23 20:22 36.8 62 18 131/82 (98) 99 Room Air 06/10/23 15:40 37.6 60 18 172/97 (122) 98 Room Air 06/10/23 14:51 Room Air 06/10/23 14:42 178/108 06/10/23 11:02 61 179/109 (132) 100 Room Air I & O 06/11/23 07:00 Intake Total 5180 ml Output Total 2725 ml Balance 2455 ml Capillary Refill : Peripheral Pulses: 2+ Radial Pulses (R), 2+ Radial Pulses (L) Gastrointestinal: soft, tenderness (epigastric area) Results Lab Laboratory Tests 06/10/23 11:40: White Blood Count 12.4H, Red Blood Count 5.28, Hemoglobin 16.1, Hematocrit 46, Mean Corpuscular Volume 87, Mean Corpuscular Hemoglobin 31, Mean Corpuscular Hemoglobin Concent 35, Red Cell Distribution Width 12.3, Platelet Count 192, Mean Platelet Volume 11.3, Immature Granulocyte % (Auto) 0, Neutrophils (%) (Auto) 88H, Lymphocytes (%) (Auto) 7L, Monocytes (%) (Auto) 4, Eosinophils (%) (Auto) 0, Basophils (%) (Auto) 0, Neutrophils # (Auto) 11.0H, Lymphocytes # (Auto) 0.9L, Monocytes # (Auto) 0.5, Eosinophils # (Auto) 0.0, Basophils # (Auto) 0.0, Immature Granulocyte # (Auto) 0.0, Neutrophils % (Manual) 88, Lymphocytes % (Manual) 8, Monocytes % (Manual) 4, Eosinophils % (Manual) 0, Basophils % (Manual) 0, Band Neutrophils 0, Blood Morphology Comment NORMAL, Sodium Level 141, Potassium Level 3.3L, Chloride Level 106, Carbon Dioxide Level 23, Anion Gap 12, Blood Urea Nitrogen 9, Creatinine 1.01, Estimat Glomerular Filtration Rate 96, BUN/Creatinine Ratio 9, Glucose Level 114H, Calcium Level 9.3, Corrected Calcium , Magnesium Level 1.9, Total Bilirubin 0.9, Aspartate Amino Transf (AST/SGOT) 19, Alanine Aminotransferase (ALT/SGPT) 23, Alkaline Phosphatase 59, Total Protein 7.3, Albumin 4.8H, Lipase 29, Serum Alcohol < 10 06/10/23 11:55: Urine Color YELLOW, Urine Clarity CLEAR, Urine pH 7.0, Urine Specific [place] 1.025H, Urine Protein 3+H, Urine Glucose (UA) NEGATIVE, Urine Ketones 3+H, Urine Nitrite NEGATIVE, Urine Bilirubin 1+H, Urine Urobilinogen 0.2, Urine Leukocyte Esterase NEGATIVE, Urine RBC (Auto) NEGATIVE, Urine RBC NONE, Urine WBC NONE, Urine Squamous Epithelial Cells NONE, Urine Crystals NONE, Urine Bacteria NEGATIVE, Urine Casts NONE, Urine Mucus SMALLH, Urine Culture Indicated NO, Urine Opiates Screen POSITIVEH, Urine Oxycodone Screen NEGATIVE, Urine Methadone Screen NEGATIVE, Urine Propoxyphene Screen NEGATIVE, Urine Barbiturates Screen NEGATIVE, Ur Tricyclic Antidepressants Screen NEGATIVE, Urine Phencyclidine Screen NEGATIVE, Urine Amphetamines Screen NEGATIVE, Urine Methamphetamines Screen NEGATIVE, Urine Benzodiazepines Screen NEGATIVE, Urine Cocaine Screen NEGATIVE, Urine Cannabinoids Screen POSITIVEH 06/11/23 03:50: White Blood Count 12.0H, Red Blood Count 5.13, Hemoglobin 15.6, Hematocrit 44, Mean Corpuscular Volume 85, Mean Corpuscular Hemoglobin 30, Mean Corpuscular Hemoglobin Concent 36, Red Cell Distribution Width 12.2, Platelet Count 194, Mean Platelet Volume 12.4H, Immature Granulocyte % (Auto) 0, Neutrophils (%) (Auto) 81H, Lymphocytes (%) (Auto) 11L, Monocytes (%) (Auto) 7, Eosinophils (%) (Auto) 0, Basophils (%) (Auto) 0, Neutrophils # (Auto) 9.7H, Lymphocytes # (Auto) 1.3, Monocytes # (Auto) 0.9, Eosinophils # (Auto) 0.0, Basophils # (Auto) 0.0, Immature Granulocyte # (Auto) 0.0, Sodium Level 143, Potassium Level 3.4L, Chloride Level 105, Carbon Dioxide Level 24, Anion Gap 14, Blood Urea Nitrogen 8, Creatinine 0.89, Estimat Glomerular Filtration Rate 110, BUN/Creatinine Ratio 9, Glucose Level 101, Calcium Level 9.0 Assessment/Plan Assessment/Plan Assessment/Plan abdominal pain RUQ and diffuse tenderness Hypertensive episodes Nausea vomiting. Possible cyclic vomiting syndrome marijuana abuse colitis diarrhea-chronic hx of panic attacks consider making patient NPO until vommiting ceases IV fluids IV abx Zofran for nausea pain control counseled on marijuana cessation feel may be related to cyclic vomiting syndrome ambulate for dvt prevention colonoscopy outpatient JR TRIPP DO 06/11/23 1233: Subjective Subjective/Events-last exam Had emesis early this morning but none since. Pain slightly improved. No other complaints at this time. Denies fever sweats chills shortness of breath or chest pain. Objective Exam General Appearance: No Apparent Distress, Anxious HEENT: PERRL/EOMI, Normal ENT Inspection Neck: Normal Inspection, Non Tender Respiratory: Chest Non Tender, No Accessory Muscle Use, No Respiratory Distress Cardiovascular: Regular Rate, Rhythm, No JVD Gastrointestinal: soft, tenderness (epigastric area) Extremity: Non Tender Neurologic/Psychiatric: Alert, Oriented x3 Skin: Normal Color, Warm/Dry Lymphatic: No Adenopathy Assessment/Plan Assessment/Plan Assessment/Plan abdominal pain epigastric Nausea vomiting. Possible cyclic vomiting syndrome marijuana abuse colitis diarrhea-chronic clear liquids as tolerates IV fluids IV abx on cipro/flagyl Zofran for nausea pain control counseled on marijuana cessation feel may be related to cyclic vomiting syndrome ambulate for dvt prevention colonoscopy outpatient Supervisory-Addendum Brief Verification & Attestation Participated in pt care: history, MDM, physical Personally performed: exam, history, MDM, supervision of care Care discussed with: Medical Student Procedures: n/a Results interpretation: Verified all documentation Verification and Attestation of Medical Student E/M Service A medical student performed and documented this service in my presence. I reviewed and verified all information documented by the medical student and made modifications to such information, when appropriate. I personally performed the physical exam and medical decision making. Jr Tripp, Jun 11, 2023,12:31 DEXTER KAUFMAN Jun 11, 2023 07:38 JR TRIPP DO Jun 11, 2023 12:33
[2023-06-11] MEDS: metroNIDAZOLE 500 MG/100 ML IVPB (PRE-MIX) IV SCH (08:26)
[2023-06-11] MEDS: PANTOPRAZOLE INJECTION 40 MG VIAL IV SCH (08:26)
[2023-06-11] MEDS: ONDANSETRON INJECTION 4 MG/2 ML (SDV) IVP PRN ×2 (08:26→18:35)
[2023-06-11] MEDS: CIPROFLOXACIN 400 MG/D5W 200 ML (PRE-MIX) IV SCH (10:45)
[2023-06-11 11:05] VITALS: BP 130/81
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
[2023-06-11 15:06] VITALS: BP 133/84
[2023-06-11 19:03] VITALS: BP 126/83
[2023-06-11 23:17] VITALS: BP 119/71
[2023-06-12] MEDS: fentaNYL INJECTION 100 MCG/2 ML VIAL IVP PRN ×3 (01:36→08:21)
[2023-06-12 03:13] VITALS: BP 130/84
[2023-06-12] MEDS: CATHETER FLUSH 10 ML SYR IV SCH (05:07)
[2023-06-12 07:10] VITALS: BP 144/90
[2023-06-12] MEDS: LACTATED RINGERS 1,000 ML IV SCH (07:19)
--- NOTE | 2023-06-12 07:34 | Progress Note - Surgery ---
DEXTER KAUFMAN 06/12/23 0734: Subjective Date Seen by a Provider: Jun 12, 2023 Time Seen by a Provider: 07:00 Subjective/Events-last exam Tomás is doing about the same as yesterday. Did not recieve nausea meds overnight - just pain meds. He still has 6/10 pain in the LUQ at the site of his hiatal hernia. No bowel movements yet. Pt denies vomitting - last emesis episode yesterday at 3am. Pt is not ambulating halls and was reminded that he should do this. Pt denied any more hypertensive episdoes Pt denies: CP, SOB, dysuria, changes in vision Review of Systems General: No Chills, No Night Sweats HEENT: No Head Aches, No Visual Changes, No Eye Pain Pulmonary: No Dyspnea, No Cough Cardiovascular: No: Chest Pain, Palpitations Gastrointestinal: Abdominal Pain (LUQ, at site of hiatial hernia 6/10); No: V omiting Genitourinary: No Dysuria, No Frequency Musculoskeletal: No: neck pain, shoulder pain Neurological: No: Change in speech, Confusion Objective Exam Vital Signs Date Time Temp Pulse Resp B/P (MAP) Pulse Ox O2 Delivery O2 Flow Rate FiO2 06/12/23 07:10 36.4 55 18 144/90 (108) 100 Room Air 06/12/23 03:13 37.0 57 18 130/84 (99) 98 Room Air 06/11/23 23:17 36.8 54 18 119/71 (87) 98 Room Air 06/11/23 20:00 Room Air 06/11/23 19:03 36.6 56 18 126/83 (97) 97 Room Air 06/11/23 15:06 36.7 60 18 133/84 (100) 100 Room Air 06/11/23 11:05 36.7 72 17 130/81 (97) 99 Room Air 06/11/23 08:00 Room Air 06/11/23 07:31 36.5 61 17 140/85 (103) 97 Room Air I & O 06/12/23 07:00 Intake Total 1780 ml Output Total 2725 ml Balance -945 ml Capillary Refill : General Appearance: No Apparent Distress, Chronically ill HEENT: PERRL/EOMI, Normal ENT Inspection Neck: No Normal Inspection; Non Tender, Supple Respiratory: Chest Non Tender, Lungs Clear, Normal Breath Sounds, No Accessory Muscle Use, No Respiratory Distress Cardiovascular: Regular Rate, Rhythm, No JVD, Normal Peripheral Pulses, Leander cardia (Pulse 57) Peripheral Pulses: 2+ Radial Pulses (R), 2+ Radial Pulses (L) Gastrointestinal: soft, tenderness (LUQ at site of hiatial hernia) Extremity: Normal Capillary Refill, Normal Inspection, Normal Range of Motion, Non Tender Neurologic/Psychiatric: Alert, Oriented x3 Skin: Normal Color, Warm/Dry Lymphatic: No Adenopathy Assessment/Plan Assessment/Plan Assessment/Plan abdominal pain epigastric/LUQ Nausea Possible cyclic vomiting syndrome marijuana abuse colitis diarrhea-chronic clear liquids, advance diet as tolerated IV fluids discontinue zofran pain control counseled on marijuana cessation feel may be related to cyclic vomiting syndrome ambulate for dvt prevention colonoscopy outpatient JR TRIPP DO 06/12/23 1041: Subjective Subjective/Events-last exam Not having any nausea or emesis. Tolerating clears. Feeling slightly better today. Pain about a 6/10 in luq. No new complaints. Denies fever sweats chills shortness of breath or chest pain. Objective Exam General Appearance: No Apparent Distress, WD/WN HEENT: PERRL/EOMI, Normal ENT Inspection Cardiovascular: Regular Rate, Rhythm, No JVD Gastrointestinal: soft, tenderness (LUQ ) Extremity: Normal Inspection, Non Tender Neurologic/Psychiatric: Alert, Oriented x3 Skin: Normal Color, Warm/Dry Lymphatic: No Adenopathy Assessment/Plan Assessment/Plan Assessment/Plan abdominal pain epigastric/LUQ Nausea Possible cyclic vomiting syndrome marijuana abuse colitis diarrhea-chronic clear liquids, advance diet as tolerated IV fluids pain control counseled on marijuana cessation feel may be related to cyclic vomiting syndrome ambulate for dvt prevention colonoscopy outpatient Supervisory-Addendum Brief Verification & Attestation Participated in pt care: history, MDM, physical Personally performed: exam, history, MDM, supervision of care Care discussed with: Medical Student Procedures: n/a Results interpretation: Verified all documentation Verification and Attestation of Medical Student E/M Service A medical student performed and documented this service in my presence. I reviewed and verified all information documented by the medical student and made modifications to such information, when appropriate. I personally performed the physical exam and medical decision making. Jr Tripp, Jun 12, 2023,10:44 DEXTER KAUFMAN Jun 12, 2023 07:34 JR TRIPP DO Jun 12, 2023 10:41
[2023-06-12] MEDS: PANTOPRAZOLE INJECTION 40 MG VIAL IV SCH (08:21)
[2023-06-12] MEDS ORDERED: HYDROcodone/ACETAMINOPHEN 5 MG/325 MG TABLET PO PRN (09:00)
[2023-06-12 11:26] VITALS: BP 159/94
--- NOTE | 2023-06-12 12:03 | Discharge Summary ---
Diagnosis/Chief Complaint Date of Admission Jun 10, 2023 at 14:42 Date of Discharge Discharge Date: Jun 12, 2023 Admission Diagnosis 1. Hyperemesis on this occasion may be aggravated by Cipro and Flagyl p.o. He does not have evidence for bacterial enteritis at this time so we will hold antibiotics yesterday as I recall a sed rate was normal. His longstanding postprandial related diarrhea is more likely due to IBS however he was strongly encouraged to follow through with colonoscopy to rule out inflammatory bowel disease. We will continue IV antiemetics advance diet and discontinue Cipro and Flagyl. Primary Care Center/[facility] Discharge Summary Discharge Physical Exam Allergies: Coded Allergies: lithium (Verified Allergy, Unknown, 06/07/23) Vitals & I&Os Vital Signs Date Time Temp Pulse Resp B/P (MAP) Pulse Ox O2 Delivery O2 Flow Rate FiO2 06/12/23 11:26 36.6 70 18 159/94 (115) 99 Room Air General Appearance: No Apparent Distress Gastrointestinal: Normal Bowel Sounds, No Organomegaly, No Pulsatile Mass, Non Tender, Soft Neurologic/Psychiatric: Alert, Oriented x3 Hospital Course Was the Problem List Reviewed?: Yes Patient is a 42-year-old male with a history of marijuana abuse, colitis who presents ED for intractable vomiting. Patient states he was discharged from our facility yesterday. Patient was feeling much better after being admitted for 2 days. Patient was discharged with Zofran and Phenergan. Woke up around 8 AM has been having excessive amount of vomiting described as bile. Reports upper abdominal pain and back pain. Described as sharp and constant. Patient was evaluated by Dr. Tripp. Was placed on Cipro and Flagyl during his stay. Was discharged with Cipro and Flagyl. Patient attempted to eat this morning which may have been a result of his symptoms. Denies of any dysuria, hematuria, chest pain, shortness of breath, cough, sore throat, ear pain, fever, chills, body aches, diarrhea. Vomiting on arrival Upon my arrival the patient was feeling better and getting ready to try Jell-O. He has some chronic left upper quadrant abdominal pain but denies chills fever as long as he does not eat he does not have any diarrhea but does report long history of postprandial diarrhea without evidence for blood bright red or melena. He only had some mild nausea yesterday morning took his antibiotics after he went to the bathroom he then began vomiting with increased nausea and no evidence for hematemesis reported. In review of his records in the past he had had an upper GI with small bowel follow-through for the same symptoms his transit time was a little over 2 hours which at that time would have ruled out gastroparesis contributing. He has been labeled on multiple hospital admissions for the same nausea and vomiting with likely THC related hyperemesis and is continue to smoke marijuana.Patient did not have signs or symptoms to suggest acute enteritis so Flagyl and Cipro were discontinued. He had no further nausea or vomiting which I suspect were aggravated by at least Flagyl. On the day of his discharge the he had had a hamburger for lunch with no nausea or abdominal pain and no diarrhea. He will be following up with Dr. Tripp for outpatient colonoscopy. Discussed I suspect that he does have a component of irritable bowel syndrome diarrhea predominant however certainly cannot rule out the possibility of ulcerative colitis favored to be less likely. Labs (last 24 hrs) Patient resulted labs reviewed. Discussion & Recommendations Discharge Planning: <30 minutes discharge planning Discharge Home Medications: Active Scripts Active Metronidazole 250 Mg Tablet 2 Tab PO BID Pantoprazole Sodium 40 Mg Tablet. 40 Mg PO DAILY Promethazine Tablet (Promethazine HCl) 25 Mg Tablet 25 Mg PO Q6H PRN Ciprofloxacin HCl 500 Mg Tablet 500 Mg PO BID Hydrocodone-Acetamin 5-325 mg (Hydrocodone/Acetaminophen) 5 Mg-325 Mg Tablet 1 Tab PO Q4H PRN Instructions to patient/family Please see electronic discharge instructions given to patient. Copy Copies To 2: [facility]/ELPIDIO KELLY MD Jun 12, 2023 12:03
[2023-06-12 13:36] VITALS: BP 159/94
== END 2023-06-12 11:57 | disposition home or self-care (01) ==
LOC: EDUNIT# 10:25 → ER 10:26 → 4TH 14:42 → UNDOADMOB 14:42 → 4TH 14:58 → UNDODISOB 06-12 11:57
PROVIDERS: ADMIT Internal Medicine; ATTEND Internal Medicine
DX: R11.2 Nausea with vomiting, unspecified (principal); R10.13 Epigastric pain; R10.11 Right upper quadrant pain; K52.9 Noninfective gastroenteritis and colitis, unspecified; I10 Essential (primary) hypertension; F12.10 Cannabis abuse, uncomplicated; Z86.59 Personal history of other mental and behavioral disorders
CPT/HCPCS: 36410; 74018; 76937; 80048; 80053; 80306; 81000; 83690; 83735 ×2; 85007; 85025; 85027; 96366 ×2; 96375 ×2; 96376 ×3; 99284; C1751; G0378; G0480; 36415; 80320

== ENCOUNTER 2023-07-26 09:49 | Day surgery (SDC) | payer OTHER ==
[~2023-07-26] VITALS: Ht 185.4 cm; Wt 92.5 kg
[2023-07-26] MEDS ORDERED: LACTATED RINGERS 1,000 ML 1,000 ML IV STA (10:04)
[2023-07-26] MEDS ORDERED: HURRICAINE EXT TUBE (BENZOCAINE) ONE (10:15)
[2023-07-26] MEDS ORDERED: HURRICAINE EXT TUBE (BENZOCAINE) XX PRN (10:15)
[2023-07-26] MEDS ORDERED: LACTATED RINGERS 1,000 ML 1,000 ML IV ONE (10:15)
[2023-07-26 10:20] VITALS: BP 112/72
--- NOTE | 2023-07-26 12:59 | Anesthesia-General Post-Op ---
MAC Patient Condition Mental Status/LOC: Same as Preop Cardiovascular: Satisfactory Nausea/Vomiting: Absent Respiratory: Satisfactory Pain: Controlled Complications: Absent Post Op Complications Complications None Follow Up Care/Instructions Patient Instructions None needed. Anesthesiology Discharge Order Discharge Order Patient is doing well, no complaints, stable vital signs, no apparent adverse anesthesia problems. No complications reported per nursing. DOMENICA SELLERS CRNA Jul 26, 2023 12:59
--- NOTE | 2023-07-26 12:59 | Progress Note-Post Operative ---
Post-Operative Progess Note Surgeon (s)/Technical Illustrator (s) Surgeon JR ENRIQUE DO Technical Illustrator: N/A Pre-Operative Diagnosis Epigastric pain, rectal bleeding Post-Operative Diagnosis Small hiatal hernia, duodenitis, sigmoid polyp Procedure & Operative Findings Date of Procedure 07/26/23 Procedure Performed/Findings EGD with biopsies, colonoscopy with hot biopsy, polypectomy x1 Anesthesia Type per BUSINESS LAW INSTRUCTOR Estimated Blood Loss Estimated blood loss (mL): none Specimens/Packing Specimens Removed Duodenum, antrum, GE junction, sigmoid polyp JR ENRIQUE DO Jul 26, 2023 12:59
[2023-07-26 13:00] VITALS: BP 101/58
[2023-07-26] MEDS ORDERED: SUCR1TAB36 PO (13:00)
--- NOTE | 2023-07-26 13:02 | Discharge Inst-Simple/Standard ---
Discharge Inst-Standard Discharge Medications New, Converted or Re-Newed RX: Transmitted to Pharmacy Patient Instructions/Follow Up Plan of Care/Instructions/FU: 2 weeks Qasim Activity as Tolerated: Yes Discharge Diet: Regular Diet JR ENRIQUE DO Jul 26, 2023 13:02
[2023-07-26 13:05] VITALS: BP 128/78
[2023-07-26] MEDS ORDERED: ONDANSETRON INJECTION 4 MG/2 ML (SDV) ONE (13:19)
[2023-07-26] MEDS ORDERED: ONDANSETRON INJECTION 4 MG/2 ML (SDV) IVP ONE (13:30)
[2023-07-26 13:50] VITALS: BP 128/78
--- NOTE | 2023-07-26 23:20 | OPERATIVE REPORT ---
DATE OF SERVICE: 07/26/2023 PREOPERATIVE DIAGNOSES: Epigastric pain, rectal bleeding. POSTOPERATIVE DIAGNOSES: Small hiatal hernia, duodenitis, sigmoid polyp. PROCEDURES: EGD with biopsies, colonoscopy with hot biopsy polypectomy x1. SURGEON: Jr Tripp DO ANESTHESIA: Per CREW CHIEF. ESTIMATED BLOOD LOSS: None. COMPLICATIONS: None. INDICATIONS: The patient is a 43-year-old male with some epigastric abdominal pain and rectal bleeding. He understands risks and benefits of procedures and wished to proceed. Consent was signed in chart. DESCRIPTION OF PROCEDURE: The patient was taken to endoscopy suite, placed in left lateral recumbent position. Timeout was performed. Scope was inserted in the mouth, down the esophagus, stomach, into the duodenum without difficulty. Second portion of duodenum had normal appearance. First portion had some erythematous changes consistent with duodenitis. Biopsy was obtained. Scope was slowly retracted back into stomach where it was further insufflated. Biopsy of the antrum was obtained. No polyps, masses or ulcerations. Scope was retroflexed noting a small hiatal hernia. Scope was returned to its normal position, slowly withdrawn until distal esophagus. Biopsy of GE junction was obtained. No polyps, masses or ulcerations. Scope was slowly retracted back until completely removed, noting no other pathology. Digital rectal exam was performed. No palpable polyps, masses or ulcerations. Scope was inserted in the rectum and advanced all the way to the way to the cecum with minimal difficulty. No polyps, masses or ulcerations in the cecum, ascending, transverse, descending colon. In sigmoid colon, polyp was present, which hot biopsy polypectomy was performed. Scope was continuously retracted back into the rectum where it was also retroflexed noting no other pathology. Scope was returned to its normal position, slowly withdrawn until completely removed. The patient tolerated the procedure well, no complications, taken to recovery room in stable condition. RECOMMENDATIONS: The patient will repeat colonoscopy in 5 years due to polyps. Any issues before that, be seen at that time. The patient on Protonix 40 mg daily. We will add Carafate 1 gram 4 times a day. We will see how symptoms are doing. We will follow up on pathology in 2 weeks. Job ID: [id number] DocumentID: [id number] Dictated Date: 07/26/2023 13:00:10 Hedge Trimmer Date: 07/26/2023 23:18:00 Dictated By: JR TRIPP DO
== END 2023-07-26 13:50 | disposition home or self-care (01) ==
LOC: ENDO 09:49
PROVIDERS: ATTEND Surgery
DX: K29.80 Duodenitis without bleeding (principal); D12.5 Benign neoplasm of sigmoid colon; K44.9 Diaphragmatic hernia without obstruction or gangrene; K31.89 Other diseases of stomach and duodenum; K21.9 Gastro-esophageal reflux disease without esophagitis; K62.5 Hemorrhage of anus and rectum; Z79.899 Other long term (current) drug therapy

== ENCOUNTER 2023-08-06 10:15 | Emergency (ER) | payer OTHER ==
[~2023-08-06] VITALS: Ht 185.5 cm; Wt 92.5 kg
[~2023-08-06 10:15] MED LIST changes: +SUCR1TAB36 PO
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
[2023-08-06] MEDS ORDERED: AMOX1TAB12 PO (11:11)
[2023-08-06] MEDS ORDERED: ACHD5005 PO (11:11)
[2023-08-06 11:14] VITALS: BP 153/104
[2023-08-06] MEDS ORDERED: HYDROcodone/ACETAMINOPHEN 10/325 TABLET PO ONE (11:15)
== END 2023-08-06 11:14 | disposition home or self-care (01) ==
LOC: EDUNIT# 10:15 → ER 10:17
DX: K04.7 Periapical abscess without sinus (principal); K02.9 Dental caries, unspecified
CPT/HCPCS: 99283

== ENCOUNTER 2023-09-29 05:27 | Outpatient (CLI) | payer OTHER ==
[~2023-09-29] VITALS: Ht 185.5 cm; Wt 93.2 kg
[~2023-09-29 05:27] MED LIST changes: +AMOX1TAB12 PO
[2023-10-01] MEDS ORDERED: AMOX1TAB12 PO (12:41)
[2023-10-01] MEDS ORDERED: ACHD5005 PO (12:41)
== END 2023-09-30 10:33 | disposition home or self-care (01) ==
LOC: PREOP 05:27
PROVIDERS: ATTEND Surgery
DX: Z01.818 Encounter for other preprocedural examination (principal)

== ENCOUNTER 2023-10-01 12:06 | Emergency (ER) | payer OTHER ==
[2023-10-01] MEDS ORDERED: HYDROcodone/ACETAMINOPHEN 10/325 TABLET PO ONE (12:30)
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
[2023-10-01] MEDS ORDERED: AMOX1TAB12 PO (12:41)
[2023-10-01] MEDS ORDERED: ACHD5005 PO (12:41)
[2023-10-01 12:57] VITALS: BP 172/116
== END 2023-10-01 12:58 | disposition home or self-care (01) ==
LOC: EDUNIT# 12:06 → ER 12:08
DX: K04.7 Periapical abscess without sinus (principal); K02.9 Dental caries, unspecified
CPT/HCPCS: 99283